=== PATIENT | male | born 1940 | race Caucasian/White ===

== ENCOUNTER 2021-11-11 19:32 | Emergency (ER) | payer MEDICARE, BC, SELFPAY ==
[2021-11-11 19:41] VITALS: BP 154/88; PULSE 63; RESP 18; TEMP 37.1; O2SAT 95; BMI 31.4
--- NOTE | 2021-11-11 19:53 | CRLHL7_ITS ---
For Patients: As a result of the Century Cures Act, medical imaging exams and procedure reports are released immediately into your electronic medical record. You may view this report before your referring provider. If you have questions, please contact your health care provider. INDICATION: Fall, hit back of head. COMPARISON: None. TECHNIQUE: CT of the head without IV contrast. Coronal and sagittal reconstructions. FINDINGS: No intracranial hemorrhage, mass effect, or evidence of acute infarct. No midline shift. No abnormal extra-axial fluid collections. Mild generalized cerebral and cerebellar volume loss with associated ex vacuo dilation of the lateral ventricles. Mild chronic small vessel ischemic disease. Orbits and extraocular muscles are symmetric. The paranasal sinuses and mastoid air cells are clear. No acute fracture identified. Soft tissues are unremarkable. IMPRESSION: : 1. No acute intracranial findings. 2. Mild generalized cerebral volume loss and mild chronic small vessel ischemic disease. Please note that all CT scans at this facility use dose modulation, iterative reconstruction, and/or weight-based dosing when appropriate to reduce radiation dose to as low as reasonably achievable. Dictated by Francesca Smith MD @ 11/11/2021 8:35:28 PM (Electronically Signed)
--- NOTE | 2021-11-11 19:53 | ED.NURSE ---
call to imaging for head ct
--- NOTE | 2021-11-11 19:57 | CRLHL7_ITS ---
For Patients: As a result of the Cures Act, medical imaging exams and procedure reports are released immediately into your electronic medical record. You may view this report before your referring provider. If you have questions, please contact your health care provider. Indication: Fall, hit back of head. Technique: CT of the cervical spine without IV contrast. Coronal and sagittal reconstructions. Comparison: None. Findings: No acute fracture or traumatic malalignment of the cervical spine. Vertebral body heights are well maintained. Minimal anterolisthesis of C2 on C3 and C7 on T1. Anterior instrumented fusion of C6-C7. Hardware appears intact. Spondylotic changes of the cervical spine including endplate spurring, facet arthropathy, and moderate disc space narrowing at C5-C6. Multilevel varying degrees of neural foraminal narrowing. Mild spinal canal stenosis at C5-C6. Visualized intracranial contents are unremarkable. No prevertebral soft tissue swelling. The mastoid air cells are clear. Impression: 1. No acute fracture or traumatic malalignment of the cervical spine. 2. Intact anterior instrumented fusion of C6-C7. 3. Spondylotic changes of the cervical spine as described above. Please note that all CT scans at this facility use dose modulation, iterative reconstruction, and/or weight-based dosing when appropriate to reduce radiation dose to as low as reasonably achievable. Dictated by Francesca Smith MD @ 11/11/2021 8:45:08 PM (Electronically Signed)
[2021-11-11] MEDS: ACETAMINOPHEN 500 MG TABLET 1000 MG PO (20:19)
--- NOTE | 2021-11-11 20:34 | ED_ITS ---
HPI - General Adult General Chief complaint: Head Injury/Pain Stated complaint: Fell backwards bleeding from scalp Time Seen by Provider: 11/11/21 19:53 History of Present Illness HPI narrative: 81-year-old male coming in today after head injury. He states that he was putting his dog in the car he was bending over when he lost his balance and fell backwards 1st on his buttocks and then slamming his head on the ground. He states that he has bit of a headache. He denies any confusion or blurry vision. He has not vomited. This occurred approximately 1 hour ago. He states that he has a chronic disease that causes muscle weakness-unclear of what this is. He states that losing his balance is not uncommon for him. States that he is getting some treatment for this. His past medical history is also significant for diabetes, hypertension, prostate cancer, hyperlipidemia, obstructive sleep apnea, obesity, mild cognitive impairment, GERD. Patient is not on any blood thinners. Related Data Home Medications Medication Instructions Recorded Confirmed alfuzosin 10 mg tablet,extended mg PO 11/11/21 release 24 hr atenolol 25 mg tablet mg 11/11/21 mirabegron 50 mg tablet,extended mg PO 11/11/21 release 24 hr (Myrbetriq) Allergies Allergy/AdvReac Type Severity Reaction Status Date / Time Sulfa (Sulfonamide Allergy Verified 11/11/21 19:46 Antibiotics) lisinopril AdvReac Verified 11/11/21 19:46 jenuvia AdvReac arms itch Uncoded 11/11/21 19:46 Review of Systems Status of ROS: Reports: 10 or more systems reviewed and unremarkable except as noted in History and below [facility] LICENSE OF [facility] Social History Smoking Status: Former smoker How often do you have a drink containing alcohol: never AUDIT-C Alcohol total score: 0 Non-prescribed substance use: denies use Exam Narrative: Exam Narrative: Well-nourished well-developed patient in no acute distress. Alert and oriented. Answers questions appropriately. Mood and affect are appropriate. Thoughts are goal oriented and rational. No tangential or magical thinking noted. Patient speaks in full sentences without needing to catch their breath. HEENT: Normocephalic. Pupils are equally round reactive to light. Extraocular muscles are intact. Conjunctivae are moist without any icterus noted. Moist mucous membranes. Posterior pharynx is normal. Neck is soft without any lymphadenopathy or thyromegaly. No masses are appreciated. No trauma to the inside of the mouth. He has full range of motion at the neck with flexion, exte nsion, side way bending and rotation although he states that it is somewhat uncomfortable on both sides of the neck with any movement. He does have a a lesion to the back of the scalp where the skin has been crushed between his scalp and the cement with multiple oozing areas of blood however no sharp laceration. Cardiovascular: Heart is regular rate and rhythm S1 and S2 are present. Skin: Well perfused without any obvious rashes. Strength is 5/5 of the upper and lower extremities. Reflexes are 2+ and symmetric at the knees. Cranial nerves 3-12 are normal. There is no nystagmus either horizontally or vertically. Const: Vital Signs, click to edit/add: Vital Signs - 24 hr 11/11/21 19:41 Temperature 98.7 F Pulse Rate [Left P ulse Oximeter] 63 Respiratory Rate 18 Blood Pressure [Ri ght Upper Arm] 154/88 H Pulse Oximetry 95 Course Course Hospital Course: Upon arrival patient had a evaluation and examination and proceeded straight to head and neck CT. These were unremarkable. Vital Signs Vital signs: Initial Vital Signs Temperature 98.7 F 11/11/21 19:41 Temperature Source Temporal Artery Scan 11/11/21 19:41 Pulse Rate 63 11/11/21 19:41 Respiratory Rate 18 11/11/21 19:41 Blood Pressure 154/88 H 11/11/21 19:41 Blood Pressure Mean 110 11/11/21 19:41 Pulse Oximetry 95 11/11/21 19:41 Oxygen Delivery Method 11/11/21 19:41 Vital Signs Temperature 98.7 F 11/11/21 19:41 Pulse Rate 63 11/11/21 19:41 Respiratory Rate 18 11/11/21 19:41 Blood Pressure 154/88 H 11/11/21 19:41 Pulse Oximetry 95 11/11/21 19:41 Temperature 98.7 F 11/11/21 19:41 Pulse Rate 63 11/11/21 19:41 Respiratory Rate 18 11/11/21 19:41 Blood Pressure 154/88 H 11/11/21 19:41 Pulse Oximetry 95 11/11/21 19:41 Medical Decision Making [facility] Narrative Medical decision making narrative: 81-year-old male status post fall and closed head injury and likely a mild concussion without cognitive deficits. We discussed brain rest and reasons to return to the ER. As far as the lesion on the back of the head we discussed wound hygiene, signs and symptoms of infection and reasons for follow-up. Patient and were agreeable to everything discussed had no other questions. Imaging Data Cervical spine CT: Attestation: I have reviewed the pertinent imaging results. Radiologist's impression: Findings: No acute fracture or traumatic malalignment of the cervical spine. Vertebral body heights are well maintained. Minimal anterolisthesis of C2 on C3 and C7 on T1. Anterior instrumented fusion of C6-C7. Hardware appears intact. Spondylotic changes of the cervical spine including endplate spurring, facet arthropathy, and moderate disc space narrowing at C5-C6. Multilevel varying degrees of neural foraminal narrowing. Mild spinal canal stenosis at C5-C6. Visualized intracranial contents are unremarkable. No prevertebral soft tissue swelling. The mastoid air cells are clear. Impression: 1. No acute fracture or traumatic malalignment of the cervical spine. 2. Intact anterior instrumented fusion of C6-C7. 3. Spondylotic changes of the cervical spine as described above. CT scan - head: Attestation: I have reviewed the pertinent imaging results. Radiologist's impression: FINDINGS: No intracranial hemorrhage, mass effect, or evidence of acute infarct. No midline shift. No abnormal extra-axial fluid collections. Mild generalized cerebral and cerebellar volume loss with associated ex vacuo dilation of the lateral ventricles. Mild chronic small vessel ischemic disease. Orbits and extraocular muscles are symmetric. The paranasal sinuses and mastoid air cells are clear. No acute fracture identified. Soft tissues are unremarkable. IMPRESSION: : 1. No acute intracranial findings. 2. Mild generalized cerebral volume loss and mild chronic small vessel ischemic disease. Discharge Plan Discharge Clinical Impression: Concussion without loss of consciousness, Closed head injury Patient Disposition: Home, Self-Care Condition: Stable Additional Instructions: Okay to take Tylenol as needed/as directed for discomfort. Recommend getting plenty of rest over the next few days to let your brain recover. If you feel like you are becoming more confused, start vomiting, or have worsening pain that is not well controlled recommend you return to the emergency room. Keep the back air head clean and dry. Okay to shower like he normally would. Recommend putting some antibiotic ointment on there once or twice per day for 2- 3 days, until it forms a nice scab. If the area becomes very red or hot to touch, follow-up with your doctor right away. Prescriptions: No Action atenolol 25 mg tablet 0RF alfuzosin 10 mg tablet extended release 24 hr PO 0RF Myrbetriq 50 mg tablet extended release 24 hr PO 0RF Stand Alone Forms: [employer] Info Instructions
[2021-11-11 20:59] VITALS: BP 136/70; PULSE 78; RESP 18; TEMP 37.1
== END 2021-11-11 20:59 | disposition home or self-care (01) ==
LOC: ED 20:47
PROVIDERS: Emergency Provider Family Medicine
DX: S06.0X0A Concussion without loss of consciousness, initial encounter (principal); W19.XXXA Unspecified fall, initial encounter
CPT/HCPCS: 70450; 72125; 99284; A9270

== ENCOUNTER 2023-02-10 18:15 | Outpatient (CLI) | payer MEDICARE, BC, SELFPAY ==
--- OUTSIDE RECORDS SUMMARY | 2023-02-14 15:34 | XMS_ITS | Clinical Summary ---
Author Name Unknown Address [address] [place] [address] Phone Organization [facility] Address [address] [place] [address] Phone Care Team Providers Care Echocardiograph Technician Name Role Phone Tom Brantley MD, Ismael Roche Unavailable [phone] Ricky SPENCER, Heron Epstein Unavailable [phone] Vita SPENCER, Gail Jimenez Unavailable [phone] Blas Walsh MD Unavailable [phone] Chris SPENCER, Misael Guillaume Unavailable [phone] Paul Sheikh DO Primary Care Provide r [phone] Reason for Visit and Chief Complaint The Chief Complaint is: follow up, multiple falls Problems Includes: Problems addressed during this encounter and other active Problems All Visits Onset Date Resolved Date Provider Condition S tatus Diabetes Mellitus Type 2 11/07/2017 Blas Persaud MD Active Last Documented On 8 12:03PM ; [facility] Esophageal Reflux 11/07/2017 Blas Walsh MD Active Last Documented On 8 12:01PM ; [facility] Essential Hypertriglyceridemia 11/07/2017 Huy Walsh MD Active Last Documented On 8 12:06PM ; [facility] Essential Hypertension 11/07/2017 Blas roche MD Active Last Documented On 8 12:05PM ; [facility] Hemorrhoids Internal 11/07/2017 Blas Walsh MD Active Last Documented On 8 12:04PM ; [facility] Intestinal Disorder Diverticular 11/07/2017 Darrell Walsh MD Active Last Documented On 8 12:06PM ; [facility] Obesity 11/07/2017 Blas Walsh MD Active Last Documented On 8 12:02PM ; [facility] Osteoarthritis 11/07/2017 Blas Walsh MD Act jigar Last Documented On 8 12:06PM ; [facility] 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 Spondylosis 11/07/2017 Blas Walsh MD Active Last Documented On 8 12:04PM ; [facility] Familial (Benign Essential) Tremor 11/07/2017 Tristan Walsh MD Active Last Documented On 8 12:05PM ; [facility] 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 Plan of Treatment 81-year-old [...] would benefit from a power chair. A [id number] has been provided below. However, he is [...] Electrodiagnostic Medicine ([facility]/EMG) [facility] [address] [place] [address] This note was created using voice recognition software and is subject to errors including those of syntax which may escape proofreading. - Last Documented On 06/18/2021 12:08PM ; [facility] Education and Decision Aids were provided during visit for: Patient education about diet ramandeep needs Last Documented On 2 11:23AM ; [facility] Assessments Includes: Assessments from this encounter No Assessments Recorded Instructions Includes: Instructions from this encounter Education and Decision Aids were provided during visit for: Patient education about diet ramandeep needs Last Documented On 2 11:23AM ; [facility] Medical Equipment - Implanted Devices Includes: Current Devices No Medical Equipment Recorded Medications Includes: Medications discussed during this encounter and other current Medications Discontinued / Stopped on this date on 08/07/2020 Rosuvastatin Calcium 5 MG Oral Tablet Pro vider: Diagnosis: Last Documented On 2 11:25AM By Trini Tran ; [facility] Vitamin D3 25 MCG (1000 UT) Oral Tablet Chewable Provider: Diagnosis: Last Documented On 2 11:24AM By Trini Tran ; [facility] Current Medications (continue as prescribed) Myrbetriq 25 MG Oral Tablet Extended Release 24 Hour 0 12/20/2020 Provider: Diagnosis: Last Documented On 1 10:33AM By Rayne MckeeTERMED* ; [facility] Lisinopril 20 MG Oral Tablet 08/07/2020 Provider: Diagnosis: Last Documented On 1 11:01AM By Rayne MckeeTERMED* ; [facility] Januvia 100 MG Oral Tablet 08/07/2020 Provider: Diagnosis: 1 QD Last Documented On 1 11:17AM By Rayne Olson *TERMED* ; [facility] Atenolol 25 MG Oral Tablet 08/07/2020 Provider: Diagnosis: Last Documented On 1 11:18AM By Rayne Olson *TERMED* ; [facility] Alfuzosin HCl ER 10 MG Oral Tablet Extended Rele ase 24 Hour 08/07/2020 Provider: Diagnosis: 1 HS Last Documented On 1 11:19AM By Rayne Olson *TERMED* ; [facility] Multivitamin Oral Tablet 08/07/2020 Provider: Diagnosis: Last Documented On 1 11:20AM By Rayne MckeeTERMED* ; [facility] CoQ10 100 MG Oral Capsule 08/07/2020 Provider: Diagnosis: Last Documented On 1 11:40AM By Trini Trna ; [facility] Medications Administered Includes: Administered [...] 2.3 Last Documented On: 06/18/2021 11:27AM ; [facility] Results Includes: Results discussed [...] 06/18/2021 Last Documented On 2 12:08PM ; [facility] Use of tobacco assessment performed 05/29 Last Documented On 2 12:08PM ; [facility] Smoking Status Unknown Procedures and Surgical History Includes: Procedures from this encounter Procedures Code Diagnosis Performing Provider Service L ocation Service Date history of influenza virus vaccine Last Documented On 2 11:23AM ; [facility] [employer] history of pneumococcal vaccine Last Documented On 2 11:23AM ; [facility] [employer] [facility] Medical History Includes: Medical History [...] ve Last Documented On 2 11:21AM ; [facility] Sulfa Antibiotics Allergy 11/07/2017 A ctive Last Documented On 2 11:21AM ; [facility] Simvastatin Allergy 11/07/2017 Active Last Documented On 2 11:21AM ; [facility] Lyrica Allergy 11/07/2017 Active Last Documented On 2 11:21AM ; [facility] Byetta 10 MCG Pen Allergy 11/07/2017 A ctive Last Documented On 2 11:21AM ; [facility] Encounters Encounter Provider Location Date Check-In Time Check-Out Time Diagnosis Follow up Gail Gorman MD [facility] 2 11:10AM 11:58AM Insurance Includes: Active Insurance Policies Plan Name Member ID Group # Subscriber Relationship Effect jigar Dates 1 - Medicare : [id number] Pritesh Funez Self 2 - Bc/bs Fl(federal) :[facility] [id number] Pritesh Mckeon 04/27/2019 - Unknown Clinical Notes Includes: Clinical Notes from this encounter No Clinical Notes Recorded
--- OUTSIDE RECORDS SUMMARY | 2023-02-14 15:34 | XMS_ITS ---
Author Name Unknown Address [address] [place] [address] Phone Organization [facility] Address [address] [place] [address] Phone Care Team Providers Care Microsoft Exchange Administrator Name Role Phone Tom Brantley MD, Ismael Roche Unavailable [phone] Ricky SPENCER, Heron Epstein Unavailable [phone] Vita SPENCER, Gail Jimenez Unavailable [phone] Blas Walsh MD Unavailable [phone] Chris SPENCER, Misael Guillaume Unavailable [phone] Paul Sheikh DO Primary Care Provide r [phone] Problems Includes: Active, inactive, and resolved Problems All Visits Onset Date Resolved Date Provider Condition S tatus Diabetes Mellitus Type 2 11/07/2017 Blas Persaud MD Active Last Documented On 8 12:03PM ; [facility] Esophageal Reflux 11/07/2017 Blas Walsh MD Active Last Documented On 8 12:01PM ; [facility] Essential Hypertriglyceridemia 11/07/2017 Huy Walsh MD Active Last Documented On 8 12:06PM ; [facility] Essential Hypertension 11/07/2017 Blas roche MD Active Last Documented On 8 12:05PM ; [facility] Hemorrhoids Internal 11/07/2017 Blas Walsh MD Active Last Documented On 8 12:04PM ; [facility] Intestinal Disorder Diverticular 11/07/2017 Darrell Walsh MD Active Last Documented On 8 12:06PM ; [facility] Obesity 11/07/2017 Blas Walsh MD Active Last Documented On 8 12:02PM ; [facility] Osteoarthritis 11/07/2017 Blas Walsh MD Act jigar Last Documented On 8 12:06PM ; [facility] 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 Spondylosis 11/07/2017 Blas Walsh MD Active Last Documented On 8 12:04PM ; [facility] Familial (Benign Essential) Tremor 11/07/2017 Tristan Walsh MD Active Last Documented On 8 12:05PM ; [facility] 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 Plan of Treatment Findings Encounter Date Clinical staff counseled pat joshua to adopt healthy behaviors as appropriate Follow up with Gail Gorman MD 12/20/2020 Last Documented On 1 1:09PM ; [facility] Clinical staff counseled markos cuevant to adopt healthy behaviors as appropriate Follow up with Gail Gorman MD 08/22/2020 Last Documented On 1 5:15PM ; [facility] Instructions to patient Lose weight Patient encourag e to limit portion sizes and to tract and restrict their total daily caloric intake Last Documented On 1 10:37AM ; [facility] Lose weight Patient encourag e to limit portion sizes and to tract and restrict their total daily caloric intake Last Documented On 1 8:41AM ; [facility] Lose weight Patient encourag e to limit portion sizes and to tract and restrict their total daily caloric intake Last Documented On 1 11:05AM ; [facility] Education and Decision Aids were provided during visit for: Patient education about diet ramandeep needs Last Documented On 2 11:23AM ; [facility] Clinical staff counseled pat ient to adopt healthy behaviors as appropriate Last Documented On 1 10:35AM ; [facility] Clinical staff counseled pat ient to adopt healthy behaviors as appropriate Last Documented On 1 8:46AM ; [facility] Assessments Includes: Assessments for all patient encounters No Assessments Recorded Instructions Includes: Instructions for all patient encounters Instructions to patient Lose weight Patient encourag e to limit portion sizes and to tract and restrict their total daily caloric intake Last Documented On 1 10:37AM ; [facility] Lose weight Patient encourag e to limit portion sizes and to tract and restrict their total daily caloric intake Last Documented On 1 8:41AM ; [facility] Lose weight Patient encourag e to limit portion sizes and to tract and restrict their total daily caloric intake Last Documented On 1 11:05AM ; [facility] Education and Decision Aids were provided during visit for: Patient education about diet ramandeep needs Last Documented On 2 11:23AM ; [facility] Clinical staff counseled pat ient to adopt healthy behaviors as appropriate Last Documented On 1 10:35AM ; [facility] Clinical staff counseled pat ient to adopt healthy behaviors as appropriate Last Documented On 1 8:46AM ; [facility] Medical Equipment - Implanted Devices Includes: Current and historical Devices No Medical Equipment Recorded Medications Includes: Current and historical Medications Current Medications (continue as prescribed) Myrbetriq 25 MG Oral Tablet Extended Release 24 Hour 0 12/20/2020 Provider: Diagnosis: Last Documented On 1 10:33AM By Rayne Olson *TERMED* ; [facility] Lisinopril 20 MG Oral Tablet 08/07/2020 Provider: Diagnosis: Last Documented On 1 11:01AM By Rayne Olson *TERMED* ; [facility] Januvia 100 MG Oral Tablet 08/07/2020 Provider: Diagnosis: 1 QD Last Documented On 1 11:17AM By Rayne Olson *TERMED* ; [facility] Atenolol 25 MG Oral Tablet 08/07/2020 Provider: Diagnosis: Last Documented On 1 11:18AM By Rayne MckeeTERMED* ; [facility] Alfuzosin HCl ER 10 MG Oral Tablet Extended Rele ase 24 Hour 08/07/2020 Provider: Diagnosis: 1 HS Last Documented On 1 11:19AM By Rayne RYAN* ; [facility] Multivitamin Oral Tablet 08/07/2020 Provider: Diagnosis: Last Documented On 1 11:20AM By Rayne RYAN* ; [facility] CoQ10 100 MG Oral Capsule 08/07/2020 Provider: Diagnosis: Last Documented On 1 11:40AM By Trini Tran ; [facility] Past Medications on file Rosuvastatin Calcium 5 MG Oral Tablet 08/07/2020 - Provider: Diagnosis: Last Documented On 2 11:25AM By Trini Tran ; [facility] CVS Vitamin D3 25 MCG (1000 UT) Oral Tablet Chewable 08/07/2020 - 06/18/2021 Provider: Diagnosis: Last Documented On 2 11:24AM By Trini Tran ; [facility] EQL Fish Oil 1000 MG Oral Capsule 08/07/2020 - 021 Provider: Diagnosis: Last Documented On 1 10:32AM By Rayne RYAN* ; [facility] Medications Administered Includes: Administered Medications in patient's chart No Administered Medications Recorded Vital Signs Includes: Vital Signs through 02/14/2023 Vital Name 06/18/2021 11:23A 12/20/2020 10:26A 08/22/2020 [...] 95.1 Last Documented On: 06/18/2021 11:27AM ; [facility] 12/20/2020 10:35AM ; [facility] 08/22/2020 8:48AM ; [facility] Results Includes: Results through 02/14/2023 CREATININE iSTAT [facility] Ordered by Gail Gorman MD on 09/14/19 Collected: 09/13/2020 Reported: 09/14/19 16:56 Last Documented On 8:26AM ; [facility] Reviewed by Gail Ospina on 09/14/2020; All test results are final unless otherwise noted. CREATININE iSTAT 0.7 mg/dL (0.6-1.3) N (Normal) Last Documented On 8:03PM ; [facility] Note: Specimen Number: [id number] Reported Physicians [facility] Ordered by Gail Gorman MD on 09/14/19 Collected: 09/13/2020 Reported: 09/14/19 16:56 Last Documented On 8:26AM ; [facility] Reviewed by Gail Ospina on 09/14/2020; All test results are final unless otherwise noted. Reported Physicians See Note None Last Documented On 09/13/2020 8:03PM ; [facility] Note: Reported Physicians:Ordering: Lauren Gormanending: Gail Gorman SJOGREN'S AB (SSA/SSB) [facility] Ordered by Gail Gorman MD on 08/10/19 Collected: 08/09/2020 Reported: 08/12/19 12:33 Last Documented On 11:01AM ; [facility] Reviewed by Gail Ospina on 08/14/2020; All test results are final unless otherwise noted. SS-A/Ro AB <0.2 N (Normal) Last Documented On 08/11/2020 4:00PM ; [facility] Note: Reference range: <1.0 (Negative)Unit: U SS-B/La AB <0.2 N (Normal) Last Documented On 08/11/2020 4:00PM ; [facility] Note: Reference range: <1.0 (Negative)Unit: U Test Performed by:[facility] [place] [id number] Director: Mat Pearl M.D. Ph.D.; IA# [id number] Number: [id number] Reported Physicians [facility] Ordered by Gail Gorman MD on 08/10/19 Collected: 08/09/2020 Reported: 08/12/19 12:33 Last Documented On 1 11:01AM ; [facility] Reviewed by Gail Ospina on 08/14/2020; All test results are final unless otherwise noted. Reported Physicians See Note None Last Documented On 08/11/2020 4:00PM ; [facility] Note: Reported Physicians:Ordering: Lauren Gormanending: Gail Gorman KAPPA/LAMBDA QNT FLC [facility] Ordered by Gail Gorman MD on 08/10/19 Collected: 08/09/2020 Reported: 08/14/19 07:27 Last Documented On 1 11:01AM ; [facility] Reviewed by Gail Ospina on 08/14/2020; All test results are final unless otherwise noted. KAPPA LIGHT CHN,FR,S 17.9 N (Normal) Last Documented On 1 10:31AM ; [facility] Note: Reference range: 3.3 to 19.4Unit: mg/L KAPPA/LAMBDA,FR RAT 1.21 N (Normal) Last Documented On 1 10:31AM ; [facility] Note: Reference range: 0.26 [...] response totherapy of these disorders.Test Performed by [facility],[address] [place] [id number] Kumar M.D., Ph.D., Director of [phone], [facility] [id number] Number: [id number] LAMBDA LIGHT CH,FR,S 14.8 N (Normal) Last Documented On 1 10:31AM ; [facility] Note: Reference range: 5.7 to 26.3Unit: mg/L Reported Physicians [facility] Ordered by Gail Gorman MD on 08/10/19 Collected: 08/09/2020 Reported: 08/14/19 07:27 Last Documented On 1 11:01AM ; [facility] Reviewed by Gail Ospina on 08/14/2020; All test results are final unless otherwise noted. Reported Physicians See Note None Last Documented On 08/13/2020 10:31AM ; [facility] Note: Reported Physicians:Ordering: Lauren Gormanending: Gail Gorman IMMUNOFIXATN PROF,SERUM [facility] Ordered by Gail Gorman MD on 08/10/19 Collected: 08/09/2020 Reported: 08/15/19 21 15:48 Last Documented On 1 9:55AM ; [facility] Reviewed by Gail Ospina on 08/17/2020; All test results are final unless otherwise noted. TP, SERUM 6.6 g/dL (6.4-8.3) N (Normal) Last Documented On 1 7:33PM ; [facility] ALBUMIN 4.0 g/dL (3.0-5.2) N (Normal) Last Documented On 1 7:33PM ; [facility] A1 GLOBULIN 0.2 g/dL (0.1-0.4) N (Normal) Last Documented On 7:33PM ; [facility] A2 GLOBULIN 0.8 g/dL (0.4-1.0) N (Normal) Last Documented On 1 7:33PM ; [facility] BETA GLOBULIN 0.7 g/dL (0.7-1.6) N (Normal) Last Documented On 7:33PM ; [facility] GAMMA GLOBULIN 0.9 g/dL (0.7-2.0) N (Normal) Last Documented On 7:33PM ; [facility] A/G RATIO 1.5 Units (1.2-2.2) N (Normal) Last Documented On 7:33PM ; [facility] IGA 64 mg/dL (70-400) L (Low) Last Documented On 7:33PM ; [facility] IGG 767 mg/dL (700-1600) N (Normal) Last Documented On 7:33PM ; [facility] IGM 47 mg/dL (40-230) N (Normal) Last Documented On 7:33PM ; [facility] PATH INTERP SPE Interpretation: No abnormal protein seen. N (Normal) Last Documented On 08/14/2020 7:33PM ; [facility] Note: SIFE Interpretation: No abnormal protein is seen. Specimen Number: [id number] Reported Physicians [facility] Ordered by Gail Gorman MD on 08/10/19 Collected: 08/09/2020 Reported: 08/15/19 15:48 Last Documented On 9:55AM ; [facility] Reviewed by Gail Ospina on 08/17/2020; All test results are final unless otherwise noted. Reported Physicians See Note None Last Documented On 08/14/2020 7:33PM ; [facility] Note: Reported Physicians:Ordering: Lauren Gormanending: Gail Gorman METHYLMALONIC ACID [facility] Ordered by Gail Gorman MD on 08/10/19 Collected: 08/09/2020 Reported: 08/20/19 05:23 Last Documented On 1 10:47AM ; [facility] Reviewed by Gail Ospina on 08/20/2020; All test results are final unless otherwise noted. METHYLMALONIC ACID 179 N (Normal) Last Documented On 08/19/2020 8:37AM ; [facility] Note: Reference range: 87 to 318Unit: nmol/L This test was developed and its analytical performancecharacteristics have been determined by [employer] [place], [place]. It hasnot been cleared or approved by the U.S. Food and DrugAdministration. This assay has been validated pursuantto the CLIA regulations and is used for clinicalpurposes.Test Performed by [facility],[employer] [facility],[address] [place] [id number] Kumar M.D., Ph.D., Director of [phone], CLIA [id number] Number: [id number] Reported Physicians [facility] Ordered by Gail Gorman MD on 08/10/19 Collected: 08/09/2020 Reported: 08/20/19 05:23 Last Documented On 1 10:47AM ; [facility] Reviewed by Gail Ospina on 08/20/2020; All test results are final unless otherwise noted. Reported Physicians See Note None Last Documented On 08/19/2020 8:37AM ; [facility] Note: Reported Physicians:Ordering: Lauren Gormanending: Gail Gorman HEMOGLOBIN A1C [facility] Ordered by Gail Gorman MD on 08/10/19 Collected: 08/09/2020 Reported: 08/10/19 17:29 Last Documented On 1 11:01AM ; [facility] Reviewed by Gail Ospina on 08/14/2020; All test results are final unless otherwise noted. HEMOGLOBIN A1C 7.1 % (4.0-6.0) H (High) Last Documented On 10:45PM ; [facility] Note: Specimen Number: [id number] VITAMIN B12 [facility] Ordered by Gail Gorman MD on 08/10/19 Collected: 08/09/2020 Reported: 08/10/19 17:54 Last Documented On 11:01AM ; [facility] Reviewed by Gail Ospina on 08/14/2020; All test results are final unless otherwise noted. VITAMIN B12 502 pg/mL (193-986) N (Normal) Last Documented On 10:45PM ; [facility] Note: Specimen Number: [id number] HEP C AB [facility] Ordered by Gail Gorman MD on 08/10/19 Collected: 08/09/2020 Reported: 08/10/19 18:18 Last Documented On 11:01AM ; [facility] Reviewed by Gail Ospina on 08/14/2020; All test results are final unless otherwise noted. HEP C AB NONREACTIVE (NONREACTIVE) N (Normal) Last Documented On 10:45PM ; [facility] Note: Specimen Number: [id number] Reported Physicians [facility] Ordered by Gail Gorman MD on 08/10/19 Collected: 08/09/2020 Reported: 08/10/19 18:18 Last Documented On 1 11:01AM ; [facility] Reviewed by Gail Ospina on 08/14/2020; All test results are final unless otherwise noted. Reported Physicians See Note None Last Documented On 08/09/2020 10:45PM ; [facility] Note: Reported Physicians:Ordering: Lauren Gormanending: Gail Gorman History of Present Illness History of Present Illness not supported for this document type No History of Present Illness Recorded Social History Description Last Updated Former smoker 06/18/2021 Last Documented On 2 12:08PM ; [facility] Use of tobacco assessment performed 05/29 Last Documented On 2 12:08PM ; [facility] Patient has living will 12/20/2020 Last Documented On 1 1:09PM ; [facility] Patient has not seen another provider si nce last visit 12/20/2020 Last Documented On 1 1:09PM ; [facility] States no significant change in lifestyl e since last visit 12/20/2020 Last Documented On 1 1:09PM ; [facility] A social drinker 08/22/2020 Last Documented On 1 5:15PM ; [facility] No tobacco use Former 08/22/2020 Last Documented On 1 5:15PM ; [facility] Not using drugs 08/22/2020 Last Documented On 1 5:15PM ; [facility] Smoking Status Unknown Procedures and Surgical History Includes: Procedures through 02/14/2023 Procedures Code Diagnosis Performing Provider Service Location Service Date Collection blood by venipuncture % 10645 Type 2 diabetes mellitus without complications [facility] at [facility] 06/02/2022 Last Documented On 3 11:52AM ; [facility] Collection blood by venipuncture % 16557 Type 2 diabetes mellitus without complications [facility] 02/20/2022 Last Documented On 2 3:04PM ; [facility] Electrocardiogram report (Repeat procedure by same physician) [id number] Abnormal electrocardiogram [ECG] [EKG] Jefe Ricketts MD [facility] 07/24/2021 Last Documented On 2 2:22PM ; [facility] Electrocardiogram report [id number] Abnormal electrocardiogram [ECG] [EKG] Jefe Ricketts MD [facility] 07/24/2021 Last Documented On 2 7:27AM ; [facility] Collection blood by venipuncture % 63496 Malignant neoplasm of prostate [facility] 07/11/2021 Last Documented On 2 10:35AM ; [facility] Collection blood by venipuncture % 76083 Other pruritus [facility] Primary Car e at [facility] 07/03/2021 Last Documented On 2 11:30AM ; [facility] Remove impacted cer[place] [address] Impacted cerumen, unspecified ear Taras Durand MD [facility] at [facility] 02/05/2021 Last Documented On 1 9:21AM ; [facility] Musc tst done w/n tst nonext (Distinct Proc Serv.) 99189 Paresthesia of skin Gail Gorman MD [facility] Neurology at [facility] 08/15/2020 Last Documented On 1 7:59AM ; [facility] Musc tst done w/n tst nonext 18229 Radiculopathy, cervicothoracic region Gail Gorman MD [facility]rology at [facility] 08/15/2020 Last Documented On 1 12:06PM ; [facility] Musc test done w/n test comp (Left Side) 80224 Type 2 diabetes mellitus with diabetic polyneuropathy, Radiculopathy, cervicothoracic region, Radiculopathy, lumbosacral region, Paresthesia of skin Rejo P Vita SPENCER [facility]rology at [facility] 08/15/2020 Last Documented On 1 12:06PM ; [facility] Musc test done w/n test comp (Right Side) 77728 Type 2 diabetes mellitus with diabetic polyneuropathy, Radiculopathy, cervicothoracic region, Radiculopathy, lumbosacral region, Paresthesia of skin Gissello P Vita SPENCER [facility]rology at [facility] 08/15/2020 Last Documented On 1 12:06PM ; [facility] Nrv cndj test 13/> studies 53579 Type 2 diabetes mellitus with diabetic polyneuropathy, Radiculopathy, cervicothoracic region, Radiculopathy, lumbosacral region, Paresthesia of skin Rejo P Vita SPENCER [facility] Neurology at [facility] 08/15/2020 Last Documented On 1 12:06PM ; [facility] Collection blood by venipuncture % 67940 Malignant neoplasm of prostate [facility] Care at [facility] 05/28/2020 Last Documented On 1 3:46PM ; [facility] Surgical History Last Updated History of back surgery Spine & Neck rayray wale 10 yrs ago 08/22/2020 Last Documented On 1 5:15PM ; [facility] Prior surgery Appendix removed young ad ult ~Hernia 5 yrs ago 08/22/2020 Last Documented On 1 5:15PM ; [facility] Medical History Includes: Medical History in patient's chart Description Last Updated Denies significant change in medical sta tus since last visit 12/20/2020 Last Documented On 1 1:09PM ; [facility] Yes patient feels confident managing chr onic conditions 12/20/2020 Last Documented On 1 1:09PM ; [facility] A history of cancer Prostate 08/22/2020 Last Documented On 1 5:15PM ; [facility] History of benign essential hypertension Hypertension 08/22/2020 Last Documented On 1 5:15PM ; [facility] History of diabetes mellitus 08/22/2020 Last Documented On 1 5:15PM ; [facility] History of hyperlipidemia 08/22/2020 Last Documented On 1 5:15PM ; [facility] Family History Includes: Family History in patient's chart Description Last Updated States no significant change in family m edical history since last visit 12/20/2020 Last Documented On 1 1:09PM ; [facility] Review of Systems Review [...] ve Last Documented On 2 11:21AM ; [facility] Sulfa Antibiotics Allergy 11/07/2017 A ctive Last Documented On 2 11:21AM ; [facility] Simvastatin Allergy 11/07/2017 Active Last Documented On 2 11:21AM ; [facility] Lyrica Allergy 11/07/2017 Active Last Documented On 2 11:21AM ; [facility] Byetta 10 MCG Pen Allergy 11/07/2017 A ctive Last Documented On 2 11:21AM ; [facility] Encounters Includes: Encounters through 02/14/2023 Encounter Provider Location Date Check-In Time Check-Out Time Diagnosis [Patient Encounter] Gail Gorman MD 2 06/18/2021 1:38PM 06/18/2021 11:59PM Follow up Gail Gorman MD [facility] Neurology at [facility] 2 11:10AM 11:58AM Follow up Gail Gorman MD [facility] Neurology at [facility] 1 10:19AM 11:23AM [Patient Encounter] Gail Gorman MD 1 08/22/2020 9:16AM 08/22/2020 11:59PM [Patient Encounter] Gail Gorman MD 1 08/22/2020 1:05PM 08/22/2020 11:59PM Follow up Gail Gorman MD [facility]rology at [facility] 1 8:41AM 9:31AM [Patient Encounter] Gail Gorman MD 1 3:17PM 11:59PM EMG Gail Gorman MD [facility] Neurology at [facility] 1 1:29PM 3:20PM New Patient Gail Gorman MD [facility] Neurology at [facility] 1 9:43AM 11:50AM Preload Process Blas Walsh MD 8 11:59AM 11:59PM Insurance Includes: Active Insurance Policies Plan Name Member ID Group # Subscriber Relationship Effect jigar Dates 1 - Medicare : [id number] Pritesh Funez Self 2 - Bc/bs Fl(federal) :[facility] [id number] Pritesh Mckeon 04/27/2019 - Unknown Clinical Notes Includes: Signed Clinical Notes starting from 05/16/2022 No Clinical Notes Recorded
--- OUTSIDE RECORDS SUMMARY | 2023-02-14 15:34 | XMS_ITS | Clinical Summary ---
Author Name Unknown Address [address] [place] [address] Phone Organization [facility] Address [address] [place] [address] Phone Care Team Providers Care Interlocking Tower Operator Name Role Phone Tom Brantley MD, Ismael Roche Unavailable [phone] Ricky SPENCER, Heron Epstein Unavailable [phone] Vita SPENCER, Gail Jimenez Unavailable [phone] Blas Walsh MD Unavailable [phone] Chris SPENCER, Misael Guillaume Unavailable [phone] Paul Sheikh DO Primary Care Provide r [phone] Reason for Visit and Chief Complaint The [...] Active Last Documented On 8 12:03PM ; [facility] Esophageal Reflux 11/07/2017 Blas Walsh MD Active Last Documented On 8 12:01PM ; [facility] Essential Hypertriglyceridemia 11/07/2017 Huy Walsh MD Active Last Documented On 8 12:06PM ; [facility] Essential Hypertension 11/07/2017 Blas roche MD Active Last Documented On 8 12:05PM ; [facility] Hemorrhoids Internal 11/07/2017 Blas Walsh MD Active Last Documented On 8 12:04PM ; [facility] Intestinal Disorder Diverticular 11/07/2017 Darrell Walsh MD Active Last Documented On 8 12:06PM ; [facility] Obesity 11/07/2017 Blas Walsh MD Active Last Documented On 8 12:02PM ; [facility] Osteoarthritis 11/07/2017 Blas Walsh MD Act jigar Last Documented On 8 12:06PM ; [facility] 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 Spondylosis 11/07/2017 Blas Walsh MD Active Last Documented On 8 12:04PM ; [facility] Familial (Benign Essential) Tremor 11/07/2017 Tristan Walsh MD Active Last Documented On 8 12:05PM ; [facility] 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 1. Pathology report from the [facility] reviewed. The fine-needle aspiration of a neck [...] Electrodiagnostic Medicine (NCS/EMG) [facility] [address] [facility], [address] [place] [address] This note was created using voice recognition software and is subject to errors including those of syntax which may escape proofreading. - Last Documented On 12/20/2020 1:09PM ; [facility] Clinical staff counseled patient to adopt healthy behaviors as appropriate. - Last Documented On 12/20/2020 1:09PM ; [facility] Pending Tests Order Diagnosis Results Due Ordering Provider Referrals - [facility] Radiculopathy, cervicothoracic region 02/18/21 Gail Gorman MD Last Documented On 1:09PM ; [facility] Instructions to patient Lose weight Patient encourag e to limit portion sizes and to tract and restrict their total daily caloric intake Last Documented On 10:37AM ; [facility] Education and Decision Aids were provided during visit for: Clinical staff counseled markos lewis to adopt healthy behaviors as appropriate Last Documented On 10:35AM ; [facility] Assessments Includes: Assessments from this encounter No Assessments Recorded Instructions Includes: Instructions from this encounter Instructions to patient Lose weight Patient encourag e to limit portion sizes and to tract and restrict their total daily caloric intake Last Documented On 10:37AM ; [facility] Education and Decision Aids were provided during visit for: Clinical staff counseled markos lewis to adopt healthy behaviors as appropriate Last Documented On 10:35AM ; [facility] Medical Equipment - Implanted Devices Includes: Current Devices No Medical Equipment Recorded Medications Includes: Medications discussed during this encounter and other current Medications Discontinued / Stopped on this date on 08/07/2020 EQL Fish Oil 1000 MG Oral Capsule Provide r: Diagnosis: Last Documented On 1 10:32AM By Rayne Olson *TERMED* ; [facility] Current Medications (continue as prescribed) Myrbetriq 25 MG Oral Tablet Extended Release 24 Hour 0 12/20/2020 Provider: Diagnosis: Last Documented On 1 10:33AM By Rayne Olson *TERMED* ; [facility] Lisinopril 20 MG Oral Tablet 08/07/2020 Provider: Diagnosis: Last Documented On 1 11:01AM By Rayne Olson *TERMED* ; [facility] Januvia 100 MG Oral Tablet 08/07/2020 Provider: Diagnosis: 1 QD Last Documented On 1 11:17AM By Rayne Olson *TERMED* ; [facility] Atenolol 25 MG Oral Tablet 08/07/2020 Provider: Diagnosis: Last Documented On 1 11:18AM By Rayne Olson *TERMED* ; [facility] Alfuzosin HCl ER 10 MG Oral Tablet Extended Rele ase 24 Hour 08/07/2020 Provider: Diagnosis: 1 HS Last Documented On 1 11:19AM By Rayne Olson *TERMED* ; [facility] Multivitamin Oral Tablet 08/07/2020 Provider: Diagnosis: Last Documented On 1 11:20AM By Rayne Olson *TERMED* ; [facility] CoQ10 100 MG Oral Capsule 08/07/2020 Provider: Diagnosis: Last Documented On 1 11:40AM By Trini Tran ; [facility] Medications Administered [...] 2.3 Last Documented On: 12/20/2020 10:35AM ; [facility] Results Includes: Results discussed during this encounter HEMOGLOBIN A1C [facility] Ordered by Gail Gorman MD on 08/10/19 21 Collected: 08/09/2020 Reported: 08/10/19 21 17:29 Last Documented On 1 11:01AM ; [facility] Reviewed by Gail Ospina on 08/14/2020; All test results are final unless otherwise noted. HEMOGLOBIN A1C 7.1 % (4.0-6.0) H (High) Last Documented On 1 10:45PM ; [facility] Note: Specimen Number: [id number] History of Present Illness Includes: History of Present Illness from this encounter ROGER Funez is a 80 year old male. - Allergy list reviewed - Medication reconciliation performed Follow up The patient presents for follow-up. Since last visit, he did go to the [facility]. He had a biopsy done which showed [...] 12/20/2020 Last Documented On 1 1:09PM ; [facility] Patient has living will 12/20/2020 Last Documented On 1 1:09PM ; [facility] Patient has not seen another provider si nce last visit 12/20/2020 Last Documented On 1 1:09PM ; [facility] States no significant change in lifestyl e since last visit 12/20/2020 Last Documented On 1 1:09PM ; [facility] Use of tobacco assessment performed 11/26 Last Documented On 1 1:09PM ; [facility] Smoking Status Unknown Procedures and Surgical History Includes: Procedures from this encounter Procedures Code Diagnosis Performing Provider Service L ocation Service Date history of Tdap vaccine 08406 Last Documented On 1 10:37AM ; [facility] history of pneumococcal vaccine Last Documented On 1 10:37AM ; [facility] Pt received screening for fall risk G8270 Last Documented On 1 10:35AM ; [facility] history of influenza virus vaccine Last Documented On 1 10:37AM ; [facility] Clinical summary provided to patient Last Documented On 1 10:35AM ; [facility] Medical History Includes: Medical History addressed during this encounter Description Last Updated Denies significant change in medical sta tus since last visit 12/20/2020 Last Documented On 1 1:09PM ; [facility] Yes patient feels confident managing chr onic conditions 12/20/2020 Last Documented On 1 1:09PM ; [facility] Family History Includes: Family History addressed during this encounter Description Last Updated States no significant change in family m edical history since last visit 12/20/2020 Last Documented On 1 1:09PM ; [facility] Review of [...] ve Last Documented On 2 11:21AM ; [facility] Sulfa Antibiotics Allergy 11/07/2017 A ctive Last Documented On 2 11:21AM ; [facility] Simvastatin Allergy 11/07/2017 Active Last Documented On 2 11:21AM ; [facility] Lyrica Allergy 11/07/2017 Active Last Documented On 2 11:21AM ; [facility] Byetta 10 MCG Pen Allergy 11/07/2017 A ctive Last Documented On 2 11:21AM ; [facility] Encounters Encounter Provider Location Date Check-In Time Check-Out Time Diagnosis Follow up Gail Gorman MD [facility] 1 10:19AM 11:23AM Insurance Includes: Active Insurance Policies Plan Name Member ID Group # Subscriber Relationship Effect jigar Dates 1 - Medicare : [id number] Pritesh Funez Self 2 - Bc/bs Fl(federal) :[facility] [id number] Pritesh Mckeon 04/27/2019 - Unknown Clinical Notes Includes: Clinical Notes from this encounter No Clinical Notes Recorded
--- OUTSIDE RECORDS SUMMARY | 2023-02-14 15:34 | XMS_ITS | Clinical Summary ---
Author Name Unknown Address [address] [place] [address] Phone Organization [facility] Address [address] [place] [address] Phone Care Team Providers Care Bit Sharpener Name Role Phone Tom Brantley MD, Ismael Roche Unavailable [phone] Ricky SPENCER, Heron Epstein Unavailable [phone] Vita SPENCER, Gail Jimenez Unavailable [phone] Blas Walsh MD Unavailable [phone] Chris SPENCER, Misael Guillaume Unavailable [phone] Paul Sheikh DO Primary Care Provide r [phone] Reason for Visit and Chief Complaint [Patient Encounter] Problems Includes: Problems addressed during this encounter and other active Problems All Visits Onset Date Resolved Date Provider Condition S tatus Diabetes Mellitus Type 2 11/07/2017 Blas Persaud MD Active Last Documented On 8 12:03PM ; [facility] Esophageal Reflux 11/07/2017 Blas Walsh MD Active Last Documented On 8 12:01PM ; [facility] Essential Hypertriglyceridemia 11/07/2017 Huy Walsh MD Active Last Documented On 8 12:06PM ; [facility] Essential Hypertension 11/07/2017 Blas roche MD Active Last Documented On 8 12:05PM ; [facility] Hemorrhoids Internal 11/07/2017 Blas Walsh MD Active Last Documented On 8 12:04PM ; [facility] Intestinal Disorder Diverticular 11/07/2017 Darrell Walsh MD Active Last Documented On 8 12:06PM ; [facility] Obesity 11/07/2017 Blas Walsh MD Active Last Documented On 8 12:02PM ; [facility] Osteoarthritis 11/07/2017 Blas Walsh MD Act jigar Last Documented On 8 12:06PM ; [facility] 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 Spondylosis 11/07/2017 Blas Walsh MD Active Last Documented On 8 12:04PM ; [facility] Familial (Benign Essential) Tremor 11/07/2017 Tristan Walsh MD Active Last Documented On 8 12:05PM ; [facility] 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 Plan of Treatment Pending Tests Order Diagnosis Results Due Ordering Tony MAX OTHER Type 2 diabetes mellitus with diabetic polyneuropathy 06/20/21 Gail Gorman MD Last Documented On 2 11:41AM ; [facility] Therapy - Occupational Therapy * Occupational Therapy Type 2 diabetes mellitus with diabetic polyneuropathy 06/20/21 Gail Gorman MD Last Documented On 2 11:41AM ; [facility] Assessments Includes: Assessments from this encounter No Assessments Recorded Medical Equipment - Implanted Devices Includes: Current Devices No Medical Equipment Recorded Medications Includes: Medications discussed during this encounter and other current Medications Current Medications (continue as prescribed) Myrbetriq 25 MG Oral Tablet Extended Release 24 Hour 0 12/20/2020 Provider: Diagnosis: Last Documented On 1 10:33AM By Rayne Olson *TERMED* ; [facility] Lisinopril 20 MG Oral Tablet 08/07/2020 Provider: Diagnosis: Last Documented On 1 11:01AM By Rayne Olson *TERMED* ; [facility] Januvia 100 MG Oral Tablet 08/07/2020 Provider: Diagnosis: 1 QD Last Documented On 1 11:17AM By Rayne Olson *TERMED* ; [facility] Atenolol 25 MG Oral Tablet 08/07/2020 Provider: Diagnosis: Last Documented On 1 11:18AM By Rayne Olson *TERMED* ; [facility] Alfuzosin HCl ER 10 MG Oral Tablet Extended Rele ase 24 Hour 08/07/2020 Provider: Diagnosis: 1 HS Last Documented On 1 11:19AM By Rayne Olson *TERMED* ; [facility] Multivitamin Oral Tablet 08/07/2020 Provider: Diagnosis: Last Documented On 1 11:20AM By Rayne Olson *TERMED* ; [facility] CoQ10 100 MG Oral Capsule 08/07/2020 Provider: Diagnosis: Last Documented On 1 11:40AM By Trini Tran ; [facility] Medications Administered Includes: Administered [...] ve Last Documented On 2 11:21AM ; [facility] Sulfa Antibiotics Allergy 11/07/2017 A ctive Last Documented On 2 11:21AM ; [facility] Simvastatin Allergy 11/07/2017 Active Last Documented On 2 11:21AM ; [facility] Lyrica Allergy 11/07/2017 Active Last Documented On 2 11:21AM ; [facility] Byetta 10 MCG Pen Allergy 11/07/2017 A ctive Last Documented On 2 11:21AM ; [facility] Encounters Encounter Provider Location Date Check-In Time Check-Out Time Diagnosis [Patient Encounter] Gail Gorman MD 06/20/2021 1:38PM 11:59PM Insurance Includes: Active Insurance Policies Plan Name Member ID Group # Subscriber Relationship Effect jigar Dates 1 - Medicare : [id number] Pritesh Funez Self 2 - Bc/bs Fl(federal) :mellisa [id number] Pritesh Mckeon 04/27/2019 - Unknown Clinical Notes Includes: Clinical Notes from this encounter No Clinical Notes Recorded
--- OUTSIDE RECORDS SUMMARY | 2023-02-14 15:35 | XMS_ITS | Clinical Summary ---
Author Name Unknown Address [address] [place] [address] Phone Organization [facility] Address [address] [place] [address] Phone Care Team Providers Care Rehabilitation Clerk Name Role Phone Tom Brantley MD, Ismael Gallegos Unavailable [phone] Ricky SPENCER, Heron Epstein Unavailable [phone] Vita SPENCER, Gail Jimenez Unavailable [phone] Blas Walsh MD Unavailable [phone] Chris SPENCER, Misael Guillaume Unavailable [phone] Paul Sheikh DO Primary Care Provide r [phone] Reason for Visit and Chief Complaint [Patient Encounter] Problems Includes: Problems addressed during this encounter and other active Problems All Visits Onset Date Resolved Date Provider Condition S tatus Diabetes Mellitus Type 2 11/07/2017 Blas Persaud MD Active Last Documented On 8 12:03PM ; [facility] Esophageal Reflux 11/07/2017 Blas Walsh MD Active Last Documented On 8 12:01PM ; [facility] Essential Hypertriglyceridemia 11/07/2017 Huy Walsh MD Active Last Documented On 8 12:06PM ; [facility] Essential Hypertension 11/07/2017 Blas gallegos MD Active Last Documented On 8 12:05PM ; [facility] Hemorrhoids Internal 11/07/2017 Blas Walsh MD Active Last Documented On 8 12:04PM ; [facility] Intestinal Disorder Diverticular 11/07/2017 Darrell Walsh MD Active Last Documented On 8 12:06PM ; [facility] Obesity 11/07/2017 Blas Walsh MD Active Last Documented On 8 12:02PM ; [facility] Osteoarthritis 11/07/2017 Blas Walsh MD Act jigar Last Documented On 8 12:06PM ; [facility] 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 Spondylosis 11/07/2017 Blas Walsh MD Active Last Documented On 8 12:04PM ; [facility] Familial (Benign Essential) Tremor 11/07/2017 Tristan Walsh MD Active Last Documented On 8 12:05PM ; [facility] 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 Plan of Treatment No [...] 10:33AM By Rayne Olson *TERMED* ; [facility] Lisinopril 20 MG Oral Tablet 08/07/2020 Provider: Diagnosis: Last Documented On 1 11:01AM By Rayne Olson *TERMED* ; [facility] Januvia 100 MG Oral Tablet 08/07/2020 Provider: Diagnosis: 1 QD Last Documented On 1 11:17AM By Rayne Olson *TERMED* ; [facility] Atenolol 25 MG Oral Tablet 08/07/2020 Provider: Diagnosis: Last Documented On 1 11:18AM By Rayne Olson *TERMED* ; [facility] Alfuzosin HCl ER 10 MG Oral Tablet Extended Rele ase 24 Hour 08/07/2020 Provider: Diagnosis: 1 HS Last Documented On 1 11:19AM By Rayne Olsno *TERMED* ; [facility] Multivitamin Oral Tablet 08/07/2020 Provider: Diagnosis: Last Documented On 1 11:20AM By Rayne Olson *TERMED* ; [facility] CoQ10 100 MG Oral Capsule 08/07/2020 Provider: Diagnosis: Last Documented On 1 11:40AM By Trini Tran ; [facility] Medications Administered Includes: Administered [...] Last Documented On 2 11:21AM ; [facility] Sulfa Antibiotics Allergy 11/07/2017 A ctive Last Documented On 2 11:21AM ; [facility] Simvastatin Allergy 11/07/2017 Active Last Documented On 2 11:21AM ; [facility] Lyrica Allergy 11/07/2017 Active Last Documented On 2 11:21AM ; [facility] Byetta 10 MCG Pen Allergy 11/07/2017 A ctive Last Documented On 2 11:21AM ; [facility] Encounters Encounter Provider Location Date Check-In Time Check-Out Time Diagnosis [Patient Encounter] Gail Gorman MD 09/28/2020 9:16AM 11:59PM Insurance Includes: Active Insurance Policies Plan Name Member ID Group # Subscriber Relationship Effect jigar Dates 1 - Medicare : [id number] Pritesh A Armin Self 2 - Bc/bs Fl(federal) :[facility] [id number] Pritesh Funez Self 04/27/2019 - Unknown Clinical Notes Includes: Clinical Notes from this encounter No Clinical Notes Recorded
--- OUTSIDE RECORDS SUMMARY | 2023-02-14 15:35 | XMS_ITS | Clinical Summary ---
Author Name Unknown Address [address] [place] [address] Phone Organization [facility] Address [address] [place] [address] Phone Care Team Providers Care News Reporter Name Role Phone Tom Brantley MD, Ismael Gallegos Unavailable [phone] Ricky SPENCER, Heron Epstein Unavailable [phone] Vita SPENCER, Gail Jimenez Unavailable [phone] Blas Walsh MD Unavailable [phone] Chris SPENCER, Misael Guillaume Unavailable [phone] Paul Sheikh DO Primary Care Provide r [phone] Reason for Visit and Chief Complaint [Patient Encounter] Problems Includes: Problems addressed during this encounter and other active Problems All Visits Onset Date Resolved Date Provider Condition S tatus Diabetes Mellitus Type 2 11/07/2017 Blas Persaud MD Active Last Documented On 8 12:03PM ; [facility] Esophageal Reflux 11/07/2017 Blas Walsh MD Active Last Documented On 8 12:01PM ; [facility] Essential Hypertriglyceridemia 11/07/2017 Huy Walsh MD Active Last Documented On 8 12:06PM ; [facility] Essential Hypertension 11/07/2017 Blas gallegos MD Active Last Documented On 8 12:05PM ; [facility] Hemorrhoids Internal 11/07/2017 Blas Walsh MD Active Last Documented On 8 12:04PM ; [facility] Intestinal Disorder Diverticular 11/07/2017 Darrell Walsh MD Active Last Documented On 8 12:06PM ; [facility] Obesity 11/07/2017 Blas Walsh MD Active Last Documented On 8 12:02PM ; [facility] Osteoarthritis 11/07/2017 Blas Walsh MD Act jigar Last Documented On 8 12:06PM ; [facility] 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 Spondylosis 11/07/2017 Blas Walsh MD Active Last Documented On 8 12:04PM ; [facility] Familial (Benign Essential) Tremor 11/07/2017 Tristan Walsh MD Active Last Documented On 8 12:05PM ; [facility] 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 Plan of Treatment [...] 1 10:33AM By Rayne Olson *TERMED* ; [facility] Lisinopril 20 MG Oral Tablet 08/07/2020 Provider: Diagnosis: Last Documented On 1 11:01AM By Rayne Olson *TERMED* ; [facility] Januvia 100 MG Oral Tablet 08/07/2020 Provider: Diagnosis: 1 QD Last Documented On 1 11:17AM By Rayne Olson *TERMED* ; [facility] Atenolol 25 MG Oral Tablet 08/07/2020 Provider: Diagnosis: Last Documented On 1 11:18AM By Rayne Olson *TERMED* ; [facility] Alfuzosin HCl ER 10 MG Oral Tablet Extended Rele ase 24 Hour 08/07/2020 Provider: Diagnosis: 1 HS Last Documented On 1 11:19AM By Rayne Olson *TERMED* ; [facility] Multivitamin Oral Tablet 08/07/2020 Provider: Diagnosis: Last Documented On 1 11:20AM By Rayne Olson *TERMED* ; [facility] CoQ10 100 MG Oral Capsule 08/07/2020 Provider: Diagnosis: Last Documented On 1 11:40AM By Trini Tran ; [facility] Medications Administered Includes: [...] Last Documented On 2 11:21AM ; [facility] Sulfa Antibiotics Allergy 11/07/2017 A ctive Last Documented On 2 11:21AM ; [facility] Simvastatin Allergy 11/07/2017 Active Last Documented On 2 11:21AM ; [facility] Lyrica Allergy 11/07/2017 Active Last Documented On 2 11:21AM ; [facility] Byetta 10 MCG Pen Allergy 11/07/2017 A ctive Last Documented On 2 11:21AM ; [facility] Encounters Encounter Provider Location Date Check-In Time Check-Out Time Diagnosis [Patient Encounter] Gail Gorman MD 09/04/2020 1:05PM 11:59PM Insurance Includes: Active Insurance Policies Plan Name Member ID Group # Subscriber Relationship Effect jigar Dates 1 - Medicare : [id number] Pritesh A Armin Self 2 - Bc/bs Fl(federal) :[facility] [id number] Pritesh Funez Self 04/27/2019 - Unknown Clinical Notes Includes: Clinical Notes from this encounter No Clinical Notes Recorded
--- OUTSIDE RECORDS SUMMARY | 2023-02-18 10:37 | XMS_ITS | Clinical Summary ---
Author Name Unknown Address [address] [place] [address] Phone Organization [facility] Address [address] [place] [address] Phone Care Team Providers Care Mechanical Tech Name Role Phone Tom Brantley MD, Ismael Roche Unavailable [phone] Ricky SPENCER, Heron Epstein Unavailable [phone] Vita SPENCER, Gail Jimenez Unavailable [phone] Blas Walsh MD Unavailable [phone] Chris SPENCER, Misael Guillaume Unavailable [phone] Paul Sheikh DO Primary Care Provide r [phone] Reason for Visit and Chief Complaint [Patient Encounter] Problems Includes: Problems addressed during this encounter and other active Problems All Visits Onset Date Resolved Date Provider Condition S tatus Diabetes Mellitus Type 2 11/07/2017 Blas Persaud MD Active Last Documented On 8 12:03PM ; [facility] Esophageal Reflux 11/07/2017 Blas Walsh MD Active Last Documented On 8 12:01PM ; [facility] Essential Hypertriglyceridemia 11/07/2017 Huy Walsh MD Active Last Documented On 8 12:06PM ; [facility] Essential Hypertension 11/07/2017 Blas roche MD Active Last Documented On 8 12:05PM ; [facility] Hemorrhoids Internal 11/07/2017 Blas Walsh MD Active Last Documented On 8 12:04PM ; [facility] Intestinal Disorder Diverticular 11/07/2017 Darrell Walsh MD Active Last Documented On 8 12:06PM ; [facility] Obesity 11/07/2017 Blas Walsh MD Active Last Documented On 8 12:02PM ; [facility] Osteoarthritis 11/07/2017 Blas Walsh MD Act jigar Last Documented On 8 12:06PM ; [facility] 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 Spondylosis 11/07/2017 Blas Walsh MD Active Last Documented On 8 12:04PM ; [facility] Familial (Benign Essential) Tremor 11/07/2017 Tristan Walsh MD Active Last Documented On 8 12:05PM ; [facility] 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 Plan of Treatment Pending Tests Order Diagnosis Results Due Ordering Tony MAX OTHER Type 2 diabetes mellitus with diabetic polyneuropathy 06/20/21 Gail Gorman MD Last Documented On 2 11:41AM ; [facility] Therapy - Occupational Therapy * Occupational Therapy Type 2 diabetes mellitus with diabetic polyneuropathy 06/20/21 Gail Gorman MD Last Documented On 2 11:41AM ; [facility] Assessments Includes: Assessments from [...] 10:33AM By Rayne Olson *TERMED* ; [facility] Lisinopril 20 MG Oral Tablet 08/07/2020 Provider: Diagnosis: Last Documented On 1 11:01AM By Rayne Olson *TERMED* ; [facility] Januvia 100 MG Oral Tablet 08/07/2020 Provider: Diagnosis: 1 QD Last Documented On 1 11:17AM By Rayne Olson *TERMED* ; [facility] Atenolol 25 MG Oral Tablet 08/07/2020 Provider: Diagnosis: Last Documented On 1 11:18AM By Rayne Olson *TERMED* ; [facility] Alfuzosin HCl ER 10 MG Oral Tablet Extended Rele ase 24 Hour 08/07/2020 Provider: Diagnosis: 1 HS Last Documented On 1 11:19AM By Rayne Olson *TERMED* ; [facility] Multivitamin Oral Tablet 08/07/2020 Provider: Diagnosis: Last Documented On 1 11:20AM By Rayne Olson *TERMED* ; [facility] CoQ10 100 MG Oral Capsule 08/07/2020 Provider: Diagnosis: Last Documented On 1 11:40AM By Trini Tran ; [facility] Medications Administered Includes: Administered [...] Last Documented On 2 11:21AM ; [facility] Sulfa Antibiotics Allergy 11/07/2017 A ctive Last Documented On 2 11:21AM ; [facility] Simvastatin Allergy 11/07/2017 Active Last Documented On 2 11:21AM ; [facility] Lyrica Allergy 11/07/2017 Active Last Documented On 2 11:21AM ; [facility] Byetta 10 MCG Pen Allergy 11/07/2017 A ctive Last Documented On 2 11:21AM ; [facility] Encounters Encounter Provider Location Date Check-In Time Check-Out Time Diagnosis [Patient Encounter] Gail Gorman MD 06/20/2021 1:38PM 11:59PM Insurance Includes: Active Insurance Policies Plan Name Member ID Group # Subscriber Relationship Effect jigar Dates 1 - Medicare : [id number] Pritesh Funez Self 2 - Bc/bs Fl(federal) :mellisa [id number] Pritesh Mckeon 04/27/2019 - Unknown Clinical Notes Includes: Clinical Notes from this encounter No Clinical Notes Recorded
--- OUTSIDE RECORDS SUMMARY | 2023-02-18 10:37 | XMS_ITS ---
Care Plan - [facility] Created on: February 18, 2023 Pritesh Funez : 1940 Sex: Male Author Name Unknown Address [address] [place] [address] Phone Organization [facility] Address [address] [place] [address] Phone Care Team Providers Care Duct Layer Supervisor Name Role Phone Tom Brantley MD, Ismael Gallegos Unavailable [phone] Ricky SPENCER, Heron Epstein Unavailable [phone] Vita SPENCER, Gail Jimenez Unavailable [phone] Jillian SPENCER, Blas Unavailable [phone] Chris SPENCER, Misael Guillaume Unavailable [phone] Paul Sheikh DO Primary Care Provide r [phone]
--- OUTSIDE RECORDS SUMMARY | 2023-02-18 10:37 | XMS_ITS ---
Author Name Unknown Address [address] [place] [address] Phone Organization [facility] Address [address] [place] [address] Phone Care Team Providers Care Children'S Tutor Name Role Phone Tom Brantley MD, Ismael Roche Unavailable [phone] Ricky SPENCER, Heron Epstein Unavailable [phone] Vita SPENCER, Gail Jimenez Unavailable [phone] Blas Walsh MD Unavailable [phone] Chris SPENCER, Misael Guillaume Unavailable [phone] Paul Sheikh DO Primary Care Provide r [phone] Problems Includes: Active, inactive, and resolved Problems All Visits Onset Date Resolved Date Provider Condition S tatus Diabetes Mellitus Type 2 11/07/2017 Blas Persaud MD Active Last Documented On 8 12:03PM ; [facility] Esophageal Reflux 11/07/2017 Blas Walsh MD Active Last Documented On 8 12:01PM ; [facility] Essential Hypertriglyceridemia 11/07/2017 Huy Walsh MD Active Last Documented On 8 12:06PM ; [facility] Essential Hypertension 11/07/2017 Blas roche MD Active Last Documented On 8 12:05PM ; [facility] Hemorrhoids Internal 11/07/2017 Blas Walsh MD Active Last Documented On 8 12:04PM ; [facility] Intestinal Disorder Diverticular 11/07/2017 Darrell Walsh MD Active Last Documented On 8 12:06PM ; [facility] Obesity 11/07/2017 Blas Walsh MD Active Last Documented On 8 12:02PM ; [facility] Osteoarthritis 11/07/2017 Blas Walsh MD Act jigar Last Documented On 8 12:06PM ; [facility] 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 Spondylosis 11/07/2017 Blas Walsh MD Active Last Documented On 8 12:04PM ; [facility] Familial (Benign Essential) Tremor 11/07/2017 Tristan Walsh MD Active Last Documented On 8 12:05PM ; [facility] 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 Plan of Treatment Findings Encounter Date Clinical staff counseled pat joshua to adopt healthy behaviors as appropriate Follow up with Gail Gorman MD 12/20/2020 Last Documented On 1 1:09PM ; [facility] Clinical staff counseled markos cuevant to adopt healthy behaviors as appropriate Follow up with Gail Gorman MD 08/22/2020 Last Documented On 1 5:15PM ; [facility] Instructions to patient Lose weight Patient encourag e to limit portion sizes and to tract and restrict their total daily caloric intake Last Documented On 1 10:37AM ; [facility] Lose weight Patient encourag e to limit portion sizes and to tract and restrict their total daily caloric intake Last Documented On 1 8:41AM ; [facility] Lose weight Patient encourag e to limit portion sizes and to tract and restrict their total daily caloric intake Last Documented On 1 11:05AM ; [facility] Education and Decision Aids were provided during visit for: Patient education about diet ramandeep needs Last Documented On 2 11:23AM ; [facility] Clinical staff counseled pat ient to adopt healthy behaviors as appropriate Last Documented On 1 10:35AM ; [facility] Clinical staff counseled pat ient to adopt healthy behaviors as appropriate Last Documented On 1 8:46AM ; [facility] Assessments Includes: Assessments for all patient encounters No Assessments Recorded Instructions Includes: Instructions for all patient encounters Instructions to patient Lose weight Patient encourag e to limit portion sizes and to tract and restrict their total daily caloric intake Last Documented On 1 10:37AM ; [facility] Lose weight Patient encourag e to limit portion sizes and to tract and restrict their total daily caloric intake Last Documented On 1 8:41AM ; [facility]. Lose weight Patient encourag e to limit portion sizes and to tract and restrict their total daily caloric intake Last Documented On 1 11:05AM ; [facility] Education and Decision Aids were provided during visit for: Patient education about diet ramandeep needs Last Documented On 2 11:23AM ; [facility] Clinical staff counseled pat ient to adopt healthy behaviors as appropriate Last Documented On 1 10:35AM ; [facility] Clinical staff counseled pat ient to adopt healthy behaviors as appropriate Last Documented On 1 8:46AM ; [facility] Medical Equipment - Implanted Devices Includes: Current and historical Devices No Medical Equipment Recorded Medications Includes: Current and historical Medications Current Medications (continue as prescribed) Myrbetriq 25 MG Oral Tablet Extended Release 24 Hour 0 12/20/2020 Provider: Diagnosis: Last Documented On 1 10:33AM By Rayne Olson *TERMED* ; [facility] Lisinopril 20 MG Oral Tablet 08/07/2020 Provider: Diagnosis: Last Documented On 1 11:01AM By Rayne Olson *TERMED* ; [facility] Januvia 100 MG Oral Tablet 08/07/2020 Provider: Diagnosis: 1 QD Last Documented On 1 11:17AM By Rayne Olson *TERMED* ; [facility] Atenolol 25 MG Oral Tablet 08/07/2020 Provider: Diagnosis: Last Documented On 1 11:18AM By Rayne MckeeTERMED* ; [facility] Alfuzosin HCl ER 10 MG Oral Tablet Extended Rele ase 24 Hour 08/07/2020 Provider: Diagnosis: 1 HS Last Documented On 1 11:19AM By Rayne RYAN* ; [facility] Multivitamin Oral Tablet 08/07/2020 Provider: Diagnosis: Last Documented On 1 11:20AM By Rayne RYAN* ; [facility] CoQ10 100 MG Oral Capsule 08/07/2020 Provider: Diagnosis: Last Documented On 1 11:40AM By Trini Tran ; [facility] Past Medications on file Rosuvastatin Calcium 5 MG Oral Tablet 08/07/2020 - Provider: Diagnosis: Last Documented On 2 11:25AM By Trini Tran ; [facility] Vitamin D3 25 MCG (1000 UT) Oral Tablet Chewable 08/07/2020 - 06/18/2021 Provider: Diagnosis: Last Documented On 2 11:24AM By Trini Tran ; [facility] EQL Fish Oil 1000 MG Oral Capsule 08/07/2020 - 021 Provider: Diagnosis: Last Documented On 1 10:32AM By Rayne RYAN* ; [facility] Medications Administered Includes: Administered Medications in patient's chart No Administered Medications Recorded Vital Signs Includes: Vital Signs through 02/18/2023 Vital Name 06/18/2021 11:23A 12/20/2020 10:26A 08/22/2020 [...] 95.1 Last Documented On: 06/18/2021 11:27AM ; [facility] 12/20/2020 10:35AM ; [facility] 08/22/2020 8:48AM ; [facility] Results Includes: Results through 02/18/2023 CREATININE iSTAT [facility] Ordered by Gail Gorman MD on 09/14/19 Collected: 09/13/2020 Reported: 09/14/19 16:56 Last Documented On 8:26AM ; [facility] Reviewed by Gail Ospina on 09/14/2020; All test results are final unless otherwise noted. CREATININE iSTAT 0.7 mg/dL (0.6-1.3) N (Normal) Last Documented On 8:03PM ; [facility] Note: Specimen Number: [id number] Reported Physicians [facility] Ordered by Gail Gorman MD on 09/14/19 Collected: 09/13/2020 Reported: 09/14/19 16:56 Last Documented On 8:26AM ; [facility] Reviewed by Gail Ospina on 09/14/2020; All test results are final unless otherwise noted. Reported Physicians See Note None Last Documented On 09/13/2020 8:03PM ; [facility] Note: Reported Physicians:Ordering: Lauren Gormanending: Gail Gorman SJOGREN'S AB (SSA/SSB) [facility] Ordered by Gail Gorman MD on 08/10/19 Collected: 08/09/2020 Reported: 08/12/19 12:33 Last Documented On 11:01AM ; [facility] Reviewed by Gail Ospina on 08/14/2020; All test results are final unless otherwise noted. SS-A/Ro AB <0.2 N (Normal) Last Documented On 08/11/2020 4:00PM ; [facility] Note: Reference range: <1.0 (Negative)Unit: U SS-B/La AB <0.2 N (Normal) Last Documented On 08/11/2020 4:00PM ; [facility] Note: Reference range: <1.0 (Negative)Unit: U Test Performed by:[facility] [place] [id number] Director: Mat Pearl M.D. Ph.D.; IA# [id number] Number: [id number] Reported Physicians [facility] Ordered by Gail Gorman MD on 08/10/19 Collected: 08/09/2020 Reported: 08/12/19 12:33 Last Documented On 1 11:01AM ; [facility] Reviewed by Gail Ospina on 08/14/2020; All test results are final unless otherwise noted. Reported Physicians See Note None Last Documented On 08/11/2020 4:00PM ; [facility] Note: Reported Physicians:Ordering: Lauren Gormanending: Gail Gorman KAPPA/LAMBDA QNT FLC [facility] Ordered by Gail Gorman MD on 08/10/19 Collected: 08/09/2020 Reported: 08/14/19 07:27 Last Documented On 1 11:01AM ; [facility] Reviewed by Gail Ospina on 08/14/2020; All test results are final unless otherwise noted. KAPPA LIGHT CHN,FR,S 17.9 N (Normal) Last Documented On 1 10:31AM ; [facility] Note: Reference range: 3.3 to 19.4Unit: mg/L KAPPA/LAMBDA,FR RAT 1.21 N (Normal) Last Documented On 1 10:31AM ; [facility] Note: Reference range: 0.26 [...] response totherapy of these disorders.Test Performed by [facility],[address] [place] [id number] Kumar M.D., Ph.D., Director of [phone], [facility] [id number] Number: [id number] LAMBDA LIGHT CH,FR,S 14.8 N (Normal) Last Documented On 1 10:31AM ; [facility] Note: Reference range: 5.7 to 26.3Unit: mg/L Reported Physicians [facility] Ordered by Gail Gorman MD on 08/10/19 Collected: 08/09/2020 Reported: 08/14/19 07:27 Last Documented On 1 11:01AM ; [facility] Reviewed by Gail Ospina on 08/14/2020; All test results are final unless otherwise noted. Reported Physicians See Note None Last Documented On 08/13/2020 10:31AM ; [facility] Note: Reported Physicians:Ordering: Lauren Gormanending: Gail Gorman IMMUNOFIXATN PROF,SERUM [facility] Ordered by Gail Gorman MD on 08/10/19 Collected: 08/09/2020 Reported: 08/15/19 21 15:48 Last Documented On 1 9:55AM ; [facility] Reviewed by aGil Ospina on 08/17/2020; All test results are final unless otherwise noted. TP, SERUM 6.6 g/dL (6.4-8.3) N (Normal) Last Documented On 1 7:33PM ; [facility] ALBUMIN 4.0 g/dL (3.0-5.2) N (Normal) Last Documented On 1 7:33PM ; [facility] A1 GLOBULIN 0.2 g/dL (0.1-0.4) N (Normal) Last Documented On 7:33PM ; [facility] A2 GLOBULIN 0.8 g/dL (0.4-1.0) N (Normal) Last Documented On 1 7:33PM ; [facility] BETA GLOBULIN 0.7 g/dL (0.7-1.6) N (Normal) Last Documented On 7:33PM ; [facility] GAMMA GLOBULIN 0.9 g/dL (0.7-2.0) N (Normal) Last Documented On 7:33PM ; [facility] A/G RATIO 1.5 Units (1.2-2.2) N (Normal) Last Documented On 7:33PM ; [facility] IGA 64 mg/dL (70-400) L (Low) Last Documented On 7:33PM ; [facility] IGG 767 mg/dL (700-1600) N (Normal) Last Documented On 7:33PM ; [facility] IGM 47 mg/dL (40-230) N (Normal) Last Documented On 7:33PM ; [facility] PATH INTERP SPE Interpretation: No abnormal protein seen. N (Normal) Last Documented On 08/14/2020 7:33PM ; [facility] Note: SIFE Interpretation: No abnormal protein is seen. Specimen Number: [id number] Reported Physicians [facility] Ordered by Gail Gorman MD on 08/10/19 Collected: 08/09/2020 Reported: 08/15/19 15:48 Last Documented On 9:55AM ; [facility] Reviewed by Gail Ospina on 08/17/2020; All test results are final unless otherwise noted. Reported Physicians See Note None Last Documented On 08/14/2020 7:33PM ; [facility] Note: Reported Physicians:Ordering: Lauren Gormanending: Gail Gorman METHYLMALONIC ACID [facility] Ordered by Gail Gorman MD on 08/10/19 Collected: 08/09/2020 Reported: 08/20/19 05:23 Last Documented On 1 10:47AM ; [facility] Reviewed by Gail Ospina on 08/20/2020; All test results are final unless otherwise noted. METHYLMALONIC ACID 179 N (Normal) Last Documented On 08/19/2020 8:37AM ; [facility] Note: Reference range: 87 to 318Unit: nmol/L This test was developed and its analytical performancecharacteristics have been determined by [employer] [place], [place]. It hasnot been cleared or approved by the U.S. Food and DrugAdministration. This assay has been validated pursuantto the CLIA regulations and is used for clinicalpurposes.Test Performed by [facility] [facility],[address] [place] [id number] Kumar M.D., Ph.D., Director of [phone], CLIA [id number] Number: [id number] Reported Physicians [facility] Ordered by Gail Gorman MD on 08/10/19 Collected: 08/09/2020 Reported: 08/20/19 05:23 Last Documented On 1 10:47AM ; [facility] Reviewed by Gail Ospina on 08/20/2020; All test results are final unless otherwise noted. Reported Physicians See Note None Last Documented On 08/19/2020 8:37AM ; [facility] Note: Reported Physicians:Ordering: Lauren Gormanending: Gail Gorman HEMOGLOBIN A1C [facility] Ordered by Gail Gorman MD on 08/10/19 Collected: 08/09/2020 Reported: 08/10/19 17:29 Last Documented On 1 11:01AM ; [facility] Reviewed by Gail Ospina on 08/14/2020; All test results are final unless otherwise noted. HEMOGLOBIN A1C 7.1 % (4.0-6.0) H (High) Last Documented On 10:45PM ; [facility] Note: Specimen Number: [id number] VITAMIN B12 [facility] Ordered by Gail Gorman MD on 08/10/19 Collected: 08/09/2020 Reported: 08/10/19 17:54 Last Documented On 11:01AM ; [facility] Reviewed by Gail Ospina on 08/14/2020; All test results are final unless otherwise noted. VITAMIN B12 502 pg/mL (193-986) N (Normal) Last Documented On 10:45PM ; [facility] Note: Specimen Number: [id number] HEP C AB [facility] Ordered by Gail Gorman MD on 08/10/19 Collected: 08/09/2020 Reported: 08/10/19 18:18 Last Documented On 11:01AM ; [facility] Reviewed by Gail Ospina on 08/14/2020; All test results are final unless otherwise noted. HEP C AB NONREACTIVE (NONREACTIVE) N (Normal) Last Documented On 10:45PM ; [facility] Note: Specimen Number: [id number] Reported Physicians [facility] Ordered by Gail Gorman MD on 08/10/19 Collected: 08/09/2020 Reported: 08/10/19 18:18 Last Documented On 1 11:01AM ; [facility] Reviewed by Gail Ospina on 08/14/2020; All test results are final unless otherwise noted. Reported Physicians See Note None Last Documented On 08/09/2020 10:45PM ; [facility] Note: Reported Physicians:Ordering: Lauren Gormanending: Gail Gorman History of Present Illness History of Present Illness not supported for this document type No History of Present Illness Recorded Social History Description Last Updated Former smoker 06/18/2021 Last Documented On 2 12:08PM ; [facility] Use of tobacco assessment performed 05/29 Last Documented On 2 12:08PM ; [facility] Patient has living will 12/20/2020 Last Documented On 1 1:09PM ; [facility] Patient has not seen another provider si nce last visit 12/20/2020 Last Documented On 1 1:09PM ; [facility] States no significant change in lifestyl e since last visit 12/20/2020 Last Documented On 1 1:09PM ; [facility] A social drinker 08/22/2020 Last Documented On 1 5:15PM ; [facility] No tobacco use Former 08/22/2020 Last Documented On 1 5:15PM ; [facility] Not using drugs 08/22/2020 Last Documented On 1 5:15PM ; [facility] Smoking Status Unknown Procedures and Surgical History Includes: Procedures through 02/18/2023 Procedures Code Diagnosis Performing Provider Service Location Service Date Collection blood by venipuncture % 24020 Type 2 diabetes mellitus without complications [facility] Ultrasound Technician [facility] Primary Care at [facility] 06/02/2022 Last Documented On 3 11:52AM ; [facility] Collection blood by venipuncture % 87843 Type 2 diabetes mellitus without complications [facility] Ultrasound Technician [facility] Primary Care [facility] 02/20/2022 Last Documented On 2 3:04PM ; [facility] Electrocardiogram report (Repeat procedure by same physician) [id number] Abnormal electrocardiogram [ECG] [EKG] Jefe Ricketts MD [facility] 07/24/2021 Last Documented On 2 2:22PM ; [facility] Electrocardiogram report [id number] Abnormal electrocardiogram [ECG] [EKG] Jefe Ricketts MD [facility] 07/24/2021 Last Documented On 2 7:27AM ; [facility] Collection blood by venipuncture % 30230 Malignant neoplasm of prostate [facility] Ultrasound Technician [facility] Primary Care [facility] 07/11/2021 Last Documented On 2 10:35AM ; [facility] Collection blood by venipuncture % 11958 Other pruritus [facility] Ultrasound Technician [facility] Primary Car e at [facility] 07/03/2021 Last Documented On 2 11:30AM ; [facility] Remove impacted cer[place] [id number] Impacted cerumen, unspecified ear Taras Durand MD [facility] at [facility] 02/05/2021 Last Documented On 1 9:21AM ; [facility] Musc tst done w/n tst nonext (Distinct Proc Serv.) [id number] Paresthesia of skin Gail Gorman MD [facility] Neurology at [facility] 08/15/2020 Last Documented On 1 7:59AM ; [facility] Musc tst done w/n tst nonext 75010 Radiculopathy, cervicothoracic region Gail Gorman MD [facility] Neurology at [facility] 08/15/2020 Last Documented On 1 12:06PM ; [facility] Musc test done w/n test comp (Left Side) 38813 Type 2 diabetes mellitus with diabetic polyneuropathy, Radiculopathy, cervicothoracic region, Radiculopathy, lumbosacral region, Paresthesia of skin Rejo P Vita SPENCER [facility] Neurology at [facility] 08/15/2020 Last Documented On 1 12:06PM ; [facility] Musc test done w/n test comp (Right Side) 60470 Type 2 diabetes mellitus with diabetic polyneuropathy, Radiculopathy, cervicothoracic region, Radiculopathy, lumbosacral region, Paresthesia of skin Gissello P Vita SPENCER [facility] Neurology at [facility] 08/15/2020 Last Documented On 1 12:06PM ; [facility] Nrv cndj test 13/> studies 52931 Type 2 diabetes mellitus with diabetic polyneuropathy, Radiculopathy, cervicothoracic region, Radiculopathy, lumbosacral region, Paresthesia of skin Rejo P Vita SPENCER [facility] Neurology at [facility] 08/15/2020 Last Documented On 1 12:06PM ; [facility] Collection blood by venipuncture % 87503 Malignant neoplasm of prostate [facility] Ultrasound Technician [facility] Primary Care at [facility] 05/28/2020 Last Documented On 1 3:46PM ; [facility] Surgical History Last Updated History of back surgery Spine & Neck rayray wale 10 yrs ago 08/22/2020 Last Documented On 1 5:15PM ; [facility] Prior surgery Appendix removed young ad ult ~Hernia 5 yrs ago 08/22/2020 Last Documented On 1 5:15PM ; [facility] Medical History Includes: Medical History in patient's chart Description Last Updated Denies significant change in medical sta tus since last visit 12/20/2020 Last Documented On 1 1:09PM ; [facility] Yes patient feels confident managing chr onic conditions 12/20/2020 Last Documented On 1 1:09PM ; [facility] A history of cancer Prostate 08/22/2020 Last Documented On 1 5:15PM ; [facility] History of benign essential hypertension Hypertension 08/22/2020 Last Documented On 1 5:15PM ; [facility] History of diabetes mellitus 08/22/2020 Last Documented On 1 5:15PM ; [facility] History of hyperlipidemia 08/22/2020 Last Documented On 1 5:15PM ; [facility] Family History Includes: Family History in patient's chart Description Last Updated States no significant change in family m edical history since last visit 12/20/2020 Last Documented On 1 1:09PM ; [facility] Review of Systems Review [...] ve Last Documented On 2 11:21AM ; [facility] Sulfa Antibiotics Allergy 11/07/2017 A ctive Last Documented On 2 11:21AM ; [facility] Simvastatin Allergy 11/07/2017 Active Last Documented On 2 11:21AM ; [facility] Lyrica Allergy 11/07/2017 Active Last Documented On 2 11:21AM ; [facility] Byetta 10 MCG Pen Allergy 11/07/2017 A ctive Last Documented On 2 11:21AM ; [facility] Encounters Includes: Encounters through 02/18/2023 Encounter Provider Location Date Check-In Time Check-Out Time Diagnosis [Patient Encounter] Gail Gorman MD 2 06/18/2021 1:38PM 06/18/2021 11:59PM Follow up Gail Gorman MD [facility] 2 11:10AM 11:58AM Follow up Gail Gorman MD [facility] 1 10:19AM 11:23AM [Patient Encounter] Gail Gorman MD 1 08/22/2020 9:16AM 08/22/2020 11:59PM [Patient Encounter] Gail Gorman MD 1 08/22/2020 1:05PM 08/22/2020 11:59PM Follow up Gail Gorman MD [facility] 1 8:41AM 9:31AM [Patient Encounter] Gail Gorman MD 1 3:17PM 11:59PM EMG Gail Gorman MD [facility] 1 1:29PM 3:20PM New Patient Gail Gorman MD [facility] 1 9:43AM 11:50AM Preload Process Blas Walsh MD 8 11:59AM 11:59PM Insurance Includes: Active Insurance Policies Plan Name Member ID Group # Subscriber Relationship Effect jigar Dates 1 - Medicare : [id number] Pritesh Funez Self 2 - Bc/bs Fl(federal) :[facility] [id number] Pritesh Mckeon 04/27/2019 - Unknown Clinical Notes Includes: Signed Clinical Notes starting from 05/16/2022 No Clinical Notes Recorded
--- OUTSIDE RECORDS SUMMARY | 2023-02-18 10:38 | XMS_ITS | Clinical Summary ---
Author Name Unknown Address [address] [place] [address] Phone Organization [facility] Address [address] [place] [address] Phone Care Team Providers Care Frit Mixer Name Role Phone Tom Brantley MD, Ismael Roche Unavailable [phone] Ricky SPENCER, Heron Epstein Unavailable [phone] Vita SPENCER, Gail Jimenez Unavailable [phone] Blas Walsh MD Unavailable [phone] Chris SPENCER, Misael Guillaume Unavailable [phone] Paul Sheikh DO Primary Care Provide r [phone] Reason for Visit and Chief Complaint The [...] Active Last Documented On 8 12:03PM ; [facility] Esophageal Reflux 11/07/2017 Blas Walsh MD Active Last Documented On 8 12:01PM ; [facility] Essential Hypertriglyceridemia 11/07/2017 Huy Walsh MD Active Last Documented On 8 12:06PM ; [facility] Essential Hypertension 11/07/2017 Blas roche MD Active Last Documented On 8 12:05PM ; [facility] Hemorrhoids Internal 11/07/2017 Blas Walsh MD Active Last Documented On 8 12:04PM ; [facility] Intestinal Disorder Diverticular 11/07/2017 Darrell Walsh MD Active Last Documented On 8 12:06PM ; [facility] Obesity 11/07/2017 Blas Walsh MD Active Last Documented On 8 12:02PM ; [facility] Osteoarthritis 11/07/2017 Blas Walsh MD Act jigar Last Documented On 8 12:06PM ; [facility] 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 Spondylosis 11/07/2017 Blas Walsh MD Active Last Documented On 8 12:04PM ; [facility] 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 1. Pathology report from the [facility] reviewed. The fine-needle aspiration of [...] Electrodiagnostic Medicine (NCS/EMG) [facility] [place] [id number] [facility], [address] [place] [address] This note was created using voice recognition software and is subject to errors including those of syntax which may escape proofreading. - Last Documented On 12/20/2020 1:09PM ; [facility] Clinical staff counseled patient to adopt healthy behaviors as appropriate. - Last Documented On 12/20/2020 1:09PM ; [facility] Pending Tests Order Diagnosis Results Due Ordering Provider Referrals - [facility] Radiculopathy, cervicothoracic region 02/18/21 Gail Gorman MD Last Documented On 1:09PM ; [facility] Instructions to patient Lose weight Patient encourag e to limit portion sizes and to tract and restrict their total daily caloric intake Last Documented On 10:37AM ; [facility] Education and Decision Aids were provided during visit for: Clinical staff counseled markos lewis to adopt healthy behaviors as appropriate Last Documented On 10:35AM ; [facility] Assessments Includes: Assessments from this encounter No Assessments Recorded Instructions Includes: Instructions from this encounter Instructions to patient Lose weight Patient encourag e to limit portion sizes and to tract and restrict their total daily caloric intake Last Documented On 10:37AM ; [facility] Education and Decision Aids were provided during visit for: Clinical staff counseled markos lewis to adopt healthy behaviors as appropriate Last Documented On 10:35AM ; [facility] Medical Equipment - Implanted Devices Includes: Current Devices No Medical Equipment Recorded Medications Includes: Medications discussed during this encounter and other current Medications Discontinued / Stopped on this date on 08/07/2020 EQL Fish Oil 1000 MG Oral Capsule Provide r: Diagnosis: Last Documented On 1 10:32AM By Rayne Olson *TERMED* ; [facility] Current Medications (continue as prescribed) Myrbetriq 25 MG Oral Tablet Extended Release 24 Hour 0 12/20/2020 Provider: Diagnosis: Last Documented On 1 10:33AM By Rayne Olson *TERMED* ; [facility] Lisinopril 20 MG Oral Tablet 08/07/2020 Provider: Diagnosis: Last Documented On 1 11:01AM By Rayne Olson *TERMED* ; [facility] Januvia 100 MG Oral Tablet 08/07/2020 Provider: Diagnosis: 1 QD Last Documented On 1 11:17AM By Rayne Olson *TERMED* ; [facility] Atenolol 25 MG Oral Tablet 08/07/2020 Provider: Diagnosis: Last Documented On 1 11:18AM By Rayne Olson *TERMED* ; [facility] Alfuzosin HCl ER 10 MG Oral Tablet Extended Rele ase 24 Hour 08/07/2020 Provider: Diagnosis: 1 HS Last Documented On 1 11:19AM By Rayne Olson *TERMED* ; [facility] Multivitamin Oral Tablet 08/07/2020 Provider: Diagnosis: Last Documented On 1 11:20AM By Rayne Olson *TERMED* ; [facility] CoQ10 100 MG Oral Capsule 08/07/2020 Provider: Diagnosis: Last Documented On 1 11:40AM By Trini Tran ; [facility] Medications Administered Includes: Administered Medications from this encounter No Administered Medications Recorded Vital Signs Includes: Vital Signs from this encounter Vital Name 12/20/2020 10:26A Blood Pressure Standing L 124/76 BP Cuff Size Regular Pulse Rate-Standing (bpm) 74 Height (in) 71 Weight (lb) 235 Body Mass Index (kg/m2) 32.8 Body Surface Area (m2) 2.3 Last Documented On: 12/20/2020 10:35AM ; [facility] Results Includes: Results discussed during this encounter HEMOGLOBIN A1C [facility] Ordered by Gail Gorman MD on 08/10/19 21 Collected: 08/09/2020 Reported: 08/10/19 21 17:29 Last Documented On 1 11:01AM ; [facility] Reviewed by Gail Ospina on 08/14/2020; All test results are final unless otherwise noted. HEMOGLOBIN A1C 7.1 % (4.0-6.0) H (High) Last Documented On 1 10:45PM ; [facility] Note: Specimen Number: [id number] History of Present Illness Includes: History of Present Illness from this encounter ROGER Funez is a 80 year old male. - Allergy list reviewed - Medication reconciliation performed Follow up The patient presents for follow-up. Since last visit, he did go to the [facility]. He had a biopsy done [...] 12/20/2020 Last Documented On 1 1:09PM ; [facility] Patient has living will 12/20/2020 Last Documented On 1 1:09PM ; [facility] Patient has not seen another provider si nce last visit 12/20/2020 Last Documented On 1 1:09PM ; [facility] States no significant change in lifestyl e since last visit 12/20/2020 Last Documented On 1 1:09PM ; [facility] Use of tobacco assessment performed 11/26 Last Documented On 1 1:09PM ; [facility] Smoking Status Unknown Procedures and Surgical History Includes: Procedures from this encounter Procedures Code Diagnosis Performing Provider Service L ocation Service Date history of Tdap vaccine 68126 Last Documented On 1 10:37AM ; [facility] history of pneumococcal vaccine Last Documented On 1 10:37AM ; [facility] Pt received screening for fall risk G8270 Last Documented On 1 10:35AM ; [facility] history of influenza virus vaccine Last Documented On 1 10:37AM ; [facility] Clinical summary provided to patient Last Documented On 1 10:35AM ; [facility] Medical History Includes: Medical History addressed during this encounter Description Last Updated Denies significant change in medical sta tus since last visit 12/20/2020 Last Documented On 1 1:09PM ; [facility] Yes patient feels confident managing chr onic conditions 12/20/2020 Last Documented On 1 1:09PM ; [facility] Family History Includes: Family History addressed during this encounter Description Last Updated States no significant change in family m edical history since last visit 12/20/2020 Last Documented On 1 1:09PM ; [facility] Review of Systems Includes: [...] ve Last Documented On 2 11:21AM ; [facility] Sulfa Antibiotics Allergy 11/07/2017 A ctive Last Documented On 2 11:21AM ; [facility] Simvastatin Allergy 11/07/2017 Active Last Documented On 2 11:21AM ; [facility] Lyrica Allergy 11/07/2017 Active Last Documented On 2 11:21AM ; [facility] Byetta 10 MCG Pen Allergy 11/07/2017 A ctive Last Documented On 2 11:21AM ; [facility] Encounters Encounter Provider Location Date Check-In Time Check-Out Time Diagnosis Follow up Gail Gorman MD [facility] 1 10:19AM 11:23AM Insurance Includes: Active Insurance Policies Plan Name Member ID Group # Subscriber Relationship Effect jigar Dates 1 - Medicare : [id number] Pritesh Funez Self 2 - Bc/bs Fl(federal) :[facility] [id number] Pritesh Mckeon 04/27/2019 - Unknown Clinical Notes Includes: Clinical Notes from this encounter No Clinical Notes Recorded
--- OUTSIDE RECORDS SUMMARY | 2023-02-18 10:38 | XMS_ITS | Clinical Summary ---
Author Name Unknown Address [address] [place] [address] Phone Organization [facility] Address [address] [place] [address] Phone Care Team Providers Care Billiard Player Name Role Phone Tom Brantley MD, Ismael Roche Unavailable [phone] Ricky SPENCER, Heron Epstein Unavailable [phone] Vita SPENCER, Gail Jimenez Unavailable [phone] Blas Walsh MD Unavailable [phone] Chris SPENCER, Misael Guillaume Unavailable [phone] Paul Sheikh DO Primary Care Provide r [phone] Reason for Visit and Chief Complaint The [...] [facility] Plan of Treatment 81-year-old [...] would benefit from a power chair. A ooef-ks-ador has been provided below. However, he is [...] Electrodiagnostic Medicine (NCS/EMG) [facility] [address] [place] [address] This note was created using voice recognition software and is subject to errors including those of syntax which may escape proofreading. - Last Documented On 06/18/2021 12:08PM ; [facility] Education and Decision Aids were provided during visit for: Patient education about diet ramandeep needs Last Documented On 2 11:23AM ; [facility] Assessments Includes: Assessments from this encounter No Assessments Recorded Instructions Includes: Instructions from this encounter Education and Decision Aids were provided during visit for: Patient education about diet ramandeep needs Last Documented On 2 11:23AM ; [facility] Medical Equipment - Implanted Devices Includes: Current Devices No Medical Equipment Recorded Medications Includes: Medications discussed during this encounter and other current Medications Discontinued / Stopped on this date on 08/07/2020 Rosuvastatin Calcium 5 MG Oral Tablet Pro vider: Diagnosis: Last Documented On 2 11:25AM By Trini Tran ; [facility] Vitamin D3 25 MCG (1000 UT) Oral Tablet Chewable Provider: Diagnosis: Last Documented On 2 11:24AM By Trini Tran ; [facility] Current Medications (continue as prescribed) Myrbetriq 25 MG Oral Tablet Extended Release 24 Hour 0 12/20/2020 Provider: Diagnosis: Last Documented On 1 10:33AM By Rayne MckeeTERMED* ; [facility] Lisinopril 20 MG Oral Tablet 08/07/2020 Provider: Diagnosis: Last Documented On 1 11:01AM By Rayne MckeeTERMED* ; [facility] Januvia [...] On 1 11:20AM By Rayne MckeeTERMED* ; [facility] CoQ10 [...] 2.3 Last Documented On: 06/18/2021 11:27AM ; [facility] Results [...] 06/18/2021 Last Documented On 2 12:08PM ; [facility] Use of tobacco assessment performed 05/29 Last Documented On 2 12:08PM ; [facility] Smoking Status Unknown Procedures and Surgical History Includes: Procedures from this encounter Procedures Code Diagnosis Performing Provider Service L ocation Service Date history of influenza virus vaccine Last Documented On 2 11:23AM ; [facility] [employer] history of pneumococcal vaccine Last Documented On 2 11:23AM ; [facility] [email or web address] [facility] Medical History Includes: Medical History [...] up Gail Gorman MD [facility] 2 11:10AM 11:58AM Insurance Includes: Active Insurance Policies Plan Name Member ID Group # Subscriber Relationship Effect jigar Dates 1 - Medicare : [id number] Pritesh Funez Self 2 - Bc/bs Fl(federal) :[facility] [id number] Pritesh Mckeon 04/27/2019 - Unknown Clinical Notes Includes: Clinical Notes from this encounter No Clinical Notes Recorded
--- OUTSIDE RECORDS SUMMARY | 2023-02-18 10:38 | XMS_ITS | Clinical Summary ---
Author Name Unknown Address [address] [place] [address] Phone Organization [facility] Address [address] [place] [address] Phone Care Team Providers Care Paste Worker Name Role Phone Tom Brantley MD, Ismael Gallegos Unavailable [phone] Ricky SPENCER, Heron Epstein Unavailable [phone] Vita SPENCER, Gail Jimenez Unavailable [phone] Blas Walsh MD Unavailable [phone] Chris SPENCER, Misael Guillaume Unavailable [phone] Paul Sheikh DO Primary Care Provide r [phone] Reason for Visit and Chief Complaint [Patient Encounter] Problems Includes: Problems addressed during this encounter and other active Problems All Visits Onset Date Resolved Date Provider Condition S tatus Diabetes Mellitus Type 2 11/07/2017 Blas Persaud MD Active Last Documented On 8 12:03PM ; [facility] Esophageal Reflux 11/07/2017 Blas Walsh MD Active Last Documented On 8 12:01PM ; [facility] Essential Hypertriglyceridemia 11/07/2017 Huy Walsh MD Active Last Documented On 8 12:06PM ; [facility] Essential Hypertension 11/07/2017 Blas gallegos MD Active Last Documented On 8 12:05PM ; [facility] Hemorrhoids Internal 11/07/2017 Blas Walsh MD Active Last Documented On 8 12:04PM ; [facility] Intestinal Disorder Diverticular 11/07/2017 Darrell Walsh MD Active Last Documented On 8 12:06PM ; [facility] Obesity 11/07/2017 Blas Walsh MD Active Last Documented On 8 12:02PM ; [facility] Osteoarthritis 11/07/2017 Blas Walsh MD Act jigar Last Documented On 8 12:06PM ; [facility] 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 Spondylosis 11/07/2017 Blas Walsh MD Active Last Documented On 8 12:04PM ; [facility] Familial (Benign Essential) Tremor 11/07/2017 Tristan Walsh MD Active Last Documented On 8 12:05PM ; [facility] 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 Plan of [...] 1 10:33AM By Rayne Olson *TERMED* ; [facility] Lisinopril 20 MG Oral Tablet 08/07/2020 Provider: Diagnosis: Last Documented On 1 11:01AM By Rayne Olson *TERMED* ; [facility] Januvia 100 MG Oral Tablet 08/07/2020 Provider: Diagnosis: 1 QD Last Documented On 1 11:17AM By Rayne Olson *TERMED* ; [facility] Atenolol 25 MG Oral Tablet 08/07/2020 Provider: Diagnosis: Last Documented On 1 11:18AM By Rayne Olson *TERMED* ; [facility] Alfuzosin HCl ER 10 MG Oral Tablet Extended Rele ase 24 Hour 08/07/2020 Provider: Diagnosis: 1 HS Last Documented On 1 11:19AM By Rayne Olson *TERMED* ; [facility] Multivitamin Oral Tablet 08/07/2020 Provider: Diagnosis: Last Documented On 1 11:20AM By Rayne Olson *TERMED* ; [facility] CoQ10 100 MG Oral Capsule 08/07/2020 Provider: Diagnosis: Last Documented On 1 11:40AM By Trini Tran ; [facility] Medications Administered [...] ve Last Documented On 2 11:21AM ; [facility] Sulfa Antibiotics Allergy 11/07/2017 A ctive Last Documented On 2 11:21AM ; [facility] Simvastatin Allergy 11/07/2017 Active Last Documented On 2 11:21AM ; [facility] Lyrica Allergy 11/07/2017 Active Last Documented On 2 11:21AM ; [facility] Byetta 10 MCG Pen Allergy 11/07/2017 A ctive Last Documented On 2 11:21AM ; [facility] Encounters Encounter Provider Location Date Check-In Time Check-Out Time Diagnosis [Patient Encounter] Gail Gorman MD 09/04/2020 1:05PM 11:59PM Insurance Includes: Active Insurance Policies Plan Name Member ID Group # Subscriber Relationship Effect jigar Dates 1 - Medicare : [id number] Pritesh A Armin Self 2 - Bc/bs Fl(federal) :[facility] [id number] Pritesh Funez Self 04/27/2019 - Unknown Clinical Notes Includes: Clinical Notes from this encounter No Clinical Notes Recorded
--- OUTSIDE RECORDS SUMMARY | 2023-02-18 10:38 | XMS_ITS | Clinical Summary ---
Author Name Unknown Address [address] [place] [address] Phone Organization [facility] Address [address] [place] [address] Phone Care Team Providers Care Doctor Podiatric Medicine Name Role Phone Tom Brantley MD, Ismael Gallegos Unavailable [phone] Ricky SPENCER, Heron Epstein Unavailable [phone] Vita SPENCER, Gail Jimenez Unavailable [phone] Blas Walsh MD Unavailable [phone] Chris SPENCER, Misael Guillaume Unavailable [phone] Paul Sheikh DO Primary Care Provide r [phone] Reason for Visit and Chief Complaint [Patient Encounter] Problems Includes: Problems addressed during this encounter and other active Problems All Visits Onset Date Resolved Date Provider Condition S tatus Diabetes Mellitus Type 2 11/07/2017 Blas Persaud MD Active Last Documented On 8 12:03PM ; [facility] Esophageal Reflux 11/07/2017 Blas Walsh MD Active Last Documented On 8 12:01PM ; [facility] Essential Hypertriglyceridemia 11/07/2017 Huy Walsh MD Active Last Documented On 8 12:06PM ; [facility] Essential Hypertension 11/07/2017 Blas gallegos MD Active Last Documented On 8 12:05PM ; [facility] Hemorrhoids Internal 11/07/2017 Blas Walsh MD Active Last Documented On 8 12:04PM ; [facility] Intestinal Disorder Diverticular 11/07/2017 Darrell Walsh MD Active Last Documented On 8 12:06PM ; [facility] Obesity 11/07/2017 Blas Walsh MD Active Last Documented On 8 12:02PM ; [facility] Osteoarthritis 11/07/2017 Blas Walsh MD Act jigar Last Documented On 8 12:06PM ; [facility] 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 Spondylosis 11/07/2017 Blas Walsh MD Active Last Documented On 8 12:04PM ; [facility] Familial (Benign Essential) Tremor 11/07/2017 Tristan Walsh MD Active Last Documented On 8 12:05PM ; [facility] 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 Plan of [...] Last Documented On 1 10:33AM By Rayne Olosn *TERMED* ; [facility] Lisinopril 20 MG Oral Tablet 08/07/2020 Provider: Diagnosis: Last Documented On 1 11:01AM By Rayne Olson *TERMED* ; [facility] Januvia 100 MG Oral Tablet 08/07/2020 Provider: Diagnosis: 1 QD Last Documented On 1 11:17AM By Rayne Olson *TERMED* ; [facility] Atenolol 25 MG Oral Tablet 08/07/2020 Provider: Diagnosis: Last Documented On 1 11:18AM By Rayne Olson *TERMED* ; [facility] Alfuzosin HCl ER 10 MG Oral Tablet Extended Rele ase 24 Hour 08/07/2020 Provider: Diagnosis: 1 HS Last Documented On 1 11:19AM By Rayne Olson *TERMED* ; [facility] Multivitamin Oral Tablet 08/07/2020 Provider: Diagnosis: Last Documented On 1 11:20AM By Rayne Olson *TERMED* ; [facility] CoQ10 100 MG Oral Capsule 08/07/2020 Provider: Diagnosis: Last Documented On 1 11:40AM By Trini Tran ; [facility] Medications Administered [...] ve Last Documented On 2 11:21AM ; [facility] Sulfa Antibiotics Allergy 11/07/2017 A ctive Last Documented On 2 11:21AM ; [facility] Simvastatin Allergy 11/07/2017 Active Last Documented On 2 11:21AM ; [facility] Lyrica Allergy 11/07/2017 Active Last Documented On 2 11:21AM ; [facility] Byetta 10 MCG Pen Allergy 11/07/2017 A ctive Last Documented On 2 11:21AM ; [facility] Encounters Encounter Provider Location Date Check-In Time Check-Out Time Diagnosis [Patient Encounter] Gail Gorman MD 09/28/2020 9:16AM 11:59PM Insurance Includes: Active Insurance Policies Plan Name Member ID Group # Subscriber Relationship Effect jigar Dates 1 - Medicare : [id number] Pritesh A Armin Self 2 - Bc/bs Fl(federal) :[facility] [id number] Pritesh Funez Self 04/27/2019 - Unknown Clinical Notes Includes: Clinical Notes from this encounter No Clinical Notes Recorded
== END 2023-02-10 18:16 | disposition home or self-care (01) ==
LOC: AMB 02-18 10:36
PROVIDERS: Visit Provider Emergency Medicine
DX: S79.911A Unspecified injury of right hip, initial encounter (principal); W01.0XXA Fall on same level from slipping, tripping and stumbling without subsequent striking against object, initial encounter; Y92.008 Other place in unspecified non-institutional (private) residence as the place of occurrence of the external cause
CPT/HCPCS: A0425; A0427

== ENCOUNTER 2023-02-10 18:54 | Inpatient (IN) | payer MEDICARE, BC, SELFPAY ==
--- NOTE | 2023-02-10 | CRLHL7_ITS ---
For Patients: As a result of the Cures Act, medical imaging exams and procedure reports are released immediately into your electronic medical record. You may view this report before your referring provider. If you have questions, please contact your health care provider. INDICATION: Chest injury from fall TECHNIQUE: Chest radiograph 1 view on 2 films COMPARISON: None FINDINGS: The sensitivity and specificity of the exam are moderately limited by the patient`s body habitus. Mediastinum: Mild mediastinal widening is present and may be due to mediastinal lipomatosis. The heart silhouette is normal in size and morphology. Lung: Both lungs are unremarkable in appearance. No sign of pleural effusion seen. No pneumothorax is identified. Bone and Soft tissue: ACDF of the cervical thoracic junction is noted. IMPRESSIONS: 1. No acute cardiopulmonary disease is seen. 2. If there is a high clinical index of suspicion for rib injury, dedicated rib series radiographs are recommended. Dictated by Theron Adan MD @ 02/10/2023 9:18:00 PM Dictated by: Theron Adan MD @ 02/10/2023 21:18:03 (Electronically Signed)
[2023-02-10 19:00] VITALS: BP 143/93; PULSE 56; RESP 18; TEMP 36.2; O2SAT 93; BMI 30.4
--- NOTE | 2023-02-10 19:10 | CRLHL7_ITS ---
For Patients: As a result of the Cures Act, medical imaging exams and procedure reports are released immediately into your electronic medical record. You may view this report before your referring provider. If you have questions, please contact your health care provider. INDICATION: Fall, hip injury TECHNIQUE: Pelvis radiograph, Hip radiograph 3 views right COMPARISON: None FINDINGS: Bone: There is an intertrochanteric fracture of the right proximal femur present with a displaced fragment of the lesser trochanter. Both iliac crests are partially excluded. Joint: The hip joints are unremarkable. The visualized sacroiliac joints are unremarkable in appearance. The pubic symphysis is normal in appearance. Soft tissue: Unremarkable. The visualized bowel gas pattern of the pelvis is unremarkable in appearance. No radiopaque foreign bodies are seen. IMPRESSION: 1. There is an intertrochanteric fracture of the right proximal femur present with a displaced fragment of the lesser trochanter. Dictated by Theron Adan MD @ 02/10/2023 9:17:11 PM Dictated by: Theron Adan MD @ 02/10/2023 21:17:16 (Electronically Signed)
--- NOTE | 2023-02-10 19:19 | ED.GENADULT ---
HPI - General Adult General Date Seen: 02/10/23 Chief complaint: Hip Injury/Pain Stated complaint: Fall Time Seen by Provider: 02/10/23 18:56 Source: patient and EMS Mode of arrival: EMS Limitations: no limitations History of Present Illness HPI narrative: Patient is an 82-year-old male brought in by EMS after a fall in his garage landing on his right hip. He complains of isolated pain in the right hip. He denies hitting his head, denies loss of consciousness, neck pain, back pain, chest pain or abdominal pain. Denies prior surgery on the right hip. He has chronic numbness on the bottom of his feet from neuropathy but has no new complaints of numbness or loss of function. He was given pain medication by EMS but notes that he could use more pain medication prior to x-ray. Denies allergies, does not take any blood thinners. Related Data Home Medications Medication Instructions Recorded Confirmed alfuzosin 10 mg tablet,extended 10 mg PO HS 11/11/21 02/10/23 release 24 hr atenolol 25 mg tablet 25 mg PO HS 11/11/21 02/10/23 mirabegron 50 mg tablet,extended 50 mg PO DAILY 11/11/21 02/10/23 release 24 hr (Myrbetriq) lisinopril 20 mg tablet 20 mg PO DAILY 02/10/23 02/10/23 pravastatin 10 mg tablet 10 mg PO HS 02/10/23 02/10/23 sitagliptin phosphate 100 mg 100 mg PO DAILY 02/10/23 02/10/23 tablet (Januvia) Previous Rx's Medication Instructions Recorded acetaminophen 500 mg tablet 1,000 mg (2 x 500 mg) PO QID PRN 02/13/23 #120 tabs oxycodone 5 mg tablet 5 mg PO Q4H PRN Pain #14 tabs 02/13/23 oxycodone 5 mg tablet 5 mg PO Q4H PRN pain #14 tabs 02/13/23 rivaroxaban 10 mg tablet (Xarelto) 10 mg PO DAILY #30 tabs 02/13/23 sennosides 8.6 mg tablet (Senna 8.6 mg PO BID #60 tabs 02/13/23 Lax) Allergies Allergy/AdvReac Type Severity Reaction Status Date / Time Sulfa (Sulfonamide Allergy Verified 11/11/21 19:46 Antibiotics) Review of Systems Status of ROS: Reports: 10 or more systems reviewed and unremarkable except as noted in History and below PFSH [facility] Medical History Non-insulin dependent diabetes mellitus ROXIE (obstructive sleep apnea) ?G47.33 - Obstructive sleep apnea (adult) (pediatric) (ICD-10) Hyperlipidemia ?E78.5 - Hyperlipidemia, unspecified (ICD-10) Essential hypertension ?I10 - Essential (primary) hypertension (ICD-10) Prostate cancer ?C61 - Malignant neoplasm of prostate (ICD-10) Surgical History History of tonsillectomy ?Z90.89 - Acquired absence of other organs (ICD-10) H/O cardiac catheterization ?Z98.890 - Other specified postprocedural states (ICD-10) Hx of appendectomy ?Z90.49 - Acquired absence of other specified parts of digestive tract (ICD-10) Social History Narrative: Lives with Shirlene (medical decision maker if needed) - they have a total of 6 adult children locally. They spend winter in [place] and summer in [place]. Nonsmoker, rare ETOH. Uses a walker for ambulation. What is your current living situation?: I presently have a place to live Problems where you live: no known problems Problems where you live details: none In the past 12 months, utilities in danger of being shut off: no In past 12 months, lack of transportation kept you from medical appts, meetings, work, or getting things needed for daily living: no In the past 12 mos, have been you worried that your food would run out before you had money to buy more?: never true In the past 12 mos, the food you bought just didn't last and you didn't have money to buy more?: never true Smoking Status: Former smoker Second hand tobacco smoke exposure: No How often do you have a drink containing alcohol: never How often do you have six or more drinks on one occasion: Never AUDIT-C Alcohol total score: 0 Non-prescribed substance use: denies use Caffeine: Yes (coffee, soda) How often does anyone, including family, friends and others, physically hurt you: never How often does anyone, including family, friends and others, insult or talk down to you: never How often does anyone, including family, friends and others, threaten you with harm: never How often does anyone, including family, friends and others, scream or curse at you: never service: Yes Exam Narrative: Exam Narrative: Vital signs as noted above. In general, an alert, elderly male lying on his left hip with the right hip propped up on pillows. Head: Normocephalic, atraumatic. Eyes: Pupils are equal reactive. Extraocular movements are full. Conjunctivae are normal. ENT: Mucous membranes are moist. Neck: Supple without lymphadenopathy. Nontender to palpation. Heart: Regular rate and rhythm. No murmur or rub. Lungs: Clear bilaterally. No increased work of breathing, crackles or wheezes. Abdomen: Soft and nontender. No organomegaly. Extremities: Tenderness over the right hip and proximal femur, no obvious deformity although he is lying in a little bit of a position. Distal CMS is baseline. Able to move both feet. Neurologic: Patient is alert and oriented to person and place. Speech is fluent. Face is symmetric. Moves all extremities equally. Affect: Normal. Skin: Warm and dry. Well perfused. Const: Vital Signs, click to edit/add: Vital Signs - 24 hr 02/10/23 19:00 Temperature 97.2 F L Pulse Rate [Right Pulse Oximeter] 56 L Respiratory Rate 18 Blood Pressure [Ri ght Upper Arm] 143/93 H Pulse Oximetry 93 Oxygen Delivery Me thod Room Air Documenting provider has reviewed patient's vital signs: yes Course Course ED Course: Suspect fracture given degree of pain and positioning. I ordered 4 mg of morphine, labs, EKG and x-rays of the right hip. Fracture noted right hip, labs unremarkable, EKG shows mild sinus bradycardia ventricular rate of 57 beats per minute without acute ST segment changes. He has not had a lot of pain relief from the morphine, will try 0.5 mg of Dilaudid. Case discussed with Dr. Antonio, hospitalist. Page out to Orthopedics as well. Chest x-ray was taken but I am not able to view the images. Radiology read for hip and chest x-ray is pending at this time. Case reviewed with Orthopedics, excepted for admission to the hospital with planned repair. Chest x-ray read by Radiology as no acute findings. Pain controlled better with Dilaudid. Vital Signs Vital signs: Initial Vital Signs Temperature 97.2 F L 02/10/23 19:00 Temperature Source Temporal Artery Scan 02/10/23 19:00 Pulse Rate 56 L 02/10/23 19:00 Respiratory Rate 18 02/10/23 19:00 Blood Pressure 143/93 H 02/10/23 19:00 Blood Pressure Mean 109 H 02/10/23 19:00 Blood Pressure Position Sitting 02/10/23 19:00 Pulse Oximetry 93 02/10/23 19:00 Oxygen Delivery Method Room Air 02/10/23 19:00 Vital Signs Temperature 97.2 F L 02/10/23 19:00 Pulse Rate 56 L 02/10/23 19:00 Respiratory Rate 18 02/10/23 19:00 Blood Pressure 143/93 H 02/10/23 19:00 Pulse Oximetry 93 02/10/23 19:00 Oxygen Delivery Method Room Air 02/10/23 19:00 Temperature 98.8 F 02/13/23 11:26 Pulse Rate 76 02/13/23 11:26 Respiratory Rate 18 02/13/23 11:26 Blood Pressure 137/72 02/13/23 11:26 Pulse Oximetry 93 02/13/23 11:26 Oxygen Delivery Method Room Air 02/13/23 11:26 Oxygen Flow Rate 2 02/11/23 19:19 Medical Decision Making Lab Data Labs: Lab Results 02/10/23 Range/Units 19:20 WBC 6.72 (4.50-11.00) K/uL RBC 5.49 (4.30-5.90) m/uL Hgb 15.3 (13.5-17.5) gm/dL Hct 48.4 (37.0-53.0) % MCV 88 (80-100) fL MCH 28 (26-34) pg MCHC 32 (32-36) gm/dL RDW Coeff of Saskia 14.3 (11.5-15.5) % Plt Count 163 (140-440) K/uL Neut % (Auto) 76.4 H (42.0-72.0) % Lymph % (Auto) 16.2 L (20-44) % Geary % (Auto) 5.1 (0.0-11.0) % Eos % (Auto) 1.5 (0.0-7.0) % Baso % (Auto) 0.1 (0.0-3.0) % Neut # (Auto) 5.10 (1.7-7.0) K/uL Lymph # (Auto) 1.10 (0.90-2.90) K/uL Geary # (Auto) 0.30 (0.00-0.90) K/UL Eos # (Auto) 0.10 (0.00-0.50) K/uL Baso # (Auto) 0.01 (0.00-0.30) K/uL Abs Immat Gran (auto) 0.05 (0.00-0.30) K/uL Imm/Tot Granulo (auto) 0.7 % INR 0.99 (0.91-1.10) APTT 32 (23-33) Seconds Sodium 139 (135-149) mmol/L Potassium 4.0 (3.6-5.1) mmol/L Chloride 105 (96-114) mmol/L Carbon Dioxide 25 (20-32) mmol/L Anion Gap 9 (7-15) mEq/L BUN 17 (7-30) mg/dL Creatinine 0.7 (0.5-1.5) mg/dL Estimated Creat Clear 62.75 Estimated GFR 93 ml/min Glucose 111 (60-115) mg/dL Calcium 8.8 (8.4-10.6) mg/dL Total Bilirubin 0.6 (0.1-1.5) mg/dL Direct Bilirubin 0.0 (0.0-0.5) mg/dL AST 36 H (12-35) U/L ALT 30 (4-50) U/L Alkaline Phosphatase 63 (40-150) U/L Total Protein 7.0 (6.0-8.3) g/dL Albumin 4.2 (3.3-5.0) g/dL Discharge Plan Discharge Patient Disposition: Admitted As Inpatient Activity Level: Weight Bearing as Tolerated, Use Cane, Use Walker and Other Activity Detail: Wound: ? Do not remove original dressings; we will remove this at first postop visit in 1 week. Only remove dressing if integrity is in question. ? No immersing wound in water; showering okay; light scrub with your hand and body soap, rinse, dab dry ? Sutures are under the skin, will dissolve; allow surgical glue to come off naturally; do not scrub the wound or apply ointments/lotions ? Call our office with any redness that streaks, excessive drainage from the wound, or wound gapping. Ice/Elevate: ? Ice as needed for swelling and discomfort (ice pack); elevate extremity frequently above the heart. Motion/Exercise: ? Weight bear as tolerated operative extremity (walker/cane for ambulation assistance as needed) ? Per PT/OT. ? Straight leg raises daily: 1-2 sets of 10 reps Pain Medications: ? Oral narcotic as prescribed. Wean as tolerated. Additional acetaminophen and ibuprofen as needed. CYNTHIA socks: ? Wear for 1 month, remove for 1 hour 3 times per day ? These are frustrating to take on/off, but are important for blood clot prevention for 1 month after surgery Blood Clot Prevention (DVT): ? Medication: 10mg Xarelto daily for 1 month. Driving: ? Do not drive while taking narcotic pain medication ? Anticipate 4-6 weeks no driving if operative leg is driving leg Dental: ? No elective dental work for 6 months post-op. If there is an urgent/emergent dental need, contact our office for an antibiotic prescription. Smoking/Alcohol: ? Do not smoke; do no drink alcohol especially when taking postoperative oral narcotic medication Seek Care from you Primary Care Provider if you experience the following issues in the postoperative phase and beyond: ? Bacterial infections such as: pneumonia, bacterial skin infection (cellulitis), UTI, high fever, chills unrelated to the operative body part - call your primary care physician urgently for treatment in hopes to protect your health and the metal implant. Referrals: ? PT, OT per patient preference - evaluate treat total hip arthroplasty protocol, anterior approach (gait training, ROM, ADLs) Vaccines: ? No vaccines until 4-6 weeks postop Follow up: ? PA-C visit in 1 week. ? Ortho surgeon follow-up in 6 weeks; repeat radiographs AP pelvis, cross table lateral operative hip If there are any acute concerns regarding your surgery, please call our orthopedic clinic ([phone]) Discharge Diet: Diabetic
[2023-02-10 19:29] LABS: Basophils Absolute Auto 0.01 K/uL (0.00-0.30); Basophils Percent Auto 0.1 % (0.0-3.0); Eosinophils Percent Auto 1.5 % (0.0-7.0); Hematocrit 48.4 % (37.0-53.0); Hemoglobin* 15.3 gm/dL (13.5-17.5); Immature Granulocytes Abs Auto 0.05 K/uL (0.00-0.30); Immature Granulocytes Pct Auto 0.7 %; Lymphocytes Percent Auto 16.2 % (20-44); Mean Corpuscular HGB Conc 32 gm/dL (32-36); Mean Corpuscular Hemoglobin 28 pg (26-34); Mean Corpuscular Volume 88 fL (80-100); Monocytes Percent Auto 5.1 % (0.0-11.0); Neutrophils Percent Auto 76.4 % (42.0-72.0); Platelet Count* 163 K/uL (140-440); RDW Coefficient of Variation % 14.3 % (11.5-15.5); Red Blood Count 5.49 m/uL (4.30-5.90); White Blood Count* 6.72 K/uL (4.50-11.00)
[2023-02-10] MEDS: MORPHINE 4 MG/ML INJ IVP (19:33)
--- OUTSIDE RECORDS SUMMARY | 2023-02-10 19:38 | XMS_ITS ---
Author Name Unknown Address [address] [place] [address] Phone Organization [facility] Address [address] [place] [address] Phone Care Team Providers Care Farmworkers Name Role Phone Tom Brantley MD, Ismael Roche Unavailable [phone] Ricky SPENCER, Heron Epstein Unavailable [phone] Vita SPENCER, Gail Jimenez Unavailable [phone] Blas Walsh MD Unavailable [phone] Chris SPENCER, Misael Guillaume Unavailable [phone] Paul Sheikh DO Primary Care Provide r [phone] Problems Includes: Active, inactive, and resolved Problems All Visits Onset Date Resolved Date Provider Condition S tatus Diabetes Mellitus Type 2 11/07/2017 Blas Persaud MD Active Last Documented On 8 12:03PM ; [facility] Esophageal Reflux 11/07/2017 Blas Walsh MD Active Last Documented On 8 12:01PM ; [facility] Essential Hypertriglyceridemia 11/07/2017 Huy Walsh MD Active Last Documented On 8 12:06PM ; [facility] Essential Hypertension 11/07/2017 Blas roche MD Active Last Documented On 8 12:05PM ; [facility] Hemorrhoids Internal 11/07/2017 Blas Walsh MD Active Last Documented On 8 12:04PM ; [facility] Intestinal Disorder Diverticular 11/07/2017 Darrell Walsh MD Active Last Documented On 8 12:06PM ; [facility] Obesity 11/07/2017 Blas Walsh MD Active Last Documented On 8 12:02PM ; [facility] Osteoarthritis 11/07/2017 Blas Walsh MD Act jigar Last Documented On 8 12:06PM ; [facility] 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 Spondylosis 11/07/2017 Blas Walsh MD Active Last Documented On 8 12:04PM ; [facility] Familial (Benign Essential) Tremor 11/07/2017 Tristan Walsh MD Active Last Documented On 8 12:05PM ; [facility] 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 Plan of Treatment Findings Encounter Date Clinical staff counseled pat joshua to adopt healthy behaviors as appropriate Follow up with Gail Gorman MD 12/20/2020 Last Documented On 1 1:09PM ; [facility] Clinical staff counseled markos cuevant to adopt healthy behaviors as appropriate Follow up with Gail Gorman MD 08/22/2020 Last Documented On 1 5:15PM ; [facility] Instructions to patient Lose weight Patient encourag e to limit portion sizes and to tract and restrict their total daily caloric intake Last Documented On 1 10:37AM ; [facility] Lose weight Patient encourag e to limit portion sizes and to tract and restrict their total daily caloric intake Last Documented On 1 8:41AM ; [facility] Lose weight Patient encourag e to limit portion sizes and to tract and restrict their total daily caloric intake Last Documented On 1 11:05AM ; [facility] Education and Decision Aids were provided during visit for: Patient education about diet ramandeep needs Last Documented On 2 11:23AM ; [facility] Clinical staff counseled pat ient to adopt healthy behaviors as appropriate Last Documented On 1 10:35AM ; [facility] Clinical staff counseled pat ient to adopt healthy behaviors as appropriate Last Documented On 1 8:46AM ; [facility] Assessments Includes: Assessments for all patient encounters No Assessments Recorded Instructions Includes: Instructions for all patient encounters Instructions to patient Lose weight Patient encourag e to limit portion sizes and to tract and restrict their total daily caloric intake Last Documented On 1 10:37AM ; [facility] Lose weight Patient encourag e to limit portion sizes and to tract and restrict their total daily caloric intake Last Documented On 1 8:41AM ; [facility] Lose weight Patient encourag e to limit portion sizes and to tract and restrict their total daily caloric intake Last Documented On 1 11:05AM ; [facility] Education and Decision Aids were provided during visit for: Patient education about diet ramandeep needs Last Documented On 2 11:23AM ; [facility] Clinical staff counseled pat ient to adopt healthy behaviors as appropriate Last Documented On 1 10:35AM ; [facility] Clinical staff counseled pat ient to adopt healthy behaviors as appropriate Last Documented On 1 8:46AM ; [facility] Medical Equipment - Implanted Devices Includes: Current and historical Devices No Medical Equipment Recorded Medications Includes: Current and historical Medications Current Medications (continue as prescribed) Myrbetriq 25 MG Oral Tablet Extended Release 24 Hour 0 12/20/2020 Provider: Diagnosis: Last Documented On 1 10:33AM By Rayne Olson *TERMED* ; [facility] Lisinopril 20 MG Oral Tablet 08/07/2020 Provider: Diagnosis: Last Documented On 1 11:01AM By Rayne Olson *TERMED* ; [facility] Januvia 100 MG Oral Tablet 08/07/2020 Provider: Diagnosis: 1 QD Last Documented On 1 11:17AM By Rayne Olson *TERMED* ; [facility] Atenolol 25 MG Oral Tablet 08/07/2020 Provider: Diagnosis: Last Documented On 1 11:18AM By Rayne MckeeTERMED* ; [facility] Alfuzosin HCl ER 10 MG Oral Tablet Extended Rele ase 24 Hour 08/07/2020 Provider: Diagnosis: 1 HS Last Documented On 1 11:19AM By Rayne RYAN* ; [facility] Multivitamin Oral Tablet 08/07/2020 Provider: Diagnosis: Last Documented On 1 11:20AM By Rayne RYAN* ; [facility] CoQ10 100 MG Oral Capsule 08/07/2020 Provider: Diagnosis: Last Documented On 1 11:40AM By Trini Tran ; [facility] Past Medications on file Rosuvastatin Calcium 5 MG Oral Tablet 08/07/2020 - Provider: Diagnosis: Last Documented On 2 11:25AM By Trini Tran ; [facility] CVS Vitamin D3 25 MCG (1000 UT) Oral Tablet Chewable 08/07/2020 - 06/18/2021 Provider: Diagnosis: Last Documented On 2 11:24AM By Trini Tran ; [facility] EQL Fish Oil 1000 MG Oral Capsule 08/07/2020 - 021 Provider: Diagnosis: Last Documented On 1 10:32AM By Rayne RYAN* ; [facility] Medications Administered Includes: Administered Medications in patient's chart No Administered Medications Recorded Vital Signs Includes: Vital Signs through 02/10/2023 Vital Name 06/18/2021 11:23A 12/20/2020 10:26A 08/22/2020 08:46A 08/07/2020 11:05A Blood Pressure Sitting L 130/85 128/78 136/82 BP Cuff Size Regular Regular Regular Large Pulse Rate-Sitting (bpm) 72 62 66 Pulse Rhythm Regular Regular Height (in) 71 71 71 71 Weight (lb) 239 235 234 238 Body Mass Index (kg/m2) 33.3 32.8 32.6 33.2 Body Surface Area (m2) 2.3 2.3 2.3 2.3 Blood Pressure Standing L 124/76 Pulse Rate-Standing (bpm) 74 Temp-Oral (F) 97.8 95.1 Last Documented On: 06/18/2021 11:27AM ; [facility] 12/20/2020 10:35AM ; [facility] 08/22/2020 8:48AM ; [facility] Results Includes: Results through 02/10/2023 CREATININE iSTAT [facility] Ordered by Gail Gorman MD on 09/14/19 Collected: 09/13/2020 Reported: 09/14/19 16:56 Last Documented On 8:26AM ; [facility] Reviewed by Gail Ospina on 09/14/2020; All test results are final unless otherwise noted. CREATININE iSTAT 0.7 mg/dL (0.6-1.3) N (Normal) Last Documented On 8:03PM ; [facility] Note: Specimen Number: [id number] Reported Physicians [facility] Ordered by Gail Gorman MD on 09/14/19 Collected: 09/13/2020 Reported: 09/14/19 16:56 Last Documented On 8:26AM ; [facility] Reviewed by Gail Ospina on 09/14/2020; All test results are final unless otherwise noted. Reported Physicians See Note None Last Documented On 09/13/2020 8:03PM ; [facility] Note: Reported Physicians:Ordering: Lauren Gormanending: Gail Gorman SJOGREN'S AB (SSA/SSB) [facility] Ordered by Gail Gorman MD on 08/10/19 Collected: 08/09/2020 Reported: 08/12/19 12:33 Last Documented On 11:01AM ; [facility] Reviewed by Gail Ospina on 08/14/2020; All test results are final unless otherwise noted. SS-A/Ro AB <0.2 N (Normal) Last Documented On 08/11/2020 4:00PM ; [facility] Note: Reference range: <1.0 (Negative)Unit: U SS-B/La AB <0.2 N (Normal) Last Documented On 08/11/2020 4:00PM ; [facility] Note: Reference range: <1.0 (Negative)Unit: U Test Performed by:[facility] [place] [id number] Director: Mat Pearl M.D. Ph.D.; IA# [id number] Number: [id number] Reported Physicians [facility] Ordered by Gail Gorman MD on 08/10/19 Collected: 08/09/2020 Reported: 08/12/19 12:33 Last Documented On 1 11:01AM ; [facility] Reviewed by Gail Ospina on 08/14/2020; All test results are final unless otherwise noted. Reported Physicians See Note None Last Documented On 08/11/2020 4:00PM ; [facility] Note: Reported Physicians:Ordering: Lauren Gormanending: Gail Gorman KAPPA/LAMBDA QNT FLC [facility] Ordered by Gail Gorman MD on 08/10/19 Collected: 08/09/2020 Reported: 08/14/19 07:27 Last Documented On 1 11:01AM ; [facility] Reviewed by Gail Ospina on 08/14/2020; All test results are final unless otherwise noted. KAPPA LIGHT CHN,FR,S 17.9 N (Normal) Last Documented On 1 10:31AM ; [facility] Note: Reference range: 3.3 to 19.4Unit: mg/L KAPPA/LAMBDA,FR RAT 1.21 N (Normal) Last Documented On 1 10:31AM ; [facility] Note: Reference range: 0.26 to 1.65 Free kappa/lambda ratio in serum of normal individualsis 0.26-1.65. Excess production of free kappa orlambda chains can alter the ratio. Monoclonal freelight chains are found in the serum of patients withmultiple myeloma, Waldenstrom's macroglobulinemia,mu-heavy chain disease, primary amyloidosis, lightchain deposition disease, monoclonal gammopathy ofundetermined significance, and lymphoproliferativedisorders. Measurement of free light chain concen-tration in serum is useful for diagnosis, prognosis,monitoring disease activity and following response totherapy of these disorders.Test Performed by [facility],[address] [place] [address] [id number] Kumar M.D., Ph.D., Director of [phone], [facility] [id number] Number: [id number] LAMBDA LIGHT CH,FR,S 14.8 N (Normal) Last Documented On 1 10:31AM ; [facility] Note: Reference range: 5.7 to 26.3Unit: mg/L Reported Physicians [facility] Ordered by Gail Gorman MD on 08/10/19 Collected: 08/09/2020 Reported: 08/14/19 07:27 Last Documented On 1 11:01AM ; [facility] Reviewed by Gail Ospina on 08/14/2020; All test results are final unless otherwise noted. Reported Physicians See Note None Last Documented On 08/13/2020 10:31AM ; [facility] Note: Reported Physicians:Ordering: Lauren Gormanending: Gail Gorman IMMUNOFIXATN PROF,SERUM [facility] Ordered by Gail Gorman MD on 08/10/19 Collected: 08/09/2020 Reported: 08/15/19 21 15:48 Last Documented On 1 9:55AM ; [facility] Reviewed by Gail Ospina on 08/17/2020; All test results are final unless otherwise noted. TP, SERUM 6.6 g/dL (6.4-8.3) N (Normal) Last Documented On 1 7:33PM ; [facility] ALBUMIN 4.0 g/dL (3.0-5.2) N (Normal) Last Documented On 1 7:33PM ; [facility] A1 GLOBULIN 0.2 g/dL (0.1-0.4) N (Normal) Last Documented On 7:33PM ; [facility] A2 GLOBULIN 0.8 g/dL (0.4-1.0) N (Normal) Last Documented On 1 7:33PM ; [facility] BETA GLOBULIN 0.7 g/dL (0.7-1.6) N (Normal) Last Documented On 7:33PM ; [facility] GAMMA GLOBULIN 0.9 g/dL (0.7-2.0) N (Normal) Last Documented On 7:33PM ; [facility] A/G RATIO 1.5 Units (1.2-2.2) N (Normal) Last Documented On 7:33PM ; [facility] IGA 64 mg/dL (70-400) L (Low) Last Documented On 7:33PM ; [facility] IGG 767 mg/dL (700-1600) N (Normal) Last Documented On 7:33PM ; [facility] IGM 47 mg/dL (40-230) N (Normal) Last Documented On 7:33PM ; [facility] PATH INTERP SPE Interpretation: No abnormal protein seen. N (Normal) Last Documented On 08/14/2020 7:33PM ; [facility] Note: SIFE Interpretation: No abnormal protein is seen. Specimen Number: [id number] Reported Physicians [facility] Ordered by Gail Gorman MD on 08/10/19 Collected: 08/09/2020 Reported: 08/15/19 15:48 Last Documented On 9:55AM ; [facility] Reviewed by Gail Ospina on 08/17/2020; All test results are final unless otherwise noted. Reported Physicians See Note None Last Documented On 08/14/2020 7:33PM ; [facility] Note: Reported Physicians:Ordering: Lauren Gormanending: Gail Gorman METHYLMALONIC ACID [facility] Ordered by Gail Gorman MD on 08/10/19 Collected: 08/09/2020 Reported: 08/20/19 05:23 Last Documented On 1 10:47AM ; [facility] Reviewed by Gail Ospina on 08/20/2020; All test results are final unless otherwise noted. METHYLMALONIC ACID 179 N (Normal) Last Documented On 08/19/2020 8:37AM ; [facility] Note: Reference range: 87 to 318Unit: nmol/L This test was developed and its analytical performancecharacteristics have been determined by [employer] [place], [place]. It hasnot been cleared or approved by the U.S. Food and DrugAdministration. This assay has been validated pursuantto the CLIA regulations and is used for clinicalpurposes.Test Performed by [email or web address],[address] [place] [id number] Kumar M.D., Ph.D., Director of [phone], CLIA [id number] Number: [id number] Reported Physicians [facility] Ordered by Gail Gorman MD on 08/10/19 Collected: 08/09/2020 Reported: 08/20/19 05:23 Last Documented On 1 10:47AM ; [facility] Reviewed by Gail Ospina on 08/20/2020; All test results are final unless otherwise noted. Reported Physicians See Note None Last Documented On 08/19/2020 8:37AM ; [facility] Note: Reported Physicians:Ordering: Laruen Gormanending: Gail Gorman HEMOGLOBIN A1C [facility] Ordered by Gail Gorman MD on 08/10/19 Collected: 08/09/2020 Reported: 08/10/19 17:29 Last Documented On 1 11:01AM ; [facility] Reviewed by Gail Ospina on 08/14/2020; All test results are final unless otherwise noted. HEMOGLOBIN A1C 7.1 % (4.0-6.0) H (High) Last Documented On 10:45PM ; [facility] Note: Specimen Number: [id number] VITAMIN B12 [facility] Ordered by Gail Gorman MD on 08/10/19 Collected: 08/09/2020 Reported: 08/10/19 17:54 Last Documented On 11:01AM ; [facility] Reviewed by Gail Ospina on 08/14/2020; All test results are final unless otherwise noted. VITAMIN B12 502 pg/mL (193-986) N (Normal) Last Documented On 10:45PM ; [facility] Note: Specimen Number: [id number] HEP C AB [facility] Ordered by Gail Gorman MD on 08/10/19 Collected: 08/09/2020 Reported: 08/10/19 18:18 Last Documented On 11:01AM ; [facility] Reviewed by Gail Ospina on 08/14/2020; All test results are final unless otherwise noted. HEP C AB NONREACTIVE (NONREACTIVE) N (Normal) Last Documented On 10:45PM ; [facility] Note: Specimen Number: [id number] Reported Physicians [facility] Ordered by Gail Gorman MD on 08/10/19 Collected: 08/09/2020 Reported: 08/10/19 18:18 Last Documented On 1 11:01AM ; [facility] Reviewed by Gail Ospina on 08/14/2020; All test results are final unless otherwise noted. Reported Physicians See Note None Last Documented On 08/09/2020 10:45PM ; [facility] Note: Reported Physicians:Ordering: Lauren Gormanending: Gail Gorman History of Present Illness History of Present Illness not supported for this document type No History of Present Illness Recorded Social History Description Last Updated Former smoker 06/18/2021 Last Documented On 2 12:08PM ; [facility] Use of tobacco assessment performed 05/29 Last Documented On 2 12:08PM ; [facility] Patient has living will 12/20/2020 Last Documented On 1 1:09PM ; [facility] Patient has not seen another provider si nce last visit 12/20/2020 Last Documented On 1 1:09PM ; [facility] States no significant change in lifestyl e since last visit 12/20/2020 Last Documented On 1 1:09PM ; [facility] A social drinker 08/22/2020 Last Documented On 1 5:15PM ; [facility] No tobacco use Former 08/22/2020 Last Documented On 1 5:15PM ; [facility] Not using drugs 08/22/2020 Last Documented On 1 5:15PM ; [facility] Smoking Status Unknown Procedures and Surgical History Includes: Procedures through 02/10/2023 Procedures Code Diagnosis Performing Provider Service Location Service Date Collection blood by venipuncture % 98160 Type 2 diabetes mellitus without complications [facility] [employer] [facility] Primary Care at [facility] 06/02/2022 Last Documented On 3 11:52AM ; [facility] Collection blood by venipuncture % 15068 Type 2 diabetes mellitus without complications [facility] [employer] [facility] Primary Care [facility] 02/20/2022 Last Documented On 2 3:04PM ; [facility] Electrocardiogram report (Repeat procedure by same physician) [id number] Abnormal electrocardiogram [ECG] [EKG] Jefe Ricketts MD [facility] 07/24/2021 Last Documented On 2 2:22PM ; [facility] Electrocardiogram report [id number] Abnormal electrocardiogram [ECG] [EKG] Jefe Ricketts MD [facility] 07/24/2021 Last Documented On 2 7:27AM ; [facility] Collection blood by venipuncture % 68573 Malignant neoplasm of prostate [facility] [employer] [facility] Primary Care [facility] 07/11/2021 Last Documented On 2 10:35AM ; [facility] Collection blood by venipuncture % 14825 Other pruritus [facility] [employer] [facility] Primary [facility] e at [facility] 07/03/2021 Last Documented On 2 11:30AM ; [facility] Remove impacted ear wax 07911 Impacted cerumen, unspecified ear Taras Durand MD [facility] at [facility] 02/05/2021 Last Documented On 1 9:21AM ; [facility] Musc tst done w/n tst nonext (Distinct Proc Serv.) 26793 Paresthesia of skin Gail Gorman MD [facility] at [facility] 08/15/2020 Last Documented On 1 7:59AM ; [facility] Musc tst done w/n tst nonext 98964 Radiculopathy, cervicothoracic region Gail Gorman MD [facility] at [facility] 08/15/2020 Last Documented On 1 12:06PM ; [facility] Musc test done w/n test comp (Left Side) 96609 Type 2 diabetes mellitus with diabetic polyneuropathy, Radiculopathy, cervicothoracic region, Radiculopathy, lumbosacral region, Paresthesia of skin Gail Gorman MD [facility] at [facility] 08/15/2020 Last Documented On 1 12:06PM ; [facility] Musc test done w/n test comp (Right Side) 49546 Type 2 diabetes mellitus with diabetic polyneuropathy, Radiculopathy, cervicothoracic region, Radiculopathy, lumbosacral region, Paresthesia of skin Gissello Tony Gorman MD [facility] at [facility] 08/15/2020 Last Documented On 1 12:06PM ; [facility] Nrv cndj test / studies 06736 Type 2 diabetes mellitus with diabetic polyneuropathy, Radiculopathy, cervicothoracic region, Radiculopathy, lumbosacral region, Paresthesia of skin Gissello Tony Gorman MD [facility] at [facility] 08/15/2020 Last Documented On 1 12:06PM ; [facility] Collection blood by venipuncture % 64393 Malignant neoplasm of prostate [facility] [employer] [facility] Primary Care at [facility] 05/28/2020 Last Documented On 1 3:46PM ; [facility] Surgical History Last Updated History of back surgery Spine & Neck rayray wale 10 yrs ago 08/22/2020 Last Documented On 1 5:15PM ; [facility] Prior surgery Appendix removed young ad ult ~Hernia 5 yrs ago 08/22/2020 Last Documented On 1 5:15PM ; [facility] Medical History Includes: Medical History in patient's chart Description Last Updated Denies significant change in medical sta tus since last visit 12/20/2020 Last Documented On 1 1:09PM ; [facility] Yes patient feels confident managing chr onic conditions 12/20/2020 Last Documented On 1 1:09PM ; [facility] A history of cancer Prostate 08/22/2020 Last Documented On 1 5:15PM ; [facility] History of benign essential hypertension Hypertension 08/22/2020 Last Documented On 1 5:15PM ; [facility] History of diabetes mellitus 08/22/2020 Last Documented On 1 5:15PM ; [facility] History of hyperlipidemia 08/22/2020 Last Documented On 1 5:15PM ; [facility] Family History Includes: Family History in patient's chart Description Last Updated States no significant change in family m edical history since last visit 12/20/2020 Last Documented On 1 1:09PM ; [facility] [facility] Review of Systems Review of Systems not supported for this document type No Review of Systems Recorded Mental Status No Mental Status Recorded Functional Status No Functional Status Recorded Physical Exam Physical Exam not supported for this document type No Physical Exam Recorded Allergies Includes: Active, inactive, and resolved Allergies Substance Type Reaction Onset Date Resolved Date Statu s Tamsulosin HCl Allergy 11/07/2017 Acti ve Last Documented On 2 11:21AM ; [facility] Sulfa Antibiotics Allergy 11/07/2017 A ctive Last Documented On 2 11:21AM ; [facility] Simvastatin Allergy 11/07/2017 Active Last Documented On 2 11:21AM ; [facility] Lyrica Allergy 11/07/2017 Active Last Documented On 2 11:21AM ; [facility] Byetta 10 MCG Pen Allergy 11/07/2017 A ctive Last Documented On 2 11:21AM ; [facility] Encounters Includes: Encounters through 02/10/2023 Encounter Provider Location Date Check-In Time Check-Out Time Diagnosis [Patient Encounter] Gali Gorman MD 2 06/18/2021 1:38PM 06/18/2021 11:59PM Follow up Gail Gorman MD [facility] at [facility] 2 11:10AM 11:58AM Follow up Gail Gorman MD [facility] 1 10:19AM 11:23AM [Patient Encounter] Gail Gorman MD 1 08/22/2020 9:16AM 08/22/2020 11:59PM [Patient Encounter] Gail Gorman MD 1 08/22/2020 1:05PM 08/22/2020 11:59PM Follow up Gail Gorman MD [facility] at [facility] 1 8:41AM 9:31AM [Patient Encounter] Gail Gorman MD 1 3:17PM 11:59PM EMG Gail Gorman MD [facility] 1 1:29PM 3:20PM New Patient Gail Gorman MD [facility] 1 9:43AM 11:50AM Preload Process Blas Walsh MD 8 11:59AM 11:59PM Insurance Includes: Active Insurance Policies Plan Name Member ID Group # Subscriber Relationship Effect jigar Dates 1 - Medicare : [id number] Pritesh Funez Self 2 - Bc/bs Fl(federal) :[facility] [id number] Pritesh Funez Self 04/27/2019 - Unknown Clinical Notes Includes: Signed Clinical Notes starting from 05/16/2022 No Clinical Notes Recorded
--- OUTSIDE RECORDS SUMMARY | 2023-02-10 19:38 | XMS_ITS | Clinical Summary ---
Author Name Unknown Address [address] [place] [address] Phone Organization [facility] Address [address] [place] [address] Phone Care Team Providers Care A/C Tech Name Role Phone Tom Brantley MD, Ismael Roche Unavailable [phone] Ricky SPENCER, Heron Epstein Unavailable [phone] Vita SPENCER, Gail Jimenez Unavailable [phone] Blas Walsh MD Unavailable [phone] Chris SPENCER, Misael Guillaume Unavailable [phone] Paul Sheikh DO Primary Care Provide r [phone] Reason for Visit and Chief Complaint [Patient Encounter] Problems Includes: Problems addressed during this encounter and other active Problems All Visits Onset Date Resolved Date [...] [facility] Plan of Treatment Pending Tests Order Diagnosis Results Due Ordering Tony MAX OTHER Type 2 diabetes mellitus with diabetic polyneuropathy 06/20/21 Gail Gorman MD Last Documented On 2 11:41AM ; [facility] Therapy - Occupational Therapy * Occupational Therapy Type 2 diabetes mellitus with diabetic polyneuropathy 06/20/21 Gail Gorman MD Last Documented On 2 11:41AM ; [facility] Assessments Includes: Assessments from this encounter No Assessments Recorded Medical Equipment - Implanted Devices Includes: Current Devices No Medical Equipment Recorded Medications Includes: Medications discussed during this encounter and other current Medications Current Medications (continue as prescribed) Myrbetriq [...] Last Documented On 1 11:18AM By Rayne Olson *TERMED* ; [facility] Alfuzosin HCl ER 10 MG Oral Tablet Extended Rele ase 24 Hour 08/07/2020 Provider: Diagnosis: 1 HS Last Documented On 1 11:19AM By Rayne Olson *TERMED* ; [facility] Multivitamin Oral Tablet 08/07/2020 Provider: Diagnosis: Last Documented On 1 11:20AM By Rayne Olson *TERMED* ; [facility] CoQ10 100 MG Oral Capsule 08/07/2020 Provider: Diagnosis: Last Documented On 1 11:40AM By Trini Tran ; [facility] Medications Administered Includes: Administered Medications from this encounter No Administered Medications Recorded Results Includes: Results discussed during this encounter No Results Recorded For Specified Dates History of Present Illness Includes: History of Present Illness from this encounter No History of Present Illness Recorded Social History No Social History Recorded - Smoking Status Unknown Medical History Includes: Medical History addressed during this encounter No Medical History Recorded Family History Includes: Family History addressed during this encounter No Family History Recorded Review of Systems Includes: Review of Systems from this encounter No Review of Systems Recorded Mental Status Includes: Mental Status from this encounter No Mental Status Recorded Functional Status Includes: Functional Status from this encounter No Functional Status Recorded Physical Exam Includes: Physical Exam from this encounter No Physical Exam Recorded Allergies Includes: Active Allergies Substance Type Reaction Onset Date Resolved [...] [facility] Encounters Encounter Provider Location Date Check-In Time Check-Out Time Diagnosis [Patient Encounter] Gail Gorman MD 06/20/2021 1:38PM 11:59PM Insurance Includes: Active Insurance Policies Plan Name Member ID Group # Subscriber Relationship Effect jigra Dates 1 - Medicare : [id number] Pritesh Funez Self 2 - Bc/bs Fl(federal) :[facility] [id number] Pritesh Mckeon 04/27/2019 - Unknown Clinical Notes Includes: Clinical Notes from this encounter No Clinical Notes Recorded
--- OUTSIDE RECORDS SUMMARY | 2023-02-10 19:38 | XMS_ITS | Clinical Summary ---
Author Name Unknown Address [address] [place] [address] Phone Organization [facility] Address [address] [place] [address] Phone Care Team Providers Care Bereavement Counselor Name Role Phone Tom Brantley MD, Ismael Roche Unavailable [phone] Ricky SPENCER, Heron Epstein Unavailable [phone] Vita SPENCER, Gail Jimenez Unavailable [phone] Blas Walsh MD Unavailable [phone] Chris SPENCER, Misael Guillaume Unavailable [phone] Paul Sheikh DO Primary Care Provide r [phone] Reason for Visit and Chief Complaint The Chief Complaint is: follow up, multiple falls Problems Includes: Problems addressed during this encounter and other active Problems All Visits Onset Date Resolved Date Provider Condition S tatus Diabetes Mellitus Type 2 11/07/2017 Blas Persaud MD Active Last Documented On 8 12:03PM ; [facility] Esophageal Reflux 11/07/2017 Blas Walsh MD Active Last Documented On 8 12:01PM ; [facility] Essential Hypertriglyceridemia 11/07/2017 Huy Walsh MD Active Last Documented On 8 12:06PM ; [facility] Essential Hypertension 11/07/2017 Blas roche MD Active Last Documented On 8 12:05PM ; [facility] Hemorrhoids Internal 11/07/2017 Blas Walsh MD Active Last Documented On 8 12:04PM ; [facility] Intestinal Disorder Diverticular 11/07/2017 Darrell Walsh MD Active Last Documented On 8 12:06PM ; [facility] Obesity 11/07/2017 Blas Walsh MD Active Last Documented On 8 12:02PM ; [facility] Osteoarthritis 11/07/2017 Blas Walsh MD Act jigar Last Documented On 8 12:06PM ; [facility] 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 Spondylosis 11/07/2017 Blas Walsh MD Active Last Documented On 8 12:04PM ; [facility] Familial (Benign Essential) Tremor 11/07/2017 Tristan Walsh MD Active Last Documented On 8 12:05PM ; [facility] 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 Etiology is likely secondary to diabetes mellitus type 2 and likely an idiopathic component. 1. As discussed, unfortunately the patient has not responded well to therapy. 2. Continue using rolling walker for fall prevention. 3. He would benefit from a power chair. A [id number] has been provided below. However, he is uncertain if he wants to pursue this. 4. His A1c is now 6.8. Continue strict glycemic control. 5. Recommend weight loss. 6. Follow-up as needed. Patient is here today for face to face visit to assess need for mobility device. The patient has cervical/lumbosacral polyradiculopathy syndrome and a generalized, sensorimotor polyneuropathy. The patient's limitations cannot be sufficiently and safely resolved with the use of an appropriated fitted cane, crutches or walker due to the reasons noted below. Patient cannot propel a standard or light weight wheelchair or utilize a scooter due to reasons noted below. [ ] Risk of Falling or History of Falls [ ] Fatigue [ ] Safety concerns with physical ability [ ] Decreased / limitations endurance & strength [ ] Decreased / limitations motor skills & coordination [ ] Unable to ambulate short distances [ ] Poor balance These conditions have entirely impaired the patient's ability to participate in one or more of the following MRADLs in a timely or safe manner, including the following: [ ] bathing [ ] dressing [ ] item retrieval for ADLs [ ] toileting [ ] grooming [ ] meal preparation [ ] housekeeping [ ] bowel/bladder management [ ] attending medical appointments A powerchair would make it so that the patient can independently perform BADLs and MRADLs in the home on a daily basis. Accordingly, the powerchair with the features described by occupational and/or physical therapy are medically necessary and not for patient??s convenience. Gail Gorman MD Board Certified ABPN Neuromuscular Medicine and General Neurology Board Certified ABEM Electrodiagnostic Medicine (NCS/EMG) [facility] [address] [place] [address] This note was created using voice recognition software and is subject to errors including those of syntax which may escape proofreading. - Last Documented On 06/18/2021 12:08PM ; [facility] Education and Decision Aids were provided during visit for: Patient education about diet ramandeep needs Last Documented On 2 11:23AM ; [facility] Assessments Includes: Assessments from this encounter No Assessments Recorded Instructions Includes: Instructions from this encounter Education and Decision Aids were provided during visit for: Patient education about diet ramandeep needs Last Documented On 2 11:23AM ; [facility] Medical Equipment - Implanted Devices Includes: Current Devices No Medical Equipment Recorded Medications Includes: Medications discussed during this encounter and other current Medications Discontinued / Stopped on this date on 08/07/2020 Rosuvastatin Calcium 5 MG Oral Tablet Pro vider: Diagnosis: Last Documented On 2 11:25AM By Trini Tran ; [facility] Vitamin D3 25 MCG (1000 UT) Oral Tablet Chewable Provider: Diagnosis: Last Documented On 2 11:24AM By Trini Tran ; [facility] Current Medications (continue as prescribed) Myrbetriq 25 MG Oral Tablet Extended Release 24 Hour 0 12/20/2020 Provider: Diagnosis: Last Documented On 1 10:33AM By Rayne MckeeTERMED* ; [facility] Lisinopril 20 MG Oral Tablet 08/07/2020 Provider: Diagnosis: Last Documented On 1 11:01AM By Rayne MckeeTERMED* ; [facility] Januvia 100 MG Oral Tablet 08/07/2020 Provider: Diagnosis: 1 QD Last Documented On 1 11:17AM By Rayne Olson *TERMED* ; [facility] Atenolol 25 MG Oral Tablet 08/07/2020 Provider: Diagnosis: Last Documented On 1 11:18AM By Rayne Olson *TERMED* ; [facility] Alfuzosin HCl ER 10 MG Oral Tablet Extended Rele ase 24 Hour 08/07/2020 Provider: Diagnosis: 1 HS Last Documented On 1 11:19AM By Rayne Olson *TERMED* ; [facility] Multivitamin Oral Tablet 08/07/2020 Provider: Diagnosis: Last Documented On 1 11:20AM By Rayne MckeeTERMED* ; [facility] CoQ10 100 MG Oral Capsule 08/07/2020 Provider: Diagnosis: Last Documented On 1 11:40AM By Trini Tran ; [facility] Medications Administered Includes: Administered Medications from this encounter No Administered Medications Recorded Vital Signs Includes: Vital Signs from this encounter Vital Name 06/18/2021 11:23A Blood Pressure Sitting L 130/85 BP Cuff Size Regular Pulse Rate-Sitting (bpm) 72 Pulse Rhythm Regular Height (in) 71 Weight (lb) 239 Body Mass Index (kg/m2) 33.3 Body Surface Area (m2) 2.3 Last Documented On: 06/18/2021 11:27AM ; [facility] Results Includes: Results discussed during this encounter No Results Recorded For Specified Dates History of Present Illness Includes: History of Present Illness from this encounter ROGER Funez is a 81 year old male. - Allergy list reviewed - Medication list reviewed The patient presents for follow-up. Since last visit, he has essentially been the same. He has done his exercises. He continues to follow. Mostly, he feels that his balance remains an issue. He uses a rolling walker regularly. Weight has not changed. His hemoglobin A1c has improved to 6.8. He has had multiple consultations with several physicians who have ultimately come to the same conclusion that he has significant neurological injury secondary to cervical and lumbosacral disease along with polyneuropathy. At this point, the patient will attempt to manage the best he can. Bothered by feelings of sadness, depression or helplessness in the past month was 0 and loss of pleasure from usual activities was 0. Patient screened for future fall risk documentation of two or more falls in past year; Standardized depression screening: negative for symptoms No significant symptoms, PHQ2 score 0-4. Social History Description Last Updated Former smoker 06/18/2021 Last Documented On 2 12:08PM ; [facility] Use of tobacco assessment performed 05/29 Last Documented On 2 12:08PM ; [facility] Smoking Status Unknown Procedures and Surgical History Includes: Procedures from this encounter Procedures Code Diagnosis Performing Provider Service L ocation Service Date history of influenza virus vaccine Last Documented On 2 11:23AM ; [facility] [employer] history of pneumococcal vaccine Last Documented On 2 11:23AM ; [facility] [employer] [facility] Medical History Includes: Medical History addressed during [...] Exam Includes: Physical Exam from this encounter Allergies Includes: Active Allergies Substance Type Reaction Onset Date Resolved Date Statu s Tamsulosin HCl Allergy 11/07/2017 Acti ve Last Documented On 2 11:21AM ; [facility] Sulfa Antibiotics Allergy 11/07/2017 A ctive Last Documented On 2 11:21AM ; [facility] Simvastatin Allergy 11/07/2017 Active Last Documented On 2 11:21AM ; [facility] Lyrica Allergy 11/07/2017 Active Last Documented On 2 11:21AM ; [facility] Byetta 10 MCG Pen Allergy 11/07/2017 A ctive Last Documented On 2 11:21AM ; [facility] Encounters Encounter Provider Location Date Check-In Time Check-Out Time Diagnosis Follow up Gail Gorman MD [facility] 2 11:10AM 11:58AM Insurance Includes: Active Insurance Policies Plan Name Member ID Group # Subscriber Relationship Effect jigar Dates 1 - Medicare : [id number] Pritesh Funez Self 2 - Bc/bs Fl(federal) :[facility] [id number] Pritesh Mckeon 04/27/2019 - Unknown Clinical Notes Includes: Clinical Notes from this encounter No Clinical Notes Recorded
--- OUTSIDE RECORDS SUMMARY | 2023-02-10 19:38 | XMS_ITS ---
Care Plan - [facility] Created on: February 10, 2023 Pritesh Funez : 1940 Sex: Male Author Name Unknown Address [address] [place] [address] Phone Organization [facility] Address [address] [place] [address] Phone Care Team Providers Care Chemical Preparer Name Role Phone Tom Brantley MD, Ismael Gallegos Unavailable [phone] Ricky SPENCER, Heron Epstein Unavailable [phone] Vita SPENCER, Gail Jimenez Unavailable [phone] Jillian SPENCER, Blas Unavailable [phone] Chris SPENCER, Misael Guillaume Unavailable [phone] Paul Sheikh DO Primary Care Provide r [phone]
--- OUTSIDE RECORDS SUMMARY | 2023-02-10 19:39 | XMS_ITS ---
Care Plan - [facility] Created on: February 10, 2023 Pritesh Funez : 1940 Sex: Male Author Name Unknown Address [address] [place] [address] Phone Organization [facility] Address [address] [place] [address] Phone Care Team Providers Care Aquaculture Farm Manager Name Role Phone Tom Brantley MD, Ismael Gallegos Unavailable [phone] Ricky SPENCER, Heron Epstein Unavailable [phone] Vita SPENCER, Gail Jimenez Unavailable [phone] Jillian SPENCER, Blas Unavailable [phone] Chris SPENCER, Misael Guillaume Unavailable [phone] Paul Sheikh DO Primary Care Provide r [phone]
--- OUTSIDE RECORDS SUMMARY | 2023-02-10 19:39 | XMS_ITS ---
Author Name Unknown Address [address] [place] [address] Phone Organization [facility] Address [address] [place] [address] Phone Care Team Providers Care Career Advisor Name Role Phone Tom Brantley MD, Ismael Roche Unavailable [phone] Ricky SPENCER, Heron Epstein Unavailable [phone] Vita SPENCER, Gail Jimenez Unavailable [phone] Blas Walsh MD Unavailable [phone] Chris SPENCER, Misael Guillaume Unavailable [phone] Paul Sheikh DO Primary Care Provide r [phone] Problems Includes: Active, inactive, and resolved Problems All Visits Onset Date Resolved Date Provider Condition S tatus Diabetes Mellitus Type 2 11/07/2017 Blas Persaud MD Active Last Documented On 8 12:03PM ; [facility] Esophageal Reflux 11/07/2017 Blas Walsh MD Active Last Documented On 8 12:01PM ; [facility] Essential Hypertriglyceridemia 11/07/2017 Huy Walsh MD Active Last Documented On 8 12:06PM ; [facility] Essential Hypertension 11/07/2017 Blas roche MD Active Last Documented On 8 12:05PM ; [facility] Hemorrhoids Internal 11/07/2017 Blas Walsh MD Active Last Documented On 8 12:04PM ; [facility] Intestinal Disorder Diverticular 11/07/2017 Darrell Walsh MD Active Last Documented On 8 12:06PM ; [facility] Obesity 11/07/2017 Blas Walsh MD Active Last Documented On 8 12:02PM ; [facility] Osteoarthritis 11/07/2017 Blas Walsh MD Act jigar Last Documented On 8 12:06PM ; [facility] 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 Spondylosis 11/07/2017 Blas Walsh MD Active Last Documented On 8 12:04PM ; [facility] Familial (Benign Essential) Tremor 11/07/2017 Tristan Walsh MD Active Last Documented On 8 12:05PM ; [facility] 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 Plan of Treatment Findings Encounter Date Clinical staff counseled pat joshua to adopt healthy behaviors as appropriate Follow up with Gail Gorman MD 12/20/2020 Last Documented On 1 1:09PM ; [facility] Clinical staff counseled markos cuevant to adopt healthy behaviors as appropriate Follow up with Gail Gorman MD 08/22/2020 Last Documented On 1 5:15PM ; [facility] Instructions to patient Lose weight Patient encourag e to limit portion sizes and to tract and restrict their total daily caloric intake Last Documented On 1 10:37AM ; [facility] Lose weight Patient encourag e to limit portion sizes and to tract and restrict their total daily caloric intake Last Documented On 1 8:41AM ; [facility] Lose weight Patient encourag e to limit portion sizes and to tract and restrict their total daily caloric intake Last Documented On 1 11:05AM ; [facility] Education and Decision Aids were provided during visit for: Patient education about diet ramandeep needs Last Documented On 2 11:23AM ; [facility] Clinical staff counseled pat ient to adopt healthy behaviors as appropriate Last Documented On 1 10:35AM ; [facility] Clinical staff counseled pat ient to adopt healthy behaviors as appropriate Last Documented On 1 8:46AM ; [facility] Assessments Includes: Assessments for all patient encounters No Assessments Recorded Instructions Includes: Instructions for all patient encounters Instructions to patient Lose weight Patient encourag e to limit portion sizes and to tract and restrict their total daily caloric intake Last Documented On 1 10:37AM ; [facility] Lose weight Patient encourag e to limit portion sizes and to tract and restrict their total daily caloric intake Last Documented On 1 8:41AM ; [facility] Lose weight Patient encourag e to limit portion sizes and to tract and restrict their total daily caloric intake Last Documented On 1 11:05AM ; [facility] Education and Decision Aids were provided during visit for: Patient education about diet ramandeep needs Last Documented On 2 11:23AM ; [facility] Clinical staff counseled pat ient to adopt healthy behaviors as appropriate Last Documented On 1 10:35AM ; [facility] Clinical staff counseled pat ient to adopt healthy behaviors as appropriate Last Documented On 1 8:46AM ; [facility] Medical Equipment - Implanted Devices Includes: Current and historical Devices No Medical Equipment Recorded Medications Includes: Current and historical Medications Current Medications (continue as prescribed) Myrbetriq 25 MG Oral Tablet Extended Release 24 Hour 0 12/20/2020 Provider: Diagnosis: Last Documented On 1 10:33AM By Rayne Olson *TERMED* ; [facility] Lisinopril 20 MG Oral Tablet 08/07/2020 Provider: Diagnosis: Last Documented On 1 11:01AM By Rayne Olson *TERMED* ; [facility] Januvia 100 MG Oral Tablet 08/07/2020 Provider: Diagnosis: 1 QD Last Documented On 1 11:17AM By Rayne Olson *TERMED* ; [facility] Atenolol 25 MG Oral Tablet 08/07/2020 Provider: Diagnosis: Last Documented On 1 11:18AM By Rayne MckeeTERMED* ; [facility] Alfuzosin HCl ER 10 MG Oral Tablet Extended Rele ase 24 Hour 08/07/2020 Provider: Diagnosis: 1 HS Last Documented On 1 11:19AM By Rayne RYAN* ; [facility] Multivitamin Oral Tablet 08/07/2020 Provider: Diagnosis: Last Documented On 1 11:20AM By Rayne RYAN* ; [facility] CoQ10 100 MG Oral Capsule 08/07/2020 Provider: Diagnosis: Last Documented On 1 11:40AM By Trini Tran ; [facility] Past Medications on file Rosuvastatin Calcium 5 MG Oral Tablet 08/07/2020 - Provider: Diagnosis: Last Documented On 2 11:25AM By Trini Tran ; [facility] Vitamin D3 25 MCG (1000 UT) Oral Tablet Chewable 08/07/2020 - 06/18/2021 Provider: Diagnosis: Last Documented On 2 11:24AM By Trini Tran ; [facility] EQL Fish Oil 1000 MG Oral Capsule 08/07/2020 - 021 Provider: Diagnosis: Last Documented On 1 10:32AM By Rayne RYAN* ; [facility] Medications Administered [...] 95.1 Last Documented On: 06/18/2021 11:27AM ; [facility] 12/20/2020 10:35AM ; [facility] 08/22/2020 8:48AM ; [facility] Results Includes: Results through 02/10/2023 CREATININE iSTAT [facility] Ordered by Gail Gorman MD on 09/14/19 Collected: 09/13/2020 Reported: 09/14/19 16:56 Last Documented On 8:26AM ; [facility] Reviewed by Gail Ospina on 09/14/2020; All test results are final unless otherwise noted. CREATININE iSTAT 0.7 mg/dL (0.6-1.3) N (Normal) Last Documented On 8:03PM ; [facility] Note: Specimen Number: [id number] Reported Physicians [facility] Ordered by Gail Gorman MD on 09/14/19 Collected: 09/13/2020 Reported: 09/14/19 16:56 Last Documented On 8:26AM ; [facility] Reviewed by Gail Ospina on 09/14/2020; All test results are final unless otherwise noted. Reported Physicians See Note None Last Documented On 09/13/2020 8:03PM ; [facility] Note: Reported Physicians:Ordering: Lauren Gormanending: Gail Gorman SJOGREN'S AB (SSA/SSB) [facility] Ordered by Gail Gorman MD on 08/10/19 Collected: 08/09/2020 Reported: 08/12/19 12:33 Last Documented On 11:01AM ; [facility] Reviewed by Gail Ospina on 08/14/2020; All test results are final unless otherwise noted. SS-A/Ro AB <0.2 N (Normal) Last Documented On 08/11/2020 4:00PM ; [facility] Note: Reference range: <1.0 (Negative)Unit: U SS-B/La AB <0.2 N (Normal) Last Documented On 08/11/2020 4:00PM ; [facility] Note: Reference range: <1.0 (Negative)Unit: U Test Performed by:[facility] [place] [id number] Director: Mat Pearl M.D. Ph.D.; IA# [id number] Number: [id number] Reported Physicians [facility] Ordered by Gail Gorman MD on 08/10/19 Collected: 08/09/2020 Reported: 08/12/19 12:33 Last Documented On 1 11:01AM ; [facility] Reviewed by Gail Ospina on 08/14/2020; All test results are final unless otherwise noted. Reported Physicians See Note None Last Documented On 08/11/2020 4:00PM ; [facility] Note: Reported Physicians:Ordering: Lauren Gormanending: Gail Gorman KAPPA/LAMBDA QNT FLC [facility] Ordered by Gail Gorman MD on 08/10/19 Collected: 08/09/2020 Reported: 08/14/19 07:27 Last Documented On 1 11:01AM ; [facility] Reviewed by Gail Ospina on 08/14/2020; All test results are final unless otherwise noted. KAPPA LIGHT CHN,FR,S 17.9 N (Normal) Last Documented On 1 10:31AM ; [facility] Note: Reference range: 3.3 to 19.4Unit: mg/L KAPPA/LAMBDA,FR RAT 1.21 N (Normal) Last Documented On 1 10:31AM ; [facility] Note: Reference [...] response totherapy of these disorders.Test Performed by [facility],[address] [place] [id number] Kumar M.D., Ph.D., Director of [phone], [facility] [id number] Number: [id number] LAMBDA LIGHT CH,FR,S 14.8 N (Normal) Last Documented On 1 10:31AM ; [facility] Note: Reference range: 5.7 to 26.3Unit: mg/L Reported Physicians [facility] Ordered by Gail Gorman MD on 08/10/19 Collected: 08/09/2020 Reported: 08/14/19 07:27 Last Documented On 1 11:01AM ; [facility] Reviewed by Gail Ospina on 08/14/2020; All test results are final unless otherwise noted. Reported Physicians See Note None Last Documented On 08/13/2020 10:31AM ; [facility] Note: Reported Physicians:Ordering: Lauren Gormanending: Gail Gorman IMMUNOFIXATN PROF,SERUM [facility] Ordered by Gail Gorman MD on 08/10/19 Collected: 08/09/2020 Reported: 08/15/19 21 15:48 Last Documented On 1 9:55AM ; [facility] Reviewed by Gail Ospina on 08/17/2020; All test results are final unless otherwise noted. TP, SERUM 6.6 g/dL (6.4-8.3) N (Normal) Last Documented On 1 7:33PM ; [facility] ALBUMIN 4.0 g/dL (3.0-5.2) N (Normal) Last Documented On 1 7:33PM ; [facility] A1 GLOBULIN 0.2 g/dL (0.1-0.4) N (Normal) Last Documented On 7:33PM ; [facility] A2 GLOBULIN 0.8 g/dL (0.4-1.0) N (Normal) Last Documented On 1 7:33PM ; [facility] BETA GLOBULIN 0.7 g/dL (0.7-1.6) N (Normal) Last Documented On 7:33PM ; [facility] GAMMA GLOBULIN 0.9 g/dL (0.7-2.0) N (Normal) Last Documented On 7:33PM ; [facility] A/G RATIO 1.5 Units (1.2-2.2) N (Normal) Last Documented On 7:33PM ; [facility] IGA 64 mg/dL (70-400) L (Low) Last Documented On 7:33PM ; [facility] IGG 767 mg/dL (700-1600) N (Normal) Last Documented On 7:33PM ; [facility] IGM 47 mg/dL (40-230) N (Normal) Last Documented On 7:33PM ; [facility] PATH INTERP SPE Interpretation: No abnormal protein seen. N (Normal) Last Documented On 08/14/2020 7:33PM ; [facility] Note: SIFE Interpretation: No abnormal protein is seen. Specimen Number: [id number] Reported Physicians [facility] Ordered by Gail Gorman MD on 08/10/19 Collected: 08/09/2020 Reported: 08/15/19 15:48 Last Documented On 9:55AM ; [facility] Reviewed by Gail Ospina on 08/17/2020; All test results are final unless otherwise noted. Reported Physicians See Note None Last Documented On 08/14/2020 7:33PM ; [facility] Note: Reported Physicians:Ordering: Lauren Gormanending: Gail Gorman METHYLMALONIC ACID [facility] Ordered by Gail Gorman MD on 08/10/19 Collected: 08/09/2020 Reported: 08/20/19 05:23 Last Documented On 1 10:47AM ; [facility] Reviewed by Gail Ospina on 08/20/2020; All test results are final unless otherwise noted. METHYLMALONIC ACID 179 N (Normal) Last Documented On 08/19/2020 8:37AM ; [facility] Note: Reference range: 87 to 318Unit: nmol/L This test was developed and its analytical performancecharacteristics have been determined by [facility] [place], [place]. It hasnot been cleared or approved by the U.S. Food and DrugAdministration. This assay has been validated pursuantto the CLIA regulations and is used for clinicalpurposes.Test Performed by [facility],[address] [place] [address]Yllaqjvninoska Kumar M.D., Ph.D., Director of [phone], CLIA [id number] Number: [id number] Reported Physicians [facility] Ordered by Gail Gorman MD on 08/10/19 Collected: 08/09/2020 Reported: 08/20/19 05:23 Last Documented On 1 10:47AM ; [facility] Reviewed by Gail Ospina on 08/20/2020; All test results are final unless otherwise noted. Reported Physicians See Note None Last Documented On 08/19/2020 8:37AM ; [facility] Note: Reported Physicians:Ordering: Lauren Gormanending: Gail Gorman HEMOGLOBIN A1C [facility] Ordered by Gail Gorman MD on 08/10/19 Collected: 08/09/2020 Reported: 08/10/19 17:29 Last Documented On 1 11:01AM ; [facility] Reviewed by Gail Ospina on 08/14/2020; All test results are final unless otherwise noted. HEMOGLOBIN A1C 7.1 % (4.0-6.0) H (High) Last Documented On 10:45PM ; [facility] Note: Specimen Number: [id number] VITAMIN B12 [facility] Ordered by Gail Gorman MD on 08/10/19 Collected: 08/09/2020 Reported: 08/10/19 17:54 Last Documented On 11:01AM ; [facility] Reviewed by Gail Ospina on 08/14/2020; All test results are final unless otherwise noted. VITAMIN B12 502 pg/mL (193-986) N (Normal) Last Documented On 10:45PM ; [facility] Note: Specimen Number: [id number] HEP C AB [facility] Ordered by Gail Gorman MD on 08/10/19 Collected: 08/09/2020 Reported: 08/10/19 18:18 Last Documented On 11:01AM ; [facility] Reviewed by Gail Ospina on 08/14/2020; All test results are final unless otherwise noted. HEP C AB NONREACTIVE (NONREACTIVE) N (Normal) Last Documented On 10:45PM ; [facility] Note: Specimen Number: [id number] Reported Physicians [facility] Ordered by Gail Gorman MD on 08/10/19 Collected: 08/09/2020 Reported: 08/10/19 18:18 Last Documented On 1 11:01AM ; [facility] Reviewed by Gail Ospina on 08/14/2020; All test results are final unless otherwise noted. Reported Physicians See Note None Last Documented On 08/09/2020 10:45PM ; [facility] Note: Reported Physicians:Ordering: Lauren Gormanending: Gail Gorman History of Present Illness History of Present Illness not supported for this document type No History of Present Illness Recorded Social History Description Last Updated Former smoker 06/18/2021 Last Documented On 2 12:08PM ; [facility] Use of tobacco assessment performed 05/29 Last Documented On 2 12:08PM ; [facility] Patient has living will 12/20/2020 Last Documented On 1 1:09PM ; [facility] Patient has not seen another provider si nce last visit 12/20/2020 Last Documented On 1 1:09PM ; [facility] States no significant change in lifestyl e since last visit 12/20/2020 Last Documented On 1 1:09PM ; [facility] A social drinker 08/22/2020 Last Documented On 1 5:15PM ; [facility] No tobacco use Former 08/22/2020 Last Documented On 1 5:15PM ; [facility] Not using drugs 08/22/2020 Last Documented On 1 5:15PM ; [facility] Smoking Status Unknown Procedures and Surgical History Includes: Procedures through 02/10/2023 Procedures Code Diagnosis Performing Provider Service Location Service Date Collection blood by venipuncture % 35471 Type 2 diabetes mellitus without complications [facility] Senior Controls [facility] Primary Care at [facility] 06/02/2022 Last Documented On 3 11:52AM ; [facility] Collection blood by venipuncture % 87792 Type 2 diabetes mellitus without complications [facility] Senior Controls Engineer [facility] Primary Care [facility] 02/20/2022 Last Documented On 2 3:04PM ; [facility] Electrocardiogram report (Repeat procedure by same physician) [id number] Abnormal electrocardiogram [ECG] [EKG] Jefe Ricketts MD [facility] 07/24/2021 Last Documented On 2 2:22PM ; [facility] Electrocardiogram report [id number] Abnormal electrocardiogram [ECG] [EKG] Jefe Ricketts MD [facility] 07/24/2021 Last Documented On 2 7:27AM ; [facility] Collection blood by venipuncture % 64674 Malignant neoplasm of prostate [facility] Senior Controls Engineer [facility] Primary Care [facility] 07/11/2021 Last Documented On 2 10:35AM ; [facility] Collection blood by venipuncture % 38275 Other pruritus [facility] Senior Controls Engineer [facility] Primary Car e at [facility] 07/03/2021 Last Documented On 2 11:30AM ; [facility] Remove impacted ear wax 83045 Impacted cerumen, unspecified ear Taras Durand MD [facility] at [facility] 02/05/2021 Last Documented On 1 9:21AM ; [facility] Musc tst done w/n tst nonext (Distinct Proc Serv.) 54377 Paresthesia of skin Gail Gorman MD [facility] at [facility] 08/15/2020 Last Documented On 1 7:59AM ; [facility] Musc tst done w/n tst nonext 91588 Radiculopathy, cervicothoracic region Gail Gorman MD [facility] at [facility] 08/15/2020 Last Documented On 1 12:06PM ; [facility] Musc test done w/n test comp (Left Side) 80546 Type 2 diabetes mellitus with diabetic polyneuropathy, Radiculopathy, cervicothoracic region, Radiculopathy, lumbosacral region, Paresthesia of skin Gail Gorman MD [facility] 08/15/2020 Last Documented On 1 12:06PM ; [facility] Musc test done w/n test comp (Right Side) 77262 Type 2 diabetes mellitus with diabetic polyneuropathy, Radiculopathy, cervicothoracic region, Radiculopathy, lumbosacral region, Paresthesia of skin Gissello Tony Gorman MD [facility] 08/15/2020 Last Documented On 1 12:06PM ; [facility] Nrv cndj test / studies 20996 Type 2 diabetes mellitus with diabetic polyneuropathy, Radiculopathy, cervicothoracic region, Radiculopathy, lumbosacral region, Paresthesia of skin Gissello Tony Gorman MD [facility] 08/15/2020 Last Documented On 1 12:06PM ; [facility] Collection blood by venipuncture % 21890 Malignant neoplasm of prostate [facility] Senior Controls Engineer [facility] Primary Care at [facility] 05/28/2020 Last Documented On 1 3:46PM ; [facility] Surgical History Last Updated History of back surgery Spine & Neck rayray wale 10 yrs ago 08/22/2020 Last Documented On 1 5:15PM ; [facility] Prior surgery Appendix removed young ad ult ~Hernia 5 yrs ago 08/22/2020 Last Documented On 1 5:15PM ; [facility] Medical History Includes: Medical History in patient's chart Description Last Updated Denies significant change in medical sta tus since last visit 12/20/2020 Last Documented On 1 1:09PM ; [facility] Yes patient feels confident managing chr onic conditions 12/20/2020 Last Documented On 1 1:09PM ; [facility] A history of cancer Prostate 08/22/2020 Last Documented On 1 5:15PM ; [facility] History of benign essential hypertension Hypertension 08/22/2020 Last Documented On 1 5:15PM ; [facility] History of diabetes mellitus 08/22/2020 Last Documented On 1 5:15PM ; [facility] History of hyperlipidemia 08/22/2020 Last Documented On 1 5:15PM ; [facility] Family History Includes: Family History in patient's chart Description Last Updated States no significant change in family m edical history since last visit 12/20/2020 Last Documented On 1 1:09PM ; [facility] Review of [...] ve Last Documented On 2 11:21AM ; [facility] Sulfa Antibiotics Allergy 11/07/2017 A ctive Last Documented On 2 11:21AM ; [facility] Simvastatin Allergy 11/07/2017 Active Last Documented On 2 11:21AM ; [facility] Lyrica Allergy 11/07/2017 Active Last Documented On 2 11:21AM ; [facility] [facility] [place] 10 MCG Pen Allergy 11/07/2017 A ctive Last Documented On 2 11:21AM ; [facility] Encounters Includes: Encounters through 02/10/2023 Encounter Provider Location Date Check-In Time Check-Out Time Diagnosis [Patient Encounter] Gail Gorman MD 2 06/18/2021 1:38PM 06/18/2021 11:59PM Follow up Gail Gorman MD [facility] Neurology at [facility] 2 11:10AM 11:58AM Follow up Gail Gorman MD [facility] Neurology at [facility] 1 10:19AM 11:23AM [Patient Encounter] Gail Gorman MD 1 08/22/2020 9:16AM 08/22/2020 11:59PM [Patient Encounter] Gail Gorman MD 1 08/22/2020 1:05PM 08/22/2020 11:59PM Follow up Gail Gorman MD [facility] Neurology at [facility] 1 8:41AM 9:31AM [Patient Encounter] Gail Gorman MD 1 3:17PM 11:59PM EMG Gail Gorman MD [facility] Neurology at [facility] 1 1:29PM 3:20PM New Patient Gail Gorman MD [facility] Neurology at [facility] 1 9:43AM 11:50AM Preload Process Blas Walsh MD 8 11:59AM 11:59PM Insurance Includes: Active Insurance Policies Plan Name Member ID Group # Subscriber Relationship Effect jigar Dates 1 - Medicare : [id number] Pritesh Funez Self 2 - Bc/bs Fl(federal) :[facility] [id number] Pritesh Funez Self 04/27/2019 - Unknown Clinical Notes Includes: Signed Clinical Notes starting from 05/16/2022 No Clinical Notes Recorded
--- OUTSIDE RECORDS SUMMARY | 2023-02-10 19:39 | XMS_ITS | Clinical Summary ---
Author Name Unknown Address [address] [place] [address] Phone Organization [facility] Address [address] [place] [address] Phone Care Team Providers Care Rubber Roller Grinder Operator Name Role Phone Tom Brantley MD, Ismael Gallegos Unavailable [phone] Ricky SPENCER, Heron Epstein Unavailable [phone] Vita SPENCER, Gail Jimenez Unavailable [phone] Blas Walsh MD Unavailable [phone] Chris SPENCER, Misael Guillaume Unavailable [phone] Paul Sheikh DO Primary Care Provide r [phone] Reason for Visit and Chief Complaint [Patient Encounter] Problems Includes: Problems addressed during this encounter and other active Problems All Visits Onset Date Resolved Date Provider Condition S tatus Diabetes Mellitus Type 2 11/07/2017 Blas Persaud MD Active Last Documented On 8 12:03PM ; [facility] Esophageal Reflux 11/07/2017 Blas Walsh MD Active Last Documented On 8 12:01PM ; [facility] Essential Hypertriglyceridemia 11/07/2017 Huy Walsh MD Active Last Documented On 8 12:06PM ; [facility] Essential Hypertension 11/07/2017 Blas gallegos MD Active Last Documented On 8 12:05PM ; [facility] Hemorrhoids Internal 11/07/2017 Blas Walsh MD Active Last Documented On 8 12:04PM ; [facility] Intestinal Disorder Diverticular 11/07/2017 Darrell Walsh MD Active Last Documented On 8 12:06PM ; [facility] Obesity 11/07/2017 Blas Walsh MD Active Last Documented On 8 12:02PM ; [facility] Osteoarthritis 11/07/2017 Blas Walsh MD Act jigar Last Documented On 8 12:06PM ; [facility] 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 Spondylosis 11/07/2017 Blas Walsh MD Active Last Documented On 8 12:04PM ; [facility] Familial (Benign Essential) Tremor 11/07/2017 Tristan Walsh MD Active Last Documented On 8 12:05PM ; [facility] 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 Plan of Treatment No Plan of Treatment Recorded Assessments Includes: Assessments from this encounter No Assessments Recorded Medical Equipment - Implanted Devices Includes: Current Devices No Medical Equipment Recorded Medications Includes: Medications discussed during this encounter and other current Medications Current Medications (continue as prescribed) Myrbetriq 25 MG Oral Tablet Extended Release 24 Hour 0 12/20/2020 Provider: Diagnosis: Last Documented On 1 10:33AM By Rayne Olson *TERMED* ; [facility] Lisinopril 20 MG Oral Tablet 08/07/2020 Provider: Diagnosis: Last Documented On 1 11:01AM By Rayne Olson *TERMED* ; [facility] Januvia 100 MG Oral Tablet 08/07/2020 Provider: Diagnosis: 1 QD Last Documented On 1 11:17AM By Rayne Olson *TERMED* ; [facility] Atenolol 25 MG Oral Tablet 08/07/2020 Provider: Diagnosis: Last Documented On 1 11:18AM By Rayne Olson *TERMED* ; [facility] Alfuzosin HCl ER 10 MG Oral Tablet Extended Rele ase 24 Hour 08/07/2020 Provider: Diagnosis: 1 HS Last Documented On 1 11:19AM By Rayne Olson *TERMED* ; [facility] Multivitamin Oral Tablet 08/07/2020 Provider: Diagnosis: Last Documented On 1 11:20AM By Rayne Olson *TERMED* ; [facility] CoQ10 100 MG Oral Capsule 08/07/2020 Provider: Diagnosis: Last Documented On 1 11:40AM By Trini Tran ; [facility] Medications Administered Includes: [...] ve Last Documented On 2 11:21AM ; [facility] Sulfa Antibiotics Allergy 11/07/2017 A ctive Last Documented On 2 11:21AM ; [facility] Simvastatin Allergy 11/07/2017 Active Last Documented On 2 11:21AM ; [facility] Lyrica Allergy 11/07/2017 Active Last Documented On 2 11:21AM ; [facility] [place] 10 MCG Pen Allergy 11/07/2017 A ctive Last Documented On 2 11:21AM ; [facility] Encounters Encounter Provider Location Date Check-In Time Check-Out Time Diagnosis [Patient Encounter] Gail Gorman MD 09/04/2020 1:05PM 11:59PM Insurance Includes: Active Insurance Policies Plan Name Member ID Group # Subscriber Relationship Effect jigar Dates 1 - Medicare : [id number] Pritesh A Armin Self 2 - Bc/bs Fl(federal) :[facility] [id number] Pritesh Funez Self 04/27/2019 - Unknown Clinical Notes Includes: Clinical Notes from this encounter No Clinical Notes Recorded
--- OUTSIDE RECORDS SUMMARY | 2023-02-10 19:39 | XMS_ITS | Clinical Summary ---
Author Name Unknown Address [address] [place] [address] [facility] Address [address] [place] [address] Phone Care Team Providers Care Calker Name Role Phone Tom Brantley MD, Ismael Roche Unavailable [phone] Ricky SPENCER, Heron Epstein Unavailable [phone] Vita SPENCER, Gail Jimenez Unavailable [phone] Blas Walsh MD Unavailable [phone] Chris SPENCER, Misael Guillaume Unavailable [phone] Paul Sheikh DO Primary Care Provide r [phone] Reason for Visit and Chief Complaint The Chief Complaint is: Pt presents for a follow up visit for radiculopathy. pt stated he has had 5-6 falls since the last visit on 08/22/20. None needed emergency assistance Problems Includes: Problems addressed during this encounter and other active Problems All Visits Onset Date Resolved Date Provider Condition S tatus Diabetes Mellitus Type 2 11/07/2017 Blas Persaud MD Active Last Documented On 8 12:03PM ; [facility] Esophageal Reflux 11/07/2017 Blas Walsh MD Active Last Documented On 8 12:01PM ; [facility] Essential Hypertriglyceridemia 11/07/2017 Huy Walsh MD Active Last Documented On 8 12:06PM ; [facility] Essential Hypertension 11/07/2017 Blas roche MD Active Last Documented On 8 12:05PM ; [facility] Hemorrhoids Internal 11/07/2017 Blas Walsh MD Active Last Documented On 8 12:04PM ; [facility] Intestinal Disorder Diverticular 11/07/2017 Darrell Walsh MD Active Last Documented On 8 12:06PM ; [facility] Obesity 11/07/2017 Blas Walsh MD Active Last Documented On 8 12:02PM ; [facility] Osteoarthritis 11/07/2017 Blas Walsh MD Act jigar Last Documented On 8 12:06PM ; [facility] 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 Spondylosis 11/07/2017 Blas Walsh MD Active Last Documented On 8 12:04PM ; [facility] Familial (Benign Essential) Tremor 11/07/2017 Tristan Walsh MD Active Last Documented On 8 12:05PM ; [facility] 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 1. Pathology report from the [facility] reviewed. The fine-needle aspiration of a neck mass turned out to be a schwannoma. 2. MRI of his lumbar spine showed mild to moderate spondylitic changes and degenerative disc disease. 3. MRI of his cervical spine shows that his prior fusion at C6/C7 is intact. There is mild to moderate spondylitic changes and degenerative disc disease. 4.. Unfortunately the work-up, there has not been an alternative etiology of symptoms found. There does not appear to be an inflammatory or infectious polyradiculopathy syndrome. He does not appear to have motor neuron disease. Most likely his deficits are due to his multiple core mobilities including his polyneuropathy and spine and disc disease. 5. It is unlikely that surgical intervention at this time would be beneficial. 6. My recommendation is that we focus on rehabilitation. He has done physical therapy in the past without significant benefit. However, he has still been able to ambulate. I recommend a physical medicine and rehabilitation evaluation to assist with this process. 7. Most recent A1c is 7.1%. Recommend strict glycemic control for management of diabetes. Goal A1c is less than 7. 8. Continue using rolling walker for fall prevention. 9. Follow-up in 6 months Gail Gorman MD Board Certified ABPN Neuromuscular Medicine and General Neurology Board Certified ABEM Electrodiagnostic Medicine (NCS/EMG) [facility] [place] [id number] [facility], [address] [place] [address] This note was created using voice recognition software and is subject to errors including those of syntax which may escape proofreading. - Last Documented On 12/20/2020 1:09PM ; [facility] Clinical staff counseled patient to adopt healthy behaviors as appropriate. - Last Documented On 12/20/2020 1:09PM ; [facility] Pending Tests Order Diagnosis Results Due Ordering Provider Referrals - [facility] [place] [facility] Radiculopathy, cervicothoracic region 02/18/21 Gail Gorman MD Last Documented On 1:09PM ; [facility] Instructions to patient Lose weight Patient encourag e to limit portion sizes and to tract and restrict their total daily caloric intake Last Documented On 10:37AM ; [facility] Education and Decision Aids were provided during visit for: Clinical staff counseled markos lewis to adopt healthy behaviors as appropriate Last Documented On 10:35AM ; [facility] Assessments Includes: Assessments from this encounter No Assessments Recorded Instructions Includes: Instructions from this encounter Instructions to patient Lose weight Patient encourag e to limit portion sizes and to tract and restrict their total daily caloric intake Last Documented On 10:37AM ; [facility] Education and Decision Aids were provided during visit for: Clinical staff counseled markos lewis to adopt healthy behaviors as appropriate Last Documented On 10:35AM ; [facility] Medical Equipment - Implanted Devices Includes: Current Devices No Medical Equipment Recorded Medications Includes: Medications discussed during this encounter and other current Medications Discontinued / Stopped on this date on 08/07/2020 EQL Fish Oil 1000 MG Oral Capsule Provide r: Diagnosis: Last Documented On 1 10:32AM By Rayne Olson *TERMED* ; [facility] Current Medications (continue as prescribed) Myrbetriq 25 MG Oral Tablet Extended Release 24 Hour 0 12/20/2020 Provider: Diagnosis: Last Documented On 1 10:33AM By Rayne Olsno *TERMED* ; [facility] Lisinopril 20 MG Oral Tablet 08/07/2020 Provider: Diagnosis: Last Documented On 1 11:01AM By Rayne Olson *TERMED* ; [facility] Januvia 100 MG Oral Tablet 08/07/2020 Provider: Diagnosis: 1 QD Last Documented On 1 11:17AM By Rayne Olson *TERMED* ; [facility] Atenolol 25 MG Oral Tablet 08/07/2020 Provider: Diagnosis: Last Documented On 1 11:18AM By Rayne Olson *TERMED* ; [facility] Alfuzosin HCl ER 10 MG Oral Tablet Extended Rele ase 24 Hour 08/07/2020 Provider: Diagnosis: 1 HS Last Documented On 1 11:19AM By Rayne Olson *TERMED* ; [facility] Multivitamin Oral Tablet 08/07/2020 Provider: Diagnosis: Last Documented On 1 11:20AM By Rayne Olson *TERMED* ; [facility] CoQ10 100 MG Oral Capsule 08/07/2020 Provider: Diagnosis: Last Documented On 1 11:40AM By Trini Tran ; [facility] Medications Administered Includes: Administered Medications from this encounter No Administered Medications Recorded Vital Signs Includes: Vital Signs from this encounter Vital Name 12/20/2020 10:26A Blood Pressure Standing L 124/76 BP Cuff Size Regular Pulse Rate-Standing (bpm) 74 Height (in) 71 Weight (lb) 235 Body Mass Index (kg/m2) 32.8 Body Surface Area (m2) 2.3 Last Documented On: 12/20/2020 10:35AM ; [facility] Results Includes: Results discussed during this encounter HEMOGLOBIN A1C [place] [facility] Ordered by Gail Gorman MD on 08/10/19 21 Collected: 08/09/2020 Reported: 08/10/19 21 17:29 Last Documented On 1 11:01AM ; [facility] Reviewed by Gail Ospina on 08/14/2020; All test results are final unless otherwise noted. HEMOGLOBIN A1C 7.1 % (4.0-6.0) H (High) Last Documented On 1 10:45PM ; [facility] Note: Specimen Number: [id number] History of Present Illness Includes: History of Present Illness from this encounter ROGER Funez is a 80 year old male. - Allergy list reviewed - Medication reconciliation performed Follow up The patient presents for follow-up. Since last visit, he did go to the [facility]. He had a biopsy done which showed evidence of a schwannoma. The biopsy was taken from the neck. He has not followed up with anyone for management. He does unfortunately continues to have falls. He does not have any significant amount of pain. His neuropathy symptoms are persistent. He has issues with fine motor function. He is dealing with multiple other comorbidities. Bothered by feelings of sadness, depression or helplessness in the past month was 0 and loss of pleasure from usual activities was 0. Standardized depression screening: negative for symptoms No significant symptoms, PHQ2 score 0-4. Social History Description Last Updated Former smoker 12/20/2020 Last Documented On 1 1:09PM ; [facility] Patient has living will 12/20/2020 Last Documented On 1 1:09PM ; [facility] Patient has not seen another provider si nce last visit 12/20/2020 Last Documented On 1 1:09PM ; [facility] States no significant change in lifestyl e since last visit 12/20/2020 Last Documented On 1 1:09PM ; [facility] Use of tobacco assessment performed 11/26 Last Documented On 1 1:09PM ; [facility] Smoking Status Unknown Procedures and Surgical History Includes: Procedures from this encounter Procedures Code Diagnosis Performing Provider Service L ocation Service Date history of Tdap vaccine 19876 Last Documented On 1 10:37AM ; [facility] history of pneumococcal vaccine Last Documented On 1 10:37AM ; [facility] Pt received screening for fall risk [id number] Last Documented On 1 10:35AM ; [facility] history of influenza virus vaccine Last Documented On 1 10:37AM ; [facility] Clinical summary provided to patient Last Documented On 1 10:35AM ; [facility] Medical History Includes: Medical History addressed during this encounter Description Last Updated Denies significant change in medical sta tus since last visit 12/20/2020 Last Documented On 1 1:09PM ; [facility] Yes patient feels confident managing chr onic conditions 12/20/2020 Last Documented On 1 1:09PM ; [facility] Family History Includes: Family History addressed during this encounter Description Last Updated States no significant change in family m edical history since last visit 12/20/2020 Last Documented On 1 1:09PM ; [facility] Review of Systems Includes: Review of Systems [...] ve Last Documented On 2 11:21AM ; [facility] Sulfa Antibiotics Allergy 11/07/2017 A ctive Last Documented On 2 11:21AM ; [facility] Simvastatin Allergy 11/07/2017 Active Last Documented On 2 11:21AM ; [facility] Lyrica Allergy 11/07/2017 Active Last Documented On 2 11:21AM ; [facility] [place] 10 MCG Pen Allergy 11/07/2017 A ctive Last Documented On 2 11:21AM ; [facility] Encounters Encounter Provider Location Date Check-In Time Check-Out Time Diagnosis Follow up Gail Gorman MD [facility] 1 10:19AM 11:23AM Insurance Includes: Active Insurance Policies Plan Name Member ID Group # Subscriber Relationship Effect jigar Dates 1 - Medicare : [id number] Pritesh Funez Self 2 - [id number] Pritesh Mckeon 04/27/2019 - Unknown Clinical Notes Includes: Clinical Notes from this encounter No Clinical Notes Recorded
--- OUTSIDE RECORDS SUMMARY | 2023-02-10 19:39 | XMS_ITS | Clinical Summary ---
Author Name Unknown Address [address] [place] [address] Phone Organization [facility] Address [address] [place] [address] Phone Care Team Providers Care Aircraft Pneudraulics Repairer Name Role Phone Tom Brantley MD, Ismael Roche Unavailable [phone] Ricky SPENCER, Heron Epstein Unavailable [phone] Vita SPENCER, Gail Jimenez Unavailable [phone] Blas Walsh MD Unavailable [phone] Chris SPENCER, Misael Guillaume Unavailable [phone] Paul Sheikh DO Primary Care Provide r [phone] Reason for Visit and Chief Complaint [Patient Encounter] Problems Includes: Problems addressed during this encounter and other active Problems All Visits Onset Date Resolved Date Provider Condition S tatus Diabetes Mellitus Type 2 11/07/2017 Blas Persaud MD Active Last Documented On 8 12:03PM ; [facility] Esophageal Reflux 11/07/2017 Blas Walsh MD Active Last Documented On 8 12:01PM ; [facility] Essential Hypertriglyceridemia 11/07/2017 Huy Walsh MD Active Last Documented On 8 12:06PM ; [facility] Essential Hypertension 11/07/2017 Blas roche MD Active Last Documented On 8 12:05PM ; [facility] Hemorrhoids Internal 11/07/2017 Blas Walsh MD Active Last Documented On 8 12:04PM ; [facility] Intestinal Disorder Diverticular 11/07/2017 Darrell Walsh MD Active Last Documented On 8 12:06PM ; [facility] Obesity 11/07/2017 Blas Walsh MD Active Last Documented On 8 12:02PM ; [facility] Osteoarthritis 11/07/2017 Blas Walsh MD Act jigar Last Documented On 8 12:06PM ; [facility] 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 Spondylosis 11/07/2017 Blas Walsh MD Active Last Documented On 8 12:04PM ; [facility] Familial (Benign Essential) Tremor 11/07/2017 Tristan Walsh MD Active Last Documented On 8 12:05PM ; [facility] 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 Plan of Treatment Pending Tests Order Diagnosis Results Due Ordering Tony MAX OTHER Type 2 diabetes mellitus with diabetic polyneuropathy 06/20/21 Gail Gorman MD Last Documented On 2 11:41AM ; [facility] Therapy - Occupational Therapy * Occupational Therapy Type 2 diabetes mellitus with diabetic polyneuropathy 06/20/21 Gail Gorman MD Last Documented On 2 11:41AM ; [facility] Assessments Includes: Assessments [...] 1 10:33AM By Rayne Olson *TERMED* ; [facility] Lisinopril 20 MG Oral Tablet 08/07/2020 Provider: Diagnosis: Last Documented On 1 11:01AM By Rayne Olson *TERMED* ; [facility] Januvia 100 MG Oral Tablet 08/07/2020 Provider: Diagnosis: 1 QD Last Documented On 1 11:17AM By Rayne Olson *TERMED* ; [facility] Atenolol 25 MG Oral Tablet 08/07/2020 Provider: Diagnosis: Last Documented On 1 11:18AM By Rayne Olson *TERMED* ; [facility] Alfuzosin HCl ER 10 MG Oral Tablet Extended Rele ase 24 Hour 08/07/2020 Provider: Diagnosis: 1 HS Last Documented On 1 11:19AM By Rayne Olson *TERMED* ; [facility] Multivitamin Oral Tablet 08/07/2020 Provider: Diagnosis: Last Documented On 1 11:20AM By Rayne Olson *TERMED* ; [facility] CoQ10 100 MG Oral Capsule 08/07/2020 Provider: Diagnosis: Last Documented On 1 11:40AM By Trini Tran ; [facility] Medications Administered [...] ve Last Documented On 2 11:21AM ; [facility] Sulfa Antibiotics Allergy 11/07/2017 A ctive Last Documented On 2 11:21AM ; [facility] Simvastatin Allergy 11/07/2017 Active Last Documented On 2 11:21AM ; [facility] Lyrica Allergy 11/07/2017 Active Last Documented On 2 11:21AM ; [facility] Byetta 10 MCG Pen Allergy 11/07/2017 A ctive Last Documented On 2 11:21AM ; [facility] Encounters Encounter Provider Location Date Check-In Time Check-Out Time Diagnosis [Patient Encounter] Gail Gorman MD 06/20/2021 1:38PM 11:59PM Insurance Includes: Active Insurance Policies Plan Name Member ID Group # Subscriber Relationship Effect jigar Dates 1 - Medicare : [id number] Pritesh Funez Self 2 - Bc/bs Fl(federal) :mellisa [id number] Pritesh Mckeon 04/27/2019 - Unknown Clinical Notes Includes: Clinical Notes from this encounter No Clinical Notes Recorded
--- OUTSIDE RECORDS SUMMARY | 2023-02-10 19:39 | XMS_ITS | Clinical Summary ---
Author Name Unknown Address [address] [place] [address] Phone Organization [facility] Address [address] [place] [address] Phone Care Team Providers Care Slab Miller Operator Name Role Phone Tom Brantley MD, Ismael Gallegos Unavailable [phone] Ricky SPENCER, Heron Epstein Unavailable [phone] Vita SPENCER, Gail Jimenez Unavailable [phone] Blas Walsh MD Unavailable [phone] Chris SPENCER, Misael Guillaume Unavailable [phone] Paul Sheikh DO Primary Care Provide r [phone] Reason for Visit and Chief Complaint [Patient Encounter] Problems Includes: Problems addressed during this encounter and other active Problems All Visits Onset Date Resolved Date Provider Condition S tatus Diabetes Mellitus Type 2 11/07/2017 Blas Persaud MD Active Last Documented On 8 12:03PM ; [facility] Esophageal Reflux 11/07/2017 Blas Walsh MD Active Last Documented On 8 12:01PM ; [facility] Essential Hypertriglyceridemia 11/07/2017 Huy Walsh MD Active Last Documented On 8 12:06PM ; [facility] Essential Hypertension 11/07/2017 Blas gallegos MD Active Last Documented On 8 12:05PM ; [facility] Hemorrhoids Internal 11/07/2017 Blas Walsh MD Active Last Documented On 8 12:04PM ; [facility] Intestinal Disorder Diverticular 11/07/2017 Darrell Walsh MD Active Last Documented On 8 12:06PM ; [facility] Obesity 11/07/2017 Blas Walsh MD Active Last Documented On 8 12:02PM ; [facility] Osteoarthritis 11/07/2017 Blas Walsh MD Act jigar Last Documented On 8 12:06PM ; [facility] 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 Spondylosis 11/07/2017 Blas Walsh MD Active Last Documented On 8 12:04PM ; [facility] Familial (Benign Essential) Tremor 11/07/2017 Tristan Walsh MD Active Last Documented On 8 12:05PM ; [facility] 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 Plan of Treatment No [...] 1 10:33AM By Rayne Olson *TERMED* ; [facility] Lisinopril 20 MG Oral Tablet 08/07/2020 Provider: Diagnosis: Last Documented On 1 11:01AM By Rayne Olson *TERMED* ; [facility] Januvia 100 MG Oral Tablet 08/07/2020 Provider: Diagnosis: 1 QD Last Documented On 1 11:17AM By Rayne Olson *TERMED* ; [facility] Atenolol 25 MG Oral Tablet 08/07/2020 Provider: Diagnosis: Last Documented On 1 11:18AM By Rayne Olson *TERMED* ; [facility] Alfuzosin HCl ER 10 MG Oral Tablet Extended Rele ase 24 Hour 08/07/2020 Provider: Diagnosis: 1 HS Last Documented On 1 11:19AM By Rayne Olson *TERMED* ; [facility] Multivitamin Oral Tablet 08/07/2020 Provider: Diagnosis: Last Documented On 1 11:20AM By Rayne Olson *TERMED* ; [facility] CoQ10 100 MG Oral Capsule 08/07/2020 Provider: Diagnosis: Last Documented On 1 11:40AM By Trini Tran ; [facility] Medications Administered Includes: Administered [...] ve Last Documented On 2 11:21AM ; [facility] Sulfa Antibiotics Allergy 11/07/2017 A ctive Last Documented On 2 11:21AM ; [facility] Simvastatin Allergy 11/07/2017 Active Last Documented On 2 11:21AM ; [facility] Lyrica Allergy 11/07/2017 Active Last Documented On 2 11:21AM ; [facility] Byetta 10 MCG Pen Allergy 11/07/2017 A ctive Last Documented On 2 11:21AM ; [facility] Encounters Encounter Provider Location Date Check-In Time Check-Out Time Diagnosis [Patient Encounter] Gail Gorman MD 09/28/2020 9:16AM 11:59PM Insurance Includes: Active Insurance Policies Plan Name Member ID Group # Subscriber Relationship Effect jigar Dates 1 - Medicare : [id number] Pritesh A Armin Self 2 - Bc/bs Fl(federal) :[facility] [id number] Pritesh Funez Self 04/27/2019 - Unknown Clinical Notes Includes: Clinical Notes from this encounter No Clinical Notes Recorded
--- OUTSIDE RECORDS SUMMARY | 2023-02-10 19:39 | XMS_ITS | Clinical Summary ---
Author Name Unknown Address [address] [place] [address] Phone Organization [facility] Address [address] [place] [address] Phone Care Team Providers Care Grain Elevator Worker Name Role Phone Tom Brantley MD, Ismael Roche Unavailable [phone] Ricky SPENCER, Heron Epstein Unavailable [phone] Vita SPENCER, Gail Jimenez Unavailable [phone] Blas Walsh MD Unavailable [phone] Chris SPENCER, Misael Guillaume Unavailable [phone] Paul Sheikh DO Primary Care Provide r [phone] Reason for Visit and Chief Complaint The Chief Complaint is: follow up, multiple falls Problems Includes: Problems addressed during this encounter and other active Problems All Visits Onset Date Resolved Date Provider Condition S tatus Diabetes Mellitus Type 2 11/07/2017 Blas Persaud MD Active Last Documented On 8 12:03PM ; [facility] Esophageal Reflux 11/07/2017 Blas Walsh MD Active Last Documented On 8 12:01PM ; [facility] Essential Hypertriglyceridemia 11/07/2017 Huy Walsh MD Active Last Documented On 8 12:06PM ; [facility] Essential Hypertension 11/07/2017 Blas roche MD Active Last Documented On 8 12:05PM ; [facility] Hemorrhoids Internal 11/07/2017 Blas Walsh MD Active Last Documented On 8 12:04PM ; [facility] Intestinal Disorder Diverticular 11/07/2017 Darrell Walsh MD Active Last Documented On 8 12:06PM ; [facility] Obesity 11/07/2017 Blas Walsh MD Active Last Documented On 8 12:02PM ; [facility] Osteoarthritis 11/07/2017 Blas Walsh MD Act jigar Last Documented On 8 12:06PM ; [facility] 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 Spondylosis 11/07/2017 Blas Walsh MD Active Last Documented On 8 12:04PM ; [facility] Familial (Benign Essential) Tremor 11/07/2017 Tristan Walsh MD Active Last Documented On 8 12:05PM ; [facility] 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 Plan of [...] would benefit from a power chair. A [id number] has been provided below. However, he is [...] Electrodiagnostic Medicine ([facility]/EMG) [facility] [address] [place] [address] This note was created using voice recognition software and is subject to errors including those of syntax which may escape proofreading. - Last Documented On 06/18/2021 12:08PM ; [facility] Education and Decision Aids were provided during visit for: Patient education about diet ramandeep needs Last Documented On 2 11:23AM ; [facility] Assessments Includes: Assessments from this encounter No Assessments Recorded Instructions Includes: Instructions from this encounter Education and Decision Aids were provided during visit for: Patient education about diet ramandeep needs Last Documented On 2 11:23AM ; [facility] Medical Equipment - Implanted Devices Includes: Current Devices No Medical Equipment Recorded Medications Includes: Medications discussed during this encounter and other current Medications Discontinued / Stopped on this date on 08/07/2020 Rosuvastatin Calcium 5 MG Oral Tablet Pro vider: Diagnosis: Last Documented On 2 11:25AM By Trini Tran ; [facility] Vitamin D3 25 MCG (1000 UT) Oral Tablet Chewable Provider: Diagnosis: Last Documented On 2 11:24AM By Trini Tran ; [facility] Current Medications (continue as prescribed) Myrbetriq 25 MG Oral Tablet Extended Release 24 Hour 0 12/20/2020 Provider: Diagnosis: Last Documented On 1 10:33AM By Rayne MckeeTERMED* ; [facility] Lisinopril 20 MG Oral Tablet 08/07/2020 Provider: Diagnosis: Last Documented On 1 11:01AM By Rayne MckeeTERMED* ; [facility] Januvia 100 MG Oral Tablet 08/07/2020 Provider: Diagnosis: 1 QD Last Documented On 1 11:17AM By Rayne Olson *TERMED* ; [facility] Atenolol 25 MG Oral Tablet 08/07/2020 Provider: Diagnosis: Last Documented On 1 11:18AM By Rayne Olson *TERMED* ; [facility] Alfuzosin HCl ER 10 MG Oral Tablet Extended Rele ase 24 Hour 08/07/2020 Provider: Diagnosis: 1 HS Last Documented On 1 11:19AM By Rayne Olson *TERMED* ; [facility] Multivitamin Oral Tablet 08/07/2020 Provider: Diagnosis: Last Documented On 1 11:20AM By Rayne MckeeTERMED* ; [facility] CoQ10 100 MG Oral Capsule 08/07/2020 Provider: Diagnosis: Last Documented On 1 11:40AM By Trini Tran ; [facility] Medications Administered [...] 2.3 Last Documented On: 06/18/2021 11:27AM ; [facility] Results Includes: Results [...] 06/18/2021 Last Documented On 2 12:08PM ; [facility] Use of tobacco assessment performed 05/29 Last Documented On 2 12:08PM ; [facility] Smoking Status Unknown Procedures and Surgical History Includes: Procedures from this encounter Procedures Code Diagnosis Performing Provider Service L ocation Service Date history of influenza virus vaccine Last Documented On 2 11:23AM ; [facility] [employer] history of pneumococcal vaccine Last Documented On 2 11:23AM ; [facility] [employer] Medical History Includes: Medical History [...] ve Last Documented On 2 11:21AM ; [facility] Sulfa Antibiotics Allergy 11/07/2017 A ctive Last Documented On 2 11:21AM ; [facility] Simvastatin Allergy 11/07/2017 Active Last Documented On 2 11:21AM ; [facility] Lyrica Allergy 11/07/2017 Active Last Documented On 2 11:21AM ; [facility] Byetta 10 MCG Pen Allergy 11/07/2017 A ctive Last Documented On 2 11:21AM ; [facility] Encounters Encounter Provider Location Date Check-In Time Check-Out Time Diagnosis Follow up Gail Gorman MD [facility] 2 11:10AM 11:58AM Insurance Includes: Active Insurance Policies Plan Name Member ID Group # Subscriber Relationship Effect jigar Dates 1 - Medicare : [id number] Pritesh Funez Self 2 - Bc/bs Fl(federal) :[facility] [id number] Pritesh Mckeon 04/27/2019 - Unknown Clinical Notes Includes: Clinical Notes from this encounter No Clinical Notes Recorded
--- OUTSIDE RECORDS SUMMARY | 2023-02-10 19:40 | XMS_ITS | Clinical Summary ---
Author Name Unknown Address [address] [place] [address] Phone Organization [facility] Address [address] [place] [address] Phone Care Team Providers Care Program Facilitator Name Role Phone Tom Brantley MD, Ismael Gallegos Unavailable [phone] Ricky SPENCER, Heron Epstein Unavailable [phone] Vita SPENCER, Gail Jimenez Unavailable [phone] Blas Walsh MD Unavailable [phone] Chris SPENCER, Misael Guillaume Unavailable [phone] Paul Sheikh DO Primary Care Provide r [phone] Reason for Visit and Chief Complaint [Patient Encounter] Problems Includes: Problems addressed during this encounter and other active Problems All Visits Onset Date Resolved Date Provider Condition S tatus Diabetes Mellitus Type 2 11/07/2017 Blas Persaud MD Active Last Documented On 8 12:03PM ; [facility] Esophageal Reflux 11/07/2017 Blas Walsh MD Active Last Documented On 8 12:01PM ; [facility] Essential Hypertriglyceridemia 11/07/2017 Huy Walsh MD Active Last Documented On 8 12:06PM ; [facility] Essential Hypertension 11/07/2017 Blas gallegos MD Active Last Documented On 8 12:05PM ; [facility] Hemorrhoids Internal 11/07/2017 Blas Walsh MD Active Last Documented On 8 12:04PM ; [facility] Intestinal Disorder Diverticular 11/07/2017 Darrell Walsh MD Active Last Documented On 8 12:06PM ; [facility] Obesity 11/07/2017 Blas Walsh MD Active Last Documented On 8 12:02PM ; [facility] Osteoarthritis 11/07/2017 Blas Walsh MD Act jigar Last Documented On 8 12:06PM ; [facility] 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 Spondylosis 11/07/2017 Blas Walsh MD Active Last Documented On 8 12:04PM ; [facility] Familial (Benign Essential) Tremor 11/07/2017 Tristan Walsh MD Active Last Documented On 8 12:05PM ; [facility] 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 Plan of Treatment No [...] 1 10:33AM By Rayne Olson *TERMED* ; [facility] Lisinopril 20 MG Oral Tablet 08/07/2020 Provider: Diagnosis: Last Documented On 1 11:01AM By Rayne Olson *TERMED* ; [facility] Januvia 100 MG Oral Tablet 08/07/2020 Provider: Diagnosis: 1 QD Last Documented On 1 11:17AM By Rayne Olson *TERMED* ; [facility] Atenolol 25 MG Oral Tablet 08/07/2020 Provider: Diagnosis: Last Documented On 1 11:18AM By Rayne Olson *TERMED* ; [facility] Alfuzosin HCl ER 10 MG Oral Tablet Extended Rele ase 24 Hour 08/07/2020 Provider: Diagnosis: 1 HS Last Documented On 1 11:19AM By Rayne Olson *TERMED* ; [facility] Multivitamin Oral Tablet 08/07/2020 Provider: Diagnosis: Last Documented On 1 11:20AM By Rayne Olson *TERMED* ; [facility] CoQ10 100 MG Oral Capsule 08/07/2020 Provider: Diagnosis: Last Documented On 1 11:40AM By Trini Tran ; [facility] Medications Administered [...] ve Last Documented On 2 11:21AM ; [facility] Sulfa Antibiotics Allergy 11/07/2017 A ctive Last Documented On 2 11:21AM ; [facility] Simvastatin Allergy 11/07/2017 Active Last Documented On 2 11:21AM ; [facility] Lyrica Allergy 11/07/2017 Active Last Documented On 2 11:21AM ; [facility] Byetta 10 MCG Pen Allergy 11/07/2017 A ctive Last Documented On 2 11:21AM ; [facility] Encounters Encounter Provider Location Date Check-In Time Check-Out Time Diagnosis [Patient Encounter] Gail Gorman MD 09/04/2020 1:05PM 11:59PM Insurance Includes: Active Insurance Policies Plan Name Member ID Group # Subscriber Relationship Effect jigar Dates 1 - Medicare : [id number] Pritesh A Armin Self 2 - Bc/bs Fl(federal) :[facility] [id number] Pritesh Funez Self 04/27/2019 - Unknown Clinical Notes Includes: Clinical Notes from this encounter No Clinical Notes Recorded
--- OUTSIDE RECORDS SUMMARY | 2023-02-10 19:40 | XMS_ITS | Clinical Summary ---
Author Name Unknown Address [address] [place] [address] Phone Organization [facility] Address [address] [place] [address] Phone Care Team Providers Care Color Corrector Name Role Phone Tom Brantley MD, Ismael Gallegos Unavailable [phone] Ricky SPENCER, Heron Epstein Unavailable [phone] Vita SPENCER, Gail Jimenez Unavailable [phone] Blas Walsh MD Unavailable [phone] Chris SPENCER, Misael Guillaume Unavailable [phone] Paul Sheikh DO Primary Care Provide r [phone] Reason for Visit and Chief Complaint [Patient [...] 1 10:33AM By Rayne Olson *TERMED* ; [facility] Lisinopril 20 MG Oral Tablet 08/07/2020 Provider: Diagnosis: Last Documented On 1 11:01AM By Rayne Olson *TERMED* ; [facility] 1 11:20AM By Rayne Olson *TERMED* ; [facility] Effect jigar Dates 1 - Medicare : [id number] Pritesh A Armin Self 2 - Bc/bs Fl(federal) :[facility] [id number] Pritesh Funez Self 04/27/2019 - Unknown Clinical Notes Includes: Clinical Notes from this encounter No Clinical Notes Recorded
--- OUTSIDE RECORDS SUMMARY | 2023-02-10 19:40 | XMS_ITS | Clinical Summary ---
Author Name Unknown Address [address] [place] [address] Phone Organization [facility] Address [address] [place] [address] Phone Care Team Providers Care Precision Lens Grinder Apprentice Name Role Phone Tom Brantley MD, Ismael Roche Unavailable [phone] Ricky SPENCER, Heron Epstein Unavailable [phone] Vita SPENCER, Gail Jimenez Unavailable [phone] Blas Walsh MD Unavailable [phone] Chris SPENCER, Misael Guillaume Unavailable [phone] Paul Sheikh DO Primary Care Provide r [phone] Reason for Visit and Chief Complaint The [...] Active Last Documented On 8 12:03PM ; [facility] Esophageal Reflux 11/07/2017 Blas Walsh MD Active Last Documented On 8 12:01PM ; [facility] Essential Hypertriglyceridemia 11/07/2017 Huy Walsh MD Active Last Documented On 8 12:06PM ; [facility] Essential Hypertension 11/07/2017 Blas roche MD Active Last Documented On 8 12:05PM ; [facility] Hemorrhoids Internal 11/07/2017 Blas Walsh MD Active Last Documented On 8 12:04PM ; [facility] Intestinal Disorder Diverticular 11/07/2017 Darrell Walsh MD Active Last Documented On 8 12:06PM ; [facility] Obesity 11/07/2017 Blas Walsh MD Active Last Documented On 8 12:02PM ; [facility] Osteoarthritis 11/07/2017 Blas Walsh MD Act jigar Last Documented On 8 12:06PM ; [facility] 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 Spondylosis 11/07/2017 Blas Walsh MD Active Last Documented On 8 12:04PM ; [facility] Familial (Benign Essential) Tremor 11/07/2017 Tristan Walsh MD Active Last Documented On 8 12:05PM ; [facility] 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 1. Pathology report from the [facility] reviewed. The fine-needle aspiration of a [...] Electrodiagnostic Medicine (NCS/EMG) [facility] [id number], [address] [place] [address] This note was created using voice recognition software and is subject to errors including those of syntax which may escape proofreading. - Last Documented On 12/20/2020 1:09PM ; [facility] Clinical staff counseled patient to adopt healthy behaviors as appropriate. - Last Documented On 12/20/2020 1:09PM ; [facility] Pending Tests Order Diagnosis Results Due Ordering Provider Referrals - [facility] Radiculopathy, cervicothoracic region 02/18/21 Gail Gorman MD Last Documented On 1:09PM ; [facility] Instructions to patient Lose weight Patient encourag e to limit portion sizes and to tract and restrict their total daily caloric intake Last Documented On 10:37AM ; [facility] Education and Decision Aids were provided during visit for: Clinical staff counseled markos lewis to adopt healthy behaviors as appropriate Last Documented On 10:35AM ; [facility] Assessments Includes: Assessments from this encounter No Assessments Recorded Instructions Includes: Instructions from this encounter Instructions to patient Lose weight Patient encourag e to limit portion sizes and to tract and restrict their total daily caloric intake Last Documented On 10:37AM ; [facility] Education and Decision Aids were provided during visit for: Clinical staff counseled markos lewis to adopt healthy behaviors as appropriate Last Documented On 10:35AM ; [facility] Medical Equipment - Implanted Devices Includes: Current Devices No Medical Equipment Recorded Medications Includes: Medications discussed during this encounter and other current Medications Discontinued / Stopped on this date on 08/07/2020 EQL Fish Oil 1000 MG Oral Capsule Provide r: Diagnosis: Last Documented On 1 10:32AM By Rayne Olson *TERMED* ; [facility] Current Medications (continue as prescribed) Myrbetriq 25 MG Oral Tablet Extended Release 24 Hour 0 12/20/2020 Provider: Diagnosis: Last Documented On 1 10:33AM By Rayne Olson *TERMED* ; [facility] Lisinopril 20 MG Oral Tablet 08/07/2020 Provider: Diagnosis: Last Documented On 1 11:01AM By Rayne Olson *TERMED* ; [facility] Januvia 100 MG Oral Tablet 08/07/2020 Provider: Diagnosis: 1 QD Last Documented On 1 11:17AM By Rayne Olson *TERMED* ; [facility] Atenolol 25 MG Oral Tablet 08/07/2020 Provider: Diagnosis: Last Documented On 1 11:18AM By Rayne Olson *TERMED* ; [facility] Alfuzosin HCl ER 10 MG Oral Tablet Extended Rele ase 24 Hour 08/07/2020 Provider: Diagnosis: 1 HS Last Documented On 1 11:19AM By Rayne Olson *TERMED* ; [facility] Multivitamin Oral Tablet 08/07/2020 Provider: Diagnosis: Last Documented On 1 11:20AM By Rayne Olson *TERMED* ; [facility] CoQ10 100 MG Oral Capsule 08/07/2020 Provider: Diagnosis: Last Documented On 1 11:40AM By Trini Tran ; [facility] Medications Administered Includes: Administered Medications from this encounter No Administered Medications Recorded Vital Signs Includes: Vital Signs from this encounter Vital Name 12/20/2020 10:26A Blood Pressure Standing L 124/76 BP Cuff Size Regular Pulse Rate-Standing (bpm) 74 Height (in) 71 Weight (lb) 235 Body Mass Index (kg/m2) 32.8 Body Surface Area (m2) 2.3 Last Documented On: 12/20/2020 10:35AM ; [facility] Results Includes: Results discussed during this encounter HEMOGLOBIN A1C [facility] Ordered by Gail Gorman MD on 08/10/19 21 Collected: 08/09/2020 Reported: 08/10/19 21 17:29 Last Documented On 1 11:01AM ; [facility] Reviewed by Gail Ospina on 08/14/2020; All test results are final unless otherwise noted. HEMOGLOBIN A1C 7.1 % (4.0-6.0) H (High) Last Documented On 1 10:45PM ; [facility] Note: Specimen Number: [id number] History of Present Illness Includes: History of Present Illness from this encounter ROGER Funez is a 80 year old male. - Allergy list reviewed - Medication reconciliation performed Follow up The patient presents for follow-up. Since last visit, he did go to the [facility]. He had a biopsy done which [...] 12/20/2020 Last Documented On 1 1:09PM ; [facility] Patient has living will 12/20/2020 Last Documented On 1 1:09PM ; [facility] Patient has not seen another provider si nce last visit 12/20/2020 Last Documented On 1 1:09PM ; [facility] States no significant change in lifestyl e since last visit 12/20/2020 Last Documented On 1 1:09PM ; [facility] Use of tobacco assessment performed 11/26 Last Documented On 1 1:09PM ; [facility] Smoking Status Unknown Procedures and Surgical History Includes: Procedures from this encounter Procedures Code Diagnosis Performing Provider Service L ocation Service Date history of Tdap vaccine 40799 Last Documented On 1 10:37AM ; [facility] history of pneumococcal vaccine Last Documented On 1 10:37AM ; [facility] Pt received screening for fall risk [id number] Last Documented On 1 10:35AM ; [facility] history of influenza virus vaccine Last Documented On 1 10:37AM ; [facility] Clinical summary provided to patient Last Documented On 1 10:35AM ; [facility] Medical History Includes: Medical History addressed during this encounter Description Last Updated Denies significant change in medical sta tus since last visit 12/20/2020 Last Documented On 1 1:09PM ; [facility] Yes patient feels confident managing chr onic conditions 12/20/2020 Last Documented On 1 1:09PM ; [facility] Family History Includes: Family History addressed during this encounter Description Last Updated States no significant change in family m edical history since last visit 12/20/2020 Last Documented On 1 1:09PM ; [facility] Review of Systems [...] ve Last Documented On 2 11:21AM ; [facility] Sulfa Antibiotics Allergy 11/07/2017 A ctive Last Documented On 2 11:21AM ; [facility] Simvastatin Allergy 11/07/2017 Active Last Documented On 2 11:21AM ; [facility] Lyrica Allergy 11/07/2017 Active Last Documented On 2 11:21AM ; [facility] Byetta 10 MCG Pen Allergy 11/07/2017 A ctive Last Documented On 2 11:21AM ; [facility] Encounters Encounter Provider Location Date Check-In Time Check-Out Time Diagnosis Follow up Gail Gorman MD [facility] 1 10:19AM 11:23AM Insurance Includes: Active Insurance Policies Plan Name Member ID Group # Subscriber Relationship Effect jigar Dates 1 - Medicare : [id number] Pritesh Funez Self 2 - Bc/bs Fl(federal) [facility] [id number] Pritesh Mckeon 04/27/2019 - Unknown Clinical Notes Includes: Clinical Notes from this encounter No Clinical Notes Recorded
[2023-02-10 19:41] LABS: Albumin* 4.2 g/dL (3.3-5.0)
[2023-02-10 19:42] LABS: Chloride* 105 mmol/L (96-114); Sodium* 139 mmol/L (135-149)
[2023-02-10 19:44] LABS: Anion Gap 9 mEq/L (7-15); Aspartate Amino Transferase* 36 U/L (12-35); Bilirubin Total* 0.6 mg/dL (0.1-1.5); Blood Urea Nitrogen* 17 mg/dL (7-30); Carbon Dioxide* 25 mmol/L (20-32); Creatinine* 0.7 mg/dL (0.5-1.5); Est. Creatinine Clearance* 62.75; Estimated Glomerular Filt Rate 93 ml/min
[2023-02-10 19:45] LABS: Alanine Aminotransferase* 30 U/L (4-50); Alkaline Phosphatase* 63 U/L (40-150); Calcium* 8.8 mg/dL (8.4-10.6); Slide Review Reflex No
[2023-02-10 19:46] LABS: INR 0.99 (0.91-1.10); Prothrombin Time 13.7 Seconds
[2023-02-10 19:47] LABS: Partial Thromboplastin Time* 32 Seconds (23-33)
[2023-02-10 20:00] LABS: Glucose* 111 mg/dL (60-115)
[2023-02-10] MEDS: HYDROmorphone 0.5 mg/0.5 ml inj IVP ×3 (20:20→23:18)
--- NOTE | 2023-02-10 21:27 | ED.NURSE ---
patient report given to manjeet patient going to room 277
[2023-02-10 21:40] VITALS: BP 150/80; PULSE 57; RESP 18; RESP 20; O2SAT 93; BMI 30.3
--- NOTE | 2023-02-10 21:51 | P.IMHP_ITS ---
Hospitalist- H&P: HPI History of Present Illness Date Seen: 02/10/23 Chief complaint: Fall Narrative: Pritesh Funez is a delightful 82 year old male who had a mechanical fall this evening, and presented to the emergency room with right hip pain. He was taking out the garbage and fell, specifically denies preceding dizziness or lightheadedness. He has had no chest pain or dyspnea. After the fall, right hip pain was severe and Wilver was unable to ambulate, required EMS transport. ER course and findings: - inter trochanteric fracture right proximal femur noted on x-ray - reassuring labs - no acute findings on EKG (sinus bradycardia) Ortho contacted and will see patient in the morning. Medical history updated below. Patient is typically active (ambulates with a walker) without chest pain or dyspnea. No history of anesthetic or surgical complications in the past. Patient's Shirlene would be medical decision maker if needed. They spend winter in [place], summer in [place]. Review of Systems Status of ROS: Reports: 10 or more systems reviewed and unremarkable except as noted in History and below Narrative: - specifically denies CP, dyspnea, dizziness PFSH PFSH Medical History (Updated 02/10/23 @ 23:05 by Amara Antonio MD) Non-insulin dependent diabetes mellitus ROXIE (obstructive sleep apnea) ?G47.33 - Obstructive sleep apnea (adult) (pediatric) (ICD-10) Hyperlipidemia ?E78.5 - Hyperlipidemia, unspecified (ICD-10) Essential hypertension ?I10 - Essential (primary) hypertension (ICD-10) Prostate cancer ?C61 - Malignant neoplasm of prostate (ICD-10) Surgical History (Updated 02/10/23 @ 20:12 by Amara Antonio MD) History of tonsillectomy ?Z90.89 - Acquired absence of other organs (ICD-10) H/O cardiac catheterization ?Z98.890 - Other specified postprocedural states (ICD-10) Hx of appendectomy ?Z90.49 - Acquired absence of other specified parts of digestive tract (ICD- 10) Social History (Updated 02/10/23 @ 23:04 by Amara Antonio MD) Narrative: Lives with Shirlene (medical decision maker if needed) - they have a total of 6 adult children locally. [place] spend [place]. Nonsmoker, rare ETOH. Uses a walker for ambulation. What is your current living situation?: I presently have a place to live Problems where you live: no known problems Problems where you live details: none In the past 12 months, utilities in danger of being shut off: no In past 12 months, lack of transportation kept you from medical appts, meetings, work, or getting things needed for daily living: no In the past 12 mos, have been you worried that your food would run out before you had money to buy more?: never true In the past 12 mos, the food you bought just didn't last and you didn't have money to buy more?: never true Smoking Status: Former smoker Second hand tobacco smoke exposure: No How often do you have a drink containing alcohol: never How often do you have six or more drinks on one occasion: Never AUDIT-C Alcohol total score: 0 Non-prescribed substance use: denies use Caffeine: Yes (coffee, soda) How often does anyone, including family, friends and others, physically hurt you : never How often does anyone, including family, friends and others, insult or talk down to you: never How often does anyone, including family, friends and others, threaten you with harm: never How often does anyone, including family, friends and others, scream or curse at you: never service: Yes Meds Home Medications and Allergies Home Medications Medication Instructions Recorded Confirmed Type alfuzosin 10 mg tablet,extended 10 mg PO HS 11/11/21 02/10/23 History release 24 hr atenolol 25 mg tablet 25 mg PO HS 11/11/21 02/10/23 History mirabegron 50 mg tablet,extended 50 mg PO DAILY 11/11/21 02/10/23 History release 24 hr (Myrbetriq) aspirin 81 mg chewable tablet 1 tab PO DAILY 02/10/23 02/10/23 History lisinopril 20 mg tablet 20 mg PO DAILY 02/10/23 02/10/23 History pravastatin 10 mg tablet 10 mg PO HS 02/10/23 02/10/23 History sitagliptin phosphate 100 mg 100 mg PO DAILY 02/10/23 02/10/23 History tablet (Januvia) Home Medication Comments: confirmed with patient - he takes 81mg of ASA daily Allergies Allergy/AdvReac Type Severity Reaction Status Date / Time Sulfa (Sulfonamide Allergy Verified 11/11/21 19:46 Antibiotics) lisinopril AdvReac Verified 11/11/21 19:46 jenuvia AdvReac arms itch Uncoded 11/11/21 19:46 Exam Narrative: Exam Narrative: GEN: Alert and oriented, answering questions appropriately HEENT: Pupils miotic, EOMIs bilaterally, no scleral icterus CV: RRR, No concerning murmurs R: LCTA bilaterally without concerning wheezing, air movement adequate Ext: Right lower extremity externally rotated Skin: No concerning skin lesions or rashes on exposed skin Neuro: No focal deficits, gait not observed, palpable pulses bilateral dorsalis pedis sites Psych: Appropriate Const: Vital Signs, click to edit/add: Vital Signs - 24 hr 02/10/23 19:00 Temperature 97.2 F L Pulse Rate [Right Pulse Oximeter] 56 L Respiratory Rate 18 Blood Pressure [Ri ght Upper Arm] 143/93 H Pulse Oximetry 93 Oxygen Delivery Me thod Room Air Hospitalist - H&P: Result Labs Labs: Short CBC 02/10/23 Range/Units 19:20 WBC 6.72 (4.50-11.00) K/uL Hgb 15.3 (13.5-17.5) gm/dL Hct 48.4 (37.0-53.0) % Plt Count 163 (140-440) K/uL BMP 02/10/23 19:20 Sodium 139 Potassium 4.0 Chloride 105 Carbon Dioxide 25 BUN 17 Creatinine 0.7 Glucose 111 Calcium 8.8 Liver Function 02/10/23 Range/Units 19:20 Total Bilirubin 0.6 (0.1-1.5) mg/dL Direct Bilirubin 0.0 (0.0-0.5) mg/dL AST 36 H (12-35) U/L ALT 30 (4-50) U/L Alkaline Phosphatase 63 (40-150) U/L Albumin 4.2 (3.3-5.0) g/dL Assessment and Plan Assessment and plan (1) Trochanteric fracture of right femur: Problem comment: - 02/10/23 Status: Acute (2) Non-insulin dependent diabetes mellitus: Problem comment: - last outpatient A1c <7 - on Status: Acute (3) Essential hypertension: Problem comment: - continue home medications Status: Acute (4) ROXIE (obstructive sleep apnea): Problem comment: - on CPAP nightly Status: Acute Plan - Orthopedic surgery to see patient tomorrow morning and discuss definitive plan - NPO after midnight, accuchecks - hold aspirin and Januvia, continue other home medications - Xavier hose for prophylaxis at this time - Full Code - Shirlene updated at bedside, questions answered
[2023-02-10] MEDS: atenoloL 25 MG TABLET PO (22:12)
[2023-02-10] MEDS: SODIUM CHLORIDE 0.9 % (FLUSH) 10 ML SYRINGE 5 ML IVF ×2 (22:14→23:18)
[2023-02-10 22:57] VITALS: RESP 18; O2SAT 93
[2023-02-10 23:00] VITALS: BP 149/74; PULSE 72; RESP 18; TEMP 36.8; O2SAT 93
[2023-02-11] VITALS (22 sets, daily range): BP systolic 103–161; BP diastolic 49–112; PULSE 53–103; RESP 12–20; TEMP 36.3–37.2; O2SAT 92–97
[2023-02-11] MEDS: HYDROmorphone 0.5 mg/0.5 ml inj IVP ×5 (01:15→16:17)
[2023-02-11] MEDS: SODIUM CHLORIDE 0.9 % (FLUSH) 10 ML SYRINGE 5 ML IVF ×2 (01:15→09:36)
[2023-02-11] MEDS: LORazepam 0.5 MG TABLET PO (03:07)
--- NOTE | 2023-02-11 05:37 | PC.NURSE ---
Pt slept ok during night, pain rated 3-8/10, increased with movement and frequent muscle spasms. prn pain medication administered throughout night with some relief, prn ativan administered x1 and pt able to sleep afterwards. using urinal at bedside, pt declined having a rosa placed at this time. Pt allowed nurse to help make slight repositions during night but pt has increased pain with even slight movements. Ice to R hip, pedal pulses present bilaterally. NPO since midnight.
--- NOTE | 2023-02-11 08:44 | PM.ORCN ---
History of Present Illness HPI Date Seen: 02/11/23 Chief complaint: Fall Narrative: Mr. Funez is a pleasant 82 year-old male who had a mechanical fall on 02/10/2023 evening. He was in his garage, in a tight space, unfortunately stumbled and fell onto his right hip. Severe pain. Difficulty bearing weight. Required EMS transport. He presented [facility]. X-rays were obtained revealed a right basicervical femoral neck fracture with intertrochanteric extension. Orthopedics was consulted. He continues to have pain. Worse with motion. Relieved with rest. No numbness or tingling reported. He denies fevers chills, nausea vomiting, or dizziness. Denies loss of consciousness. Patient is typically active (ambulates with a walker) without chest pain or dyspnea. No history of anesthetic or surgical complications in the past. Patient's Shirlene would be medical decision maker if needed. They spend winter in [place], summer in [place]. [facility] Medical History Non-insulin dependent diabetes mellitus ROXIE (obstructive sleep apnea) ?G47.33 - Obstructive sleep apnea (adult) (pediatric) (ICD-10) Hyperlipidemia ?E78.5 - Hyperlipidemia, unspecified (ICD-10) Essential hypertension ?I10 - Essential (primary) hypertension (ICD-10) Prostate cancer ?C61 - Malignant neoplasm of prostate (ICD-10) Surgical History History of tonsillectomy ?Z90.89 - Acquired absence of other organs (ICD-10) H/O cardiac catheterization ?Z98.890 - Other specified postprocedural states (ICD-10) Hx of appendectomy ?Z90.49 - Acquired absence of other specified parts of digestive tract (ICD-10) Social History Narrative: Lives with Shirlene (medical decision maker if needed) - they have a total of 6 adult children locally. They spend winter in [place] and summer in [place]. Nonsmoker, rare ETOH. Uses a walker for ambulation. What is your current living situation?: I presently have a place to live Problems where you live: no known problems Problems where you live details: none In the past 12 months, utilities in danger of being shut off: no In past 12 months, lack of transportation kept you from medical appts, meetings, work, or getting things needed for daily living: no In the past 12 mos, have been you worried that your food would run out before you had money to buy more?: never true In the past 12 mos, the food you bought just didn't last and you didn't have money to buy more?: never true Smoking Status: Former smoker Second hand tobacco smoke exposure: No How often do you have a drink containing alcohol: never How often do you have six or more drinks on one occasion: Never AUDIT-C Alcohol total score: 0 Non-prescribed substance use: denies use Caffeine: Yes (coffee, soda) How often does anyone, including family, friends and others, physically hurt you: never How often does anyone, including family, friends and others, insult or talk down to you: never How often does anyone, including family, friends and others, threaten you with harm: never How often does anyone, including family, friends and others, scream or curse at you: never service: Yes Meds Home Medications and Allergies Home Medications Medication Instructions Recorded Confirmed Type alfuzosin 10 mg tablet,extended 10 mg PO HS 11/11/21 02/10/23 History release 24 hr atenolol 25 mg tablet 25 mg PO HS 11/11/21 02/10/23 History mirabegron 50 mg tablet,extended 50 mg PO DAILY 11/11/21 02/10/23 History release 24 hr (Myrbetriq) aspirin 81 mg chewable tablet 1 tab PO DAILY 02/10/23 02/10/23 History lisinopril 20 mg tablet 20 mg PO DAILY 02/10/23 02/10/23 History pravastatin 10 mg tablet 10 mg PO HS 02/10/23 02/10/23 History sitagliptin phosphate 100 mg 100 mg PO DAILY 02/10/23 02/10/23 History tablet (Januvia) Allergies Allergy/AdvReac Type Severity Reaction Status Date / Time Sulfa (Sulfonamide Allergy Verified 11/11/21 19:46 Antibiotics) lisinopril AdvReac Verified 11/11/21 19:46 jenuvia AdvReac arms itch Uncoded 11/11/21 19:46 Ortho Exam Narrative Exam Narrative: Alert and orient x3. No acute distress. Nonlabored breathing. Resting in bed supine. Relatively comfortable until he tries to move his right lower extremity-than right hip pain. No abrasions or lacerations about the right lateral hip. No ecchymosis evident. Mild swelling noted. Neurologic intact in the superficial and deep peroneal as well as plantar distribution to sensory light touch and motor function. Palpable DP and PT pulse. Strength and stability testing deferred about the right hip and knee due to significant pain. Gait and station also deferred accordingly. Const Vital Signs, click to edit/add: Vital Signs - 24 hr 02/10/23 19:00 02/10/23 21:40 02/10/23 21:40 Temperature 97.2 F L Pulse Rate [Pulse Oximeter] 57 L Pulse Rate [Right Pulse Oximeter] 56 L Respiratory Rate 18 20 18 Blood Pressure [Left Arm] 150/80 H Blood Pressure [Right Upper Arm] 143/93 H Pulse Oximetry 93 93 93 Oxygen Delivery Method Room Air Room Air Room Air 02/10/23 22:57 02/10/23 23:00 02/11/23 03:00 Temperature 98.2 F 98.2 F Pulse Rate [Pulse Oximeter] 72 61 Pulse Rate [Right Pulse Oximeter] Respiratory Rate 18 18 18 Blood Pressure [Left Arm] 149/74 H 161/93 H Blood Pressure [Right Upper Arm] Pulse Oximetry 93 93 97 Oxygen Delivery Method Room Air Room Air Room Air CPAP 02/11/23 07:44 02/11/23 07:45 Temperature Pulse Rate [Pulse Oximeter] 80 Pulse Rate [Right Pulse Oximeter] Respiratory Rate 16 Blood Pressure [Left Arm] 132/112 H Blood Pressure [Right Upper Arm] Pulse Oximetry 96 96 Oxygen Delivery Method CPAP CPAP Results Labs Labs: Laboratory Results - last 48 hr 02/10/23 19:20 WBC 6.72 RBC 5.49 Hgb 15.3 Hct 48.4 MCV 88 MCH 28 MCHC 32 RDW Coeff of Saskia 14.3 Plt Count 163 Neut % (Auto) 76.4 H Lymph % (Auto) 16.2 L [place] % (Auto) 5.1 Eos % (Auto) 1.5 Baso % (Auto) 0.1 Neut # (Auto) 5.10 Lymph # (Auto) 1.10 [place] # (Auto) 0.30 Eos # (Auto) 0.10 Baso # (Auto) 0.01 Abs Immat Gran (auto) 0.05 Imm/Tot Granulo (auto) 0.7 INR 0.99 APTT 32 Sodium 139 Potassium 4.0 Chloride 105 Carbon Dioxide 25 Anion Gap 9 BUN 17 Creatinine 0.7 Estimated Creat Clear 62.75 Estimated GFR 93 Glucose 111 Calcium 8.8 Total Bilirubin 0.6 Direct Bilirubin 0.0 AST 36 H ALT 30 Alkaline Phosphatase 63 Total Protein 7.0 Albumin 4.2 Diagnostic results Additional Comments: AP pelvis, AP and cross-table lateral views of the right hip from [facility] dated 02/10/2023 were ordered by a different provider and reviewed by me. This demonstrates a right basicervical femoral neck fracture with intertrochanteric extension. The lesser trochanter is a separate comminuted fragment. There is shortening, varus angulation to the femoral neck, and external rotation posture to the right proximal femur. Extra-articular fracture. Comminution noted. Relatively well-preserved hip joint space overall. Assessment and Plan Assessment and plan (1) Trochanteric fracture of right femur: Problem comment: - 02/10/23 Status: Acute Total time spent: Total time spent is greater than 50% in coordination of care (as documented) at patient's floor/unit and/or counseling patient: (2) Non-insulin dependent diabetes mellitus: Problem comment: - last outpatient A1c <7 - on Januvia Status: Acute Total time spent: Total time spent is greater than 50% in coordination of care (as documented) at patient's floor/unit and/or counseling patient: (3) Essential hypertension: Problem comment: - continue home medications Status: Acute Total time spent: Total time spent is greater than 50% in coordination of care (as documented) at patient's floor/unit and/or counseling patient: (4) ROXIE (obstructive sleep apnea): Problem comment: - on CPAP nightly Status: Acute Total time spent: Total time spent is greater than 50% in coordination of care (as documented) at patient's floor/unit and/or counseling patient: Plan Had a good discussion today with the patient. I help him understand his pathology. I communicated the fracture and the change in position. Given this malalignment, and the fact that he previously ambulated (albeit with a walker commonly), I would recommend surgery to improve the alignment and stabilize the right femoral basicervical neck fracture/intertrochanteric fracture. We did discuss the risks, benefits, and alternatives. Help him understand the timing on postoperative prognosis and expectations. I believe all questions were answered. Indeed, he would like to proceed with surgery. I would anticipate that we would be able to do the surgery today. I will connect with this family members. I have communicated with the hospitalist team as well as our anesthesia team and coordinated care accordingly.
[2023-02-11] MEDS: CEFAZOLIN 2 GM in 0.9 % SODIUM CHLORIDE Mini-bag 100 ML IVPB (09:35)
[2023-02-11] MEDS: 0.9 % SODIUM CHLORIDE 1000 ml 1,000 ML 75 ML IV (11:24)
[2023-02-11] MEDS: fentaNYL 100 MCG/2 ML inj 25 MCG IVP (11:47)
--- NOTE | 2023-02-11 13:20 | PM.IMPN1 ---
Progress Note: A&P Assessment and plan (1) Trochanteric fracture of right femur: Problem details: - 02/10/23 s/p mechanical fall - orthopedic surgery consulted, to OR this afternoon with Dr. Hopson. Perioperative management per surgical team. Hold home aspirin. - hip fracture precautions - NPO, IVF, SCDs - pain management as needed. Continuous pulse oximetry. Monitor for sedation Status: Acute (2) Non-insulin dependent diabetes mellitus: Problem details: - last outpatient A1c <7 - hold home Januvia - diabetic diet, glucose checks ACHS, low insulin sliding scale while NPO Status: Chronic (3) Hyperlipidemia: Problem details: - continue statin Status: Chronic (4) Essential hypertension: Problem details: - continue home medications, holding lisinopril this morning preoperatively Status: Acute (5) ROXIE (obstructive sleep apnea): Problem details: - on CPAP nightly - encourage perioperative pulmonary hygiene, Aerobika, incentive spirometry Status: Acute (6) Cognitive impairment: Problem details: - mild, as reported by . Monitor for perioperative delirium, sedation with narcotics Status: Acute Plan CODE: Full VTE PPX: SCDs preoperatively Disposition: Inpatient. Orthopedic Surgery recommendations for discharge. PT/OT consults postoperatively Time Spent With Patient Total time spent: Total time spent caring for the patient today was 45 minutes. This includes time spent for the visit reviewing the chart, time spent during the visit, time spent after the visit and documentation and planning in coordination of care. Subjective Date Seen: 02/11/23 Exam Const: Vital Signs, click to edit/add: Vital Signs - 24 hr 02/10/23 19:00 02/10/23 21:40 02/10/23 21:40 Temperature 97.2 F L Pulse Rate [Pulse Oximeter] 57 L Pulse Rate [Right Pulse Oximeter] 56 L Respiratory Rate 18 20 18 Blood Pressure [Le ft Arm] 150/80 H Blood Pressure [Ri ght Upper Arm] 143/93 H Pulse Oximetry 93 93 93 Oxygen Delivery Me thod Room Air Room Air Room Air 02/10/23 22:57 02/10/23 23:00 02/11/23 03:00 Temperature 98.2 F 98.2 F Pulse Rate [Pulse Oximeter] 72 61 Pulse Rate [Right Pulse Oximeter] Respiratory Rate 18 18 18 Blood Pressure [Le ft Arm] 149/74 H 161/93 H Blood Pressure [Ri ght Upper Arm] Pulse Oximetry 93 93 97 Oxygen Delivery Me thod Room Air Room Air Room Air CPAP 02/11/23 07:44 02/11/23 07:45 02/11/23 11:27 Temperature 99.0 F Pulse Rate [Pulse Oximeter] 80 75 Pulse Rate [Right Pulse Oximeter] Respiratory Rate 16 18 Blood Pressure [Le ft Arm] 132/112 H 136/75 Blood Pressure [Ri ght Upper Arm] Pulse Oximetry 96 96 95 Oxygen Delivery Me thod CPAP CPAP Room Air Labs Labs: Laboratory Results - last 24 hr 02/10/23 19:20 WBC 6.72 RBC 5.49 Hgb 15.3 Hct 48.4 MCV 88 MCH 28 MCHC 32 RDW Coeff of Saskia 14.3 Plt Count 163 Neut % (Auto) 76.4 H Lymph % (Auto) 16.2 L [place] % (Auto) 5.1 Eos % (Auto) 1.5 Baso % (Auto) 0.1 Neut # (Auto) 5.10 Lymph # (Auto) 1.10 [place] # (Auto) 0.30 Eos # (Auto) 0.10 Baso # (Auto) 0.01 Abs Immat Gran (auto) 0.05 Imm/Tot Granulo (auto) 0.7 INR 0.99 APTT 32 Sodium 139 Potassium 4.0 Chloride 105 Carbon Dioxide 25 Anion Gap 9 BUN 17 Creatinine 0.7 Estimated Creat Clear 62.75 Estimated GFR 93 Glucose 111 Calcium 8.8 Total Bilirubin 0.6 Direct Bilirubin 0.0 AST 36 H ALT 30 Alkaline Phosphatase 63 Total Protein 7.0 Albumin 4.2
--- NOTE | 2023-02-11 14:45 | CRLHL7_ITS ---
For Patients: As a result of the Cures Act, medical imaging exams and procedure reports are released immediately into your electronic medical record. You may view this report before your referring provider. If you have questions, please contact your health care provider. INDICATION: Right femoral ORIF TECHNIQUE: 58 seconds of fluoroscopy was provided with no radiologist in attendance. 7 views right COMPARISON: 02/10/2023 FINDINGS: Bone: No side markers are present on submitted images. Intraoperative views demonstrate placement of a long intramedullary nail with dynamic compression screw and distal interlocking screw. Dictated by Theron Adan MD @ 02/13/2023 8:24:21 AM Dictated by: Theron Adan MD @ 02/13/2023 08:24:24 (Electronically Signed)
[2023-02-11] MEDS: CEFAZOLIN 2 GM INJ IVP (17:28)
--- NOTE | 2023-02-11 18:09 | W.PM.NB ---
Nerve Block Nerve Block Time Seen by Provider: 17:15 Date Seen: 02/11/23 Type of block requested by surgeon for post-operative analgesia: SELINA/LFCN Side: right Time out performed: Yes Verification of patient name: Yes Verification of date of : Yes Site marking: site marked Name of person performing procedure: Tye Westbrook Assistants, if any: Marybel Roque Continuous monitoring Was continuous monitoring of O2 sat, B/P, surveillance system monitor, recorded every 15 minutes?: Yes Procedure Checklist: sterile prep, needles and gloves Ultrasound guided. Images saved: Yes Medications given in 5ml increments after negative aspiration: Marcaine (20mL for SELINA, 5mL for LFC ) %: 0.5 mL: 25 Needle gauge: 20 Decadron (mg): 10 Precedex (mcg): 20 Patient tolerated procedure well: Yes Additional comments: Injected in 5mL increments after negative aspiration Block Charges Block Charge (with Pro Fee): Other Periph Nerve Block Use of Ultrasound Machine for Block: Yes- US Guidance/pain block
--- NOTE | 2023-02-11 18:54 | P.ORPRC_ITS ---
Procedure Note Date of procedure: 02/11/23 Procedure: PREOPERATIVE DIAGNOSES: 1. Right femur intertrochanteric fracture, closed, acute POSTOPERATIVE DIAGNOSES: 1. Right femur intertrochanteric fracture, closed, acute NAME OF OPERATION: 1. Right femur intertrochanteric fracture fixation with intramedullary nail 2. 07455 - intraoperative fluoroscopy up to 1 hour. SURGEON: Angel Hopson MD ADVERTISING ASSISTANT: Juan Steinberg. Of note, an bookkeeping assistant was critical for this case to aide in patient positioning, extremity positioning, tissue retraction, instrument manipulation, and closure. ANESTHESIA: Spinal + Robert block IMPLANTS: Synthes long TFN 12 mm x 380 mm with 100 mm lag screw and 1 distal 5.0 mm interlocking screws] EBL: 200 ml COMPLICATIONS: None evident INDICATIONS: The patient is a pleasant, 82-year-old male who unfortunately sustained a recent fall. They landed on their right hip and were unable to bear weight. They experienced significant pain which prompted a visit to [facility]. X-rays were obtained and revealed a proximal femur fracture consistent with a pertrochanteric (i.e. intertrochanteric / subtrochanteric) femur fracture. Given these findings, along with the desire to help with pain control and improved mobility / mobilization, surgery was recommended. FINDINGS: Basicervical with intertrochanteric extension right femur fracture with displacement, shortening, and varus angulation.] PROCEDURE: Following a thorough discussion of risks, benefits, and alternatives, consent was obtained and the right hip was marked. After obtaining proper medical evaluation determining the patient was optimized prior to surgery, they were brought to the operating room and placed supine on the operating table. Induction of anesthesia undertaken. 2 g IV Ancef was administered within 1 hr of incision preoperatively. Proper time-out was performed identifying proper patient, site, and procedure. The operative extremity was prepped & draped in the appropriate sterile fashion using ChloraPrep after the patient was positioned on the [place] table with the head in neutral alignment all bone prominences well padded. C-arm fluoroscopic imaging was utilized to obtain AP and lateral views of the operative hip. This indeed confirm proper reduction of the proximal femur fracture. 10 blade skin incision was made proximal to the greater trochanteric tip. Sharp incision through skin and gluteal fascia allowed palpation of the greater trochanteric tip. A sharp awl was utilized and placed against the greater trochanteric tip. This was confirmed on C-arm and both in AP and lateral planes to be in appropriate starting position. Aiming down the canal. Once breaching the cortex, the ball-tip guidewire was passed the length of the femur. Once confirming via palpable scrape and visual C-Arm imagining that the guide wire with intraosseous, the depth gauge was used. The proper nail length was selected. The opening / proximal reamer was used followed by diaphyseal reamers up to 13.5mm. The IMN was then opened and inserted and passed the length of the canal without difficulty. The triple trocar was then applied to the lateral femur, 10 blade incision through the skin and ITB band along the trocars allowed them to be advanced to the lateral cortex. This was confirmed fluoroscopically to be in appropriate position. The guide pin was then placed and confirmed on AP and lateral views with the goal of center center position. The length was measured as noted above and the reamer used followed by screw application. Reduction of the fracture was monitored during insertion. The proximal nail locking screw was tightened down, and left static as the fracture pattern was felt to be unstable given the posterior medial comminution. At this stage, C-arm confirmed proper screw/leg screw position. We then turned our attention to the distal interlocking screws. Perfect [place] technique was utilized, and the 10 blade skin incision allowed the drill bit to be placed, and confirmed on C-arm fluoroscopic imaging to be within the oblong hole. This was measured and the screw placed with good security of the screw. A 2nd screw was initially drilled, measured, and placed, but no purchase was acquired on the far cortex. C-arm confirmed the screw to be through the far cortex and should have had a bite, but no purchase was achieved. Therefore, the screw was removed. Only 1 distal interlocking screw was utilized accordingly. Again C-arm images were obtained to confirm position within the nail and the nail to be within the bone. At this stage, the wounds were thoroughly irrigated normal saline; closure was performed with #0 Vicryl for the deep gluteal fascia, and IT band. 2-0 Vicryl and 4-0 Monocryl was utilized for subcutaneous and subcuticular closure, respectively. The patient was awoken from anesthesia and transferred to the PACU in stable condition. PLAN: 1. Weight bear as tolerated left lower extremity. 2. Encouraged ice. 3. Oxycodone for pain as needed. 4. Anticipate the need for long term facility transfer once medically stabilized 5. 23 hr perioperative antibiotics. 6. Xarelto for DVT prophylaxis along with Xavier estrada and RIANNAs.
--- NOTE | 2023-02-11 19:01 | PC.NURSE ---
END OF SHIFT: Alert and orientated, although forgetful. Patient reported 6-8/10 pain throughout the day Iv Dilaudid and fentanyl was was given see SIMRAN with adequate relief. Was on bedrest lying supine throughout the day.. repositioned with pillows under him. Received 1 dose of IV ABX pre operatively. The patient was taken down for R hip surgery @ 1645 this evening.. has not returned report given to Karrie AMBROSIO. Voided via urinal throughout the day intermittently. IV fluids running @75ml hr normal saline. Will call appropriately. Continuos pulse oximetry in place. Family was in the room visiting throughout the day. Will return to the floor for MS recovery this evening.
--- NOTE | 2023-02-11 19:05 | P.ANES_ITS ---
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
--- NOTE | 2023-02-11 19:05 | W.ANESCHARGE ---
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
[2023-02-11] MEDS: LACTATED RINGERS 1000 ML 1,000 ML 75 ML IV (20:17)
[2023-02-11] MEDS: atenoloL 25 MG TABLET PO (20:42)
[2023-02-11] MEDS: PRAVASTATIN SODIUM 20 MG TABLET 10 MG PO (20:42)
[2023-02-12] VITALS (10 sets, daily range): BP systolic 128–162; BP diastolic 69–102; PULSE 60–92; RESP 14–18; TEMP 36.5–37.4; O2SAT 92–94
[2023-02-12] MEDS: CEFAZOLIN 2 GM in 0.9 % SODIUM CHLORIDE Mini-bag 100 ML IVPB ×3 (00:57→17:02)
--- NOTE | 2023-02-12 06:20 | PC.NURSE ---
End of shift report [id number]: Patient retuned to floor at 1930, denied any pain upon arrival back to unit. Right hip has 2 mepilex applied, no drainage noted on dressings. RLE continues to be numb from spinal, patient is able to weakly move his toes but unable to make any significant movement with lower extremity. CMS intact. Diet advanced to regular, denies any nausea or vomiting. Stress incontinence, does use a urinal as well as using a pad. BG at bedtime was 206, patient refused his insulin stating I'd rather just wait for morning before monkeying with that. Slept well, CPAP utilized at bedtime.
[2023-02-12 06:33] LABS: Hematocrit 40.3 % (37.0-53.0); Hemoglobin* 12.8 gm/dL (13.5-17.5); Mean Corpuscular HGB Conc 32 gm/dL (32-36); Mean Corpuscular Hemoglobin 28 pg (26-34); Mean Corpuscular Volume 89 fL (80-100); Platelet Count* 156 K/uL (140-440); Red Blood Count 4.51 m/uL (4.30-5.90); White Blood Count* 11.38 K/uL (4.50-11.00)
[2023-02-12 06:48] LABS: Chloride* 102 mmol/L (96-114); Potassium* 3.8 mmol/L (3.6-5.1); Sodium* 138 mmol/L (135-149)
[2023-02-12 06:50] LABS: Creatinine* 0.7 mg/dL (0.5-1.5); Est. Creatinine Clearance* 62.75; Estimated Glomerular Filt Rate 93 ml/min
[2023-02-12 06:51] LABS: Anion Gap 12 mEq/L (7-15); Blood Urea Nitrogen* 20 mg/dL (7-30); Calcium* 8.4 mg/dL (8.4-10.6); Carbon Dioxide* 24 mmol/L (20-32); Glucose* 165 mg/dL (60-115)
[2023-02-12 07:00] LABS: Slide Review Reflex No
[2023-02-12 07:03] LABS: INR 1.12 (0.91-1.10)
--- NOTE | 2023-02-12 08:54 | PM.ORPN ---
Subjective Subjective Date Seen: 02/12/23 Principal diagnosis: Status postop day 1, right femur IM nail Interval history: Patient reports doing well. No acute events over night. Pain is very minimal, managed with scheduled and PRN medications, ice. DVT prophylaxis: Rivaroxaban, bilateral knee high Xavier stockings, SCDs, walking. Denies fevers, chills, aches, N/V, CP, SOB/MATA, or lightheadedness. He is very eager to get moving. Has not been in the chair yet. Eating breakfast in bed. He is also very eager and plans to fly to [place] next week. Ortho Exam Narrative Exam Narrative: -Patient appears comfortable in bed; no apparent acute distress -Alert and oriented times 3 -Operative hip swollen; soft tissues supple; no obvious erythema. Ecchymosis minimal. Warmth appropriate -Surgical dressings clean, dry, intact; no obvious drainage, no erythematous streaking peripheral to the bandage -Bilateral calves soft and supple; no significant swelling, edema, tenderness, erythema, discoloration, warmth, or palpable cords -2+ DP/PT pulses, intact dermatomes and myotomes distally (5/5 strength). No numbness about the lateral femoral cutaneous nerve distribution. Noted good quad control on the right. Const Vital Signs, click to edit/add: Vital Signs - 24 hr 02/11/23 11:27 02/11/23 15:00 02/11/23 15:00 Temperature 99.0 F Pulse Rate Pulse Rate [Pulse Oximeter] 75 Respiratory Rate 18 20 Blood Pressure Blood Pressure [Left Arm] 136/75 Pulse Oximetry 95 92 92 Oxygen Delivery Method Room Air Room Air Oxygen Flow Rate 02/11/23 18:50 02/11/23 18:55 02/11/23 19:00 Temperature 97.4 F L Pulse Rate 56 L 57 L 56 L Pulse Rate [Pulse Oximeter] Respiratory Rate 14 14 12 Blood Pressure 113/74 110/61 103/49 L Blood Pressure [Left Arm] Pulse Oximetry 95 95 93 Oxygen Delivery Method Non Rebreather Mask Nasal Cannula Oxygen Flow Rate 10 3 02/11/23 19:05 02/11/23 19:10 02/11/23 19:15 Temperature Pulse Rate 53 L 57 L 55 L Pulse Rate [Pulse Oximeter] Respiratory Rate 12 14 14 Blood Pressure 123/74 126/76 120/97 H Blood Pressure [Left Arm] Pulse Oximetry 94 93 93 Oxygen Delivery Method Oxygen Flow Rate 2 02/11/23 19:19 02/11/23 19:23 02/11/23 19:25 Temperature 97.4 F L 97.6 F 97.6 F Pulse Rate 55 L 58 L Pulse Rate [Pulse Oximeter] 58 L Respiratory Rate 14 16 16 Blood Pressure 120/73 Blood Pressure [Left Arm] 126/76 126/76 Pulse Oximetry 93 93 Oxygen Delivery Method Nasal Cannula Room Air Room Air Oxygen Flow Rate 2 02/11/23 19:40 02/11/23 20:25 02/11/23 20:55 Temperature 97.7 F 97.5 F L Pulse Rate Pulse Rate [Pulse Oximeter] 89 102 H 90 Respiratory Rate 18 16 17 Blood Pressure Blood Pressure [Left Arm] 128/81 153/83 H 135/107 H Pulse Oximetry 97 95 93 Oxygen Delivery Method Room Air Room Air Room Air Oxygen Flow Rate 02/11/23 21:25 02/11/23 22:25 02/11/23 23:00 Temperature 97.7 F 97.7 F Pulse Rate Pulse Rate [Pulse Oximeter] 90 100 Respiratory Rate 18 16 Blood Pressure Blood Pressure [Left Arm] 130/74 126/81 Pulse Oximetry 96 96 96 Oxygen Delivery Method Room Air Room Air Oxygen Flow Rate 02/11/23 23:00 02/11/23 23:25 02/12/23 00:25 Temperature 97.5 F L 97.7 F Pulse Rate Pulse Rate [Pulse Oximeter] 92 90 Respiratory Rate 16 17 Blood Pressure Blood Pressure [Left Arm] 121/82 141/94 H Pulse Oximetry 96 93 92 Oxygen Delivery Method Room Air CPAP CPAP Oxygen Flow Rate 02/12/23 00:25 02/12/23 01:25 02/12/23 01:55 Temperature 97.7 F 97.7 F Pulse Rate Pulse Rate [Pulse Oximeter] 90 60 92 Respiratory Rate 17 14 16 Blood Pressure Blood Pressure [Left Arm] 141/94 H 139/76 128/81 Pulse Oximetry 92 93 94 Oxygen Delivery Method Room Air Room Air Room Air Oxygen Flow Rate 02/12/23 03:00 02/12/23 07:33 02/12/23 07:33 Temperature 99.3 F Pulse Rate Pulse Rate [Pulse Oximeter] 64 Respiratory Rate 15 Blood Pressure Blood Pressure [Left Arm] 131/102 H Pulse Oximetry 94 92 92 Oxygen Delivery Method Room Air Room Air Oxygen Flow Rate 02/12/23 07:33 Temperature 99.4 F Pulse Rate Pulse Rate [Pulse Oximeter] 61 Respiratory Rate 16 Blood Pressure Blood Pressure [Left Arm] 149/83 H Pulse Oximetry 92 Oxygen Delivery Method Room Air Oxygen Flow Rate Assessment and Plan Assessment and plan (1) Trochanteric fracture of right femur: Problem details: -POD#1 Status post right femur intramedullary nail -orthopedic surgery recommendations as follows: - Complete 23 hour perioperative antibiotics. - PT/OT consult for education and assistance. - Social work consult for discharge planning - Prescribed analgesics as needed - DVT prophylaxis: Rivaroxaban, bilateral knee high Xavier Hose stockings and SCDs - discussed with Orthopedic surgery, patient likely to need short-term rehab. Advised not to fly for 1 month postoperatively (this means patient will need to change his flight plans for next week.) director of environmental services to meet with patient and to review these recommendations Status: Acute (2) Non-insulin dependent diabetes mellitus: Problem details: - last outpatient A1c <7 - hold home Januvia - diabetic diet, glucose checks ACHS, insulin sliding scale Status: Chronic (3) Hyperlipidemia: Problem details: - continue statin Status: Chronic (4) Essential hypertension: Problem details: - continue home medications Status: Acute (5) ROXIE (obstructive sleep apnea): Problem details: - on CPAP nightly - encourage perioperative pulmonary hygiene, Aerobika, incentive spirometry Status: Acute (6) Cognitive impairment: Problem details: - mild, as reported by . Monitor for perioperative delirium, sedation with narcotics Status: Acute Plan - Complete 23 hour perioperative antibiotics. - PT/OT consult for education and assistance. - Social work consult for discharge planning - Prescribed analgesics as needed - DVT prophylaxis: Rivaroxaban, bilateral knee high Xavier Hose stockings and SCDs - originally, when seeing the patient in bed, I was anticipating discharge to home once he is safe to ambulate. However, observing him walk with PT and nurse to bathroom, I now anticipate SNF placement for rehab once a bed is available. -we discussed flying to [place]. The shear trauma, bleeding, and airplane cabin pressure places him at risk for blood clot. While he is on Xarelto for blood clot prevention, these risks are still elevated; thus, would encourage no flying for 1 month. Patient is obviously discouraged by this, but understands.
[2023-02-12] MEDS: SENNOSIDES 1 TAB TABLET 2 TAB PO ×2 (09:41→21:09)
[2023-02-12] MEDS: lisinopriL 20 MG TABLET PO (09:41)
--- NOTE | 2023-02-12 11:19 | PM.IMPN1 ---
Progress Note: A&P Assessment and plan (1) Trochanteric fracture of right femur: Problem details: -POD#1 Status post right femur intramedullary nail -orthopedic surgery recommendations as follows: - Complete 23 hour perioperative antibiotics. - PT/OT consult for education and assistance. - Social work consult for discharge planning - Prescribed analgesics as needed - DVT prophylaxis: Rivaroxaban, bilateral knee high Xavier Hose stockings and SCDs - discussed with Orthopedic surgery, patient likely to need short-term rehab. Advised not to fly for 1 month postoperatively (this means patient will need to change his flight plans for next week.) financial services representative to meet with patient and to review these recommendations Status: Acute (2) Non-insulin dependent diabetes mellitus: Problem details: - last outpatient A1c <7 - hold home Januvia - diabetic diet, glucose checks ACHS, insulin sliding scale Status: Chronic (3) Hyperlipidemia: Problem details: - continue statin Status: Chronic (4) Essential hypertension: Problem details: - continue home medications Status: Acute (5) ROXIE (obstructive sleep apnea): Problem details: - on CPAP nightly - encourage perioperative pulmonary hygiene, Aerobika, incentive spirometry Status: Acute (6) Cognitive impairment: Problem details: - mild, as reported by . Monitor for perioperative delirium, sedation with narcotics Status: Acute Plan CODE: Full VTE PPX: Rivaroxaban, bilateral knee high Xavier Hose stockings and SCDs Disposition: Inpatient. PT/OT, Real Time Operator for discharge recommendations, planning, placement needs Time Spent With Patient Total time spent: Total time spent caring for the patient today was 45 minutes. This includes time spent for the visit reviewing the chart, time spent during the visit, time spent after the visit and documentation and planning in coordination of care. Subjective Date Seen: 02/12/23 Interval history: Patient is POD#1. Reports feeling great this morning, anxious to leave the hospital. Reports sleeping well. Currently has 0 pain. Denies headache or dizziness. Denies chest pain or shortness of breath. Tolerating orals without nausea vomiting. Patient reminds me he has a flight scheduled for a week from today to return to [place], which is their primary residence. Exam Narrative: Exam Narrative: PHYSICAL EXAM General: Very pleasant, conversant, NAD HEENT: Normocephalic, atraumatic, sclera white, EOMI, oral mucosa moist Cardiovascular: RRR, S1S2. Pulmonary: CTA bilaterally without rhonchi, rales, expiratory wheezes. No dyspnea Abdominal: Soft, nondistended, NTTP Neurological: Alert, answering questions appropriately currently, cranial nerves intact, no focal findings Extremities: No gross joint deformity or swelling. Postoperative dressing in place, dry. Neurovascularly intact Skin: Warm, dry. Const: Vital Signs, click to edit/add: Vital Signs - 24 hr 02/11/23 11:27 02/11/23 15:00 02/11/23 15:00 Temperature 99.0 F Pulse Rate Pulse Rate [Pulse Oximeter] 75 Respiratory Rate 18 20 Blood Pressure Blood Pressure [Le ft Arm] 136/75 Pulse Oximetry 95 92 92 Oxygen Delivery Me thod Room Air Room Air Oxygen Flow Rate 02/11/23 18:50 02/11/23 18:55 02/11/23 19:00 Temperature 97.4 F L Pulse Rate 56 L 57 L 56 L Pulse Rate [Pulse Oximeter] Respiratory Rate 14 14 12 Blood Pressure 113/74 110/61 103/49 L Blood Pressure [Le ft Arm] Pulse Oximetry 95 95 93 Oxygen Delivery Me thod Non Rebreather Mas k Nasal Cannula Oxygen Flow Rate 10 3 02/11/23 19:05 02/11/23 19:10 02/11/23 19:15 Temperature Pulse Rate 53 L 57 L 55 L Pulse Rate [Pulse Oximeter] Respiratory Rate 12 14 14 Blood Pressure 123/74 126/76 120/97 H Blood Pressure [Le ft Arm] Pulse Oximetry 94 93 93 Oxygen Delivery Me thod Oxygen Flow Rate 2 02/11/23 19:19 02/11/23 19:23 02/11/23 19:25 Temperature 97.4 F L 97.6 F 97.6 F Pulse Rate 55 L 58 L Pulse Rate [Pulse Oximeter] 58 L Respiratory Rate 14 16 16 Blood Pressure 120/73 Blood Pressure [Le ft Arm] 126/76 126/76 Pulse Oximetry 93 93 Oxygen Delivery Me thod Nasal Cannula Room Air Room Air Oxygen Flow Rate 2 02/11/23 19:40 02/11/23 20:25 02/11/23 20:55 Temperature 97.7 F 97.5 F L Pulse Rate Pulse Rate [Pulse Oximeter] 89 102 H 90 Respiratory Rate 18 16 17 Blood Pressure Blood Pressure [Le ft Arm] 128/81 153/83 H 135/107 H Pulse Oximetry 97 95 93 Oxygen Delivery Me thod Room Air Room Air Room Air Oxygen Flow Rate 02/11/23 21:25 02/11/23 22:25 02/11/23 23:00 Temperature 97.7 F 97.7 F Pulse Rate Pulse Rate [Pulse Oximeter] 90 100 Respiratory Rate 18 16 Blood Pressure Blood Pressure [Le ft Arm] 130/74 126/81 Pulse Oximetry 96 96 96 Oxygen Delivery Me thod Room Air Room Air Oxygen Flow Rate 02/11/23 23:00 02/11/23 23:25 02/12/23 00:25 Temperature 97.5 F L 97.7 F Pulse Rate Pulse Rate [Pulse Oximeter] 92 90 Respiratory Rate 16 17 Blood Pressure Blood Pressure [Le ft Arm] 121/82 141/94 H Pulse Oximetry 96 93 92 Oxygen Delivery Me thod Room Air CPAP CPAP Oxygen Flow Rate 02/12/23 00:25 02/12/23 01:25 02/12/23 01:55 Temperature 97.7 F 97.7 F Pulse Rate Pulse Rate [Pulse Oximeter] 90 60 92 Respiratory Rate 17 14 16 Blood Pressure Blood Pressure [Le ft Arm] 141/94 H 139/76 128/81 Pulse Oximetry 92 93 94 Oxygen Delivery Me thod Room Air Room Air Room Air Oxygen Flow Rate 02/12/23 03:00 02/12/23 07:33 02/12/23 07:33 Temperature 99.3 F Pulse Rate Pulse Rate [Pulse Oximeter] 64 Respiratory Rate 15 Blood Pressure Blood Pressure [Le ft Arm] 131/102 H Pulse Oximetry 94 92 92 Oxygen Delivery Me thod Room Air Room Air Oxygen Flow Rate 02/12/23 07:33 Temperature 99.4 F Pulse Rate Pulse Rate [Pulse Oximeter] 61 Respiratory Rate 16 Blood Pressure Blood Pressure [Le ft Arm] 149/83 H Pulse Oximetry 92 Oxygen Delivery Me thod Room Air Oxygen Flow Rate Labs Labs: Laboratory Results - last 24 hr 02/12/23 05:53 WBC 11.38 H RBC 4.51 Hgb 12.8 L Hct 40.3 MCV 89 MCH 28 MCHC 32 Plt Count 156 INR 1.12 H Sodium 138 Potassium 3.8 Chloride 102 Carbon Dioxide 24 Anion Gap 12 BUN 20 Creatinine 0.7 Estimated Creat Clear 62.75 Estimated GFR 93 Glucose 165 H Calcium 8.4
[2023-02-12] MEDS: SODIUM CHLORIDE 0.9 % (FLUSH) 10 ML SYRINGE 5 ML IVF ×2 (14:38→21:09)
--- NOTE | 2023-02-12 14:53 | NUTR.NU ---
RDN attempted to visit with patient regarding diabetic diet, however patient was not available on multiple attempts. RDN will attempt to visit with patient at later date.
--- NOTE | 2023-02-12 14:58 | PC.SOCIAL ---
Addendum entered by NEAL Bermeo 02/12/23 16:35: Discharge plan: [facility] called back and does not have a bed for this week. [facility] is able to accept pt on Thursday to a shared room pending prior authorization from his insurance. Met with pt and in room regarding discharge plan. Pt agrees to plan for discharge to short term rehab at [place] tomorrow. drive worker to follow up as needed. Original Note: Discharge plan: Met with pt and in room regarding d/c plan. Pt and live in [place] in the winter and [place] in the summer. and patient agree he would benefit from a short term rehab stay and requested placement at [facility], [place] or [facility]. states she does not drive outside of town. Provided pt and with resource list of long term facilities with facility ratings. Contacted the following facilities for placement with the listed results: 1. [facility] - faxed information and awaiting call back with decision on admit. 2. [facility] in [place] - no beds available. 3. [facility] - faxed information and awaiting call back with decision on admit. drive worker to follow up as needed.
[2023-02-12] MEDS: RIVAROXABAN 10 MG TABLET PO (17:02)
[2023-02-12] MEDS: OXYCODONE 5 MG TABLET PO (18:27)
[2023-02-12] MEDS: atenoloL 25 MG TABLET PO (21:08)
[2023-02-12] MEDS: PRAVASTATIN SODIUM 20 MG TABLET 10 MG PO (21:09)
--- NOTE | 2023-02-12 22:31 | PC.NURSE ---
Nursing note, care [id number]: Pt alert and oriented, pleasant. Vitals-WDL, aside from HTN, but pt had just finished using urinal at side of bed. Pt denies pain, ice pack to R hip. Dressings x2, clean, dry and intact, sites free of warmth, redness and streaking. CMS intact. TEDs reapplied this evening, pt wants to take short break from SCDs before bed, will notify oncoming nurse to reapply. Pt states he usually goes to bed around [address] CPAP. Con't pulse ox in place per order, pt sating low to mid 90s% on RA currently. Pt denies pain and need for any PRN, states he will notify nursing of any pain. Blood glucose 214, pt refuses insulin. Pt aware of ordered insulin and indication, adamant about refusal, hospitalist updated and aware, no new orders. Pt pleasant, denies concerns. Bed alarm on and call light within pt reach.
[2023-02-13 03:48] VITALS: BP 125/55; PULSE 62; RESP 18; TEMP 37.2; O2SAT 94
[2023-02-13 06:33] LABS: Hematocrit 37.2 % (37.0-53.0); Hemoglobin* 11.6 gm/dL (13.5-17.5); Mean Corpuscular HGB Conc 31 gm/dL (32-36); Mean Corpuscular Hemoglobin 28 pg (26-34); Mean Corpuscular Volume 90 fL (80-100); Platelet Count* 148 K/uL (140-440); Red Blood Count 4.15 m/uL (4.30-5.90); White Blood Count* 13.14 K/uL (4.50-11.00)
[2023-02-13 06:34] LABS: Slide Review Reflex No
[2023-02-13 06:59] LABS: Chloride* 105 mmol/L (96-114)
[2023-02-13 07:00] LABS: Sodium* 140 mmol/L (135-149)
[2023-02-13 07:02] LABS: Creatinine* 0.7 mg/dL (0.5-1.5); Est. Creatinine Clearance* 62.75; Estimated Glomerular Filt Rate 93 ml/min
[2023-02-13 07:03] LABS: Anion Gap 6 mEq/L (7-15); Blood Urea Nitrogen* 20 mg/dL (7-30); Calcium* 8.6 mg/dL (8.4-10.6); Carbon Dioxide* 29 mmol/L (20-32); Glucose* 136 mg/dL (60-115)
--- NOTE | 2023-02-13 07:11 | PC.NURSE ---
End of shift: A&O pleasant and cooperative. VSS. Pt uses CPAP overnight and sats remained >90%. Pt denies pain while lying. Able to shift wt independently in bed. CMS intact w/ +PP. Dressings c/d/i. Ice to site. Occasionally has urge incontinence. Stood at bedside overnight to use urinal. Uses call light appropriately. ?
[2023-02-13 07:56] VITALS: O2SAT 93
[2023-02-13 07:57] VITALS: BP 136/76; PULSE 65; RESP 16; TEMP 36.8; O2SAT 93
[2023-02-13 08:05] VITALS: RESP 16; O2SAT 93
[2023-02-13] MEDS: lisinopriL 20 MG TABLET PO (08:47)
[2023-02-13] MEDS: RIVAROXABAN 10 MG TABLET PO (08:47)
[2023-02-13] MEDS: SENNOSIDES 1 TAB TABLET 2 TAB PO (08:48)
[2023-02-13] MEDS: SODIUM CHLORIDE 0.9 % (FLUSH) 10 ML SYRINGE 5 ML IVF (08:49)
--- NOTE | 2023-02-13 10:35 | P.DS_ITS ---
DS: Providers Provider Date Seen: 02/13/23 Date of admission: 02/10/23 22:18 Primary care physician: Primary in [place] Admitting Clinician: Amara Antonio MD Consults: 02/10/23 21:58 Consult to Physical Therapy [CONS] Routine Comment: Reason(s) for PT Consult:: Recent Falls Any Restrictions?:: See Comment Comment: Fall 02/10 R HIP FX 02/10/23 22:04 Consult to Physical Therapy [CONS] Routine Comment: Reason(s) for PT Consult:: Evaluate Ambulation Any Restrictions?:: See Comment Comment: likely surgery 02/1102/10/23 22:06 Consult to Occupational Therapy [CONS] Routine Comment: Reason(s) for OT Consult:: Evaluate and Treat Any Restrictions?:: See Comment Comment: likely surgery 02/1102/10/23 23:06 Consult to Last Inserter [CONS] Routine Comment: Reason for Consult:: Discharge Planning Needs 02/11/23 19:23 Consult to Occupational Therapy [CONS] Routine Comment: Reason(s) for OT Consult:: Evaluate and Treat Any Restrictions?:: See Comment Comment: evaluate and treat Consult to Physical Therapy [CONS] Routine Comment: Reason(s) for PT Consult:: Evaluate and Treat Any Restrictions?:: Wt Bearing as Tolerated Attending Physician on discharge: ANNETTE Zamarripa, PA-C [facility] Date of Discharge: 02/13/23 DS: Diagnosis Discharge Diagnosis (1) Trochanteric fracture of right femur: Status: Acute Problem details: - POD#2 Status post right femur intramedullary nail - orthopedic surgery recommendations as follows: - Prescribed analgesics as needed. Discharge with scheduled Tylenol and oxycodone as needed. - DVT prophylaxis: Rivaroxaban, bilateral knee high Xavier Hose stockings - discussed with Orthopedic surgery, patient likely to need short-term rehab. Advised not to fly for 1 month postoperatively (this means patient will need to change his flight plans for next week.) - patient is being discharged to short-term rehab. Continue PT/OT postoperatively. Reviewed travel restrictions. - outpatient follow-up with Orthopedic surgery in approximately 1 week (2) Non-insulin dependent diabetes mellitus: Status: Chronic Problem details: - last outpatient A1c <7 - hold home Januvia. Resume on discharge - diabetic diet, glucose checks ACHS, insulin sliding scale - outpatient follow-up with PCP for ongoing management (3) Hyperlipidemia: Status: Chronic Problem details: - continue statin (4) Essential hypertension: Status: Acute Problem details: - continue home medications (5) ROXIE (obstructive sleep apnea): Status: Acute Problem details: - on CPAP nightly - encourage perioperative pulmonary hygiene, Aerobika, incentive spirometry even on discharge (6) Cognitive impairment: Status: Acute Problem details: - mild, as reported by . Continue to monitor at discharge. DS: Summary Hospital Course Hospital Course: [age] year old male past medical history significant for diabetes mellitus, hypertension, hyperlipidemia was admitted to the medical floor for right femoral intratrochanteric fracture status post intramedullary nail repair with Dr. Hopson. Course of care and details as noted above. Remainder of chronic medical comorbidities were monitored and managed with home medications. Status at Discharge Functional status at discharge: uses cane/walker Overall status at discharge: patient is not back to baseline Time Spent with Patient Time attestation: Total time spent providing and/or coordinating discharge services: Time spent: Greater than 30 minutes Exam Narrative: Exam Narrative: PHYSICAL EXAM General: Pleasant, conversant, NAD HEENT: Normocephalic, atraumatic, sclera white, EOMI, oral mucosa moist Cardiovascular: RRR, S1S2. Pulmonary: CTA bilaterally without rhonchi, rales, expiratory wheezes. No dyspnea Neurological: Alert, cranial nerves intact, no focal findings Extremities: No gross joint deformity or swelling. Postoperative dressing in place, dry. Neurovascularly intact Skin: Warm, dry. Const: Vital Signs, click to edit/add: Vital Signs - 24 hr 02/12/23 12:22 02/12/23 15:50 02/12/23 15:50 Temperature 98.8 F 99.1 F Pulse Rate [Pulse Oximeter] 69 74 Respiratory Rate 18 18 Blood Pressure [Le ft Arm] 160/88 H 142/69 H Blood Pressure [Ri ght Arm] Pulse Oximetry 94 92 92 Oxygen Delivery Me thod Room Air Room Air Room Air 02/12/23 15:50 02/12/23 19:50 02/12/23 23:00 Temperature 98.2 F Pulse Rate [Pulse Oximeter] 67 Respiratory Rate 16 Blood Pressure [Le ft Arm] Blood Pressure [Ri ght Arm] 162/95 H Pulse Oximetry 92 93 92 Oxygen Delivery Me thod Room Air 02/12/23 23:00 02/12/23 23:16 02/13/23 03:48 Temperature 99.3 F 98.9 F Pulse Rate [Pulse Oximeter] 74 62 Respiratory Rate 16 18 Blood Pressure [Le ft Arm] 125/55 L Blood Pressure [Ri ght Arm] 142/79 H Pulse Oximetry 92 92 94 Oxygen Delivery Me thod Room Air Room Air CPAP 02/13/23 07:56 02/13/23 07:57 02/13/23 08:05 Temperature 98.2 F Pulse Rate [Pulse Oximeter] 65 Respiratory Rate 16 16 Blood Pressure [Le ft Arm] 136/76 Blood Pressure [Ri ght Arm] Pulse Oximetry 93 93 93 Oxygen Delivery Me thod Room Air Room Air DS: Data Data Completed and Pending Labs on day of discharge: Labs from last 24 hours 02/13/23 06:26 WBC 13.14 H RBC 4.15 L Hgb 11.6 L Hct 37.2 MCV 90 MCH 28 MCHC 31 L Plt Count 148 Sodium 140 Potassium 4.0 Chloride 105 Carbon Dioxide 29 Anion Gap 6 L BUN 20 Creatinine 0.7 Estimated Creat Clear 62.75 Estimated GFR 93 Glucose 136 H Calcium 8.6 Discharge Plan Discharge Disposition: [facility] Date of Admission: 02/10/23 22:18 Attending Provider on Discharge: Arlene Yeboah Primary Care Provider: Provider,Not a Local Discharge Medications: New Xarelto 10 mg Tablet 10 mg PO DAILY Qty: 30 1RF sennosides [Senna Lax] 8.6 mg Tablet 8.6 mg PO BID Qty: 60 0RF Rx Instructions: To be taken while using narcotics. Stop if loose stools or no longer taking narcotic oxycodone 5 mg Tablet 5 mg PO Q4H PRN (Reason: Pain) Qty: 14 0RF acetaminophen 500 mg tablet 1,000 mg PO QID PRNQty: 120 0RF Continued atenolol 25 mg tablet 25 mg PO HS alfuzosin 10 mg tablet extended release 24 hr 10 mg PO HS Myrbetriq 50 mg tablet extended release 24 hr 50 mg PO DAILY lisinopril 20 mg tablet 20 mg PO DAILY pravastatin 10 mg tablet 10 mg PO HS Januvia 100 mg tablet 100 mg PO DAILY Discontinued aspirin 81 mg tablet,chewable 1 tab PO DAILY Discharge Orders: Discharge Order (Routine); Ordered 02/13/23 Ordered By: Arlene Yeboah Additional Instructions: Orthopedic surgery recommendations as follows: - Prescribed analgesics as needed - DVT prophylaxis: Rivaroxaban, bilateral knee high Xavier Hose stockings and SCDs -we discussed flying to [place]. The shear trauma, bleeding, and airplane cabin pressure places him at risk for blood clot. While he is on Xarelto for blood clot prevention, these risks are still elevated; thus, would encourage no flying for 1 month. Activity Level: Other Activity Detail: Activity per PT/OT s/p Right femur intertrochanteric fracture fixation with intramedullary nail Discharge Diet: Diabetic Follow Up Appointments: Angel Hopson MD [Staff Physician] - 02/27/23 (Follow up Right femur intertrochanteric fracture fixation with intramedullary nail) Provider,Not a Local [Primary Care Provider] - Forms: [facility] Info Instructions Wound Care: Keep wound clean and dry. No soaking. Admit to: SNF Discharge Potential: Good Length of Stay: <30 days Can use facility standing orders?: Yes Code Status: Full Code TEDs: Bilateral Knee Rehab Potential: Good Therapy: Physical Therapy and Occupational Therapy Therapy Orders: Evaluate and Treat Therapy Orders Additional Information: Post op management Oxygen: No Urinary Catheter: No Orders are good >30 days: No Signature: ANNETTE Zamarripa, PA-C [facility]
--- NOTE | 2023-02-13 10:49 | PC.NURSE ---
CROSS [employer]IE [employer]ER CALLED NURSE TO NURSE REPORT TO NURSE RICARDO WITH [facility] AT THIS TIME PATIENT WILL BE DISCHARGING THIS AFTERNOON WITH NON-EMERGENT TRANSPORTATION SCHEDULED FOR 1300.
--- NOTE | 2023-02-13 10:53 | PC.NURSE ---
PATIENT HAS HAD NO PAIN WHEN AT REST TODAY. DISCOMFORT WITH MOVEMENT HAS BEEN ADEQUATELY MANAGED WITH REST, REPOSITIONING AND ICE SO FAR THIS SHIFT. DRESSINGS TO R LATERAL AND POSTERIOR RLE NOTED TO BE CLEAN, DRY AND INTACT UPON INSPECTION. PATIENT ABLE TO TRANSFER AND AMBULATE SHORT DISTANCE WITH ASSIST OF 2 WITH FWW AND GAIT BELT. HE DID AMBULATE FROM BED TO RECLINER. HOWEVER, PATIENT'S LEG DID BECOME STIFF AND THEREFORE RESULTED IN SLOWER AMBULATION/INABILITY TO MOVE. SCDS AND CYNTHIA STOCKINGS HAVE BEEN WORN WITH TEDS REMOVED FOR 1 HOUR THIS MORNING. IV SL AND PATENT WITH NO S/SX OF INFECTION NOTED AT INSERTION SITE. BLOOD GLUCOSE 142 THIS MORNING BEFORE BREAKFAST. LUNG SOUNDS NOTED TO BE CLEAR TO ALL LOBES BILATERALLY WITH NO COUGH NOTED OR REPORTED. NO C/O N/V. BOWEL SOUNDS ACTIVE IN ALL FOUR QUADRANTS WITH SCHEDULED SENNA GIVEN WITH AM MEDICATIONS. PATIENT NOTED TO HAVE URINARY URGE INCONTINENCE X1 THIS MORNING.
[2023-02-13 11:26] VITALS: BP 137/72; PULSE 76; RESP 18; TEMP 37.1; O2SAT 93
--- NOTE | 2023-02-13 12:33 | PC.NURSE ---
PATIENT'S BLOOD GLUCOSE NOTED TO BE 248 BEFORE LUNCH. HOWEVER, PATIENT REFUSED LUNCH AND ALSO REFUSED SLIDING SCALE INSULIN DESPITE STAFF EDUCATION ABOUT THE IMPORTANCE OF EATING AND GLUCOSE CONTROL.
--- NOTE | 2023-02-13 14:04 | PC.NURSE ---
PATIENT DISCHARGED AT 1300 TODAY VIA NON-EMERGENT EMS TRANSPORTATION. SL IV REMOVED PRIOR TO DISCHARGE. PATIENT DISCHARGED TO [facility]. ALL BELONGINGS REMOVED FROM ROOM.
== END 2023-02-13 13:00 | DRG 482 ==
LOC: ED 19:47 → MEDSURG 21:28
PROVIDERS: Orthopaedic Surgery Sports Medicine; Physician Assistant; Admitting Provider Family Medicine; Emergency Provider Emergency Medicine; Visit Provider Family Medicine
PROC: 0QS606Z Reposition Right Upper Femur with Intramedullary Internal Fixation Device, Open Approach (ICD-10-PCS; CPT 27245; principal; 2023-02-11 14:45)
DX: S72.141A Displaced intertrochanteric fracture of right femur, initial encounter for closed fracture (principal); G89.18 Other acute postprocedural pain; W18.39XA Other fall on same level, initial encounter; Y92.015 Private garage of single-family (private) house as the place of occurrence of the external cause; I10 Essential (primary) hypertension; G47.33 Obstructive sleep apnea (adult) (pediatric); R00.1 Bradycardia, unspecified; E11.9 Type 2 diabetes mellitus without complications; Z79.84 Long term (current) use of oral hypoglycemic drugs; G31.84 Mild cognitive impairment of uncertain or unknown etiology; Z85.46 Personal history of malignant neoplasm of prostate; E78.5 Hyperlipidemia, unspecified
CPT/HCPCS: 01210; 36415; 64450; 71045; 73502; 73552; 76942; 80048; 80076; 82962; 85025; 85027; 85610; 85730; 93005; 97110; 97116; 97162; 97165; 97530; 97535; 99100; 99140; 99284; A9270; C1713; C1776; J0665; J0690; J1100; J1170; J2250; J2270; J2405; J2704; J3010; J3490; J7030; J7120

== ENCOUNTER 2023-02-13 13:26 | Outpatient (CLI) | payer MEDICARE, BC, SELFPAY ==
--- OUTSIDE RECORDS SUMMARY | 2023-02-27 01:14 | XMS_ITS ---
Author Name Unknown Address [address] [place] [address] Phone Organization [facility] Address [address] [place] [address] Phone Care Team Providers Care Cook Cold Meat Name Role Phone Tom Brantley MD, Ismael Roche Unavailable [phone] Ricky SPENCER, Heron Epstein Unavailable [phone] Vita SPENCER, Gail Jimenez Unavailable [phone] Blas Walsh MD Unavailable [phone] Chris SPENCER, Misael Guillaume Unavailable [phone] Paul Sheikh DO Primary Care Provide r [phone] Problems Includes: Active, inactive, and resolved Problems All Visits Onset Date Resolved Date Provider Condition S tatus Diabetes Mellitus Type 2 11/07/2017 Blas Persaud MD Active Last Documented On 8 12:03PM ; [facility] Esophageal Reflux 11/07/2017 Blas Walsh MD Active Last Documented On 8 12:01PM ; [facility] Essential Hypertriglyceridemia 11/07/2017 Huy Walsh MD Active Last Documented On 8 12:06PM ; [facility] Essential Hypertension 11/07/2017 Blas roche MD Active Last Documented On 8 12:05PM ; [facility] Hemorrhoids Internal 11/07/2017 Blas Walsh MD Active Last Documented On 8 12:04PM ; [facility] Intestinal Disorder Diverticular 11/07/2017 Darrell Walsh MD Active Last Documented On 8 12:06PM ; [facility] Obesity 11/07/2017 Blas Walsh MD Active Last Documented On 8 12:02PM ; [facility] Osteoarthritis 11/07/2017 Blas Walsh MD Act jigar Last Documented On 8 12:06PM ; [facility] 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 Spondylosis 11/07/2017 Blas Walsh MD Active Last Documented On 8 12:04PM ; [facility] Familial (Benign Essential) Tremor 11/07/2017 Tristan Walsh MD Active Last Documented On 8 12:05PM ; [facility] 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 Plan of Treatment Findings Encounter Date Clinical staff counseled pat joshua to adopt healthy behaviors as appropriate Follow up with Gail Gorman MD 12/20/2020 Last Documented On 1 1:09PM ; [facility] Clinical staff counseled markos cuevant to adopt healthy behaviors as appropriate Follow up with Gail Gorman MD 08/22/2020 Last Documented On 1 5:15PM ; [facility] Instructions to patient Lose weight Patient encourag e to limit portion sizes and to tract and restrict their total daily caloric intake Last Documented On 1 10:37AM ; [facility] Lose weight Patient encourag e to limit portion sizes and to tract and restrict their total daily caloric intake Last Documented On 1 8:41AM ; [facility] Lose weight Patient encourag e to limit portion sizes and to tract and restrict their total daily caloric intake Last Documented On 1 11:05AM ; [facility] Education and Decision Aids were provided during visit for: Patient education about diet ramandeep needs Last Documented On 2 11:23AM ; [facility] Clinical staff counseled pat ient to adopt healthy behaviors as appropriate Last Documented On 1 10:35AM ; [facility] Clinical staff counseled pat ient to adopt healthy behaviors as appropriate Last Documented On 1 8:46AM ; [facility] Assessments Includes: Assessments for all patient encounters No Assessments Recorded Instructions Includes: Instructions for all patient encounters Instructions to patient Lose weight Patient encourag e to limit portion sizes and to tract and restrict their total daily caloric intake Last Documented On 1 10:37AM ; [facility] Lose weight Patient encourag e to limit portion sizes and to tract and restrict their total daily caloric intake Last Documented On 1 8:41AM ; [facility] Lose weight Patient encourag e to limit portion sizes and to tract and restrict their total daily caloric intake Last Documented On 1 11:05AM ; [facility] Education and Decision Aids were provided during visit for: Patient education about diet ramandeep needs Last Documented On 2 11:23AM ; [facility] Clinical staff counseled pat ient to adopt healthy behaviors as appropriate Last Documented On 1 10:35AM ; [facility] Clinical staff counseled pat ient to adopt healthy behaviors as appropriate Last Documented On 1 8:46AM ; [facility] Medical Equipment - Implanted Devices Includes: Current and historical Devices No Medical Equipment Recorded Medications Includes: Current and historical Medications Current Medications (continue as prescribed) Myrbetriq 25 MG Oral Tablet Extended Release 24 Hour 0 12/20/2020 Provider: Diagnosis: Last Documented On 1 10:33AM By Rayne Olson *TERMED* ; [facility] Lisinopril 20 MG Oral Tablet 08/07/2020 Provider: Diagnosis: Last Documented On 1 11:01AM By Rayne Olson *TERMED* ; [facility] Januvia 100 MG Oral Tablet 08/07/2020 Provider: Diagnosis: 1 QD Last Documented On 1 11:17AM By Rayne Olson *TERMED* ; [facility] Atenolol 25 MG Oral Tablet 08/07/2020 Provider: Diagnosis: Last Documented On 1 11:18AM By Rayne MckeeTERMED* ; [facility] Alfuzosin HCl ER 10 MG Oral Tablet Extended Rele ase 24 Hour 08/07/2020 Provider: Diagnosis: 1 HS Last Documented On 1 11:19AM By Rayne RYAN* ; [facility] Multivitamin Oral Tablet 08/07/2020 Provider: Diagnosis: Last Documented On 1 11:20AM By Rayne RYAN* ; [facility] CoQ10 100 MG Oral Capsule 08/07/2020 Provider: Diagnosis: Last Documented On 1 11:40AM By Trini Tran ; [facility] Past Medications on file Rosuvastatin Calcium 5 MG Oral Tablet 08/07/2020 - Provider: Diagnosis: Last Documented On 2 11:25AM By Trini Tran ; [facility] Vitamin D3 25 MCG (1000 UT) Oral Tablet Chewable 08/07/2020 - 06/18/2021 Provider: Diagnosis: Last Documented On 2 11:24AM By Trini Tran ; [facility] EQL Fish Oil 1000 MG Oral Capsule 08/07/2020 - 021 Provider: Diagnosis: Last Documented On 1 10:32AM By Rayne RYAN* ; [facility] Medications Administered Includes: Administered Medications in patient's chart No Administered Medications Recorded Vital Signs Includes: Vital Signs through 02/27/2023 Vital Name 06/18/2021 11:23A 12/20/2020 10:26A 08/22/2020 [...] 95.1 Last Documented On: 06/18/2021 11:27AM ; [facility] 12/20/2020 10:35AM ; [facility] 08/22/2020 8:48AM ; [facility] Results Includes: Results through 02/27/[address] [facility] Ordered by Gail Gorman MD on 09/14/19 Collected: 09/13/2020 Reported: 09/14/19 16:56 Last Documented On 8:26AM ; [facility] Reviewed by Gail Ospina on 09/14/2020; All test results are final unless otherwise noted. CREATININE iSTAT 0.7 mg/dL (0.6-1.3) N (Normal) Last Documented On 8:03PM ; [facility] Note: Specimen Number: [id number] Reported Physicians [facility] Ordered by Gail Gorman MD on 09/14/19 Collected: 09/13/2020 Reported: 09/14/19 16:56 Last Documented On 8:26AM ; [facility] Reviewed by Gail Ospina on 09/14/2020; All test results are final unless otherwise noted. Reported Physicians See Note None Last Documented On 09/13/2020 8:03PM ; [facility] Note: Reported Physicians:Ordering: Lauren Gormanending: Gail Gorman SJOGREN'S AB (SSA/SSB) [facility] Ordered by Gail Gorman MD on 08/10/19 Collected: 08/09/2020 Reported: 08/12/19 12:33 Last Documented On 11:01AM ; [facility] Reviewed by Gail Ospina on 08/14/2020; All test results are final unless otherwise noted. SS-A/Ro AB <0.2 N (Normal) Last Documented On 08/11/2020 4:00PM ; [facility] Note: Reference range: <1.0 (Negative)Unit: U SS-B/La AB <0.2 N (Normal) Last Documented On 08/11/2020 4:00PM ; [facility] Note: Reference range: <1.0 (Negative)Unit: U Test Performed by:[facility] [place] [id number] Director: Mat Pearl M.D. Ph.D.; IA# [id number] Number: [id number] Reported Physicians [facility] Ordered by Gail Gorman MD on 08/10/19 Collected: 08/09/2020 Reported: 08/12/19 12:33 Last Documented On 1 11:01AM ; [facility] Reviewed by Gail Ospina on 08/14/2020; All test results are final unless otherwise noted. Reported Physicians See Note None Last Documented On 08/11/2020 4:00PM ; [facility] Note: Reported Physicians:Ordering: Lauren Gormanending: Gail Gorman KAPPA/LAMBDA QNT FLC [facility] Ordered by Gail Gorman MD on 08/10/19 Collected: 08/09/2020 Reported: 08/14/19 07:27 Last Documented On 1 11:01AM ; [facility] Reviewed by Gail Ospina on 08/14/2020; All test results are final unless otherwise noted. KAPPA LIGHT CHN,FR,S 17.9 N (Normal) Last Documented On 1 10:31AM ; [facility] Note: Reference range: 3.3 to 19.4Unit: mg/L KAPPA/LAMBDA,FR RAT 1.21 N (Normal) Last Documented On 1 10:31AM ; [facility] Note: Reference range: [...] response totherapy of these disorders.Test Performed by [facility],[address] [place] [id number] Kumar M.D., Ph.D., Director of [phone], [facility] [id number] Number: [id number] LAMBDA LIGHT CH,FR,S 14.8 N (Normal) Last Documented On 1 10:31AM ; [facility] Note: Reference range: 5.7 to 26.3Unit: mg/L Reported Physicians [facility] Ordered by Gail Gorman MD on 08/10/19 Collected: 08/09/2020 Reported: 08/14/19 07:27 Last Documented On 1 11:01AM ; [facility] Reviewed by Gail Ospina on 08/14/2020; All test results are final unless otherwise noted. Reported Physicians See Note None Last Documented On 08/13/2020 10:31AM ; [facility] Note: Reported Physicians:Ordering: Lauren Gormanending: Gail Gorman IMMUNOFIXATN PROF,SERUM [facility] Ordered by Gail Gorman MD on 08/10/19 Collected: 08/09/2020 Reported: 08/15/19 21 15:48 Last Documented On 1 9:55AM ; [facility] Reviewed by Gail Ospina on 08/17/2020; All test results are final unless otherwise noted. TP, SERUM 6.6 g/dL (6.4-8.3) N (Normal) Last Documented On 1 7:33PM ; [facility] ALBUMIN 4.0 g/dL (3.0-5.2) N (Normal) Last Documented On 1 7:33PM ; [facility] A1 GLOBULIN 0.2 g/dL (0.1-0.4) N (Normal) Last Documented On 7:33PM ; [facility] A2 GLOBULIN 0.8 g/dL (0.4-1.0) N (Normal) Last Documented On 1 7:33PM ; [facility] BETA GLOBULIN 0.7 g/dL (0.7-1.6) N (Normal) Last Documented On 7:33PM ; [facility] GAMMA GLOBULIN 0.9 g/dL (0.7-2.0) N (Normal) Last Documented On 7:33PM ; [facility] A/G RATIO 1.5 Units (1.2-2.2) N (Normal) Last Documented On 7:33PM ; [facility] IGA 64 mg/dL (70-400) L (Low) Last Documented On 7:33PM ; [facility] IGG 767 mg/dL (700-1600) N (Normal) Last Documented On 7:33PM ; [facility] IGM 47 mg/dL (40-230) N (Normal) Last Documented On 7:33PM ; [facility] PATH INTERP SPE Interpretation: No abnormal protein seen. N (Normal) Last Documented On 08/14/2020 7:33PM ; [facility] Note: SIFE Interpretation: No abnormal protein is seen. Specimen Number: [id number] Reported Physicians [facility] Ordered by Gail Gorman MD on 08/10/19 Collected: 08/09/2020 Reported: 08/15/19 15:48 Last Documented On 9:55AM ; [facility] Reviewed by Gail Ospina on 08/17/2020; All test results are final unless otherwise noted. Reported Physicians See Note None Last Documented On 08/14/2020 7:33PM ; [facility] Note: Reported Physicians:Ordering: Lauren Gormanending: Gail Gorman METHYLMALONIC ACID [facility] Ordered by Gail Gorman MD on 08/10/19 Collected: 08/09/2020 Reported: 08/20/19 05:23 Last Documented On 1 10:47AM ; [facility] Reviewed by Gail Ospina on 08/20/2020; All test results are final unless otherwise noted. METHYLMALONIC ACID 179 N (Normal) Last Documented On 08/19/2020 8:37AM ; [facility] Note: Reference range: 87 to 318Unit: nmol/L This test was developed and its analytical performancecharacteristics have been determined by [employer] [place], [place]. It hasnot been cleared or approved by the U.S. Food and DrugAdministration. This assay has been validated pursuantto the CLIA regulations and is used for clinicalpurposes.Test Performed by [facility],[place],[address] [place] [id number] Kumar M.D., Ph.D., Director of [phone], CLIA [id number] Number: [id number] Reported Physicians [facility] Ordered by Gail Gorman MD on 08/10/19 Collected: 08/09/2020 Reported: 08/20/19 05:23 Last Documented On 1 10:47AM ; [facility] Reviewed by Gail Ospina on 08/20/2020; All test results are final unless otherwise noted. Reported Physicians See Note None Last Documented On 08/19/2020 8:37AM ; [facility] Note: Reported Physicians:Ordering: Lauren Gormanending: Gail Gorman HEMOGLOBIN A1C [facility] Ordered by Gail Gorman MD on 08/10/19 Collected: 08/09/2020 Reported: 08/10/19 17:29 Last Documented On 1 11:01AM ; [facility] Reviewed by Gail Ospina on 08/14/2020; All test results are final unless otherwise noted. HEMOGLOBIN A1C 7.1 % (4.0-6.0) H (High) Last Documented On 10:45PM ; [facility] Note: Specimen Number: [id number] VITAMIN B12 [facility] Ordered by Gali Gorman MD on 08/10/19 Collected: 08/09/2020 Reported: 08/10/19 17:54 Last Documented On 11:01AM ; [facility] Reviewed by Gail Ospina on 08/14/2020; All test results are final unless otherwise noted. VITAMIN B12 502 pg/mL (193-986) N (Normal) Last Documented On 10:45PM ; [facility] Note: Specimen Number: [id number] HEP C AB [facility] Ordered by Gail Gorman MD on 08/10/19 Collected: 08/09/2020 Reported: 08/10/19 18:18 Last Documented On 11:01AM ; [facility] Reviewed by Gail Ospina on 08/14/2020; All test results are final unless otherwise noted. HEP C AB NONREACTIVE (NONREACTIVE) N (Normal) Last Documented On 10:45PM ; [facility] Note: Specimen Number: [id number] Reported Physicians [facility] Ordered by Gail Gorman MD on 08/10/19 Collected: 08/09/2020 Reported: 08/10/19 18:18 Last Documented On 1 11:01AM ; [facility] Reviewed by Gail Ospina on 08/14/2020; All test results are final unless otherwise noted. Reported Physicians See Note None Last Documented On 08/09/2020 10:45PM ; [facility] Note: Reported Physicians:Ordering: Lauren Gormanending: Gail Gorman History of Present Illness History of Present Illness not supported for this document type No History of Present Illness Recorded Social History Description Last Updated Former smoker 06/18/2021 Last Documented On 2 12:08PM ; [facility] Use of tobacco assessment performed 05/29 Last Documented On 2 12:08PM ; [facility] Patient has living will 12/20/2020 Last Documented On 1 1:09PM ; [facility] Patient has not seen another provider si nce last visit 12/20/2020 Last Documented On 1 1:09PM ; [facility] States no significant change in lifestyl e since last visit 12/20/2020 Last Documented On 1 1:09PM ; [facility] A social drinker 08/22/2020 Last Documented On 1 5:15PM ; [facility] No tobacco use Former 08/22/2020 Last Documented On 1 5:15PM ; [facility] Not using drugs 08/22/2020 Last Documented On 1 5:15PM ; [facility] Smoking Status Unknown Procedures and Surgical History Includes: Procedures through 02/27/2023 Procedures Code Diagnosis Performing Provider Service Location Service Date Collection blood by venipuncture % 08823 Type 2 diabetes mellitus without complications [facility] Youth Director [facility] Primary Care at [facility] 06/02/2022 Last Documented On 3 11:52AM ; [facility] Collection blood by venipuncture % 53291 Type 2 diabetes mellitus without complications [facility] Youth Director [facility] Primary Care at [facility] 02/20/2022 Last Documented On 2 3:04PM ; [facility] Electrocardiogram report (Repeat procedure by same physician) [id number] Abnormal electrocardiogram [ECG] [EKG] Jefe Ricketts MD [facility] 07/24/2021 Last Documented On 2 2:22PM ; [facility] Electrocardiogram report [id number] Abnormal electrocardiogram [ECG] [EKG] Jefe Ricketts MD [facility] 07/24/2021 Last Documented On 2 7:27AM ; [facility] Collection blood by venipuncture % 17369 Malignant neoplasm of prostate [facility] Youth Director [facility] Primary Care [facility] 07/11/2021 Last Documented On 2 10:35AM ; [facility] Collection blood by venipuncture % 44076 Other pruritus [facility] Youth Director [facility] Primary Car e at [facility] 07/03/2021 Last Documented On 2 11:30AM ; [facility] Remove impacted cerumen, [place] [id number] Impacted cerumen, unspecified ear Taras Durand MD [facility] at [facility] 02/05/2021 Last Documented On 1 9:21AM ; [facility] Musc tst done w/n tst nonext (Distinct Proc Serv.) 25251 Paresthesia of skin Gail Gorman MD [facility] Neurology at [facility] 08/15/2020 Last Documented On 1 7:59AM ; [facility] Musc tst done w/n tst nonext 14767 Radiculopathy, cervicothoracic region Gail Gorman MD [facility] Neurology at [facility] 08/15/2020 Last Documented On 1 12:06PM ; [facility] Musc test done w/n test comp (Left Side) 59665 Type 2 diabetes mellitus with diabetic polyneuropathy, Radiculopathy, cervicothoracic region, Radiculopathy, lumbosacral region, Paresthesia of skin Rejo P Vita SPENCER [facility] Neurology at [facility] 08/15/2020 Last Documented On 1 12:06PM ; [facility] Musc test done w/n test comp (Right Side) 95860 Type 2 diabetes mellitus with diabetic polyneuropathy, Radiculopathy, cervicothoracic region, Radiculopathy, lumbosacral region, Paresthesia of skin Gissello P Vita SPENCER [facility] Neurology at [facility] 08/15/2020 Last Documented On 1 12:06PM ; [facility] Nrv cndj test 13/> studies 81752 Type 2 diabetes mellitus with diabetic polyneuropathy, Radiculopathy, cervicothoracic region, Radiculopathy, lumbosacral region, Paresthesia of skin Rejo P Vita SPENCER [facility] Neurology at [facility] 08/15/2020 Last Documented On 1 12:06PM ; [facility] Collection blood by venipuncture % 51685 Malignant neoplasm of prostate [facility] Youth Director [facility] Primary Care at [facility] 05/28/2020 Last Documented On 1 3:46PM ; [facility] Surgical History Last Updated History of back surgery Spine & Neck rayray wale 10 yrs ago 08/22/2020 Last Documented On 1 5:15PM ; [facility] Prior surgery Appendix removed young ad ult ~Hernia 5 yrs ago 08/22/2020 Last Documented On 1 5:15PM ; [facility] Medical History Includes: Medical History in patient's chart Description Last Updated Denies significant change in medical sta tus since last visit 12/20/2020 Last Documented On 1 1:09PM ; [facility] Yes patient feels confident managing chr onic conditions 12/20/2020 Last Documented On 1 1:09PM ; [facility] A history of cancer Prostate 08/22/2020 Last Documented On 1 5:15PM ; [facility] History of benign essential hypertension Hypertension 08/22/2020 Last Documented On 1 5:15PM ; [facility] History of diabetes mellitus 08/22/2020 Last Documented On 1 5:15PM ; [facility] History of hyperlipidemia 08/22/2020 Last Documented On 1 5:15PM ; [facility] Family History Includes: Family History in patient's chart Description Last Updated States no significant change in family m edical history since last visit 12/20/2020 Last Documented On 1 1:09PM ; [facility] Review of Systems [...] ve Last Documented On 2 11:21AM ; [facility] Sulfa Antibiotics Allergy 11/07/2017 A ctive Last Documented On 2 11:21AM ; [facility] Simvastatin Allergy 11/07/2017 Active Last Documented On 2 11:21AM ; [facility] Lyrica Allergy 11/07/2017 Active Last Documented On 2 11:21AM ; [facility] Byetta 10 MCG Pen Allergy 11/07/2017 A ctive Last Documented On 2 11:21AM ; [facility] Encounters Includes: Encounters through 02/27/2023 Encounter Provider Location Date Check-In Time Check-Out Time Diagnosis [Patient Encounter] Gail Gorman MD 2 06/18/2021 1:38PM 06/18/2021 11:59PM Follow up Gail Gorman MD [facility] Neurology at [facility] 2 11:10AM 11:58AM Follow up Gail Gorman MD [facility] Neurology at [facility] 1 10:19AM 11:23AM [Patient Encounter] Gail Gorman MD 1 08/22/2020 9:16AM 08/22/2020 11:59PM [Patient Encounter] Gail Gorman MD 1 08/22/2020 1:05PM 08/22/2020 11:59PM Follow up Gail Gorman MD [facility] Neurology at [facility] 1 8:41AM 9:31AM [Patient Encounter] Gail Gorman MD 1 3:17PM 11:59PM EMG Gail Gorman MD [facility] Neurology at [facility] 1 1:29PM 3:20PM New Patient Gail Gorman MD [facility] Neurology at [facility] 1 9:43AM 11:50AM Preload Process Blas Walsh MD 8 11:59AM 11:59PM Insurance Includes: Active Insurance Policies Plan Name Member ID Group # Subscriber Relationship Effect jigar Dates 1 - Medicare : [id number] Pritesh Funez Self 2 - Bc/bs Fl(federal) :[facility] [id number] Pritesh Mckeon 04/27/2019 - Unknown Clinical Notes Includes: Signed Clinical Notes starting from 05/16/2022 No Clinical Notes Recorded
--- OUTSIDE RECORDS SUMMARY | 2023-02-27 01:14 | XMS_ITS ---
Care Plan - [facility] Created on: February 27, 2023 Pritesh Funez : 1940 Sex: Male Author Name Unknown Address [address] [place] [address] Phone Organization [facility] Address [address] [place] [address] Phone Care Team Providers Care Attendant Lodging Facilities Name Role Phone Tom Brantley MD, Ismael Gallegos Unavailable [phone] Ricky SPENCER, Heron Epstein Unavailable [phone] Vita SPENCER, Gail Jimenez Unavailable [phone] Jillian SPENCER, Blas Unavailable [phone] Chris SPENCER, Misael Guillaume Unavailable [phone] Paul Sheikh DO Primary Care Provide r [phone]
--- OUTSIDE RECORDS SUMMARY | 2023-02-27 01:15 | XMS_ITS | Clinical Summary ---
Author Name Unknown Address [address] [place] [address] [facility] Address [address] [place] [address] Phone Care Team Providers Care Automatic Teller Machine Servicer Name Role Phone Tom Brantley MD, Ismael Roche Unavailable [phone] Ricky SPENCER, Heron Epstein Unavailable [phone] Vita SPENCER, Gail Jimenez Unavailable [phone] Blas Walsh MD Unavailable [phone] Chris SPENCER, Misael Guillaume Unavailable [phone] Paul Sheikh DO Primary Care Provide r [phone] Reason for Visit and Chief Complaint The Chief Complaint is: follow up, multiple falls Problems Includes: Problems addressed during this encounter and other active Problems All Visits Onset Date Resolved Date Provider Condition S tatus Diabetes Mellitus Type 2 11/07/2017 Blas Persaud MD Active Last Documented On 8 12:03PM ; [facility] Esophageal Reflux 11/07/2017 Blas Walsh MD Active Last Documented On 8 12:01PM ; [facility] Essential Hypertriglyceridemia 11/07/2017 Huy Walsh MD Active Last Documented On 8 12:06PM ; [facility] Essential Hypertension 11/07/2017 Blas roche MD Active Last Documented On 8 12:05PM ; [facility] Hemorrhoids Internal 11/07/2017 Blas Walsh MD Active Last Documented On 8 12:04PM ; [facility] Intestinal Disorder Diverticular 11/07/2017 Darrell Walsh MD Active Last Documented On 8 12:06PM ; [facility] Obesity 11/07/2017 Blas Walsh MD Active Last Documented On 8 12:02PM ; [facility] Osteoarthritis 11/07/2017 Blas Walsh MD Act jigar Last Documented On 8 12:06PM ; [facility] 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 Spondylosis 11/07/2017 Blas Walsh MD Active Last Documented On 8 12:04PM ; [facility] Familial (Benign Essential) Tremor 11/07/2017 Tristan Walsh MD Active Last Documented On 8 12:05PM ; [facility] 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 Plan of [...] would benefit from a power chair. A [id number] has been provided below. However, he is [...] Electrodiagnostic Medicine (NCS/EMG) [facility] [address] [place] [address] This note was created using voice recognition software and is subject to errors including those of syntax which may escape proofreading. - Last Documented On 06/18/2021 12:08PM ; [facility] Education and Decision Aids were provided during visit for: Patient education about diet ramandeep needs Last Documented On 2 11:23AM ; [facility] Assessments Includes: Assessments from this encounter No Assessments Recorded Instructions Includes: Instructions from this encounter Education and Decision Aids were provided during visit for: Patient education about diet ramandeep needs Last Documented On 2 11:23AM ; [facility] Medical Equipment - Implanted Devices Includes: Current Devices No Medical Equipment Recorded Medications Includes: Medications discussed during this encounter and other current Medications Discontinued / Stopped on this date on 08/07/2020 Rosuvastatin Calcium 5 MG Oral Tablet Pro vider: Diagnosis: Last Documented On 2 11:25AM By Trini Tran ; [facility] Vitamin D3 25 MCG (1000 UT) Oral Tablet Chewable Provider: Diagnosis: Last Documented On 2 11:24AM By Trini Tran ; [facility] Current Medications (continue as prescribed) Myrbetriq 25 MG Oral Tablet Extended Release 24 Hour 0 12/20/2020 Provider: Diagnosis: Last Documented On 1 10:33AM By Rayne MckeeTERMED* ; [facility] Lisinopril 20 MG Oral Tablet 08/07/2020 Provider: Diagnosis: Last Documented On 1 11:01AM By Rayne MckeeTERMED* ; [facility] Januvia 100 MG Oral Tablet 08/07/2020 Provider: Diagnosis: 1 QD Last Documented On 1 11:17AM By Rayne Olson *TERMED* ; [facility] Atenolol 25 MG Oral Tablet 08/07/2020 Provider: Diagnosis: Last Documented On 1 11:18AM By Rayne Olson *TERMED* ; [facility] Alfuzosin HCl ER 10 MG Oral Tablet Extended Rele ase 24 Hour 08/07/2020 Provider: Diagnosis: 1 HS Last Documented On 1 11:19AM By Rayne Olson *TERMED* ; [facility] Multivitamin Oral Tablet 08/07/2020 Provider: Diagnosis: Last Documented On 1 11:20AM By Rayne MckeeTERMED* ; [facility] CoQ10 100 MG Oral Capsule 08/07/2020 Provider: Diagnosis: Last Documented On 1 11:40AM By Trini Tran ; [facility] Medications Administered [...] 2.3 Last Documented On: 06/18/2021 11:27AM ; [facility] Results Includes: [...] 06/18/2021 Last Documented On 2 12:08PM ; [facility] Use of tobacco assessment performed 05/29 Last Documented On 2 12:08PM ; [facility] Smoking Status Unknown Procedures and Surgical History Includes: Procedures from this encounter Procedures Code Diagnosis Performing Provider Service L ocation Service Date history of influenza virus vaccine Last Documented On 2 11:23AM ; [facility] [employer] history of pneumococcal vaccine Last Documented On 2 11:23AM ; [facility] [employer] Medical History Includes: Medical History [...] Last Documented On 2 11:21AM ; [facility] Sulfa Antibiotics Allergy 11/07/2017 A ctive Last Documented On 2 11:21AM ; [facility] Simvastatin Allergy 11/07/2017 Active Last Documented On 2 11:21AM ; [facility] Lyrica Allergy 11/07/2017 Active Last Documented On 2 11:21AM ; [facility] Byetta 10 MCG Pen Allergy 11/07/2017 A ctive Last Documented On 2 11:21AM ; [facility] Encounters Encounter Provider Location Date Check-In Time Check-Out Time Diagnosis Follow up Gail Gorman MD [facility] 2 11:10AM 11:58AM Insurance Includes: Active Insurance Policies Plan Name Member ID Group # Subscriber Relationship Effect jigar Dates 1 - Medicare : [id number] Pritesh Funez Self 2 - Bc/bs Fl(federal) :[facility] [id number] Pritesh Mckeon 04/27/2019 - Unknown Clinical Notes Includes: Clinical Notes from this encounter No Clinical Notes Recorded
--- OUTSIDE RECORDS SUMMARY | 2023-02-27 01:15 | XMS_ITS | Clinical Summary ---
Author Name Unknown Address [address] [place] [address] Phone Organization [facility] Address [address] [place] [address] Phone Care Team Providers Care Counter Stitcher Name Role Phone Tom Brantley MD, Ismael Roche Unavailable [phone] Ricky SPENCER, Heron Epstein Unavailable [phone] Vita SPENCER, Gail Jimenez Unavailable [phone] Blas Walsh MD Unavailable [phone] Chris SPENCER, Misael Guillaume Unavailable [phone] Paul Sheikh DO Primary Care Provide r [phone] Reason for Visit and Chief Complaint The [...] Pathology report from the [facility] reviewed. The fine-needle aspiration of a neck [...] Electrodiagnostic Medicine (NCS/EMG) [facility] [place] [address] [facility], [address] [place] [address] This note was created using voice recognition [...] Results discussed during this encounter HEMOGLOBIN A1C [facility] Ordered by Gail Gorman MD on 08/10/19 21 Collected: 08/09/2020 Reported: 08/10/19 21 17:29 Last Documented On 1 11:01AM ; [facility] Reviewed by Gail Ospina on 08/14/2020; All test results are final unless otherwise noted. HEMOGLOBIN A1C 7.1 % (4.0-6.0) H (High) Last Documented On 1 10:45PM ; [facility] Note: Specimen Number: [id number] History of Present Illness Includes: History of Present Illness from this encounter ROGER Funez is a 80 year old male. - Allergy list reviewed - Medication reconciliation performed Follow up The patient presents for follow-up. Since last visit, he did go to the [facility]. He had a biopsy done which showed [...] ocation Service Date history of Tdap vaccine 71657 Last Documented On 1 10:37AM ; [facility] [...] up Gail Gorman MD [facility] 1 10:19AM 11:23AM Insurance Includes: Active Insurance Policies Plan Name Member ID Group # Subscriber Relationship Effect jigar Dates 1 - Medicare : [id number] Pritesh Funez Self 2 - [facility]bs [id number] Pritesh Mckeon 04/27/2019 - Unknown Clinical Notes Includes: Clinical Notes from this encounter No Clinical Notes Recorded
--- OUTSIDE RECORDS SUMMARY | 2023-02-27 01:15 | XMS_ITS | Clinical Summary ---
Author Name Unknown Address [address] [place] [address] Phone Organization [facility] Address [address] [place] [address] Phone Care Team Providers Care Residential Assistant Name Role Phone Tom Brantley MD, Ismael Roche Unavailable [phone] Ricky SPENCER, Heron Epstein Unavailable [phone] Vita SPENCER, Gail Jimenez Unavailable [phone] Blas Walsh MD Unavailable [phone] Chris SPENCER, Misael Guillaume Unavailable [phone] Paul Sheikh DO Primary Care Provide r [phone] Reason for Visit and Chief Complaint [Patient Encounter] Problems Includes: Problems addressed during this encounter and other active Problems All Visits Onset Date Resolved Date Provider Condition S tatus Diabetes Mellitus Type 2 11/07/2017 Blas Persaud MD Active Last Documented On 8 12:03PM ; [facility] Esophageal Reflux 11/07/2017 Blas Walsh MD Active Last Documented On 8 12:01PM ; [facility] Essential Hypertriglyceridemia 11/07/2017 Huy Walsh MD Active Last Documented On 8 12:06PM ; [facility] Essential Hypertension 11/07/2017 Blas roche MD Active Last Documented On 8 12:05PM ; [facility] Hemorrhoids Internal 11/07/2017 Blas Walsh MD Active Last Documented On 8 12:04PM ; [facility] Intestinal Disorder Diverticular 11/07/2017 Darrell Walsh MD Active Last Documented On 8 12:06PM ; [facility] Obesity 11/07/2017 Blas Walsh MD Active Last Documented On 8 12:02PM ; [facility] Osteoarthritis 11/07/2017 Blas Walsh MD Act jigar Last Documented On 8 12:06PM ; [facility] 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 Spondylosis 11/07/2017 Blas Walsh MD Active Last Documented On 8 12:04PM ; [facility] Familial (Benign Essential) Tremor 11/07/2017 Tristan Walsh MD Active Last Documented On 8 12:05PM ; [facility] 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 Plan of Treatment Pending Tests Order Diagnosis Results Due Ordering Tony MAX OTHER Type 2 diabetes mellitus with diabetic polyneuropathy 06/20/21 Gail Gorman MD Last Documented On 2 11:41AM ; [facility] Therapy - Occupational Therapy * Occupational Therapy Type 2 diabetes mellitus with diabetic polyneuropathy 06/20/21 Gail Gorman MD Last Documented On 2 11:41AM ; [facility] Assessments Includes: Assessments from [...] 10:33AM By Rayne Olson *TERMED* ; [facility] Lisinopril 20 MG Oral Tablet 08/07/2020 Provider: Diagnosis: Last Documented On 1 11:01AM By Rayne Olson *TERMED* ; [facility] Januvia 100 MG Oral Tablet 08/07/2020 Provider: Diagnosis: 1 QD Last Documented On 1 11:17AM By Rayne Olson *TERMED* ; [facility] Atenolol 25 MG Oral Tablet 08/07/2020 Provider: Diagnosis: Last Documented On 1 11:18AM By Rayne Olson *TERMED* ; [facility] Alfuzosin HCl ER 10 MG Oral Tablet Extended Rele ase 24 Hour 08/07/2020 Provider: Diagnosis: 1 HS Last Documented On 1 11:19AM By Rayne Olson *TERMED* ; [facility] Multivitamin Oral Tablet 08/07/2020 Provider: Diagnosis: Last Documented On 1 11:20AM By Rayne Olson *TERMED* ; [facility] CoQ10 100 MG Oral Capsule 08/07/2020 Provider: Diagnosis: Last Documented On 1 11:40AM By Trini Tran ; [facility] Medications Administered Includes: Administered [...] On 2 11:21AM ; [facility] Sulfa Antibiotics Allergy 11/07/2017 A ctive Last Documented On 2 11:21AM ; [facility] Simvastatin Allergy 11/07/2017 Active Last Documented On 2 11:21AM ; [facility] Lyrica Allergy 11/07/2017 Active Last Documented On 2 11:21AM ; [facility] Byetta 10 MCG Pen Allergy 11/07/2017 A ctive Last Documented On 2 11:21AM ; [facility] Encounters Encounter Provider Location Date Check-In Time Check-Out Time Diagnosis [Patient Encounter] Gail Gorman MD 06/20/2021 1:38PM 11:59PM Insurance Includes: Active Insurance Policies Plan Name Member ID Group # Subscriber Relationship Effect jigar Dates 1 - Medicare : [id number] Pritesh Funez Self 2 - Bc/bs Fl(federal) :[facility] [id number] Pritesh Mckeon 04/27/2019 - Unknown Clinical Notes Includes: Clinical Notes from this encounter No Clinical Notes Recorded
--- OUTSIDE RECORDS SUMMARY | 2023-02-27 01:15 | XMS_ITS | Clinical Summary ---
Author Name Unknown Address [address] [place] [address] Phone Organization [facility] Address [address] [place] [address] Phone Care Team Providers Care Field Representative/Health Education Name Role Phone Tom Brantley MD, Ismael Gallegos Unavailable [phone] Ricky SPENCER, Heron Epstein Unavailable [phone] Vita SPENCER, Gail Jimenez Unavailable [phone] Blas Wlash MD Unavailable [phone] Chris SPENCER, Misael Guillaume Unavailable [phone] Paul Sheikh DO Primary Care Provide r [phone] Reason for Visit and Chief Complaint [Patient Encounter] Problems Includes: Problems addressed during this encounter and other active Problems All Visits Onset Date Resolved Date Provider Condition S tatus Diabetes Mellitus Type 2 11/07/2017 Blas Persaud MD Active Last Documented On 8 12:03PM ; [facility] Esophageal Reflux 11/07/2017 Blas Walsh MD Active Last Documented On 8 12:01PM ; [facility] Essential Hypertriglyceridemia 11/07/2017 Huy Walsh MD Active Last Documented On 8 12:06PM ; [facility] Essential Hypertension 11/07/2017 Blas gallegos MD Active Last Documented On 8 12:05PM ; [facility] Hemorrhoids Internal 11/07/2017 Blas Walsh MD Active Last Documented On 8 12:04PM ; [facility] Intestinal Disorder Diverticular 11/07/2017 Darrell Walsh MD Active Last Documented On 8 12:06PM ; [facility] Obesity 11/07/2017 Blas Walsh MD Active Last Documented On 8 12:02PM ; [facility] Osteoarthritis 11/07/2017 Blas Walsh MD Act jigar Last Documented On 8 12:06PM ; [facility] 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 Spondylosis 11/07/2017 Blas Walsh MD Active Last Documented On 8 12:04PM ; [facility] Familial (Benign Essential) Tremor 11/07/2017 Tristan Walsh MD Active Last Documented On 8 12:05PM ; [facility] 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 Plan of Treatment No [...] 1 10:33AM By Rayne Olson *TERMED* ; [facility] Lisinopril 20 MG Oral Tablet 08/07/2020 Provider: Diagnosis: Last Documented On 1 11:01AM By Rayne Olson *TERMED* ; [facility] Januvia 100 MG Oral Tablet 08/07/2020 Provider: Diagnosis: 1 QD Last Documented On 1 11:17AM By Rayne Olson *TERMED* ; [facility] Atenolol 25 MG Oral Tablet 08/07/2020 Provider: Diagnosis: Last Documented On 1 11:18AM By Rayne Olson *TERMED* ; [facility] Alfuzosin HCl ER 10 MG Oral Tablet Extended Rele ase 24 Hour 08/07/2020 Provider: Diagnosis: 1 HS Last Documented On 1 11:19AM By Rayne Olson *TERMED* ; [facility] Multivitamin Oral Tablet 08/07/2020 Provider: Diagnosis: Last Documented On 1 11:20AM By Rayne Olson *TERMED* ; [facility] CoQ10 100 MG Oral Capsule 08/07/2020 Provider: Diagnosis: Last Documented On 1 11:40AM By Trini Tran ; [facility] Medications Administered Includes: [...] ve Last Documented On 2 11:21AM ; [facility] Sulfa Antibiotics Allergy 11/07/2017 A ctive Last Documented On 2 11:21AM ; [facility] Simvastatin Allergy 11/07/2017 Active Last Documented On 2 11:21AM ; [facility] Lyrica Allergy 11/07/2017 Active Last Documented On 2 11:21AM ; [facility] Byetta 10 MCG Pen Allergy 11/07/2017 A ctive Last Documented On 2 11:21AM ; [facility] Encounters Encounter Provider Location Date Check-In Time Check-Out Time Diagnosis [Patient Encounter] Gail Gorman MD 09/28/2020 9:16AM 11:59PM Insurance Includes: Active Insurance Policies Plan Name Member ID Group # Subscriber Relationship Effect jigar Dates 1 - Medicare : [id number] Pritesh A Armin Self 2 - Bc/bs Fl(federal) :[facility] [id number] Pritesh Funez Self 04/27/2019 - Unknown Clinical Notes Includes: Clinical Notes from this encounter No Clinical Notes Recorded
--- OUTSIDE RECORDS SUMMARY | 2023-02-27 01:15 | XMS_ITS | Clinical Summary ---
Author Name Unknown Address [address] [place] [address] Phone Organization [facility] Address [address] [place] [address] Phone Care Team Providers Care Loading Rack Supervisor Name Role Phone Tom Brantley MD, Ismael Gallegos Unavailable [phone] Ricky SPENCER, Heron Epstein Unavailable [phone] Vita SPENCER, Gail Jimenez Unavailable [phone] Blas Walsh MD Unavailable [phone] Chris SPENCER, Misael Guillaume Unavailable [phone] Paul Sheikh DO Primary Care Provide r [phone] Reason for Visit and Chief Complaint [Patient [...] Effect jigar Dates 1 - Medicare : [id number] Pritesh A Armin Self 2 - Bc/bs Fl(federal) :[facility] [id number] Pritesh Funez Self 04/27/2019 - Unknown Clinical Notes Includes: Clinical Notes from this encounter No Clinical Notes Recorded
== END 2023-02-13 13:27 | disposition home or self-care (01) ==
LOC: AMB 02-27 01:11
PROVIDERS: Visit Provider Emergency Medicine Emergency Medical Services
DX: S72.101S Unspecified trochanteric fracture of right femur, sequela (principal)
CPT/HCPCS: A0425; A0428

== ENCOUNTER 2023-03-28 15:27 | Emergency (ER) | payer MEDICARE, BC, SELFPAY ==
[2023-03-28 15:42] VITALS: BP 126/87; PULSE 75; RESP 18; TEMP 36.3; O2SAT 98; BMI 28.3
--- NOTE | 2023-03-28 15:54 | ED.GENADULT ---
HPI - General Adult General Chief complaint: Urogenital Problems, Male Stated complaint: UTI Time Seen by Provider: 03/28/23 15:45 History of Present Illness HPI narrative: Patient is a 83 year white male who has had a history of prostate radiation, also recently had a right intertroch fracture repaired recently and has had last night today urinary frequency little bit of dysuria and a little bit of darkish urine brownish in color. He has not had urinary tract infection the past he does not feel sick with rigors, chills, or fever. Patient has had no flank pain or suprapubic pain. He is having no trouble going to the bathroom but he does feel like ?something is wrong?. He is diabetic but his blood sugars have been excellent his A1cs have been excellent. No chest pain, no shortness of breath. Related Data Home Medications Medication Instructions Recorded Confirmed alfuzosin 10 mg tablet,extended 10 mg PO HS 11/11/21 03/28/23 release 24 hr atenolol 25 mg tablet 25 mg PO HS 11/11/21 03/28/23 lisinopril 20 mg tablet 20 mg PO DAILY 02/10/23 03/28/23 pravastatin 10 mg tablet 10 mg PO HS 02/10/23 03/28/23 sitagliptin phosphate 100 mg 100 mg PO DAILY 02/10/23 03/28/23 tablet (Januvia) coenzyme Q10 100 mg capsule (Co 100 mg PO QDAY 03/24/23 03/28/23 Q-10) mirabegron 25 mg tablet,extended 25 mg PO QDAY 03/24/23 03/28/23 release 24 hr (Myrbetriq) multivitamin (Multiple Vitamins 1 tab PO QDAY 03/24/23 03/28/23 tablet) Previous Rx's Medication Instructions Recorded ciprofloxacin HCl 250 mg tablet 250 mg PO BID #14 tabs 03/28/23 (Cipro) Allergies Allergy/AdvReac Type Severity Reaction Status Date / Time pregabalin [From Lyrica] Allergy Unknown Verified 03/28/23 15:42 simvastatin [From Zocor] Allergy Unknown Verified 03/28/23 15:42 Sulfa (Sulfonamide Allergy Verified 03/28/23 15:42 Antibiotics) tamsulosin [From Flomax] Allergy Verified 03/28/23 15:42 Review of Systems Status of ROS: Reports: 6 or more systems reviewed and unremarkable except as noted in History and below [facility] Medical History Fracture of right ankle, lateral malleolus ?S82.61XA - Displaced fracture of lateral malleolus of right fibula, initial encounter for closed fracture (ICD-10) Cognitive impairment ?R41.89 - Other symptoms and signs involving cognitive functions and awareness (ICD-10) Non-insulin dependent diabetes mellitus ROXIE (obstructive sleep apnea) ?G47.33 - Obstructive sleep apnea (adult) (pediatric) (ICD-10) Hyperlipidemia ?E78.5 - Hyperlipidemia, unspecified (ICD-10) Essential hypertension ?I10 - Essential (primary) hypertension (ICD-10) Prostate cancer ?C61 - Malignant neoplasm of prostate (ICD-10) Surgical History S/P ORIF (open reduction internal fixation) fracture (02/11/23) ?Z98.890 - Other specified postprocedural states (ICD-10) ?Z87.81 - Personal history of (healed) traumatic fracture (ICD-10) History of tonsillectomy ?Z90.89 - Acquired absence of other organs (ICD-10) H/O cardiac catheterization ?Z98.890 - Other specified postprocedural states (ICD-10) Hx of appendectomy ?Z90.49 - Acquired absence of other specified parts of digestive tract (ICD-10) Social History Narrative: Lives with Shirlene (medical decision maker if needed) - they have a total of 6 adult children locally. They spend winter in [place] and summer in [place]. Nonsmoker, rare ETOH. Uses a walker for ambulation. What is your current living situation?: I presently have a place to live Problems where you live: no known problems Problems where you live details: none In the past 12 months, utilities in danger of being shut off: no In past 12 months, lack of transportation kept you from medical appts, meetings, work, or getting things needed for daily living: no In the past 12 mos, have been you worried that your food would run out before you had money to buy more?: never true In the past 12 mos, the food you bought just didn't last and you didn't have money to buy more?: never true Smoking Status: Former smoker Second hand tobacco smoke exposure: No How often do you have a drink containing alcohol: never How often do you have six or more drinks on one occasion: Never AUDIT-C Alcohol total score: 0 Non-prescribed substance use: denies use Caffeine: Yes (coffee, soda) How often does anyone, including family, friends and others, physically hurt you: never How often does anyone, including family, friends and others, insult or talk down to you: never How often does anyone, including family, friends and others, threaten you with harm: never How often does anyone, including family, friends and others, scream or curse at you: never service: Yes Exam Narrative: Exam Narrative: Objective: Patient's vital signs are recorded he is afebrile He is alert or x3 noncyanotic Abdomen benign soft Pulses regular No CVA tenderness described Urinalysis pending Const: Vital Signs, click to edit/add: Vital Signs - 24 hr 03/28/23 15:42 Temperature 97.4 F L Pulse Rate [Pulse Oximeter] 75 Respiratory Rate 18 Blood Pressure [Ri ght Upper Arm] 126/87 Pulse Oximetry 98 Oxygen Delivery Me thod Room Air Course Vital Signs Vital signs: Initial Vital Signs Temperature 97.4 F L 03/28/23 15:42 Temperature Source Temporal Artery Scan 03/28/23 15:42 Pulse Rate 75 03/28/23 15:42 Respiratory Rate 18 03/28/23 15:42 Blood Pressure 126/87 03/28/23 15:42 Blood Pressure Mean 100 03/28/23 15:42 Blood Pressure Position Semi-Fowlers 03/28/23 15:42 Pulse Oximetry 98 03/28/23 15:42 Oxygen Delivery Method Room Air 03/28/23 15:42 Vital Signs Temperature 97.4 F L 03/28/23 15:42 Pulse Rate 75 03/28/23 15:42 Respiratory Rate 18 03/28/23 15:42 Blood Pressure 126/87 03/28/23 15:42 Pulse Oximetry 98 03/28/23 15:42 Oxygen Delivery Method Room Air 03/28/23 15:42 Temperature 97.4 F L 03/28/23 15:42 Pulse Rate 75 03/28/23 15:42 Respiratory Rate 18 03/28/23 15:42 Blood Pressure 126/87 03/28/23 15:42 Pulse Oximetry 98 03/28/23 15:42 Oxygen Delivery Method Room Air 03/28/23 15:42 Medications Administered Medications: Discontinued Medications Generic Name Dose Route Start Last Admin Trade Name Arpan PRN Reason Stop Dose Admin Ciprofloxacin 500 mg 03/28/23 16:40 03/28/23 16:46 Ciprofloxacin 500 Mg Tablet PO 03/28/23 16:41 500 mg ONCE ONE Administration Medical Decision Making MDM Narrative Medical decision making narrative: 83 year white male with history of urinary frequency, some change in urine color, rule out infection. Patient has had a history of prostate radiation. He had a recent intertroch fracture repaired last month. At this point I think simply ruling out infection be appropriate, his blood sugars have been well maintained and controlled. He has no rigors or chills. Do not think blood cultures necessary at this point. Will simply check his UA and disposition pending findings. Addendum 4:40 p.m.: Patient's urinalysis was pretty unremarkable however he does have urinary frequency and I would be concerned given his history of prostate radiation that he has urethra right is or perhaps a mild infection he has been hydrating herself well. Will cover him with Cipro 250 b.i.d. x7 days. Await for urine culture. Follow up with primary care if not improving or changes or problems. Lab Data Labs: Lab Results 03/28/23 Range/Units 16:11 Urine Color Yellow (Yellow) Urine Appearance Clear (Clear) Urine pH 6.5 (5.0-8.5) Ur Specific [place] 1.015 (1.000-1.030) Urine Protein Negative (Negative) Urine Glucose (UA) Negative (Negative) Urine Ketones Negative (Negative) Urine Blood Trace-intact A (Negative) Urine Nitrite Negative (Negative) Urine Bilirubin Negative (Negative) Urine Urobilinogen 0.2 (0.2-1.0) Ur Leukocyte Esterase Negative (Negative) Urine RBC 0-2 (0-2) Urine WBC 0-2 (0-5) Ur Squamous Epith Cells None (None-Few) Urine Bacteria None (None) Discharge Plan Discharge Clinical Impression: Urinary tract infection Patient Disposition: Home w/ Parent or Adult Condition: Stable Instructions: Urinary Tract Infection in Men (DC) Additional Instructions: Antibiotic, fluids, observation, recheck with primary care not improving in the next several days. Urine test was not significantly abnormal, but will need a urine culture to be done to see if there is no infection. Activity Level: No Restrictions and Light activity Discharge Diet: Regular Prescriptions: New ciprofloxacin HCl [Cipro] 250 mg tablet 250 mg PO BID Qty: 14 0RF No Action Myrbetriq 25 mg tablet extended release 24 hr 25 mg PO QDAY multivitamin [Multiple Vitamins] Tablet 1 tab PO QDAY coenzyme Q10 [Co Q-10] 100 mg capsule 100 mg PO QDAY atenolol 25 mg tablet 25 mg PO HS alfuzosin 10 mg tablet extended release 24 hr 10 mg PO HS lisinopril 20 mg tablet 20 mg PO DAILY pravastatin 10 mg tablet 10 mg PO HS Januvia 100 mg tablet 100 mg PO DAILY Follow Up/Referrals: Provider,Not a Local [Primary Care Provider] - Stand Alone Forms: [place] Info Instructions
--- OUTSIDE RECORDS SUMMARY | 2023-03-28 16:13 | XMS_ITS ---
Author Name Unknown Address [address] [place] [address] Phone Organization [facility] Address [address] [place] [address] Phone Care Team Providers Care Pricer Bagger Name Role Phone Tom Brantley MD, Ismael Roche Unavailable [phone] Ricky SPENCER, Heron Epstein Unavailable [phone] Vita SPENCER, Gail Jimenez Unavailable [phone] Blas Walsh MD Unavailable [phone] Chris SPENCER, Misael Guillaume Unavailable [phone] Paul Sheikh DO Primary Care Provide r [phone] Problems Includes: Active, inactive, and resolved Problems All Visits Onset Date Resolved Date Provider Condition S tatus Diabetes Mellitus Type 2 11/07/2017 Blas Persaud MD Active Last Documented On 8 12:03PM ; [facility] Esophageal Reflux 11/07/2017 Blas Walsh MD Active Last Documented On 8 12:01PM ; [facility] Essential Hypertriglyceridemia 11/07/2017 Huy Walsh MD Active Last Documented On 8 12:06PM ; [facility] Essential Hypertension 11/07/2017 Blas roche MD Active Last Documented On 8 12:05PM ; [facility] Hemorrhoids Internal 11/07/2017 Blas Walsh MD Active Last Documented On 8 12:04PM ; [facility] Intestinal Disorder Diverticular 11/07/2017 Darrell Walsh MD Active Last Documented On 8 12:06PM ; [facility] Obesity 11/07/2017 Blas Walsh MD Active Last Documented On 8 12:02PM ; [facility] Osteoarthritis 11/07/2017 Blas Walsh MD Act jigar Last Documented On 8 12:06PM ; [facility] 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 Spondylosis 11/07/2017 Blas Walsh MD Active Last Documented On 8 12:04PM ; [facility] Familial (Benign Essential) Tremor 11/07/2017 Tristan Walsh MD Active Last Documented On 8 12:05PM ; [facility] 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 Plan of Treatment Findings Encounter Date Clinical staff counseled pat joshua to adopt healthy behaviors as appropriate Follow up with Gail Gorman MD 12/20/2020 Last Documented On 1 1:09PM ; [facility] Clinical staff counseled markos cuevant to adopt healthy behaviors as appropriate Follow up with Gail Gorman MD 08/22/2020 Last Documented On 1 5:15PM ; [facility] Instructions to patient Lose weight Patient encourag e to limit portion sizes and to tract and restrict their total daily caloric intake Last Documented On 1 10:37AM ; [facility] Lose weight Patient encourag e to limit portion sizes and to tract and restrict their total daily caloric intake Last Documented On 1 8:41AM ; [facility] Lose weight Patient encourag e to limit portion sizes and to tract and restrict their total daily caloric intake Last Documented On 1 11:05AM ; [facility] Education and Decision Aids were provided during visit for: Patient education about diet ramandeep needs Last Documented On 2 11:23AM ; [facility] Clinical staff counseled pat ient to adopt healthy behaviors as appropriate Last Documented On 1 10:35AM ; [facility] Clinical staff counseled pat ient to adopt healthy behaviors as appropriate Last Documented On 1 8:46AM ; [facility] Assessments Includes: Assessments for all patient encounters No Assessments Recorded Instructions Includes: Instructions for all patient encounters Instructions to patient Lose weight Patient encourag e to limit portion sizes and to tract and restrict their total daily caloric intake Last Documented On 1 10:37AM ; [facility] Lose weight Patient encourag e to limit portion sizes and to tract and restrict their total daily caloric intake Last Documented On 1 8:41AM ; [facility]. Lose weight Patient encourag e to limit portion sizes and to tract and restrict their total daily caloric intake Last Documented On 1 11:05AM ; [facility] Education and Decision Aids were provided during visit for: Patient education about diet ramandeep needs Last Documented On 2 11:23AM ; [facility] Clinical staff counseled pat ient to adopt healthy behaviors as appropriate Last Documented On 1 10:35AM ; [facility] Clinical staff counseled pat ient to adopt healthy behaviors as appropriate Last Documented On 1 8:46AM ; [facility] Medical Equipment - Implanted Devices Includes: Current and historical Devices No Medical Equipment Recorded Medications Includes: Current and historical Medications Current Medications (continue as prescribed) Myrbetriq 25 MG Oral Tablet Extended Release 24 Hour 0 12/20/2020 Provider: Diagnosis: Last Documented On 1 10:33AM By Rayne Olson *TERMED* ; [facility] Lisinopril 20 MG Oral Tablet 08/07/2020 Provider: Diagnosis: Last Documented On 1 11:01AM By Rayne Olson *TERMED* ; [facility] Januvia 100 MG Oral Tablet 08/07/2020 Provider: Diagnosis: 1 QD Last Documented On 1 11:17AM By Rayne Olson *TERMED* ; [facility] Atenolol 25 MG Oral Tablet 08/07/2020 Provider: Diagnosis: Last Documented On 1 11:18AM By Rayne MckeeTERMED* ; [facility] Alfuzosin HCl ER 10 MG Oral Tablet Extended Rele ase 24 Hour 08/07/2020 Provider: Diagnosis: 1 HS Last Documented On 1 11:19AM By Rayne RYAN* ; [facility] Multivitamin Oral Tablet 08/07/2020 Provider: Diagnosis: Last Documented On 1 11:20AM By Rayne RYAN* ; [facility] CoQ10 100 MG Oral Capsule 08/07/2020 Provider: Diagnosis: Last Documented On 1 11:40AM By Trini Tran ; [facility] Past Medications on file Rosuvastatin Calcium 5 MG Oral Tablet 08/07/2020 - Provider: Diagnosis: Last Documented On 2 11:25AM By Trini Tran ; [facility] CVS Vitamin D3 25 MCG (1000 UT) Oral Tablet Chewable 08/07/2020 - 06/18/2021 Provider: Diagnosis: Last Documented On 2 11:24AM By Trini Tran ; [facility] EQL Fish Oil 1000 MG Oral Capsule 08/07/2020 - 021 Provider: Diagnosis: Last Documented On 1 10:32AM By Rayne RYAN* ; [facility] Medications Administered Includes: Administered Medications in patient's chart No Administered Medications Recorded Vital Signs Includes: Vital Signs through 03/28/2023 Vital Name 06/18/2021 11:23A 12/20/2020 10:26A 08/22/2020 [...] 95.1 Last Documented On: 06/18/2021 11:27AM ; [facility] 12/20/2020 10:35AM ; [facility] 08/22/2020 8:48AM ; [facility] Results Includes: Results through 03/28/2023 CREATININE iSTAT [facility] Ordered by Gail Gorman MD on 09/14/19 Collected: 09/13/2020 Reported: 09/14/19 16:56 Last Documented On 8:26AM ; [facility] Reviewed by Gail Ospina on 09/14/2020; All test results are final unless otherwise noted. CREATININE iSTAT 0.7 mg/dL (0.6-1.3) N (Normal) Last Documented On 8:03PM ; [facility] Note: Specimen Number: [id number] Reported Physicians [facility] Ordered by Gail Gorman MD on 09/14/19 Collected: 09/13/2020 Reported: 09/14/19 16:56 Last Documented On 8:26AM ; [facility] Reviewed by Gail Ospina on 09/14/2020; All test results are final unless otherwise noted. Reported Physicians See Note None Last Documented On 09/13/2020 8:03PM ; [facility] Note: Reported Physicians:Ordering: Lauren Gormanending: Gail Gorman SJOGREN'S AB (SSA/SSB) [facility] Ordered by Gail Gorman MD on 08/10/19 Collected: 08/09/2020 Reported: 08/12/19 12:33 Last Documented On 11:01AM ; [facility] Reviewed by Gail Ospina on 08/14/2020; All test results are final unless otherwise noted. SS-A/Ro AB <0.2 N (Normal) Last Documented On 08/11/2020 4:00PM ; [facility] Note: Reference range: <1.0 (Negative)Unit: U SS-B/La AB <0.2 N (Normal) Last Documented On 08/11/2020 4:00PM ; [facility] Note: Reference range: <1.0 (Negative)Unit: U Test Performed by:[facility] [place] [id number] Director: Mat Pearl M.D. Ph.D.; IA# [id number] Number: [id number] Reported Physicians [facility] Ordered by Gail Gorman MD on 08/10/19 Collected: 08/09/2020 Reported: 08/12/19 12:33 Last Documented On 1 11:01AM ; [facility] Reviewed by Gail Ospina on 08/14/2020; All test results are final unless otherwise noted. Reported Physicians See Note None Last Documented On 08/11/2020 4:00PM ; [facility] Note: Reported Physicians:Ordering: Lauren Gormanending: Gail Gorman KAPPA/LAMBDA QNT FLC [facility] Ordered by Gail Gorman MD on 08/10/19 Collected: 08/09/2020 Reported: 08/14/19 07:27 Last Documented On 1 11:01AM ; [facility] Reviewed by Gail Ospina on 08/14/2020; All test results are final unless otherwise noted. KAPPA LIGHT CHN,FR,S 17.9 N (Normal) Last Documented On 1 10:31AM ; [facility] Note: Reference range: 3.3 to 19.4Unit: mg/L KAPPA/LAMBDA,FR RAT 1.21 N (Normal) Last Documented On 1 10:31AM ; [facility] Note: Reference range: [...] response totherapy of these disorders.Test Performed by [facility],[address] [place] [id number] Kumar M.D., Ph.D., Director of [phone], [facility] [id number] Number: [id number] LAMBDA LIGHT CH,FR,S 14.8 N (Normal) Last Documented On 1 10:31AM ; [facility] Note: Reference range: 5.7 to 26.3Unit: mg/L Reported Physicians [facility] Ordered by Gail Gorman MD on 08/10/19 Collected: 08/09/2020 Reported: 08/14/19 07:27 Last Documented On 1 11:01AM ; [facility] Reviewed by Gail Ospina on 08/14/2020; All test results are final unless otherwise noted. Reported Physicians See Note None Last Documented On 08/13/2020 10:31AM ; [facility] Note: Reported Physicians:Ordering: Lauren Gormanending: Gail Gorman IMMUNOFIXATN PROF,SERUM [facility] Ordered by Gail Gorman MD on 08/10/19 Collected: 08/09/2020 Reported: 08/15/19 21 15:48 Last Documented On 1 9:55AM ; [facility] Reviewed by Gail Ospina on 08/17/2020; All test results are final unless otherwise noted. TP, SERUM 6.6 g/dL (6.4-8.3) N (Normal) Last Documented On 1 7:33PM ; [facility] ALBUMIN 4.0 g/dL (3.0-5.2) N (Normal) Last Documented On 1 7:33PM ; [facility] A1 GLOBULIN 0.2 g/dL (0.1-0.4) N (Normal) Last Documented On 7:33PM ; [facility] A2 GLOBULIN 0.8 g/dL (0.4-1.0) N (Normal) Last Documented On 1 7:33PM ; [facility] BETA GLOBULIN 0.7 g/dL (0.7-1.6) N (Normal) Last Documented On 7:33PM ; [facility] GAMMA GLOBULIN 0.9 g/dL (0.7-2.0) N (Normal) Last Documented On 7:33PM ; [facility] A/G RATIO 1.5 Units (1.2-2.2) N (Normal) Last Documented On 7:33PM ; [facility] IGA 64 mg/dL (70-400) L (Low) Last Documented On 7:33PM ; [facility] IGG 767 mg/dL (700-1600) N (Normal) Last Documented On 7:33PM ; [facility] IGM 47 mg/dL (40-230) N (Normal) Last Documented On 7:33PM ; [facility] PATH INTERP SPE Interpretation: No abnormal protein seen. N (Normal) Last Documented On 08/14/2020 7:33PM ; [facility] Note: SIFE Interpretation: No abnormal protein is seen. Specimen Number: [id number] Reported Physicians [facility] Ordered by Gail Gorman MD on 08/10/19 Collected: 08/09/2020 Reported: 08/15/19 15:48 Last Documented On 9:55AM ; [facility] Reviewed by Gail Ospina on 08/17/2020; All test results are final unless otherwise noted. Reported Physicians See Note None Last Documented On 08/14/2020 7:33PM ; [facility] Note: Reported Physicians:Ordering: Lauren Gormanending: Gail Gorman METHYLMALONIC ACID [facility] Ordered by Gail Gorman MD on 08/10/19 Collected: 08/09/2020 Reported: 08/20/19 05:23 Last Documented On 1 10:47AM ; [facility] Reviewed by Gail Ospina on 08/20/2020; All test results are final unless otherwise noted. METHYLMALONIC ACID 179 N (Normal) Last Documented On 08/19/2020 8:37AM ; [facility] Note: Reference range: 87 to 318Unit: nmol/L This test was developed and its analytical performancecharacteristics have been determined by [employer] [place], [place]. It hasnot been cleared or approved by the U.S. Food and DrugAdministration. This assay has been validated pursuantto the CLIA regulations and is used for clinicalpurposes.Test Performed by [facility],[address] [place] [id number] Kumar M.D., Ph.D., Director of [phone], CLIA [id number] Number: [id number] Reported Physicians [facility] Ordered by Gail Gorman MD on 08/10/19 Collected: 08/09/2020 Reported: 08/20/19 05:23 Last Documented On 1 10:47AM ; [facility] Reviewed by Gail Ospina on 08/20/2020; All test results are final unless otherwise noted. Reported Physicians See Note None Last Documented On 08/19/2020 8:37AM ; [facility] Note: Reported Physicians:Ordering: Lauren Gormanending: Gail Gorman HEMOGLOBIN A1C [facility] Ordered by Gail Gorman MD on 08/10/19 Collected: 08/09/2020 Reported: 08/10/19 17:29 Last Documented On 1 11:01AM ; [facility] Reviewed by Gail Ospina on 08/14/2020; All test results are final unless otherwise noted. HEMOGLOBIN A1C 7.1 % (4.0-6.0) H (High) Last Documented On 10:45PM ; [facility] Note: Specimen Number: [id number] VITAMIN B12 [facility] Ordered by Gail Gorman MD on 08/10/19 Collected: 08/09/2020 Reported: 08/10/19 17:54 Last Documented On 11:01AM ; [facility] Reviewed by Gail Ospina on 08/14/2020; All test results are final unless otherwise noted. VITAMIN B12 502 pg/mL (193-986) N (Normal) Last Documented On 10:45PM ; [facility] Note: Specimen Number: [id number] HEP C AB [facility] Ordered by Gail Gorman MD on 08/10/19 Collected: 08/09/2020 Reported: 08/10/19 18:18 Last Documented On 11:01AM ; [facility] Reviewed by Gail Ospina on 08/14/2020; All test results are final unless otherwise noted. HEP C AB NONREACTIVE (NONREACTIVE) N (Normal) Last Documented On 10:45PM ; [facility] Note: Specimen Number: [id number] Reported Physicians [facility] Ordered by Gail Gorman MD on 08/10/19 Collected: 08/09/2020 Reported: 08/10/19 18:18 Last Documented On 1 11:01AM ; [facility] Reviewed by Gail Ospina on 08/14/2020; All test results are final unless otherwise noted. Reported Physicians See Note None Last Documented On 08/09/2020 10:45PM ; [facility] Note: Reported Physicians:Ordering: Lauren Gormanending: Gail Gorman History of Present Illness History of Present Illness not supported for this document type No History of Present Illness Recorded Social History Description Last Updated Former smoker 06/18/2021 Last Documented On 2 12:08PM ; [facility] Use of tobacco assessment performed 05/29 Last Documented On 2 12:08PM ; [facility] Patient has living will 12/20/2020 Last Documented On 1 1:09PM ; [facility] Patient has not seen another provider si nce last visit 12/20/2020 Last Documented On 1 1:09PM ; [facility] States no significant change in lifestyl e since last visit 12/20/2020 Last Documented On 1 1:09PM ; [facility] A social drinker 08/22/2020 Last Documented On 1 5:15PM ; [facility] No tobacco use Former 08/22/2020 Last Documented On 1 5:15PM ; [facility] Not using drugs 08/22/2020 Last Documented On 1 5:15PM ; [facility] Smoking Status Unknown Procedures and Surgical History Includes: Procedures through 03/28/2023 Procedures Code Diagnosis Performing Provider Service Location Service Date Collection blood by venipuncture % 12142 Type 2 diabetes mellitus without complications [facility] [employer] [facility] Primary Care at [facility] 06/02/2022 Last Documented On 3 11:52AM ; [facility] Collection blood by venipuncture % 78948 Type 2 diabetes mellitus without complications [facility] [employer] [facility] Primary Care at [facility] 02/20/2022 Last Documented On 2 3:04PM ; [facility] Electrocardiogram report (Repeat procedure by same physician) [id number] Abnormal electrocardiogram [ECG] [EKG] Jefe Ricketts MD [facility] 07/24/2021 Last Documented On 2 2:22PM ; [facility] Electrocardiogram report [id number] Abnormal electrocardiogram [ECG] [EKG] Jefe Ricketts MD [facility] 07/24/2021 Last Documented On 2 7:27AM ; [facility] Collection blood by venipuncture % 50672 Malignant neoplasm of prostate [facility] [employer] Reporting [employer] [facility] Primary Care [facility] 07/11/2021 Last Documented On 2 10:35AM ; [facility] Collection blood by venipuncture % 15846 Other pruritus [facility] [employer] Reporting [employer] [facility] Primary Car e at [facility] 07/03/2021 Last Documented On 2 11:30AM ; [facility] Remove impacted cerumen, instrumnt, [place] 10648 Impacted cerumen, unspecified ear Taras Durand MD [facility]ol[facility]ology at [facility] 02/05/2021 Last Documented On 1 9:21AM ; [facility] Musc tst done w/n tst nonext (Distinct Proc Serv.) 66641 Paresthesia of skin Gail Gorman MD [facility] Neurology at [facility] 08/15/2020 Last Documented On 1 7:59AM ; [facility] Musc tst done w/n tst nonext 13400 Radiculopathy, cervicothoracic region Gail Gorman MD [facility] Neurology at [facility] 08/15/2020 Last Documented On 1 12:06PM ; [facility] Musc test done w/n test comp (Left Side) 17270 Type 2 diabetes mellitus with diabetic polyneuropathy, Radiculopathy, cervicothoracic region, Radiculopathy, lumbosacral region, Paresthesia of skin Rejo P Vita SPENCER [facility] Neurology at [facility] 08/15/2020 Last Documented On 1 12:06PM ; [facility] Musc test done w/n test comp (Right Side) 23098 Type 2 diabetes mellitus with diabetic polyneuropathy, Radiculopathy, cervicothoracic region, Radiculopathy, lumbosacral region, Paresthesia of skin Gissello P Vita SPENCER [facility] Neurology at [facility] 08/15/2020 Last Documented On 1 12:06PM ; [facility] Nrv cndj test 13/> studies 63780 Type 2 diabetes mellitus with diabetic polyneuropathy, Radiculopathy, cervicothoracic region, Radiculopathy, lumbosacral region, Paresthesia of skin Rejo P Vita SPENCER [facility] Neurology at [facility] 08/15/2020 Last Documented On 1 12:06PM ; [facility] Collection blood by venipuncture % 20079 Malignant neoplasm of prostate [facility] [employer] Reporting [employer] [facility] Primary Care at [facility] 05/28/2020 Last Documented On 1 3:46PM ; [facility] Surgical History Last Updated History of back surgery Spine & Neck rayray wale 10 yrs ago 08/22/2020 Last Documented On 1 5:15PM ; [facility] Prior surgery Appendix removed young ad ult ~Hernia 5 yrs ago 08/22/2020 Last Documented On 1 5:15PM ; [facility] Medical History Includes: Medical History in patient's chart Description Last Updated Denies significant change in medical sta tus since last visit 12/20/2020 Last Documented On 1 1:09PM ; [facility] Yes patient feels confident managing chr onic conditions 12/20/2020 Last Documented On 1 1:09PM ; [facility] A history of cancer Prostate 08/22/2020 Last Documented On 1 5:15PM ; [facility] History of benign essential hypertension Hypertension 08/22/2020 Last Documented On 1 5:15PM ; [facility] History of diabetes mellitus 08/22/2020 Last Documented On 1 5:15PM ; [facility] History of hyperlipidemia 08/22/2020 Last Documented On 1 5:15PM ; [facility] Family History Includes: Family History in patient's chart Description Last Updated States no significant change in family m edical history since last visit 12/20/2020 Last Documented On 1 1:09PM ; [facility] Review of Systems [...] ve Last Documented On 2 11:21AM ; [facility] Sulfa Antibiotics Allergy 11/07/2017 A ctive Last Documented On 2 11:21AM ; [facility] Simvastatin Allergy 11/07/2017 Active Last Documented On 2 11:21AM ; [facility] Lyrica Allergy 11/07/2017 Active Last Documented On 2 11:21AM ; [facility] Byetta 10 MCG Pen Allergy 11/07/2017 A ctive Last Documented On 2 11:21AM ; [facility] Encounters Includes: Encounters through 03/28/2023 Encounter Provider Location Date Check-In Time Check-Out Time Diagnosis [Patient Encounter] Gail Gorman MD 2 06/18/2021 1:38PM 06/18/2021 11:59PM Follow up Gail Gorman MD [facility] at [facility] 2 11:10AM 11:58AM Follow up Gail Gorman MD [facility] at [facility] 1 10:19AM 11:23AM [Patient Encounter] Gail Gorman MD 1 08/22/2020 9:16AM 08/22/2020 11:59PM [Patient Encounter] Gail Gorman MD 1 08/22/2020 1:05PM 08/22/2020 11:59PM Follow up Gail Gorman MD [facility] at [facility] 1 8:41AM 9:31AM [Patient Encounter] Gail Gorman MD 1 3:17PM 11:59PM EMG Gail Gorman MD [facility] at [facility] 1 1:29PM 3:20PM New Patient Gail Gorman MD [facility] at [facility] 1 9:43AM 11:50AM Preload Process Blas Walsh MD 8 11:59AM 11:59PM Insurance Includes: Active Insurance Policies Plan Name Member ID Group # Subscriber Relationship Effect jigar Dates 1 - Medicare : [id number] Pritesh Funez Self 2 - Bc/bs Fl(federal) :[facility] [id number] Pritesh Mckeon 04/27/2019 - Unknown Clinical Notes Includes: Signed Clinical Notes starting from 05/16/2022 No Clinical Notes Recorded
--- OUTSIDE RECORDS SUMMARY | 2023-03-28 16:14 | XMS_ITS | Clinical Summary ---
Author Name Unknown Address [address] [place] [address] Phone Organization [facility] Address [address] [place] [address] Phone Care Team Providers Care Practicing Dermatologist Name Role Phone Tom Brantley MD, Ismael Roche Unavailable [phone] Ricky SPENCER, Heron Epstein Unavailable [phone] Vita SPENCER, Gail Jimenez Unavailable [phone] Blas Walsh MD Unavailable [phone] Chris SPENCER, Misael Guillaume Unavailable [phone] Paul Sheikh DO Primary Care Provide r [phone] Reason for Visit and Chief Complaint The [...] idiopathic component. 1. Pathology report from the [facility] reviewed. The fine-needle aspiration of a [...] Electrodiagnostic Medicine (NCS/EMG) [facility] [place] [address] [facility], [address] [place] [address] This note was created using voice recognition software and is subject to errors including those of syntax which may escape proofreading. - Last Documented On 12/20/2020 1:09PM ; [facility] Clinical staff counseled patient to adopt healthy behaviors as appropriate. - Last Documented On 12/20/2020 1:09PM ; [facility] Pending Tests Order Diagnosis Results Due Ordering Provider Referrals - Physical Med and [facility] Radiculopathy, cervicothoracic region 02/18/21 Gail Gorman MD Last Documented On 1:09PM ; [facility] Instructions to patient Lose weight Patient encourag e to limit portion sizes and to tract and restrict their total daily caloric intake Last Documented On 10:37AM ; [facility] Education and Decision Aids were provided during visit for: Clinical staff counseled markos lewis to adopt healthy behaviors as appropriate Last Documented On 10:35AM ; [facility] Assessments Includes: Assessments from this encounter No Assessments Recorded Instructions Includes: Instructions from this encounter Instructions to patient Lose weight Patient encourag e to limit portion sizes and to tract and restrict their total daily caloric intake Last Documented On 10:37AM ; [facility] Education and Decision Aids were provided during visit for: Clinical staff counseled markos lewis to adopt healthy behaviors as appropriate Last Documented On 10:35AM ; [facility] Medical Equipment - Implanted Devices Includes: Current Devices No Medical Equipment Recorded Medications Includes: Medications discussed during this encounter and other current Medications Discontinued / Stopped on this date on 08/07/2020 EQL Fish Oil 1000 MG Oral Capsule Provide r: Diagnosis: Last Documented On 1 10:32AM By Rayne Olson *TERMED* ; [facility] Current Medications (continue [...] 1 11:18AM By Rayne Olson *TERMED* ; [facility] Alfuzosin HCl ER 10 MG Oral Tablet Extended Rele ase 24 Hour 08/07/2020 Provider: Diagnosis: 1 HS Last Documented On 1 11:19AM By Rayne Olson *TERMED* ; [facility] Multivitamin Oral Tablet 08/07/2020 Provider: Diagnosis: Last Documented On 1 11:20AM By Rayne Olson *TERMED* ; [facility] 2.3 Last Documented On: 12/20/2020 10:35AM ; [facility] Results Includes: Results discussed during this encounter HEMOGLOBIN A1C [facility] Ordered by Gail Gorman MD on 08/10/19 21 Collected: 08/09/2020 Reported: 08/10/19 21 17:29 Last Documented On 1 11:01AM ; [facility] Reviewed by Gail Ospina on 08/14/2020; All test results are final unless otherwise noted. HEMOGLOBIN A1C 7.1 % (4.0-6.0) H (High) Last Documented On 1 10:45PM ; [facility] Note: Specimen Number: [id number] History of Present Illness Includes: History of Present Illness from this encounter ROGER Funez is a 80 year old male. - Allergy list reviewed - Medication reconciliation performed Follow up The patient presents for follow-up. Since last visit, he did go to the [facility]. He had a biopsy done which [...] 11/26 Last Documented On 1 1:09PM ; [facility] Smoking Status Unknown Procedures and Surgical History Includes: Procedures from this encounter Procedures Code Diagnosis Performing Provider Service L ocation Service Date history of Tdap vaccine 60739 Last Documented On 1 10:37AM ; [facility] history of pneumococcal vaccine Last Documented On 1 10:37AM ; [facility] Pt received screening for fall risk [id number] Last Documented On 1 10:35AM ; [facility] history of influenza virus vaccine Last Documented On 1 10:37AM ; [facility] Clinical summary provided to patient Last Documented On 1 10:35AM ; [facility] [...] [facility] Encounters Encounter Provider Location Date Check-In Time Check-Out Time Diagnosis Follow up Gail Gorman MD [facility] 1 10:19AM 11:23AM Insurance Includes: Active Insurance Policies Plan Name Member ID Group # Subscriber Relationship Effect jigar Dates 1 - Medicare : [id number] Pritesh Funez Self 2 - [facility]bs [facility] [id number] Pritesh Mckeon 04/27/2019 - Unknown Clinical Notes Includes: Clinical Notes from this encounter No Clinical Notes Recorded
--- OUTSIDE RECORDS SUMMARY | 2023-03-28 16:14 | XMS_ITS | Clinical Summary ---
Author Name Unknown Address [address] [place] [address] Phone Organization [facility] Address [address] [place] [address] Phone Care Team Providers Care Target Trimmer Name Role Phone Tom Brantley MD, Ismael Gallegos Unavailable [phone] Ricky SPENCER, Heron Epstein Unavailable [phone] Vita SPENCER, Gail Jimenez Unavailable [phone] Blas Walsh MD Unavailable [phone] Chris SPENCER, Misael Guillaume Unavailable [phone] Paul Sheikh DO Primary Care Provide r [phone] Reason for Visit and Chief Complaint [Patient Encounter] Problems Includes: Problems addressed during this encounter and other active Problems All Visits Onset Date Resolved Date Provider Condition S tatus Diabetes Mellitus Type 2 11/07/2017 Blas Persaud MD Active Last Documented On 8 12:03PM ; [facility] Esophageal Reflux 11/07/2017 Blas Walsh MD Active Last Documented On 8 12:01PM ; [facility] Essential Hypertriglyceridemia 11/07/2017 Huy Walsh MD Active Last Documented On 8 12:06PM ; [facility] Essential Hypertension 11/07/2017 Blas gallegos MD Active Last Documented On 8 12:05PM ; [facility] Hemorrhoids Internal 11/07/2017 Blas Walsh MD Active Last Documented On 8 12:04PM ; [facility] Intestinal Disorder Diverticular 11/07/2017 Darrell Walsh MD Active Last Documented On 8 12:06PM ; [facility] Obesity 11/07/2017 Blas Walsh MD Active Last Documented On 8 12:02PM ; [facility] Osteoarthritis 11/07/2017 Blas Walsh MD Act jigar Last Documented On 8 12:06PM ; [facility] 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 Spondylosis 11/07/2017 Blas Waslh MD Active Last Documented On 8 12:04PM ; [facility] Familial (Benign Essential) Tremor 11/07/2017 Tristan Walsh MD Active Last Documented On 8 12:05PM ; [facility] 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 Plan of Treatment [...] 1 10:33AM By Rayne Olson *TERMED* ; [facility] Lisinopril 20 MG Oral Tablet 08/07/2020 Provider: Diagnosis: Last Documented On 1 11:01AM By Rayne Olson *TERMED* ; [facility] Januvia 100 MG Oral Tablet 08/07/2020 Provider: Diagnosis: 1 QD Last Documented On 1 11:17AM By Rayne Olson *TERMED* ; [facility] Atenolol 25 MG Oral Tablet 08/07/2020 Provider: Diagnosis: Last Documented On 1 11:18AM By Rayne Olson *TERMED* ; [facility] Alfuzosin HCl ER 10 MG Oral Tablet Extended Rele ase 24 Hour 08/07/2020 Provider: Diagnosis: 1 HS Last Documented On 1 11:19AM By Rayne Olson *TERMED* ; [facility] Multivitamin Oral Tablet 08/07/2020 Provider: Diagnosis: Last Documented On 1 11:20AM By Rayne Olson *TERMED* ; [facility] CoQ10 100 MG Oral Capsule 08/07/2020 Provider: Diagnosis: Last Documented On 1 11:40AM By Trini Tran ; [facility] Medications Administered Includes: [...] ve Last Documented On 2 11:21AM ; [facility] Sulfa Antibiotics Allergy 11/07/2017 A ctive Last Documented On 2 11:21AM ; [facility] Simvastatin Allergy 11/07/2017 Active Last Documented On 2 11:21AM ; [facility] Lyrica Allergy 11/07/2017 Active Last Documented On 2 11:21AM ; [facility] Byetta 10 MCG Pen Allergy 11/07/2017 A ctive Last Documented On 2 11:21AM ; [facility] Encounters Encounter Provider Location Date Check-In Time Check-Out Time Diagnosis [Patient Encounter] Gail Gorman MD 09/04/2020 1:05PM 11:59PM Insurance Includes: Active Insurance Policies Plan Name Member ID Group # Subscriber Relationship Effect jigar Dates 1 - Medicare : [id number] Pritesh A Armin Self 2 - Bc/bs Fl(federal) :[facility] [id number] Pritesh Funez Self 04/27/2019 - Unknown Clinical Notes Includes: Clinical Notes from this encounter No Clinical Notes Recorded
--- OUTSIDE RECORDS SUMMARY | 2023-03-28 16:14 | XMS_ITS ---
Care Plan - [facility] Created on: March 28, 2023 Pritesh Funze : 1940 Sex: Male Author Name Unknown Address [address] [place] [address] Phone Organization [facility] Address [address] [place] [address] Phone Care Team Providers Care Pharmacist In Charge Owner Name Role Phone Tom Brantley MD, Ismael Gallegos Unavailable [phone] Ricky SPENCER, Heron Epstein Unavailable [phone] Vita SPENCER, Gail Jimenez Unavailable [phone] Jillian SPENCER, Blas Unavailable [phone] Chris SPENCER, Misael Guillaume Unavailable [phone] Paul Sheikh DO Primary Care Provide r [phone]
--- OUTSIDE RECORDS SUMMARY | 2023-03-28 16:14 | XMS_ITS | Clinical Summary ---
Author Name Unknown Address [address] [place] [address] Phone Organization [facility] Address [address] [place] [address] Phone Care Team Providers Care Mechanical Equipment Sales Engineer Name Role Phone Tom Brantley MD, Ismael Gallegos Unavailable [phone] Ricky SPENCER, Heron Epstein Unavailable [phone] Vita SPENCER, Gail Jimenez Unavailable [phone] Blas Walsh MD Unavailable [phone] Chris SPENCER, Misael Guillaume Unavailable [phone] Paul Sheikh DO Primary Care Provide r [phone] Reason for Visit and Chief Complaint [Patient Encounter] Problems Includes: Problems addressed during this encounter and other active Problems All Visits Onset Date Resolved Date Provider Condition S tatus Diabetes Mellitus Type 2 11/07/2017 Blas Persaud MD Active Last Documented On 8 12:03PM ; [facility] Esophageal Reflux 11/07/2017 Blas Walsh MD Active Last Documented On 8 12:01PM ; [facility] Essential Hypertriglyceridemia 11/07/2017 Huy Walsh MD Active Last Documented On 8 12:06PM ; [facility] Essential Hypertension 11/07/2017 Blas gallegos MD Active Last Documented On 8 12:05PM ; [facility] Hemorrhoids Internal 11/07/2017 Blas Walsh MD Active Last Documented On 8 12:04PM ; [facility] Intestinal Disorder Diverticular 11/07/2017 Darrell Walsh MD Active Last Documented On 8 12:06PM ; [facility] Obesity 11/07/2017 Blas Walsh MD Active Last Documented On 8 12:02PM ; [facility] Osteoarthritis 11/07/2017 Blas Walsh MD Act jigar Last Documented On 8 12:06PM ; [facility] 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 Spondylosis 11/07/2017 Blas Walsh MD Active Last Documented On 8 12:04PM ; [facility] Familial (Benign Essential) Tremor 11/07/2017 Tristan Walsh MD Active Last Documented On 8 12:05PM ; [facility] 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 Plan of [...] 10:33AM By Rayne Olson *TERMED* ; [facility] Lisinopril 20 MG Oral Tablet 08/07/2020 Provider: Diagnosis: Last Documented On 1 11:01AM By Rayne Olson *TERMED* ; [facility] Januvia 100 MG Oral Tablet 08/07/2020 Provider: Diagnosis: 1 QD Last Documented On 1 11:17AM By Rayne Olson *TERMED* ; [facility] Atenolol 25 MG Oral Tablet 08/07/2020 Provider: Diagnosis: Last Documented On 1 11:18AM By Rayne Olson *TERMED* ; [facility] Alfuzosin HCl ER 10 MG Oral Tablet Extended Rele ase 24 Hour 08/07/2020 Provider: Diagnosis: 1 HS Last Documented On 1 11:19AM By Rayne Olson *TERMED* ; [facility] Multivitamin Oral Tablet 08/07/2020 Provider: Diagnosis: Last Documented On 1 11:20AM By Rayne Olson *TERMED* ; [facility] CoQ10 100 MG Oral Capsule 08/07/2020 Provider: Diagnosis: Last Documented On 1 11:40AM By Trini Tran ; [facility] Medications Administered [...] Last Documented On 2 11:21AM ; [facility] Sulfa Antibiotics Allergy 11/07/2017 A ctive Last Documented On 2 11:21AM ; [facility] Simvastatin Allergy 11/07/2017 Active Last Documented On 2 11:21AM ; [facility] Lyrica Allergy 11/07/2017 Active Last Documented On 2 11:21AM ; [facility] Byetta 10 MCG Pen Allergy 11/07/2017 A ctive Last Documented On 2 11:21AM ; [facility] Encounters Encounter Provider Location Date Check-In Time Check-Out Time Diagnosis [Patient Encounter] Gail Gorman MD 09/28/2020 9:16AM 11:59PM Insurance Includes: Active Insurance Policies Plan Name Member ID Group # Subscriber Relationship Effect jigar Dates 1 - Medicare : [id number] Pritesh A Armin Self 2 - Bc/bs Fl(federal) :[facility] [id number] Pritesh Funez Self 04/27/2019 - Unknown Clinical Notes Includes: Clinical Notes from this encounter No Clinical Notes Recorded
--- OUTSIDE RECORDS SUMMARY | 2023-03-28 16:14 | XMS_ITS | Clinical Summary ---
Author Name Unknown Address [address] [place] [address] Phone Organization [facility] Address [address] [place] [address] Phone Care Team Providers Care Rn Orthopaedics Name Role Phone Tom Brantley MD, Ismael Gallegos Unavailable [phone] Ricky SPENCER, Heron Epstein Unavailable [phone] Vita SPENCER, Gail Jimenez Unavailable [phone] Blas Walsh MD Unavailable [phone] Chris SPENCER, Misael Guillaume Unavailable [phone] Paul Sheikh DO Primary Care Provide r [phone] Reason for Visit and Chief Complaint [Patient Encounter] Problems Includes: Problems addressed during this encounter and other active Problems All Visits Onset Date Resolved Date Provider Condition S tatus Diabetes Mellitus Type 2 11/07/2017 Blas Persaud MD Active Last Documented On 8 12:03PM ; [facility] Esophageal Reflux 11/07/2017 Blas Walsh MD Active Last Documented On 8 12:01PM ; [facility] Essential Hypertriglyceridemia 11/07/2017 Huy Walsh MD Active Last Documented On 8 12:06PM ; [facility] Essential Hypertension 11/07/2017 Blas gallegos MD Active Last Documented On 8 12:05PM ; [facility] Hemorrhoids Internal 11/07/2017 Blas Walsh MD Active Last Documented On 8 12:04PM ; [facility] Intestinal Disorder Diverticular 11/07/2017 Darrell Walsh MD Active Last Documented On 8 12:06PM ; [facility] Obesity 11/07/2017 Blas Walsh MD Active Last Documented On 8 12:02PM ; [facility] Osteoarthritis 11/07/2017 Blas Walsh MD Act jigar Last Documented On 8 12:06PM ; [facility] 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 Spondylosis 11/07/2017 Blas Walsh MD Active Last Documented On 8 12:04PM ; [facility] Familial (Benign Essential) Tremor 11/07/2017 Tristan Walsh MD Active Last Documented On 8 12:05PM ; [facility] 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 Plan of Treatment Pending Tests Order Diagnosis Results Due Ordering Tony MAX OTHER Type 2 diabetes mellitus with diabetic polyneuropathy 06/20/21 Gail Gorman MD Last Documented On 2 11:41AM ; [facility] Therapy - Occupational Therapy * Occupational Therapy Type 2 diabetes mellitus with diabetic polyneuropathy 06/20/21 Gail Gorman MD Last Documented On 2 11:41AM ; [facility] Assessments Includes: [...] 1 10:33AM By Rayne Olson *TERMED* ; [facility] Lisinopril 20 MG Oral Tablet 08/07/2020 Provider: Diagnosis: Last Documented On 1 11:01AM By Rayne Olson *TERMED* ; [facility] Januvia 100 MG Oral Tablet 08/07/2020 Provider: Diagnosis: 1 QD Last Documented On 1 11:17AM By Rayne Olson *TERMED* ; [facility] Atenolol 25 MG Oral Tablet 08/07/2020 Provider: Diagnosis: Last Documented On 1 11:18AM By Rayne Olson *TERMED* ; [facility] Alfuzosin HCl ER 10 MG Oral Tablet Extended Rele ase 24 Hour 08/07/2020 Provider: Diagnosis: 1 HS Last Documented On 1 11:19AM By Rayne Olson *TERMED* ; [facility] Multivitamin Oral Tablet 08/07/2020 Provider: Diagnosis: Last Documented On 1 11:20AM By Rayne Olson *TERMED* ; [facility] CoQ10 100 MG Oral Capsule 08/07/2020 Provider: Diagnosis: Last Documented On 1 11:40AM By Trini Tran ; [facility] Medications Administered [...] ve Last Documented On 2 11:21AM ; [facility] Sulfa Antibiotics Allergy 11/07/2017 A ctive Last Documented On 2 11:21AM ; [facility] Simvastatin Allergy 11/07/2017 Active Last Documented On 2 11:21AM ; [facility] Lyrica Allergy 11/07/2017 Active Last Documented On 2 11:21AM ; [facility] Byetta 10 MCG Pen Allergy 11/07/2017 A ctive Last Documented On 2 11:21AM ; [facility] Encounters Encounter Provider Location Date Check-In Time Check-Out Time Diagnosis [Patient Encounter] Gail Gorman MD 06/20/2021 1:38PM 11:59PM Insurance Includes: Active Insurance Policies Plan Name Member ID Group # Subscriber Relationship Effect jigar Dates 1 - Medicare : [id number] Pritesh Funez Self 2 - Bc/bs Fl(federal) :mellisa [id number] Pritesh Mckeon 04/27/2019 - Unknown Clinical Notes Includes: Clinical Notes from this encounter No Clinical Notes Recorded
--- OUTSIDE RECORDS SUMMARY | 2023-03-28 16:14 | XMS_ITS | Clinical Summary ---
Author Name Unknown Address [address] [place] [address] Phone Organization [facility] Address [address] [place] [address] Phone Care Team Providers Care Cattle Manager Name Role Phone Tom Brantley MD, Ismael Gallegos Unavailable [phone] Ricky SPENCER, Heron Epstein Unavailable [phone] Vita SPENCER, Gail Jimenez Unavailable [phone] Blas Walsh MD Unavailable [phone] Chris SPENCER, Misael uGillaume Unavailable [phone] Paul Sheikh DO Primary Care Provide r [phone] Reason for Visit and Chief Complaint The Chief Complaint is: follow up, multiple falls Problems Includes: Problems addressed during this encounter and other active Problems All Visits Onset Date Resolved Date Provider Condition S tatus Diabetes Mellitus Type 2 11/07/2017 Blas Persaud MD Active Last Documented On 8 12:03PM ; [facility] Esophageal Reflux 11/07/2017 Blas Walsh MD Active Last Documented On 8 12:01PM ; [facility] Essential Hypertriglyceridemia 11/07/2017 Huy Walsh MD Active Last Documented On 8 12:06PM ; [facility] Essential Hypertension 11/07/2017 Blas gallegos MD Active Last Documented On 8 12:05PM ; [facility] Hemorrhoids Internal 11/07/2017 Blas Walsh MD Active Last Documented On 8 12:04PM ; [facility] Intestinal Disorder Diverticular 11/07/2017 Darrell Walsh MD Active Last Documented On 8 12:06PM ; [facility] Obesity 11/07/2017 Blas Walsh MD Active Last Documented On 8 12:02PM ; [facility] Osteoarthritis 11/07/2017 Blas Walsh MD Act jigar Last Documented On 8 12:06PM ; [facility] 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 Spondylosis 11/07/2017 Blas Walsh MD Active Last Documented On 8 12:04PM ; [facility] Familial (Benign Essential) Tremor 11/07/2017 Tristan Walsh MD Active Last Documented On 8 12:05PM ; [facility] 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 Plan of Treatment 81-year-old [...] would benefit from a power chair. A [id number] has been provided below. However, he is [...] [facility] ([facility]) [facility] [address] [place] [address] This note was created using voice recognition software and is subject to errors including those of syntax which may escape proofreading. - Last Documented On 06/18/2021 12:08PM ; [facility] Education and Decision Aids were provided during visit for: Patient education about diet ramandeep needs Last Documented On 2 11:23AM ; [facility] Assessments Includes: Assessments from this encounter No Assessments Recorded Instructions Includes: Instructions from this encounter Education and Decision Aids were provided during visit for: Patient education about diet ramandeep needs Last Documented On 2 11:23AM ; [facility] Medical Equipment - Implanted Devices Includes: Current Devices No Medical Equipment Recorded Medications Includes: Medications discussed during this encounter and other current Medications Discontinued / Stopped on this date on 08/07/2020 Rosuvastatin Calcium 5 MG Oral Tablet Pro vider: Diagnosis: Last Documented On 2 11:25AM By Trini Tran ; [facility] Vitamin D3 25 MCG (1000 UT) Oral Tablet Chewable Provider: Diagnosis: Last Documented On 2 11:24AM By Trini Tran ; [facility] Current Medications (continue as prescribed) Myrbetriq 25 MG Oral Tablet Extended Release 24 Hour 0 12/20/2020 Provider: Diagnosis: Last Documented On 1 10:33AM By Rayne MckeeTERMED* ; [facility] Lisinopril 20 MG Oral Tablet 08/07/2020 Provider: Diagnosis: Last Documented On 1 11:01AM By Rayne MckeeTERMED* ; [facility] Januvia 100 MG Oral Tablet 08/07/2020 Provider: Diagnosis: 1 QD Last Documented On 1 11:17AM By Rayne Olson *TERMED* ; [facility] Atenolol 25 MG Oral Tablet 08/07/2020 Provider: Diagnosis: Last Documented On 1 11:18AM By Rayne Olson *TERMED* ; [facility] Alfuzosin HCl ER 10 MG Oral Tablet Extended Rele ase 24 Hour 08/07/2020 Provider: Diagnosis: 1 HS Last Documented On 1 11:19AM By Rayne Olson *TERMED* ; [facility] Multivitamin Oral Tablet 08/07/2020 Provider: Diagnosis: Last Documented On 1 11:20AM By Rayne MckeeTERMED* ; [facility] CoQ10 100 MG Oral Capsule 08/07/2020 Provider: Diagnosis: Last Documented On 1 11:40AM By Trini Tran ; [facility] Medications Administered Includes: Administered [...] 2.3 Last Documented On: 06/18/2021 11:27AM ; [facility] Results Includes: Results discussed [...] 06/18/2021 Last Documented On 2 12:08PM ; [facility] Use of tobacco assessment performed 05/29 Last Documented On 2 12:08PM ; [facility] Smoking Status Unknown Procedures and Surgical History Includes: Procedures from this encounter Procedures Code Diagnosis Performing Provider Service L ocation Service Date history of influenza virus vaccine Last Documented On 2 11:23AM ; [facility] [facility] history of pneumococcal vaccine Last Documented On 2 11:23AM ; [email or web address] Medical History Includes: Medical History [...] ve Last Documented On 2 11:21AM ; [facility] Sulfa Antibiotics Allergy 11/07/2017 A ctive Last Documented On 2 11:21AM ; [facility] Simvastatin Allergy 11/07/2017 Active Last Documented On 2 11:21AM ; [facility] Lyrica Allergy 11/07/2017 Active Last Documented On 2 11:21AM ; [facility] Byetta 10 MCG Pen Allergy 11/07/2017 A ctive Last Documented On 2 11:21AM ; [facility] Encounters Encounter Provider Location Date Check-In Time Check-Out Time Diagnosis Follow up Gail Gorman MD [facility] 2 11:10AM 11:58AM Insurance Includes: Active Insurance Policies Plan Name Member ID Group # Subscriber Relationship Effect jigar Dates 1 - Medicare : [id number] Pritesh Funez Self 2 - Bc/bs Fl(federal) :[facility] [id number] Pritesh Mckeon 04/27/2019 - Unknown Clinical Notes Includes: Clinical Notes from this encounter No Clinical Notes Recorded
[2023-03-28 16:24] LABS: Appearance Urine Clear (Clear); Bilirubin Urine Negative (Negative); Blood Urine Trace-intact (Negative); Color Urine Yellow (Yellow); Glucose Urine Negative (Negative); Ketones Urine Negative (Negative); Leukocyte Esterase Urine Negative (Negative); Nitrite Urine Negative (Negative); Protein Urine Negative (Negative); Specific Gravity Urine 1.015 (1.000-1.030); Urobilinogen Urine 0.2 (0.2-1.0); pH Urine 6.5 (5.0-8.5)
[2023-03-28 16:36] LABS: RBC Urine 0-2 (0-2); WBC Urine 0-2 (0-5)
[2023-03-28] MEDS: CIPROFLOXACIN 500 MG TABLET PO (16:46)
--- NOTE | 2023-04-01 10:23 | ED.NURSE ---
patient called and wanted results of the urine culture but looks as if the urine did not trigger need for a culture. Talked to Dr. Avalos of concern of patient and agrees the patient continues to take the Cipro for 7 days as has radiation to the prostrate and concerned has prostatitis so hopefully will help with the sx.
== END 2023-03-28 16:51 | disposition home or self-care (01) ==
PROVIDERS: Emergency Provider Family Medicine
DX: N39.0 Urinary tract infection, site not specified (principal)
CPT/HCPCS: 81001; 87086; 99283; A9270

== ENCOUNTER 2023-11-10 10:54 | Outpatient (CLI) | payer MEDICARE, BC, SELFPAY ==
--- OUTSIDE RECORDS SUMMARY | 2023-11-10 11:00 | XMS_ITS ---
Author Organization [facility] Address [address] [place] [address] Phone Care Team Providers Care Director [employer] Name Role Phone Tom Brantley MD, Ismael Roche Unavailable [phone] Ricky SPENCER, Heron Epstein Unavailable [phone] Vita SPENCER, Gail Jimenez Unavailable [phone] Blas Walsh MD Unavailable [phone] Misael Perez MD Unavailable [phone] Paul Sheikh DO Primary Care Provide r [phone] Problems Includes: Active, inactive, and resolved Problems All Visits Onset Date Resolved Date Provider Condition S tatus Diabetes Mellitus Type 2 11/07/2017 Blas Persaud MD Active Last Documented On 8 12:03PM ; [facility] Esophageal Reflux 11/07/2017 Blas Walsh MD Active Last Documented On 8 12:01PM ; [facility] Essential Hypertriglyceridemia 11/07/2017 Huy Walsh MD Active Last Documented On 8 12:06PM ; [facility] Essential Hypertension 11/07/2017 Blas roche MD Active Last Documented On 8 12:05PM ; [facility] Hemorrhoids Internal 11/07/2017 Blas Walsh MD Active Last Documented On 8 12:04PM ; [facility] Intestinal Disorder Diverticular 11/07/2017 Darrell Walsh MD Active Last Documented On 8 12:06PM ; [facility] Obesity 11/07/2017 Blas Walsh MD Active Last Documented On 8 12:02PM ; [facility] Osteoarthritis 11/07/2017 Blas Walsh MD Act jigar Last Documented On 8 12:06PM ; [facility] 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 Spondylosis 11/07/2017 Blas Walsh MD Active Last Documented On 8 12:04PM ; [facility] Familial (Benign Essential) Tremor 11/07/2017 Tristan Walsh MD Active Last Documented On 8 12:05PM ; [facility] 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 Plan of Treatment Findings Encounter Date Clinical staff counseled pat ient to adopt healthy behaviors as appropriate Follow up with Gail Gorman MD 12/20/2020 Last Documented On 1 1:09PM ; [facility] Clinical staff counseled pat ient to adopt healthy behaviors as appropriate Follow up with Gail Gorman MD 08/22/2020 Last Documented On 1 5:15PM ; [facility] Instructions to patient Lose weight Patient encourag e to limit portion sizes and to tract and restrict their total daily caloric intake Last Documented On 1 10:37AM ; [facility] Lose weight Patient encourag e to limit portion sizes and to tract and restrict their total daily caloric intake Last Documented On 1 8:41AM ; [facility] Lose weight Patient encourag e to limit portion sizes and to tract and restrict their total daily caloric intake Last Documented On 1 11:05AM ; [facility] Education and Decision Aids were provided during visit for: Patient education about diet ramandeep needs Last Documented On 2 11:23AM ; [facility] Clinical staff counseled pat ient to adopt healthy behaviors as appropriate Last Documented On 1 10:35AM ; [facility] Clinical staff counseled pat ient to adopt healthy behaviors as appropriate Last Documented On 1 8:46AM ; [facility] Assessments Includes: Assessments for all patient encounters No Assessments Recorded Instructions Includes: Instructions for all patient encounters Instructions to patient Lose weight Patient encourag e to limit portion sizes and to tract and restrict their total daily caloric intake Last Documented On 1 10:37AM ; [facility] Lose weight Patient encourag e to limit portion sizes and to tract and restrict their total daily caloric intake Last Documented On 1 8:41AM ; [facility] Lose weight Patient encourag e to limit portion sizes and to tract and restrict their total daily caloric intake Last Documented On 1 11:05AM ; [facility] Education and Decision Aids were provided during visit for: Patient education about diet ramandeep needs Last Documented On 2 11:23AM ; [facility] Clinical staff counseled pat ient to adopt healthy behaviors as appropriate Last Documented On 1 10:35AM ; [facility] Clinical staff counseled pat ient to adopt healthy behaviors as appropriate Last Documented On 1 8:46AM ; [facility] Medical Equipment - Implanted Devices Includes: Current and historical Devices No Medical Equipment Recorded Medications Includes: Current and historical Medications Current Medications (continue as prescribed) Myrbetriq 25 MG Oral Tablet Extended Release 24 Hour 0 12/20/2020 Provider: Diagnosis: Last Documented On 1 10:33AM By Rayne Olson *TERMED* ; [facility] Lisinopril 20 MG Oral Tablet 08/07/2020 Provider: Diagnosis: Last Documented On 1 11:01AM By Rayne Olson *TERMED* ; [facility] Januvia 100 MG Oral Tablet 08/07/2020 Provider: Diagnosis: 1 QD Last Documented On 1 11:17AM By Rayne Olson *TERMED* ; [facility] Atenolol 25 MG Oral Tablet 08/07/2020 Provider: Diagnosis: Last Documented On 1 11:18AM By Rayne Olson *TERMED* ; [facility] Alfuzosin HCl ER 10 MG Oral Tablet Extended Rele ase 24 Hour 08/07/2020 Provider: Diagnosis: 1 HS Last Documented On 1 11:19AM By Rayne RYAN* ; [facility] Multivitamin Oral Tablet 08/07/2020 Provider: Diagnosis: Last Documented On 1 11:20AM By Rayne MckeeTERMED* ; [facility] CoQ10 100 MG Oral Capsule 08/07/2020 Provider: Diagnosis: Last Documented On 1 11:40AM By Trini Tran ; [facility] Past Medications on file Rosuvastatin Calcium 5 MG Oral Tablet 08/07/2020 - Provider: Diagnosis: Last Documented On 2 11:25AM By Trini Tran ; [facility] Vitamin D3 25 MCG (1000 UT) Oral Tablet Chewable 08/07/2020 - 06/18/2021 Provider: Diagnosis: Last Documented On 2 11:24AM By Trini Tran ; [facility] EQL Fish Oil 1000 MG Oral Capsule 08/07/2020 - 021 Provider: Diagnosis: Last Documented On 1 10:32AM By Rayne RYAN* ; [facility] Medications Administered Includes: Administered Medications in patient's chart No Administered Medications Recorded Vital Signs Includes: Vital Signs through 11/10/2023 Vital Name 06/18/2021 11:23A 12/20/2020 10:26A 08/22/2020 [...] (bpm) 74 Temp-Oral (F) 97.8 95.1 Last Documented: On 06/18/2021 11:27AM ; [facility] On 12/20/2020 10:35AM ; [facility] On 08/22/2020 8:48AM ; [facility] On 08/07/2020 11:09AM ; [facility] Results Includes: Results through 11/10/2023 CREATININE iSTAT [facility] Ordered by Gail Gorman MD on 09/14/19 Collected: 09/13/2020 Reported: 09/14/19 16:56 Last Documented On 8:26AM ; [facility] Reviewed by Gail Ospina on 09/14/2020; All test results are final unless otherwise noted. CREATININE iSTAT 0.7 mg/dL (0.6-1.3) N (Normal) Last Documented On 8:03PM ; [facility] Note: Specimen Number: [id number] Reported Physicians [facility] Ordered by Gail Gorman MD on 09/14/19 Collected: 09/13/2020 Reported: 09/14/19 16:56 Last Documented On 8:26AM ; [facility] Reviewed by Gail Ospina on 09/14/2020; All test results are final unless otherwise noted. Reported Physicians See Note None Last Documented On 09/13/2020 8:03PM ; [facility] Note: Reported Physicians:Ordering: Lauren Gormanending: Gail Gorman SJOGREN'S AB (SSA/SSB) [facility] Ordered by Gail Gorman MD on 08/10/19 Collected: 08/09/2020 Reported: 08/12/19 12:33 Last Documented On 11:01AM ; [facility] Reviewed by Gail Ospina on 08/14/2020; All test results are final unless otherwise noted. SS-A/Ro AB <0.2 N (Normal) Last Documented On 08/11/2020 4:00PM ; [facility] Note: Reference range: <1.0 (Negative)Unit: U SS-B/La AB <0.2 N (Normal) Last Documented On 08/11/2020 4:00PM ; [facility] Note: Reference range: <1.0 (Negative)Unit: U Test Performed by:[facility] [place] [id number] Director: Mat Pearl M.D. Ph.D.; [facility]# [id number] Number: [id number] Reported Physicians [facility] Ordered by Gail Gorman MD on 08/10/19 Collected: 08/09/2020 Reported: 08/12/19 12:33 Last Documented On 1 11:01AM ; [facility] Reviewed by Gail Ospina on 08/14/2020; All test results are final unless otherwise noted. Reported Physicians See Note None Last Documented On 08/11/2020 4:00PM ; [facility] Note: Reported Physicians:Ordering: Lauren Gormanending: Gail Gorman KAPPA/LAMBDA QNT FLC [facility] Ordered by Gail Gorman MD on 08/10/19 Collected: 08/09/2020 Reported: 08/14/19 07:27 Last Documented On 1 11:01AM ; [facility] Reviewed by Gail Ospina on 08/14/2020; All test results are final unless otherwise noted. KAPPA LIGHT CHN,FR,S 17.9 N (Normal) Last Documented On 1 10:31AM ; [facility] Note: Reference range: 3.3 to 19.4Unit: mg/L KAPPA/LAMBDA,FR RAT 1.21 N (Normal) Last Documented On 1 10:31AM ; [facility] Note: Reference range: 0.26 [...] response totherapy of these disorders.Test Performed by [facility],[address] [place] [id number] Kumar M.D., Ph.D., Director of [phone], [facility] [id number] Number: [id number] LAMBDA LIGHT CH,FR,S 14.8 N (Normal) Last Documented On 1 10:31AM ; [facility] Note: Reference range: 5.7 to 26.3Unit: mg/L Reported Physicians [facility] Ordered by Gail Gorman MD on 08/10/19 Collected: 08/09/2020 Reported: 08/14/19 21 07:27 Last Documented On 1 11:01AM ; [facility] Reviewed by Gail Ospina on 08/14/2020; All test results are final unless otherwise noted. Reported Physicians See Note None Last Documented On 08/13/2020 10:31AM ; [facility] Note: Reported Physicians:Ordering: Lauren Gormanending: Gail Gorman IMMUNOFIXATN PROF,SERUM [facility] Ordered by Gail Gorman MD on 08/10/19 Collected: 08/09/2020 Reported: 08/15/19 15:48 Last Documented On 1 9:55AM ; [facility] Reviewed by Gail Ospina on 08/17/2020; All test results are final unless otherwise noted. TP, SERUM 6.6 g/dL (6.4-8.3) N (Normal) Last Documented On 1 7:33PM ; [facility] ALBUMIN 4.0 g/dL (3.0-5.2) N (Normal) Last Documented On 1 7:33PM ; [facility] A1 GLOBULIN 0.2 g/dL (0.1-0.4) N (Normal) Last Documented On 7:33PM ; [facility] A2 GLOBULIN 0.8 g/dL (0.4-1.0) N (Normal) Last Documented On 1 7:33PM ; [facility] BETA GLOBULIN 0.7 g/dL (0.7-1.6) N (Normal) Last Documented On 1 7:33PM ; [facility] GAMMA GLOBULIN 0.9 g/dL (0.7-2.0) N (Normal) Last Documented On 1 7:33PM ; [facility] A/G RATIO 1.5 Units (1.2-2.2) N (Normal) Last Documented On 7:33PM ; [facility] IGA 64 mg/dL (70-400) L (Low) Last Documented On 7:33PM ; [facility] IGG 767 mg/dL (700-1600) N (Normal) Last Documented On 7:33PM ; [facility] IGM 47 mg/dL (40-230) N (Normal) Last Documented On 7:33PM ; [facility] PATH INTERP SPE Interpretation: No abnormal protein seen. N (Normal) Last Documented On 08/14/2020 7:33PM ; [facility] Note: SIFE Interpretation: No abnormal protein is seen. Specimen Number: [id number] Reported Physicians [facility] Ordered by Gail Gorman MD on 08/10/19 Collected: 08/09/2020 Reported: 08/15/19 15:48 Last Documented On 9:55AM ; [facility] Reviewed by Gail Ospina on 08/17/2020; All test results are final unless otherwise noted. Reported Physicians See Note None Last Documented On 08/14/2020 7:33PM ; [facility] Note: Reported Physicians:Ordering: Lauren Gormanending: Gail Gorman METHYLMALONIC ACID [facility] Ordered by Gail Gorman MD on 08/10/19 Collected: 08/09/2020 Reported: 08/20/19 05:23 Last Documented On 1 10:47AM ; [facility] Reviewed by Gail Ospina on 08/20/2020; All test results are final unless otherwise noted. METHYLMALONIC ACID 179 N (Normal) Last Documented On 08/19/2020 8:37AM ; [facility] Note: Reference range: 87 to 318Unit: nmol/L This test was developed and its analytical performancecharacteristics have been determined by [employer] [place], [place]. It hasnot been cleared or approved by the U.S. Food and DrugAdministration. This assay has been validated pursuantto the CLIA regulations and is used for clinicalpurposes.Test Performed by [facility],[employer] [facility],[address] [place] [id number] Kumar M.D., Ph.D., Director of [phone], CLIA [id number] Number: [id number] Reported Physicians [facility] Ordered by Gail Gorman MD on 08/10/19 Collected: 08/09/2020 Reported: 08/20/19 05:23 Last Documented On 1 10:47AM ; [facility] Reviewed by Gail Ospina on 08/20/2020; All test results are final unless otherwise noted. Reported Physicians See Note None Last Documented On 08/19/2020 8:37AM ; [facility] Note: Reported Physicians:Ordering: Lauren Gormanending: Gail Gorman HEMOGLOBIN A1C [facility] Ordered by Gail Gorman MD on 08/10/19 Collected: 08/09/2020 Reported: 08/10/19 17:29 Last Documented On 1 11:01AM ; [facility] Reviewed by Gail Ospina on 08/14/2020; All test results are final unless otherwise noted. HEMOGLOBIN A1C 7.1 % (4.0-6.0) H (High) Last Documented On 1 10:45PM ; [facility] Note: Specimen Number: [id number] VITAMIN B12 [facility] Ordered by Gail Gorman MD on 08/10/19 Collected: 08/09/2020 Reported: 08/10/19 17:54 Last Documented On 1 11:01AM ; [facility] Reviewed by Gail Ospina on 08/14/2020; All test results are final unless otherwise noted. VITAMIN B12 502 pg/mL (193-986) N (Normal) Last Documented On 10:45PM ; [facility] Note: Specimen Number: [id number] HEP C AB [facility] Ordered by Gail Gorman MD on 08/10/19 Collected: 08/09/2020 Reported: 08/10/19 18:18 Last Documented On 1 11:01AM ; [facility] Reviewed by Gail Ospina on 08/14/2020; All test results are final unless otherwise noted. HEP C AB NONREACTIVE (NONREACTIVE) N (Normal) Last Documented On 1 10:45PM ; [facility] Note: Specimen Number: [id number] Reported Physicians [facility] Ordered by Gail Gorman MD on 08/10/19 Collected: 08/09/2020 Reported: 08/10/19 18:18 Last Documented On 1 11:01AM ; [facility] Reviewed by Gail Ospina on 08/14/2020; All test results are final unless otherwise noted. Reported Physicians See Note None Last Documented On 08/09/2020 10:45PM ; [facility] Note: Reported Physicians:Ordering: Lauren Gormanending: Gail Gorman History of Present Illness History of Present Illness not supported for this document type No History of Present Illness Recorded Social History Description Last Updated Former smoker 06/18/2021 Last Documented On 2 12:08PM ; [facility] Use of tobacco assessment performed 05/29 Last Documented On 2 12:08PM ; [facility] Patient has living will 12/20/2020 Last Documented On 1 1:09PM ; [facility] Patient has not seen another provider si nce last visit 12/20/2020 Last Documented On 1 1:09PM ; [facility] States no significant change in lifestyl e since last visit 12/20/2020 Last Documented On 1 1:09PM ; [facility] A social drinker 08/22/2020 Last Documented On 1 5:15PM ; [facility] No tobacco use Former 08/22/2020 Last Documented On 1 5:15PM ; [facility] Not using drugs 08/22/2020 Last Documented On 1 5:15PM ; [facility] Smoking Status Unknown Procedures and Surgical History Includes: Procedures through 11/10/2023 Procedures Code Diagnosis Performing Provider Service Location Service Date Collection blood by venipuncture % 01489 Essential (primary) hypertension [facility] [employer] [facility] Primary Care at [facility] 05/07/2023 Last Documented On 4 3:01PM ; [facility] Collection blood by venipuncture % 59687 Type 2 diabetes mellitus without complications [facility] [employer] In[employer] [facility] Primary Care at [facility] 06/02/2022 Last Documented On 3 11:52AM ; [facility] 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 Electrocardiogram report (Repeat procedure by same physician) [id number] Abnormal electrocardiogram [ECG] [EKG] Jefe Ricketts MD [facility] 07/24/2021 Last Documented On 2 2:22PM ; [facility] Electrocardiogram report [id number] Abnormal electrocardiogram [ECG] [EKG] Jefe Ricketts MD [facility] 07/24/2021 Last Documented On 2 7:27AM ; [facility] Collection blood by venipuncture % 19562 Malignant neoplasm of prostate [facility] [employer] In[employer] Primary Care at [facility] 07/11/2021 Last Documented On 2 10:35AM ; [facility] Collection blood by venipuncture % 50454 Other pruritus [facility] [employer] In[employer] Primary Car e at [facility] 07/03/2021 Last Documented On 2 11:30AM ; [facility] Remove impacted cerumen, instrumnt, uni 04421 Impacted cerumen, unspecified ear Taras Durand MD [facility] Otolaryngology at [facility] 02/05/2021 Last Documented On 1 9:21AM ; [facility] Musc tst done w/n tst nonext (Distinct Proc Serv.) 74882 Paresthesia of skin Gail Gorman MD [facility] Neurology at [facility] 08/15/2020 Last Documented On 1 7:59AM ; [facility] Musc tst done w/n tst nonext 36042 Radiculopathy, cervicothoracic region Gail Gorman MD [facility] Neurology at [facility] 08/15/2020 Last Documented On 1 12:06PM ; [facility] Musc test done w/n test comp (Left Side) 49104 Type 2 diabetes mellitus with diabetic polyneuropathy, Radiculopathy, cervicothoracic region, Radiculopathy, lumbosacral region, Paresthesia of skin Gail Gorman MD [facility] Neurology at [facility] 08/15/2020 Last Documented On 1 12:06PM ; [facility] Musc test done w/n test comp (Right Side) 31043 Type 2 diabetes mellitus with diabetic polyneuropathy, Radiculopathy, cervicothoracic region, Radiculopathy, lumbosacral region, Paresthesia of skin Gail Gorman MD [facility] Neurology at [facility] 08/15/2020 Last Documented On 1 12:06PM ; [facility] Nrv cndj test 13/> studies 24567 Type 2 diabetes mellitus with diabetic polyneuropathy, Radiculopathy, cervicothoracic region, Radiculopathy, lumbosacral region, Paresthesia of skin Gail Gorman MD [facility] Neurology at [facility] 08/15/2020 Last Documented On 1 12:06PM ; [facility] 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 Surgical History Last Updated History of back surgery [facility] Ne[facility] rayray wale 10 yrs ago 08/22/2020 Last Documented On 1 5:15PM ; [facility] Prior surgery Appendix removed young ad ult ~Hernia 5 yrs ago 08/22/2020 Last Documented On 1 5:15PM ; [facility] Medical History Includes: Medical History in patient's chart Description Last Updated Denies significant change in medical sta tus since last visit 12/20/2020 Last Documented On 1 1:09PM ; [facility] Yes patient feels confident managing chr onic conditions 12/20/2020 Last Documented On 1 1:09PM ; [facility] [facility] A history of cancer Prostate 08/22/2020 Last Documented On 1 5:15PM ; [facility] History of benign essential hypertension Hypertension 08/22/2020 Last Documented On 1 5:15PM ; [facility] History of diabetes mellitus 08/22/2020 Last Documented On 1 5:15PM ; [facility] History of hyperlipidemia 08/22/2020 Last Documented On 1 5:15PM ; [facility] Family History Includes: Family History in patient's chart Description Last Updated States no significant change in family m edical history since last visit 12/20/2020 Last Documented On 1 1:09PM ; [facility] Review of Systems Review [...] Last Documented On 2 11:21AM ; [facility] Sulfa Antibiotics Allergy 11/07/2017 A ctive Last Documented On 2 11:21AM ; [facility] Simvastatin Allergy 11/07/2017 Active Last Documented On 2 11:21AM ; [facility] Lyrica Allergy 11/07/2017 Active Last Documented On 2 11:21AM ; [facility] Byetta 10 MCG Pen Allergy 11/07/2017 A ctive Last Documented On 2 11:21AM ; [facility] Encounters Includes: Encounters through 11/10/2023 Encounter Provider Location Date Check-In Time Check-Out Time Diagnosis [Patient Encounter] Gail Gorman MD 2 06/18/2021 1:38PM 06/18/2021 11:59PM Follow up Gail Gorman MD [facility] 2 11:10AM 11:58AM Follow up Gail Gorman MD [facility] 1 10:19AM 11:23AM [Patient Encounter] Gail Gorman MD 1 08/22/2020 9:16AM 08/22/2020 11:59PM [Patient Encounter] Gail Gorman MD 1 08/22/2020 1:05PM 08/22/2020 11:59PM Follow up Gail Gorman MD [facility] 1 8:41AM 9:31AM [Patient Encounter] Gail Gorman MD 1 3:17PM 11:59PM EMG Gail Gorman MD [facility] 1 1:29PM 3:20PM New Patient Gail Gorman MD [facility] 1 9:43AM 11:50AM Preload Process Blas Walsh MD 8 11:59AM 11:59PM Insurance Includes: Active Insurance Policies Plan Name Member ID Group # Subscriber Relationship Effect jigar Dates 1 - Medicare : [id number] Pritesh Funez Self 2 - Bc/ Fl(federal) :[facility] [id number] Pritesh Mckeon 04/27/2019 - Unknown Clinical Notes Includes: Signed Clinical Notes starting from 05/16/2022 No Clinical Notes Recorded
--- OUTSIDE RECORDS SUMMARY | 2023-11-10 11:01 | XMS_ITS | Clinical Summary ---
Author Organization [facility] Address [address] [place] [address] Phone Care Team Providers Care Time Clock Repairer Name Role Phone Tom Brantley MD, Ismael Gallegos Unavailable [phone] Ricky SPENCER, Heron Epstein Unavailable [phone] Vita SPENCER, Gail Jimenez Unavailable [phone] Blas Walsh MD Unavailable [phone] Misael Perez MD Unavailable [phone] Paul Sheikh DO Primary Care Provide r [phone] Reason for Visit and Chief Complaint The Chief Complaint is: follow up, multiple falls Problems Includes: Problems addressed during this encounter and other active Problems All Visits Onset Date Resolved Date Provider Condition S tatus Diabetes Mellitus Type 2 11/07/2017 Blas Persaud MD Active Last Documented On 8 12:03PM ; [facility] Esophageal Reflux 11/07/2017 Blas Walsh MD Active Last Documented On 8 12:01PM ; [facility] Essential Hypertriglyceridemia 11/07/2017 Huy Walsh MD Active Last Documented On 8 12:06PM ; [facility] Essential Hypertension 11/07/2017 Blas gallegos MD Active Last Documented On 8 12:05PM ; [facility] Hemorrhoids Internal 11/07/2017 Blas Walsh MD Active Last Documented On 8 12:04PM ; [facility] Intestinal Disorder Diverticular 11/07/2017 Darrell Walsh MD Active Last Documented On 8 12:06PM ; [facility] Obesity 11/07/2017 Blas Walsh MD Active Last Documented On 8 12:02PM ; [facility] Osteoarthritis 11/07/2017 Blas Walsh MD Act jigar Last Documented On 8 12:06PM ; [facility] 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 Spondylosis 11/07/2017 Blas Walsh MD Active Last Documented On 8 12:04PM ; [facility] Familial (Benign Essential) Tremor 11/07/2017 Tristan Walsh MD Active Last Documented On 8 12:05PM ; [facility] 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 Plan of Treatment 81-year-old [...] would benefit from a power chair. A kovy-[id number]-ivge has been provided below. However, he is [...] Electrodiagnostic Medicine (NCS/EMG) [facility] of [address] [place] [address] This note was created using voice recognition software and is subject to errors including those of syntax which may escape proofreading. - Last Documented On 06/18/2021 12:08PM ; [facility] Education and Decision Aids were provided during visit for: Patient education about diet ramandeep needs Last Documented On 2 11:23AM ; [facility] Assessments Includes: Assessments from this encounter No Assessments Recorded Instructions Includes: Instructions from this encounter Education and Decision Aids were provided during visit for: Patient education about diet ramandeep needs Last Documented On 2 11:23AM ; [facility] Medical Equipment - Implanted Devices Includes: Current Devices No Medical Equipment Recorded Medications Includes: Medications discussed during this encounter and other current Medications Discontinued / Stopped on this date on 08/07/2020 Rosuvastatin Calcium 5 MG Oral Tablet Pro vider: Diagnosis: Last Documented On 11:25AM By Trini Tran ; [facility] Vitamin D3 25 MCG (1000 UT) Oral Tablet Chewable Provider: Diagnosis: Last Documented On 2 11:24AM By Trini Tran ; [facility] Current Medications (continue as prescribed) Myrbetriq 25 MG Oral Tablet Extended Release 24 Hour 0 12/20/2020 Provider: Diagnosis: Last Documented On 1 10:33AM By Rayne Olson *TERMED* ; [facility] Lisinopril 20 MG Oral Tablet 08/07/2020 Provider: Diagnosis: Last Documented On 1 11:01AM By Rayne Olson *TERMED* ; [facility] Januvia 100 MG Oral Tablet 08/07/2020 Provider: Diagnosis: 1 QD Last Documented On 1 11:17AM By Rayne Olson *TERMED* ; [facility] Atenolol 25 MG Oral Tablet 08/07/2020 Provider: Diagnosis: Last Documented On 1 11:18AM By Rayne Olson *TERMED* ; [facility] Alfuzosin HCl ER 10 MG Oral Tablet Extended Rele ase 24 Hour 08/07/2020 Provider: Diagnosis: 1 HS Last Documented On 1 11:19AM By Rayne Olson *TERMED* ; [facility] Multivitamin Oral Tablet 08/07/2020 Provider: Diagnosis: Last Documented On 1 11:20AM By Rayne Olson *TERMED* ; [facility] CoQ10 100 MG Oral Capsule 08/07/2020 Provider: Diagnosis: Last Documented On 1 11:40AM By Trini Tran ; [facility] Medications Administered Includes: Administered Medications from this encounter No Administered Medications Recorded Vital Signs Includes: Vital Signs from this encounter Vital Name 06/18/2021 11:23A Blood Pressure Sitting L 130/85 BP Cuff Size Regular Pulse Rate-Sitting (bpm) 72 Pulse Rhythm Regular Height (in) 71 Weight (lb) 239 Body Mass Index (kg/m2) 33.3 Body Surface Area (m2) 2.3 Last Documented: On 06/18/2021 11:27A M ; [facility] Results Includes: [...] 06/18/2021 Last Documented On 2 12:08PM ; [facility] Use of tobacco assessment performed 05/29 Last Documented On 2 12:08PM ; [facility] Smoking Status Unknown Procedures and Surgical History Includes: Procedures from this encounter Procedures Code Diagnosis Performing Provider Service L ocation Service Date history of influenza virus vaccine Last Documented On 2 11:23AM ; [facility] history of pneumococcal vaccine Last Documented On 2 11:23AM ; [facility] Medical History [...] ve Last Documented On 2 11:21AM ; [facility] Sulfa Antibiotics Allergy 11/07/2017 A ctive Last Documented On 2 11:21AM ; [facility] Simvastatin Allergy 11/07/2017 Active Last Documented On 2 11:21AM ; [facility] Lyrica Allergy 11/07/2017 Active Last Documented On 2 11:21AM ; [facility] Byetta 10 MCG Pen Allergy 11/07/2017 A ctive Last Documented On 2 11:21AM ; [facility] Encounters Encounter Provider Location Date Check-In Time Check-Out Time Diagnosis Follow up Gail Gorman MD [facility] 2 11:10AM 11:58AM Insurance Includes: Active Insurance Policies Plan Name Member ID Group # Subscriber Relationship Effect jigar Dates 1 - Medicare : [id number] Pritesh Funez Self 2 - Bc/bs Fl(federal) :mellisa [id number] Pritesh Mckeon 04/27/2019 - Unknown Clinical Notes Includes: Clinical Notes from this encounter No Clinical Notes Recorded
--- OUTSIDE RECORDS SUMMARY | 2023-11-10 11:01 | XMS_ITS | Clinical Summary ---
Author Organization [facility] Address [address] [place] [address] Phone Care Team Providers Care Planning Analyst Name Role Phone Tom Brantley MD, Ismael Roche Unavailable [phone] Ricky SPENCER, Heron Epstein Unavailable [phone] Vita SPENCER, Gail Jimenez Unavailable [phone] Blas Walsh MD Unavailable [phone] Misael Perez MD Unavailable [phone] Paul Sheikh DO Primary Care Provide r [phone] Reason for Visit and Chief Complaint The [...] idiopathic component. 1. Pathology report from the [facility] reviewed. The fine-needle aspiration of a [...] Electrodiagnostic Medicine (NCS/EMG) [facility] of [address], [address] [place] [address] This note was created using voice recognition [...] On 1 10:33AM By Rayne MckeeTERMED* ; [facility] Lisinopril 20 MG Oral Tablet 08/07/2020 Provider: Diagnosis: Last Documented On 1 11:01AM By Rayne Olson *TERMED* ; [facility] Januvia 100 MG Oral Tablet 08/07/2020 Provider: Diagnosis: 1 QD Last Documented On 1 11:17AM By Rayne MckeeTERMED* ; [facility] [...] On 1 11:20AM By Rayne MckeeTERMED* ; [facility] [...] 32.8 Body Surface Area (m2) 2.3 Last Documented: On 12/20/2020 10:35A M ; [facility] Results Includes: Results discussed during this encounter HEMOGLOBIN A1C [place] Ordered by Gail Gorman MD on 08/10/19 21 Collected: 08/09/2020 Reported: 08/10/19 21 17:29 Last Documented On 1 11:01AM ; [facility] Reviewed by Gail Ospina on 08/14/2020; All test results are final unless otherwise noted. HEMOGLOBIN A1C 7.1 % (4.0-6.0) H (High) Last Documented On 1 10:45PM ; [facility] Note: Specimen Number: [id number] History of Present Illness Includes: History of Present Illness from this encounter ROGER Funez is a 80 year old male. - Allergy list reviewed - Medication reconciliation performed Follow up The patient presents for follow-up. Since last visit, he did go to the [facility]. He had a biopsy done which [...] ocation Service Date history of Tdap vaccine 01306 Last Documented On 1 10:37AM ; [facility] [...] up Gail Gorman MD [facility] 1 10:19AM 11:23AM Insurance Includes: Active Insurance Policies Plan Name Member ID Group # Subscriber Relationship Effect jigar Dates 1 - Medicare : [id number] Pritesh Funez Self 2 - Bc/bs Fl(federal) :[facility] [id number] Pritesh Mckeon 04/27/2019 - Unknown Clinical Notes Includes: Clinical Notes from this encounter No Clinical Notes Recorded
--- OUTSIDE RECORDS SUMMARY | 2023-11-10 11:01 | XMS_ITS | Clinical Summary ---
Author Organization [facility] Address [address] [place] [address] Phone Care Team Providers Care Contact Agent Name Role Phone Tom Brantley MD, Ismael Gallegos Unavailable [phone] Ricky SPENCER, Heron Epstein Unavailable [phone] Vita SPENCER, Gail Jimenez Unavailable [phone] Blas Walsh MD Unavailable [phone] Misael Perez MD Unavailable [phone] Paul Sheikh DO Primary Care Provide r [phone] Reason for Visit and Chief Complaint [Patient Encounter] Problems Includes: Problems addressed during this encounter and other active Problems All Visits Onset Date Resolved Date Provider Condition S tatus Diabetes Mellitus Type 2 11/07/2017 Blas Persaud MD Active Last Documented On 8 12:03PM ; [facility] Esophageal Reflux 11/07/2017 Blas Walsh MD Active Last Documented On 8 12:01PM ; [facility] Essential Hypertriglyceridemia 11/07/2017 Huy Walsh MD Active Last Documented On 8 12:06PM ; [facility] Essential Hypertension 11/07/2017 Blas gallegos MD Active Last Documented On 8 12:05PM ; [facility] Hemorrhoids Internal 11/07/2017 Blas Walsh MD Active Last Documented On 8 12:04PM ; [facility] Intestinal Disorder Diverticular 11/07/2017 Darrell Walsh MD Active Last Documented On 8 12:06PM ; [facility] Obesity 11/07/2017 Blas Walsh MD Active Last Documented On 8 12:02PM ; [facility] Osteoarthritis 11/07/2017 Blas Walsh MD Act jigar Last Documented On 8 12:06PM ; [facility] 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 Spondylosis 11/07/2017 Blas Walsh MD Active Last Documented On 8 12:04PM ; [facility] Familial (Benign Essential) Tremor 11/07/2017 Tristan Walsh MD Active Last Documented On 8 12:05PM ; [facility] 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 Plan of Treatment Pending Tests Order Diagnosis Results Due Ordering Tony MAX OTHER Type 2 diabetes mellitus with diabetic polyneuropathy 06/20/21 Gail Gorman MD Last Documented On 2 11:41AM ; [facility] Therapy - Occupational Therapy * Occupational Therapy Type 2 diabetes mellitus with diabetic polyneuropathy 06/20/21 Gail Gorman MD Last Documented On 2 11:41AM ; [facility] Assessments Includes: Assessments [...] 1 10:33AM By Rayne Olson *TERMED* ; [facility] Lisinopril 20 MG Oral Tablet 08/07/2020 Provider: Diagnosis: Last Documented On 1 11:01AM By Rayne Olson *TERMED* ; [facility] Januvia 100 MG Oral Tablet 08/07/2020 Provider: Diagnosis: 1 QD Last Documented On 1 11:17AM By Rayne Olson *TERMED* ; [facility] Atenolol 25 MG Oral Tablet 08/07/2020 Provider: Diagnosis: Last Documented On 1 11:18AM By Rayne Olson *TERMED* ; [facility] Alfuzosin HCl ER 10 MG Oral Tablet Extended Rele ase 24 Hour 08/07/2020 Provider: Diagnosis: 1 HS Last Documented On 1 11:19AM By Rayne Olson *TERMED* ; [facility] Multivitamin Oral Tablet 08/07/2020 Provider: Diagnosis: Last Documented On 1 11:20AM By Rayne Olson *TERMED* ; [facility] CoQ10 100 MG Oral Capsule 08/07/2020 Provider: Diagnosis: Last Documented On 1 11:40AM By Trini Tran ; [facility] Medications Administered Includes: [...] ve Last Documented On 2 11:21AM ; [facility] Sulfa Antibiotics Allergy 11/07/2017 A ctive Last Documented On 2 11:21AM ; [facility] Simvastatin Allergy 11/07/2017 Active Last Documented On 2 11:21AM ; [facility] Lyrica Allergy 11/07/2017 Active Last Documented On 2 11:21AM ; [facility] Byetta 10 MCG Pen Allergy 11/07/2017 A ctive Last Documented On 2 11:21AM ; [facility] Encounters Encounter Provider Location Date Check-In Time Check-Out Time Diagnosis [Patient Encounter] Gail Gorman MD 06/20/2021 1:38PM 11:59PM Insurance Includes: Active Insurance Policies Plan Name Member ID Group # Subscriber Relationship Effect jigar Dates 1 - Medicare : [id number] Pritesh Funez Self 2 - Bc/ Fl(federal) :[facility] [id number] Pritesh Mckeon 04/27/2019 - Unknown Clinical Notes Includes: Clinical Notes from this encounter No Clinical Notes Recorded
--- OUTSIDE RECORDS SUMMARY | 2023-11-10 11:02 | XMS_ITS | Data Portability ---
Author Organization MD - [email or web address], [facility] Address [address] [place] [address] Care Team Providers Care Web Press Roll Tender Name Role Phone GERARD CHAMORRO Primary Care Provider [phone] Assessment No assessment recorded. Plan of Treatment Reminders Order Date Submit Date Provider Last Modified By Organization Details Last Modified Time Details Appointments None record ed. Lab None record ed. Referral None record ed. Procedures None record ed. Surgeries None record ed. Imaging None record ed. Medication Orders None record ed. Patient TargetsNo targets recorded. Patient InstructionsNo instructions recorded. Reason for Referral None Reported. Results Created Date Observation Date Name Description Value Unit Range Abnormal Flag LastModifiedBy Organization Detail LastModifiedTime 07/12/19 22 07/11/2021 PSA AG, DIAG PSA Ag, diag 0.02 NG/mL 0.00-4 .00 normal Not Available [facility] (Main Lab) [address] [place], [address], 07/11/2021 21:38:49 07/12/19 22 07/11/2021 PSA AG, DIAG specimen number [id number] Not Available [facility] (Main Lab) [address] [place], [address], 07/11/2021 21:38:49 07/12/19 22 07/11/2021 PSA AG, DIAG performing lab: see note Not Available [facility] (Main Lab) [address] [place], [address], 07/11/2021 21:38:49 07/12/19 22 07/11/2021 HEMOG LOBIN A1C specimen number [id number] Not Available [facility] (Main Lab) [address], [place], [address], 07/12/2021 08:29:20 07/12/19 22 07/11/2021 HEMOG LOBIN A1C performing lab: see note Not Available [facility] (Main Lab) [address], [place], [address], 07/12/2021 08:29:20 07/12/19 22 07/12/2021 HEMOG LOBIN A1C hemoglobin A1C 7.6 % 4.0-6. 0 high Not Available [facility] (Main Lab) [address], [place], [address], 07/12/2021 08:29:20 Result Notes None recorded. Problems Name Status Onset Date Resolution Date Notes Provider Name and Address Organization Details Recorded Time Mild memory disturbance Active Not Available [facility] 2 00:52:31 Gastroesophage al reflux disease Active GERD Not Available [facility] 2 00:52:31 Multiple renal cysts Active Lt Not Available [facility] 2 00:52:31 Benign prostatic hyperplasia without outflow obstruction Active BPH Not Available [facility] 2 00:52:31 History of peptic ulcer Active PUD Not Available [facility] 2 00:52:31 Laceration of palm of hand Active Not Available [facility] 2 00:52:31 Peripheral nerve disease Active neuropathy Not Available [facility] 2 00:52:31 Hypertriglycer idemia Active Not Available [facility] 2 00:52:31 Type 2 diabetes mellitus without complication Active Not Available [facility] 2 00:52:31 Blood in urine Active Not Available [facility] 2 00:52:31 Dyslipidemia Active 11/12 total cholesterol 151, triglycerides 130, LDL 81, HDL 44 Not Available [facility] 2 00:52:31 Osteoarthritis Active OA Not Available [facility] 2 00:52:31 Diverticular disease Active Not Available [facility] 2 00:52:31 Obesity Active BMI 34 Not Available [facility] 2 00:52:31 Environmental allergy Active Not Available [facility] 2 00:52:32 Spondylolysis of cervical spine Active Not Available [facility] 2 00:52:32 Hernia of abdominal cavity Active Not Available [facility] 2 00:52:32 Coronary arterioscleros is Active False-positive stress test x2 with LHC revealing no fixed CAD PET 04/08 negative for ischemia Not Available [facility] 2 00:52:32 Essential hypertension Active 05/10 EF 60-65%, trivial VHD Not Available [facility] 2 00:52:32 Tinnitus Active Not Available [facility] 2 00:52:32 Obstructive sleep apnea syndrome Active ROXIE on CPAP. Polysomnography 01/11/2004 per [facility] note Not Available [facility] 2 00:52:32 Helicobacter-a ssociated gastritis Active H Pylori + Not Available [facility] 2 00:52:32 Internal hemorrhoids Active Not Available [facility] 2 00:52:32 Sensory neuropathy Active Not Available [facility] 2 00:52:32 Bilateral cataracts Active OU Not Available [facility] 2 00:52:32 Notes:Stress PET 03/2013: no rmal Echo 04/2013: EF 65%, no valve disease Elevated CK Atrophy, webbing Bilat thum/index area CMV & EBV IgG+ 04/02 Problem Notes None recorded. Medical Equipment None Reported. Allergies Allergen ID Allergen Name Allergen Category Reaction Reaction Severity Criticality Documentation Date Start Date Code Code System Note Provider Name and Address Organization Details Recorded Time [id number] Substance with sulfonami de structure and antibacte rial mechanism of action (substanc e) medicatio n Not available Not available Not available 04/28/2021 46959 8003 SNOMED Not Available [facility] 2 01:30:57 646245 simvastat in medicatio n Not available Not available Not available 04/28/2021 40818 RxNorm skin turne d red/ muscl e cramp ing pt. denie s sympt oms Not Available [facility] 2 01:30:57 453143 Lyrica medicatio n Not available Not available Not available 04/28/2021 41404 1 RxNorm Not Available [facility] 2 01:30:57 [id number] Byetta medicatio n Not available Not available Not available 04/28/2021 33951 1 RxNorm rash Not Available [facility] 2 01:30:57 252528 Toprol medicatio n Not available Not available Not available 04/28/2021 46199 5 RxNorm Not Available [facility] 2 01:30:57 [id number] tamsulosi n medicatio n Not available Not available Not available 04/28/2021 67470 RxNorm skin turne d red Not Available [facility] 2 01:30:57 Medications Name Sig Start Date Stop Date Status Note LastModified by Organization Details LastModified Time fluconazo le 100 mg tablet TK 2 TS PO ON DAY 1 THEN 1 T QD active Not Available Not Available No t Available metformin 500 mg tablet TK 2 T PO HS UTD 07/28 completed Not Available Not Available Not Available bicalutam alejandro 50 mg tablet 07/28 completed Not Available Not Available Not Available doxycycli ne hyclate 100 mg capsule Take 1 capsule twice a day by oral route for 7 days. active Not Available Not Available No t Available ketoconaz ole 2 % shampoo SHAMPOO TWICE A WEEK FOR 4 WEEKS THEN USE INTERMIT TENTLY active Not Available Not Available No t Available cetirizin e 10 mg tablet TK 1 T PO QD 04/02 completed Not Available Not Available Not Available lisinopri l 20 mg-hydroc hlorothia zide 12.5 mg tablet TK 1 T PO QD FOR 90 DAYS 06/07 completed Not Available Not Available Not Available tramadol 37.5 mg-acetam inophen 325 mg tablet 02/23 completed Not Available Not Available Not Available hydrocodo ne 5 mg-acetam inophen 325 mg tablet active Not Available Not Available Not Available Nystop 100,000 unit/gram topical powder active Not Available Not Available Not Available meloxicam 15 mg tablet TAKE 1 TABLET BY MOUTH EVERY DAY WITH MEALS 03/10 completed Not Available Not Available Not Available lisinopri l 20 mg tablet TAKE 1 TABLET TWICE A DAY active Not Available Not Available No t Available doxycycli ne hyclate 50 mg capsule TK ONE C PO Q 24 H 07/28 completed Not Available Not Available Not Available atenolol 25 mg tablet TAKE 1 TABLET DAILY active Not Available Not Available No t Available amlodipin e 5 mg tablet TAKE 1 TABLET DAILY 02/26 completed Not Available Not Available Not Available ciproflox acin 500 mg tablet TK 1 T PO Q 12 H 07/28 completed Not Available Not Available Not Available sulfameth oxazole 800 mg-trimet hoprim 160 mg tablet TAKE 1 TABLET BY MOUTH TWICE DAILY FOR 12 DAYS 02/26 completed Not Available Not Available Not Available triamtere ne 37.5 mg-hydroc hlorothia zide 25 mg capsule active Not Available Not Available Not Available triamcino lone acetonide 0.1 % topical cream APPLY TO ARM TWICE DAILY NEEDED active Not Available Not Available No t Available glimepiri de 1 mg tablet 02/23 completed Not Available Not Available Not Available oxycodone -acetamin ophen 5 mg-325 mg tablet active Not Available Not Available Not Available amoxicill in 875 mg tablet TK 1 T PO BID FOR 7 DAYS active Not Available Not Available No t Available doxazosin 8 mg tablet TK 1 T PO QD 04/12 completed Not Available Not Available Not Available tamsulosi n 0.4 mg capsule TK 1 C PO ONCE QHS 04/02 completed Not Available Not Available Not Available dexametha sone 1 mg tablet active Not Available Not Available Not Available econazole 1 % topical cream APPLY TOPICALL Y TO THE GROIN AREA AND FEET DAILY active Not Available Not Available No t Available erythromy piter 5 mg/gram (0.5 %) eye ointment MEHUL TO INCISION S TID FOR 10 DAYS active Not Available Not Available No t Available metformin 1,000 mg tablet TAKE 1 TABLET BY MOUTH TWICE DAILY 05/23 completed Not Available Not Available Not Available clotrimaz ole-betam ethasone 1 %-0.05 % topical cream active Not Available Not Available Not Available omeprazol e 20 mg capsule,d elayed release TK 1 C PO QD 04/12 completed Not Available Not Available Not Available diclofena c sodium 75 mg tablet,de layed release 04/02 completed Not Available Not Available Not Available mupirocin 2 % topical ointment APPLY TO RIGHT LEG TWICE DAILY 02/26 completed Not Available Not Available Not Available metoprolo l succinate ER 25 mg tablet,ex tended release 24 hr TK 1 T PO DAILY 03/10 completed Not Available Not Available Not Available oxybutyni n chloride 5 mg tablet 02/28 completed Not Available Not Available Not Available fluocinon alejandro 0.05 % topical cream 02/23 completed Not Available Not Available Not Available metformin ER 500 mg tablet,ex tended release 24 hr TK 2 TS PO QD 02/23 completed Not Available Not Available Not Available doxycycli ne hyclate 100 mg tablet TAKE 1 TABLET BY MOUTH TWICE DAILY FOR 10 DAYS 02/26 completed Not Available Not Available Not Available finasteri de 5 mg tablet TK 1 T PO QD 09/08 completed Not Available Not Available Not Available Microlet Lancet U BID UTD 02/23 completed Not Available Not Available Not Available tobramyci n 0.3 %-dexamet hasone 0.1 % eye drops,erika pension active Not Available Not Available Not Available metaxalon e 800 mg tablet active Not Available Not Available Not Available moxifloxa piter 0.5 % eye drops 03/10 completed Not Available Not Available Not Available rosuvasta tin 5 mg tablet TAKE 1 TABLET DAILY active Not Available Not Available No t Available alfuzosin ER 10 mg tablet,ex tended release 24 hr TAKE 1 TABLET BY MOUTH DAILY active Not Available Not Available No t Available Vitamin C 1 po qd 2012 active Not Available Not Available Not Avai lable Co Q-10 1 qd 2018 active Not Available Not Available Not Avai lable Lupron Depot 02/23 completed Not Available Not Available Not Available Fish Oil 1 PO QD 2012 active Not Available Not Available Not Avai lable folic acid 1 PO QD 2012 active Not Available Not Available Not Avai lable Proscar 05/26 completed Not Available Not Available Not Available Aspir-81 1 qd 04/02 completed Not Available Not Available Not Available Vitamin D3 1 qd 2018 active Not Available Not Available Not Avai lable multivita min 1 PO QD 2012 active Not Available Not Available Not Avai lable alpha lipoic acid 100mcg daily 03/04 completed Not Available Not Available Not Available OneTouch UltraMini kit FPD active Not Available Not Available Not Available fenofibra te nanocryst allized 48 mg tablet Take 1 tablet every day by oral route for 30 days. active Not Available Not Available No t Available Januvia 100 mg tablet TAKE 1 TABLET DAILY 06/23 completed Not Available Not Available Not Available Januvia dose unsure 2013 active Not Available Not Available Not Avai lable hydrochlo rothiazid e 12.5 mg tablet TAKE 1 TABLET BY MOUTH EVERY DAY NEEDED 02/23 completed Not Available Not Available Not Available trospium ER 60 mg capsule,e xtended release 24 hr 04/12 completed over active bladder Not Available Not Available Not Available Microlet 2 Lancing Device kit TEST 1 TIMES DAILY active Not Available Not Available No t Available Durezol 0.05 % eye drops 03/10 completed Not Available Not Available Not Available aspirin 81 mg effervesc ent tablet Take 1 tablet every day by oral route. 2012 active Not Available Not Available Not Avlogan liu blood pressure test kit-large cuff active Not Available Not Available Not Available Contour Next Test Strips TEST USING 1 STRIP TWICE DAILY DIRECTED 02/28 completed Not Available Not Available Not Available Myrbetriq 25 mg tablet,ex tended release Take 1 tablet every day by oral route. 02/26 completed Not Available Not Available Not Available Myrbetriq 50 mg tablet,ex tended release active Not Available Not Available Not Available Ilevro 0.3 % eye drops,erika pension 03/10 completed Not Available Not Available Not Available Fluzone High-Dose (PF) 180 mcg/0.5 mL intramusc ular syringe ADM 0.5ML UTD active Not Available Not Available No t Available Fluarix Quad (PF) 60 mcg (15 mcg x 4)/0.5 mL IM syringe INJECT 0.5 ML INTRAMUS CULARLY DIRECTED . active Not Available Not Available No t Available Fluzone High-Dose (PF) 180 mcg/0.5 mL intramusc ular syringe active Not Available Not Available Not Available Fluzone High-Dose 9957-4062 (PF) 180 mcg/0.5 mL intramusc ular syringe ADM 0.5ML IM UTD 03/10 completed Not Available Not Available Not Available Contour Next One Meter U TO TEST UTD 07/28 completed Not Available Not Available Not Available Fluzone High-Dose 9837-3359 (PF) 180 mcg/0.5 mL intramusc ular syringe ADM 0.5ML IM UTD 07/28 completed Not Available Not Available Not Available Fluzone High-Dose 1796-4527 (PF) 180 mcg/0.5 mL intramusc ular syringe ADM 0.5ML IM UTD 02/09 completed Not Available Not Available Not Available Fluzone High-Dose Quad (PF) 240 mcg/0.7 mL IM syringe ADM 0.7ML IM UTD 04/02 completed Not Available Not Available Not Available Vitals Date Recorded Body mass index (BMI) Body height Heart rate Body weight Systolic blood pressure Diastolic blood pressure Provider Name and Address Organization Details Last Updated DateTime 0 33 kg/m2 181.61 cm 68 /min 272288. 17 g 137 mm[Hg] 81 mm[Hg] Not Available [facility] 2 00:37:55 Date Recorded Body mass index (BMI) Body height Oxygen saturation Oxygen saturation in Arterial blood by Pulse oximetry Heart rate Body temperature Body weight Systolic blood pressure Diastolic blood pressure Provider Name and Address Organization Details Last Updated DateTime 1 33.3 kg/m2 181.61 cm 98 % 98 % 69 /min 97.9 [degF] 754865. 35 g 136 mm[Hg] 78 mm[Hg] Not Available [facility] 2 00:37:55 Date Recorded Body mass index (BMI) Body height Oxygen saturation Oxygen saturation in Arterial blood by Pulse oximetry Heart rate Body temperature Body weight Systolic blood pressure Diastolic blood pressure Provider Name and Address Organization Details Last Updated DateTime 1 33 kg/m2 181.61 cm 95 % 95 % 71 /min 97.4 [degF] 633975. 17 g 140 mm[Hg] 80 mm[Hg] Not Available [facility] 00:37:55 Date Recorded Body height Heart rate Systolic blood pressure Diastolic blood pressure Provider Name and Address Organization Details Last Updated DateTime 09/18/2020 181.61 cm 74 /min 132 mm[Hg] 80 mm[Hg] Not Available [facility] 04/28/2021 00:37:55 Social History Question Answer Notes LastModified by Organizat ion Details LastModified Time What Is Your Occupation? Retired From [email or web address] Information not available 04/27/2021 Sex: Unknown Functional Status None recorded. Mental Status None recorded. Family History Relationship Description Onset Age of this Age Resolved Age Notes Notes:one other alive and we ll Medical History No medical history recorded. Immunizations Vaccine Type Date Status Provider Name and Address Organization Details Recorded Time Influenza, split virus, quadrivalent, PF 02/01/2014 completed Not Available [facility] 04/28/2021 01:26:42 Influenza, high-dose, trivalent, PF 02/10/2013 completed Not Available [facility] 04/28/2021 01:26:42 Td (adult), 2 Lf tetanus toxoid, preservative free, adsorbed 12/06/2013 completed Not Available [facility] 04/28/2021 01:26:42 COVID-19, mRNA, LNP-S, PF, 30 mcg/0.3 mL dose 12/29/2020 completed Not Available [facility] 04/28/2021 01:26:43 COVID-19, mRNA, LNP-S, PF, 30 mcg/0.3 mL dose 07/13/2020 completed Not Available [facility] 04/28/2021 01:26:43 Influenza, high-dose, quadrivalent, PF 01/05/2020 completed Not Available [facility] 04/28/2021 01:26:43 Influenza, high-dose, trivalent, PF 01/04/2018 completed Not Available [facility] 04/28/2021 01:26:43 Influenza, high-dose, trivalent, PF 01/28/2017 completed Not Available [facility] 04/28/2021 01:26:43 Influenza, high-dose, trivalent, PF 02/05/2016 completed Not Available [facility] 04/28/2021 01:26:43 Influenza, high-dose, trivalent, PF 01/30/2015 completed Not Available [facility] 04/28/2021 01:26:43 COVID-19, mRNA, LNP-S, PF, 30 mcg/0.3 mL dose 06/21/2020 completed Not Available [facility] 04/28/2021 01:26:43 Influenza, high-dose, trivalent, PF 02/03/2012 completed Not Available [facility] 04/28/2021 01:26:43 pneumococcal, unspecified formulation 02/03/2012 completed Not Available [facility] 04/28/2021 01:26:43 Influenza, high-dose, trivalent, PF 01/16/2011 completed Not Available [facility] 04/28/2021 01:26:43 Influenza, high-dose, trivalent, PF 12/26/2010 completed Not Available [facility] 04/28/2021 01:26:44 Influenza, split virus, trivalent, preservative 01/31/2010 completed Not Available [facility] 04/28/2021 01:26:44 Influenza, high-dose, trivalent, PF 01/25/2010 completed Not Available [facility] 04/28/2021 01:26:44 Influenza, split virus, trivalent, preservative 01/24/2009 completed Not Available [facility] 04/28/2021 01:26:44 Influenza, high-dose, trivalent, PF 12/26/2008 completed Not Available [facility] 04/28/2021 01:26:44 zoster live 04/27/2006 completed Not Available [facility] 04/28/2021 01:26:44 Influenza, high-dose, trivalent, PF 04/27/2006 completed Not Available [facility] 04/28/2021 01:26:44 tetanus toxoid, unspecified formulation 04/27/2006 completed Not Available [facility] 04/28/2021 01:26:44 Influenza, high-dose, trivalent, PF 04/27/2005 completed Not Available [facility] 04/28/2021 01:26:44 Influenza, high-dose, trivalent, PF 02/01/2014 completed Not Available [facility] 04/28/2021 01:26:44 Td (adult), 5 Lf tetanus toxoid, preservative free, adsorbed 12/06/2013 completed Not Available [facility] 04/28/2021 01:26:44 pneumococcal polysaccharide PPV23 02/03/2012 completed Not Available [facility] 2021 01:26:45 Influenza, high-dose, quadrivalent, PF 01/28/2021 completed Not Available [facility] 04/28/2021 01:26:45 Influenza, high-dose, trivalent, PF 02/09/2019 completed Not Available [facility] 04/28/2021 01:26:45 Pneumococcal conjugate PCV 13 07/19/2015 completed Not Available [facility] 04/28/2021 01:26:45 Past Encounters Encounter ID Performer Location Encounter Start Date Encounter Closed Date Diagnosis/Indication Diagnosis SNOMED-CT Code [id number] [facility] [address] [place] [address] 02/15/2013 00:00:00 02/15/2013 00:00:00 [id number] [facility] [address] [place] [address] 06/01/2013 00:00:00 06/01/2013 00:00:00 [id number] [facility] [address] [place] [address] 07/13/2013 00:00:00 07/13/2013 00:00:00 [id number] [facility] [address] [place] [address] 07/19/2013 00:00:00 07/19/2013 00:00:00 [id number] [facility] [address] [place] [address] 09/29/2013 00:00:00 09/29/2013 00:00:00 [id number] [facility] [address] [place] [address] 10/12/2013 00:00:00 10/12/2013 00:00:00 [id number] [facility] [address] [place] [address] 11/22/2013 00:00:00 11/22/2013 00:00:00 [id number] [facility] [address] [place] [address] 12/06/2013 00:00:00 12/06/2013 00:00:00 [id number] [facility] [address] [place] [address] 12/06/2013 00:00:00 12/06/2013 00:00:00 [id number] [facility] [address] [place] [address] 03/14/2014 00:00:00 03/14/2014 00:00:00 [id number] _ATHENA_MI GRATION_DE FAULT_22_1 , 05/26/2014 00:00:00 05/26/2014 00:00:00 [id number] [facility] [address] [place] [address] 06/13/2014 00:00:00 06/13/2014 00:00:00 [id number] [facility] [address] [place] [address] 10/10/2014 00:00:00 10/10/2014 00:00:00 [id number] [facility] [address] [place] [address] 11/20/2014 00:00:00 11/20/2014 00:00:00 [id number] [facility] [address] [place] [address] 11/29/2014 00:00:00 12/08/2014 00:00:00 [id number] [facility] [address] [place] [address] 03/06/2015 00:00:00 03/07/2015 00:00:00 [id number] [facility] [address] [place] [address] 04/10/2015 00:00:00 04/10/2015 00:00:00 [id number] _ATHENA_MI GRATION_DE FAULT_22_1 , 05/23/2015 00:00:00 05/23/2015 00:00:00 [id number] [facility] [address] [place] [address] 07/19/2015 00:00:00 07/19/2015 00:00:00 [id number] [facility] [address] [place] [address] 03/04/2016 00:00:00 03/04/2016 00:00:00 [id number] [facility] [address] [place] [address] 05/08/2016 00:00:00 05/09/2016 00:00:00 [id number] [facility] [address] [place] [address] 08/29/2016 00:00:00 08/29/2016 00:00:00 [id number] [facility] [address] [place] [address] 09/02/2016 00:00:00 09/03/2016 00:00:00 [id number] [facility] [address] [place] [address] 12/24/2016 00:00:00 12/24/2016 00:00:00 [id number] [facility] [address] [place] [address] 03/10/2017 00:00:00 03/10/2017 00:00:00 [id number] [facility] [address] [place] [address] 06/24/2017 00:00:00 06/24/2017 00:00:00 [id number] [facility] [address] [place] [address] 09/08/2017 00:00:00 09/08/2017 00:00:00 [id number] [facility] [address] [place] [address] 07/28/2018 00:00:00 07/28/2018 00:00:00 [id number] [facility] [address] [place] [address] 10/11/2018 00:00:00 10/11/2018 00:00:00 [id number] [facility] [address] [place] [address] 02/09/2019 00:00:00 02/09/2019 00:00:00 [id number] _ATHENA_MI GRATION_DE FAULT_22_1 , 02/28/2019 00:00:00 02/28/2019 00:00:00 [id number] _ATHENA_MI GRATION_DE FAULT_22_1 , 04/12/2019 00:00:00 04/12/2019 00:00:00 [id number] [facility] [address] [place] [address] 05/12/2019 00:00:00 05/15/2019 00:00:00 [id number] [facility] [address] [address] 06/01/2019 00:00:00 06/05/2019 00:00:00 [id number] [facility] [address] [place] [address] 06/16/2019 00:00:00 06/16/2019 00:00:00 [id number] [facility] [address] [place] [address] 08/03/2019 00:00:00 08/03/2019 00:00:00 [id number] [facility] [address] [address] [place] [address] 09/08/2019 00:00:00 09/08/2019 00:00:00 [id number] [facility] [place] [address] [place] [address] [address] [place] [address] 11/01/2019 00:00:00 11/01/2019 00:00:00 [id number] _[id number] GRATION_DE [id number] , 04/02/2020 00:00:00 04/02/2020 00:00:00 [id number] [facility] [place] [address] [address] [address] [place] [address] 09/18/2020 00:00:00 09/18/2020 00:00:00 [id number] [facility] [place] [address] [address] [address] [place] [address] 09/19/2020 00:00:00 09/19/2020 00:00:00 [id number] [facility] [place] [address] [address] [place] [address] 01/28/2021 00:00:00 01/28/2021 00:00:00 [id number] [facility] [place] [address] [place] [address] [place] [address] 02/26/2021 00:00:00 02/26/2021 00:00:00 Health Concerns Section Related Observation LastModified by Organization Detai ls LastModified Time None Recorded Concern Status LastModified by Organization Details LastModified Time None Recorded Advance Directives Directive None Recorded Payers None recorded. Notes Date Note Type Note Provider Name and Address Organization Details Recorded Time 04/02/2020 text/html HPI Notes: This is a telehealth visit. Limitations of the visit are no physical examination or in office testing. Patient consented to this telehealth visit. Patient returns for follow-up of hypertension dyslipidemia and atypical chest pain. Patient has had chronic atypical chest pain with negative workups. Blood pressure appears to be controlled. His main problem has been weakness of his lower extremities and balance issues in the setting of neuropathy. Not Available [facility] 16:16:16 09/18/2020 text/html HPI Notes: Telemedicine visit. This is a 80-year-old gentleman who developed edema and erythema around the laceration on his posterior left wrist after gardening who presents to clinic to follow-up on this condition. He was seen in the emergency room last Thursday and diagnosed with cellulitis and given Bactrim b.i.d. times 10 days. He has been taking the medication since being discharged from the emergency room and he has developed hives around the head arms and chest. When I checked his allergy list shows that he is allergic to sulfa drugs. Currently he denies any fever, chills, nausea or vomiting and only has mild discomfort in the arm. He thinks that the infection has improved since Thursday but is still present. DO letha Amin [facility], [facility] 09/18/2020 17:06:40 09/19/2020 text/html HPI Notes: This is a 80 year-old gentleman who had recent MRI testing, ordered by his neurologist that has shown up some incidental finding. The MRI showed a small circular mass in the left side of the neck and also a nodule on the thyroid and the radiologist recommended follow-up with these 2 incidental findings. Patient has no history of thyroid disease. DO letha Amin [facility], [facility] 09/19/2020 20:10:58 01/28/2021 text/html HPI Notes: None recorded. DO letha Amin [facility], [facility] 01/28/2021 18:39:13 02/26/2021 text/html HPI Notes: This is a 80 year-old gentleman with hypertension, BPH, hyperlipidemia and type 2 diabetes who presents to clinic for his annual medicare wellness exam. He was diagnosed with prostate cancer last year and was treated up in [facility] 9 weeks of radiation therapy for a total of 45 sessions. He uses Januvia to treat his diabetes and recent A1c of 6.8 shows decent control without medication and diet low in simple carbohydrates. Uses amlodipine, atenolol, lisinopril and diet low in sodium to control his blood pressure and his LDL cholesterol is at goal for a diabetic with the use of rosuvastatin. DO letha Amin [place] - [facility], [facility] 02/26/2021 13:47:21
--- OUTSIDE RECORDS SUMMARY | 2023-11-10 11:02 | XMS_ITS | Data Portability ---
Author Organization Formerly [facility] Address [address], [address] [place] [address] Care Team Providers Care Web Art Director Name Role Phone MARENGERARD GARCIA Primary Care Provider [phone] Assessment Encounter Date Assessment Date Assessment LastModified by Organization Details LastModified Time 02/26/2022 02/26/2022 Patient presented to office today for their Medicare Annual Wellness Visit. Education was provided on healthy nutrition, including a diet rich in fruits and vegetables, minimizing simple carbohydrates, salt, and saturated fats. Encouraged regular cardiovascular exercise such as walking at least 30 minutes daily, 5 times per week. Emphasized preventive health measures and educated pt on fall prevention and community-based lifestyle interventions to help reduce health risks and promote healthy living. Not available 02/26/2022 13:14:19 04/24/2023 04/24/2023 Patient presente d to office today for their Medicare Annual Wellness Visit. Education was provided on healthy nutrition, including a diet rich in fruits and vegetables, minimizing simple carbohydrates, salt, and saturated fats. Encouraged regular cardiovascular exercise such as walking at least 30 minutes daily, 5 times per week. Emphasized preventive health measures and educated pt on fall prevention and community-based lifestyle interventions to help reduce health risks and promote healthy living. Not available 04/24/2023 13:58:32 Plan of Treatment Reminders Order Date Submit Date Provider Last Modified By Organization Details Last Modified Time Details Appointments None recorded. Lab HbA1c (hemoglobi n A1c), blood 2021 04 023 [facility] - Attention: [facility], [address], [place], [address], 3 03:20:30 lipid panel, serum 2021 023 [facility] - Attention: [facility], [address], [place], [address], 3 03:20:30 CBC w/ auto diff 2021 023 [facility] - Attention: [facility], [address], [place], [address], 3 03:20:30 CMP, serum or plasma 2021 023 [facility] - Attention: [facility], [address], [place], [address], 3 03:20:31 HbA1c (hemoglobi n A1c), blood 2022 023 [facility] - Attention: [facility], [address], [place], [address], 3 14:17:35 lipid panel, serum 2022 023 [facility] - Attention: [facility], [address], [place], [address], 4 09:43:39 CMP, serum or plasma [address] Lab / [facility] - Attention: [facility], [address], [place], [address], 4 08:57:29 CBC w/ auto diff [email or web address] [facility] - Attention: [facility], [address], [place], [address], 4 08:57:29 PSA, serum or plasma 2022 023 [email or web address] [facility] - Attention: [facility], [address], [place], [address], 4 08:57:29 Referral physical therapist referral - Poor balance, unsteady gait and frequent falls. 2022 023 [facility], [address], [place], [address], 4 09:24:50 Procedures None recorded. Surgeries None recorded. Imaging None recorded. Medication Orders econazole 1 % topical cream 2021 022 [id number], [address], [id number], 2 13:38:11 cetirizine 10 mg tablet [address] [id number], [address] [address] [place], [id number], 3 13:27:05 Patient TargetsNo targets recorded. Patient Instructions Encounter Date Encounter Id Patient Instructions Last Modified By Organization Details Last Modified Time 02/26/2022 [id number] advance care planning: care instructions Not available 02/26/2022 13:37:54 I encourage you to remain physically active, doing at least some type of physical activity for 30 minutes 5 days per week. The pool, biking and walking are all excellent examples. Safety measures for fall and accident prevention include removing all loose rugs, installing grab bars in the shower, replacing smoke detector batteries and always wearing a seatbelts. Please discuss your end of life wishes and living will with your family. It is important your family understand what your wishes are if you are unable to speak for yourself. Continue to limit your intake of simple carbohydrates like potatoes, pastas, and breads. Also continue to limit the simple sweets like cookies, cakes and ice cream. Please continue to watch cholesterol in your diet as this is important to help prevent heart attack and stroke. Please continue to watch salt in in your diet as this is important to maintain blood pressure control and reduce your risk of heart attack or stroke. Please see your eye doctor yearly basis for screening for glaucoma and cataracts. If you have diabetes you will need a dialated yearly exam. Please schedule flu vaccine every fall. Not available 02/26/2022 13:23:31 Discussed and explained advance directives such as standard forms to the {{patient* caregiv er patient and caregiver}}. Face to face discussion lasted for a duration of _30__ minutes. Not available 02/26/2022 13:23:22 04/24/2023 [id number] advance care planning: [email or web address] Not available 04/24/2023 14:15:11 I encourage you to remain physically active, doing at least some type of physical activity for 30 minutes 5 days per week. The pool, biking and walking are all excellent examples. Safety measures for fall and accident prevention include removing all loose rugs, installing grab bars in the shower, replacing smoke detector batteries and always wearing a seatbelts. Please discuss your end of life wishes and living will with your family. It is important your family understand what your wishes are if you are unable to speak for yourself. Continue to limit your intake of simple carbohydrates like potatoes, pastas, and breads. Also continue to limit the simple sweets like cookies, cakes and ice cream. Please continue to watch cholesterol in your diet as this is important to help prevent heart attack and stroke. Please continue to watch salt in in your diet as this is important to maintain blood pressure control and reduce your risk of heart attack or stroke. Please see your eye doctor yearly basis for screening for glaucoma and cataracts. If you have diabetes you will need a dialated yearly exam. Please schedule flu vaccine every fall. Not available 04/24/2023 14:06:21 Discussed and explained advance directives such as standard forms to the {{patient* caregiv er patient and caregiver}}. Face to face discussion lasted for a duration of _30__ minutes. Not available 04/24/2023 14:06:29 Reason for Referral Physical Therapist Referral for Diabetic peripheral neuropathy Poor balance, unsteady gait and frequent falls. Referring Physician: Gerard Sheikh [facility], Encounter Date: 04/24/2023 Patient identified as [place] very bad diabetic peripheral neuropathyIs he walking with his walkerHas he had any fallswould he benefit from PTHow's his diet (diabetic friendly)Hows his weightblood pressureHows his diabetesany refills Referring Physician: Gerard Sheikh [facility], Encounter Date: 08/13/2023 Results Created Date Observation Date Name Description Value Unit Range Abnormal Flag LastModifiedBy Organization Detail LastModifiedTime Result Notes None recorded. Procedures Surgical History Date Name Laterality Status Provider Name and Address Organization Details Recorded Time 02/11/20 23 [facility] 13:31:26 04/27/19 12 Colonoscopy completed [facility] 04/24/2023 13:31:36 Appendectomy completed [facility] 02/26/2022 13:06:05 Hernia Repair completed [facility] 02/26/2022 13:06:05 Vasectomy completed [facility] 02/26/2022 13:06:06 Imaging Results None recorded. Procedure Notes None recorded. Medical Equipment None Reported. Allergies Allergen ID Allergen Name Allergen Category Reaction Reaction Severity Criticality Documentation Date Start Date Code Code System Note Provider Name and Address Organization Details Recorded Time 2543 Substance with sulfonami de structure and antibacte rial mechanism of action (substanc e) medicatio n itching Not available Not available 02/26/2022 40822 8003 SNOMED [facility] 13:06:04 Medications Name Sig Start Date Stop Date Status Note LastModified by Organization Details LastModified Time cetirizine 10 mg tablet TAKE 1 TABLET BY MOUTH EVERY DAY 04/24 completed Not Available Not Available Not Available lisinopril 20 mg tablet TAKE 1 TABLET BY MOUTH EVERY DAY active Not Available Not Available No t Available atenolol 25 mg tablet one tablet daily active Not Available Not Available No t Available ciprofloxac in 250 mg tablet TAKE 1 TABLET BY MOUTH TWICE DAILY 04/24 completed Not Available Not Available Not Available acetaminoph en 500 mg tablet TAKE 1 TO 2 TABLETS BY MOUTH EVERY 6-8HR NEEDED. MAX DAILY DOSE 3000MG active Not Available Not Available No t Available pravastatin 10 mg tablet Take 1 tablet every day by oral route. active Not Available Not Available No t Available OneTouch Ultra Test strips Take 1 strip twice a day by miscell. route for 90 days. 2023 active Not Available Not Available Not Avai lable econazole 1 % topical cream APPLY TOPICALLY TO THE AFFECTED AND SURROUNDI NG AREAS TWICE DAILY active Not Available Not Available No t Available cephalexin 500 mg capsule TAKE 1 CAPSULE BY MOUTH THREE TIMES DAILY 04/24 completed Not Available Not Available Not Available aspirin 81 mg chewable tablet active Not Available Not Available Not Available hydrocortis one 2.5 % topical cream active Not Available Not Available Not Available rosuvastati n 5 mg tablet 02/23 completed Not Available Not Available Not Available alfuzosin ER 10 mg tablet,exte nded release 24 hr Take 1 tablet every day by oral route. active Not Available Not Available No t Available Januvia 100 mg tablet Take 1 tablet every day by oral route. active Not Available Not Available No t Available Xarelto 10 mg tablet TAKE 1 TABLET BY MOUTH DAILY 04/24 completed Not Available Not Available Not Available Myrbetriq 50 mg tablet,exte nded release Take 1 tablet every day by oral route. active Not Available Not Available No t Available Stimulant Laxative Plus 8.6 mg-50 mg tablet TAKE 1-4 TABLETS BY MOUTH TWICE DAILY NEEDED FOR CONSTIPAT ION. HOLD MEDICATIO N IF EXPERIENC ING LOOSE STOOLS active Not Available Not Available No t Available OneTouch Ultra2 Meter USE DIRECTED TO TEST BLOOD SUGAR active Not Available Not Available No t Available Gemtesa 75 mg tablet active Not Available Not Available No t Available Vitals Date Recorded Body height Body mass index (BMI) Body weight Body temperature Heart rate Oxygen saturation Oxygen saturation in Arterial blood by Pulse oximetry Systolic blood pressure Diastolic blood pressure Provider Name and Address Organization Details Last Updated DateTime 3 180.34 cm 28.8 kg/m2 86370.4 7 g 97.6 [degF] 65 /min 97 % 97 % 124 mm[Hg] 70 mm[Hg] Martine [facility] 3 13:26:00 Date Recorded Body weight Body mass index (BMI) Body height Body temperature Heart rate Oxygen saturation Oxygen saturation in Arterial blood by Pulse oximetry Systolic blood pressure Diastolic blood pressure Provider Name and Address Organization Details Last Updated DateTime 2 63837.2 1 g 30.4 kg/m2 180.34 cm 97.2 [degF] 64 /min 97 % 97 % 142 mm[Hg] 92 mm[Hg] [facility] 13:05:24 Social History Question Answer Notes LastModified by Organizat ion Details LastModified Time Tobacco Smoking Status Former Smoker [facility] 02/26/2022 13:09:40 Do You Have An Advance Directive? Yes [email or web address] Information n ot available 02/26/2022 Is Your Home Air Conditioned? Yes Information not available 02/26/2022 What Is Your Level Of Alcohol Consumption? None [email or web address] Information not available 02/26/2022 Are You Currently Sexually Active With Anyone Who Has Traveled (within The Last 12 Weeks) To A Zika-affected Area? No [email or web address] Information not available 02/26/2022 Do You Have A Basement? No [email or web address] Information not available 02/26/2022 Are You Blind Or Do You Have Difficulty Seeing? No [email or web address] Information n ot available 02/26/2022 Is Blood Transfusion Acceptable In An Emergency? Yes [email or web address] Information not available 02/26/2022 What Is Your Level Of Caffeine Consumption? Moderate [email or web address] Information not available 02/26/2022 Are You A Caregiver? No [email or web address] Information not available 02/26/2022 What Is Your Code Status? Full Code [email or web address] Information not available 02/26/2022 In The 14 Days Before Symptom Onset, Have You Had Close Contact With A Laboratory-confirm ed COVID-19 While That Case Was Ill? No Information n ot available 02/26/2022 In The 14 Days Before Symptom Onset, Have You Had Close Contact With A Person Who Is Under Investigation For COVID-19 While That Person Was Ill? No [email or web address] Information not available 02/26/2022 Have You Been To An Area Known To Be High Risk For COVID-19? No [email or web address] Information not available 02/26/2022 Are You Currently Employed? No [email or web address] Information not available 02/26/2022 Are You Deaf Or Do You Have Serious Difficulty Hearing? No [email or web address] Information not available 02/26/2022 What Type Of Diet Are You Following? REGULAR Information n ot available 04/24/2023 Have You Processed Blood Or Body Fluids From An Ebola Virus Disease Patient Without Appropriate PPE? No [email or web address] Information not available 02/26/2022 Do You Reside In Or Have You Traveled To An Area Where Ebola Virus Transmission Is Active? No [email or web address] Information not available 02/26/2022 What Is Your Occupation? Retired Information not available 02/26/2022 Have There Been Any Changes To Your Family Or Social Situation? No [email or web address] Information no t available 02/26/2022 When Did You Quit Smoking? 16+yearssince lastcigarette [email or web address] Information not available 02/26/2022 Are There Any Guns Present In Your Home? Yes [email or web address] Information not available 02/26/2022 Which Of Your Hands Is Dominant? Right [email or web address] Information n ot available 02/26/2022 Have You Recently Or Are You Planning To Travel To An Area With Zika Virus? No [email or web address] Information not available 02/26/2022 Live Alone Or With Others? With Others [email or web address] Information not available 02/26/2022 Have You Been Scratched Or Bitten By An Animal Or Have You Prepared Or Eaten Meat Or Used Products From An Animal Infected With Monkeypox? No [email or web address] Information not available 02/26/2022 Have You Had Direct Contact, Or Contact During Intimacy, With Monkeypox Rash, Scabs, Or Body Fluids From A Person With Monkeypox? No [email or web address] Information not available 02/26/2022 Have You Touched Any Objects (including Fetish Gear Or Sex Toys), Fabrics (clothing, Bedding, Or Towels), And Surfaces That Have Been Used By Someone With Monkeypox? No [email or web address] Information not available 02/26/2022 Have You Had Contact With Respiratory Secretions From A Person With Monkeypox? No [email or web address] Information not available 02/26/2022 What Was The Date Of Your Most Recent Tobacco Screening? 04/24/2023 [email or web address] Information not available 04/24/2023 How Many Children Do You Have? 4 Information not available 02/26/2022 Do You Have Any Pets? Yes Dog [email or web address] Information not available 02/26/2022 What Is Your Relationship Status? [email or web address] Information not available 02/26/2022 Do You Use Your Seat Belt Or Car Seat Routinely? Yes [email or web address] Information not available 02/26/2022 Do You Have Smoke And Carbon Monoxide Detectors In Your Home? Yes [email or web address] Information not available 02/26/2022 Are You Passively Exposed To Smoke? No Information no t available 02/26/2022 Are There Any Smokers In Your House? No Information not available 02/26/2022 Do You Use Any Illicit Or Recreational Drugs? No [email or web address] Information not available 02/26/2022 Do You Use Sunscreen Routinely? No [email or web address] Information not available 02/26/2022 Has Tobacco Cessation Counseling Been Provided? No [email or web address] Information not available 04/24/2023 Have You Recently Traveled Abroad? No Information not available 02/26/2022 Do You Have Any Dietary Restrictions? No Information not available 04/24/2023 Do You Or Have You Ever Used Any Other Forms Of Tobacco Or Nicotine? No Information not available 02/26/2022 Sex: Unknown Functional Status Question Answer Note LastModified by Organizat ion Details LastModified Time Do you have difficulty walking or climbing stairs? Yes Information not available 04/24/2023 Do you have transportation difficulties? No [email or web address] Information not available 02/26/2022 Are you able to walk? [email or web address] Information not available 02/26/2022 Do you have difficulty doing errands alone? No Information not available 02/26/2022 Are you able to care for yourself? Yes [email or web address] Information not available 02/26/2022 Do you have difficulty dressing or bathing? No [email or web address] Information not available 02/26/2022 What is your exercise level? None [email or web address] Information not available 04/24/2023 Mental Status Question Answer Note LastModified by Organization D etails LastModified Time Do you have difficulty concentrating, remembering or making decisions? Yes [email or web address] Information no t available 02/26/2022 Family History Relationship Description Onset Age of this Age Resolved Age Notes Father No current problems or disability Mother No current problems or disability Medical History Condition Response Diabetes Y Muscle, Joint, or Bone Problems Y Vision or Eye Problems Y Hypertension Y Immunizations Vaccine Type Date Status Provider Name and Address Organization Details Recorded Time Influenza, high-dose, quadrivalent, PF 02/26/2022 completed Martine Villanueva [facility] 02/26/2022 13:42:52 Influenza, high-dose, quadrivalent, PF 04/24/2023 completed Mratine Villanueva [facility] 04/24/2023 14:41:58 Past Encounters Encounter ID Performer Location Encounter Start Date Encounter Closed Date Diagnosis/Indication Diagnosis SNOMED[place]CT [place] [id number] [place] [address] [address] [facility] [place] [address] 02/26/2022 12:52:40 02/26/2022 14:11:45 Essential hypertension 72084160 Mild memor y disturbance 686189745 Type 2 andrea betes mellitus 07636933 Coronary atherosclerosis 065850512 Hyperlipidemia 41126146 Obstructiv e sleep apnea syndrome 19305888 Adult [facility] th examination 759679614 Active or passive immunization 162031130 Pruritic disorder 087005 002 Tinea corporis 44176511 [id number] [facility] [address] [facility] [place] [address] 04/24/2023 13:17:29 04/24/2023 14:24:55 Adult health examination 349712908 Essential hypertension 30232069 Active or passive immunization 013762670 Mild memor y disturbance 014640726 Type 2 andrea betes mellitus 97903351 Coronary atherosclerosis 815747622 Hyperlipidemia 03223758 Obstructiv e sleep apnea syndrome 90542976 Benign pro static hyperplasia 197754582 Diabetic p eripheral neuropathy 682808141 [id number] [facility] [address] [place] [address] 09/17/2023 14:45:16 09/30/2023 15:24:35 [id number] [facility] [address] [place] [address] 09/30/2023 15:20:43 10/27/2023 09:15:06 Health Concerns Section Related Observation LastModified by Organization Detai ls LastModified Time None Recorded Concern Status LastModified by Organization Details LastModified Time None Recorded Advance Directives Directive Y: Payers Encounter Date Sequence Insurance Name Policy Number Policy [place] Covered Member ID [place] Member ID Guarantor Name 02/26/2022 1 [place] Pritesh Funez [id number] Pritesh Funez 02/26/2022 2 [place] 106 Pritesh Funez [id number] Pritesh Funez 04/24/2023 1 [place] Pritesh Funez [id number] Pritesh Funez 04/24/2023 2 [place] 106 Pritesh Funez [id number] Pritesh Funez 09/03/2023 1 [place] Pritesh Funez [id number] Pritesh Funez 09/03/2023 2 [place] 106 Pritesh Funez [id number] Pritesh Funez 09/30/2023 1 [place] Pritesh Funez [id number] Pritesh Funez 09/30/2023 2 [place] 106 Pritesh Funez [id number] Pritesh Funez Notes Date Note Type Note Provider Name and Address Organization Details Recorded Time 02/26/2022 text/html HPI Notes: This is a 81 year-old gentleman with hypertension, BPH, hyperlipidemia and type 2 diabetes who presents to clinic for his annual medicare wellness exam. He stopped his diabetes medication due to the perception it was causing itching. His recent A1C was 6.5. He uses atenolol and diet low in sodium to control his blood pressure. He stopped his rosuvastatin due the perception that it was causing itching. FALL & FRACTURE RISK SCREENING Are you afraid of falling? Yes Have you fallen in the past year? Yes Has a fall ever resulted in a fracture? No Have you completed Physical Therapy to address dizziness or falls? Yes When was your last bone density or dexa scan completed? none Where was your last bone density or dexa scan completed? none Imported from [employer] on 02/26/2022 Gerard Sheikh, DO [address], [place], [address], [facility] 02/26/2022 13:38:51 04/24/2023 text/html HPI Notes: Medic are Annual Wellness Visit Reported by patient. Diet and Nutrition: discussed vitamin and supplement use; discussed portion control; discussed maintaining calcium balance; discussed diet improvement Fracture Risk: no history of fractures; no recent explained fracture; no sudden unexplained fractures; no previous musculoskeletal injuries Physical Activity: discussed weightbearing activities; discussed exercise habits Depression Risk: never feels sad, empty, or tearful; no loss of interest in activities; no significant changes in weight; no sleep disturbances or insomnia; no agitation; no loss of energy; no feelings of worthlessness or guilt; no thoughts of suicide; no history of depression; no history of mood disorders Orientation: no disorientation to time; no disorientation to date; no disorientation to place Concentration and Memory: no decreased concentrating ability; no memory lapses or loss; does not forget words Speech/Motor difficulties: no speech difficulties; no difficulty expressing formulated concepts; no difficulty with fine manipulative tasks; no difficulty writing/copying; no slowed reaction time; does not knock things over when trying to pick them up Hearing: no loss of hearing Vision: no vision problems Activities of Daily Living: able to bathe with limited or no assistance; able to contol urination and bowels; able to dress with limited or no assistance; able to feed self with limited or no assistance; able to get out of chair or bed with limited or no assistance; able to groom with limited or no assistance; able to toilet with limited or no assistance Instrumental Activities of Daily Living: able to do house work with limited or no assistance; able to grocery shop with limited or no assistance; able to manage medications with limited or no assistance; able to manage money with limited or no assistance; able to prepare meals with limited or no assistance; able to use the phone with limited or no assistance Falls Risk Assessment: no frequent falls while walking; no fall in the past year; no fall since last visit; no dizziness/vertigo Home Safety: no unsafe shahid hazzards; no unsafe stairs; no unsafe gas appliances; working smoke/CO detectors; wears protective head gear for biking/high velocity; use of seatbelts; practicing 'safer sex'; no vision or hearing loss while driving; no fire arms; has hand bars in the bathroom/shower; good lighting in the home This is a 83 year-old gentleman with hypertension, BPH, hyperlipidemia and type 2 diabetes who presents to clinic for his annual medicare wellness exam. His cholesterol levels are treated with daily pravastatin and he uses alfuzosin to control symptoms from his BPH. His blood pressure is effectively treated with lisinopril, atenolol and a diet low in sodium. He uses jardiance to control his diabetes. FALL & FRACTURE RISK SCREENING Are you afraid of falling? Yes Have you fallen in the past year? Yes Has a fall ever resulted in a fracture? No Have you completed Physical Therapy to address dizziness or falls? Yes When was your last bone density or dexa scan completed? none Where was your last bone density or dexa scan completed? none Imported from [employer] on 02/26/2022 Gerard Sheikh, [address], [address], [place], [address], [facility]23 14:18:59 09/03/2023 text/html HPI Notes: - Called and left a message - 1 Minute Call 09/24/23 - Called and left a message - 1 Minute Call RAMEZ [address], [address], [place], [address], [facility] 09/24/2023 14:05:50 09/30/2023 text/html HPI Notes: 4 - Called and left a message - 1 Minute Call 09/30/23 - Introduced patient to the chronic care management program and explained to him that this program is to keep a closer eye on his health and chronic conditions. Explained to patient that the goal of this program is to keep his health managed and ultimately keep him out of the hospital for issues that could have been prevented. Patient states that he has been staying physically active because they are cleaning out their house to sell and move. He denies any recent falls, but he did hit his toe and broke it but due to his diabetic neuropathy he did not know that it was broken. He states that his blood pressure has been stable with no abnormal readings. No medication refills needed at this time. - 8 Minute Call / 4 Minute Chart 10/08/23 - Patient is doing well with no major changes from last week. He denies any recent falls, injuries, or new complaints. He states that he has not been taking his blood sugar levels regularly because he does not know where his meter is or how many strips he has left. Submitted an order to his pharmacy for a new glucose meter with strips and lancets. He states that his toe's nail turned black ever since he broke it. Told patient that the nail may fall off and he will have to keep the area clean and wrapped with gauze so he does not get an infection. He denies any abnormal blood pressure readings. - 7 Minute Call / 3 Minute Chart 10/15/23 - Patient is doing well with no major changes from last week. He denies any recent falls, injuries, or new complaints. Patient requested that the glucose monitor orders get resent to his mail order pharmacy as [facility] has been out of stock all week. Resent to his [facility] mail order pharmacy. He denies any abnormal blood pressure readings this past week. He states that he has still been physically active due to cleaning out the house to sell it. His blood pressure today is 133/81 and his heart rate is 73. No medication refills needed at this time. - 6 Minute Call / 3 Minute Chart 10/22/23 - Patient is doing well with no major changes from last week. He denies any recent falls, injuries, or new complaints. He states that it has been a hectic week for him with the house inspection but now his house is being closed on and [place] He states that they will be moving October 30 and have an appointment with primary care in November. He denies any abnormal blood pressure readings this past week and denies any light headedness or dizziness. No medication refills needed at this time. - 6 Minute Call / 3 Minute Chart 40 Minutes Total MEÑO_JEREL [address], [address], [place], [address], [place] [facility] 10/28/2023 15:01:59
--- OUTSIDE RECORDS SUMMARY | 2023-11-10 11:02 | XMS_ITS | Clinical Summary ---
Author Organization [facility] Address [address] [place] [address] Phone Care Team Providers Care Ordnance Truck Installation Mechanic Name Role Phone Tom Brantley MD, Ismael Gallegos Unavailable [phone] Ricky SPENCER, Heron Epstein Unavailable [phone] Vita SPENCER, Gail Jimenez Unavailable [phone] Blas Walsh MD Unavailable [phone] Misael Perez MD Unavailable [phone] Paul Sheikh DO Primary Care Provide r [phone] Reason for Visit and Chief Complaint [Patient Encounter] Problems Includes: Problems addressed during this encounter and other active Problems All Visits Onset Date Resolved Date Provider Condition S tatus Diabetes Mellitus Type 2 11/07/2017 Blas Persaud MD Active Last Documented On 8 12:03PM ; [facility] Esophageal Reflux 11/07/2017 Blas Walsh MD Active Last Documented On 8 12:01PM ; [facility] Essential Hypertriglyceridemia 11/07/2017 Huy Walsh MD Active Last Documented On 8 12:06PM ; [facility] Essential Hypertension 11/07/2017 Blas gallegos MD Active Last Documented On 8 12:05PM ; [facility] Hemorrhoids Internal 11/07/2017 Blas Walsh MD Active Last Documented On 8 12:04PM ; [facility] Intestinal Disorder Diverticular 11/07/2017 Darrell Walsh MD Active Last Documented On 8 12:06PM ; [facility] Obesity 11/07/2017 Blas Walsh MD Active Last Documented On 8 12:02PM ; [facility] Osteoarthritis 11/07/2017 Blas Walsh MD Act jigar Last Documented On 8 12:06PM ; [facility] 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 Spondylosis 11/07/2017 Blas Walsh MD Active Last Documented On 8 12:04PM ; [facility] 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 Plan of [...] By Rayne Olson *TERMED* ; [facility] Lisinopril 20 MG Oral Tablet 08/07/2020 Provider: Diagnosis: Last Documented On 1 11:01AM By Rayne Olson *TERMED* ; [facility] Januvia 100 MG Oral Tablet 08/07/2020 Provider: Diagnosis: 1 QD Last Documented On 1 11:17AM By Rayne Olson *TERMED* ; [facility] Atenolol 25 MG Oral Tablet 08/07/2020 Provider: Diagnosis: Last Documented On 1 11:18AM By Rayne Olson *TERMED* ; [facility] Alfuzosin HCl ER 10 MG Oral Tablet Extended Rele ase 24 Hour 08/07/2020 Provider: Diagnosis: 1 HS Last Documented On 1 11:19AM By Rayne Olson *TERMED* ; [facility] Multivitamin Oral Tablet 08/07/2020 Provider: Diagnosis: Last Documented On 1 11:20AM By Rayne Olson *TERMED* ; [facility] CoQ10 100 MG Oral Capsule 08/07/2020 Provider: Diagnosis: Last Documented On 1 11:40AM By Trini Tran ; [facility] Medications Administered [...] Documented On 2 11:21AM ; [facility] Sulfa Antibiotics Allergy 11/07/2017 A ctive Last Documented On 2 11:21AM ; [facility] Simvastatin Allergy 11/07/2017 Active Last Documented On 2 11:21AM ; [facility] Lyrica Allergy 11/07/2017 Active Last Documented On 2 11:21AM ; [facility] Byetta 10 MCG Pen Allergy 11/07/2017 A ctive Last Documented On 2 11:21AM ; [facility] Encounters Encounter Provider Location Date Check-In Time Check-Out Time Diagnosis [Patient Encounter] Gail Gorman MD 09/28/2020 9:16AM 11:59PM Insurance Includes: Active Insurance Policies Plan Name Member ID Group # Subscriber Relationship Effect jigar Dates 1 - Medicare : [id number] Pritesh Funez Self 2 - Bc/bs Fl(federal) :[facility] [id number] Pritesh Mckeon 04/27/2019 - Unknown Clinical Notes Includes: Clinical Notes from this encounter No Clinical Notes Recorded
--- OUTSIDE RECORDS SUMMARY | 2023-11-10 11:02 | XMS_ITS | Continuity of Care Document ---
Author Organization [facility] , Patient Home Address [address] [place] [address] Care Team Providers Care Pot Fluxer Name Role Phone PAUL SHEIKH Primary Care Provider [phone] Assessment No assessment recorded. Plan of Treatment Reminders Order Date Submit Date Provider Last Modified By Organization Details Last Modified Time Details Appointments None record ed. Lab None record ed. Referral None record ed. Procedures None record ed. Surgeries None record ed. Imaging None record ed. Medication Orders None record ed. Patient TargetsNo targets recorded. Patient InstructionsNo instructions recorded. Reason for Referral Physical Therapist Referral for Diabetic peripheral neuropathy Poor balance, unsteady gait and frequent falls. Referring Physician: Paul Sheikh [facility], Encounter Date: 04/24/2023 Patient identified as [place] very bad diabetic peripheral neuropathyIs he walking with his walkerHas he had any fallswould he benefit from PTHow's his diet (diabetic friendly)Hows his weightblood pressureHows his diabetesany refills Referring Physician: Paul Sheikh [facility] Medicine, Encounter Date: 08/13/2023 Procedures Surgical History Date Name Laterality Status Provider Name and Address Organization Details Recorded Time 02/11/20 23 open reduction of fracture of femur completed [employer], [facility] 04/24/2023 13:31:26 04/27/19 12 [facility] 13:31:36 [facility] 02/26/2022 13:06:05 [facility]air [facility] 02/26/2022 13:06:05 Vasectomy completed [facility] 02/26/2022 13:06:06 Imaging Results None recorded. [...] n itching Not available Not available 02/26/2022 [id number] SNOMED [facility] 13:06:04 Medications Name Sig Start Date Stop [...] 2023 active Not Available Not Available Not Elpidio labwalter econazole 1 % topical cream APPLY TOPICALLY [...] Available Not Available No t Available Vitals None Recorded Social History Question Answer Notes LastModified by Organizat ion Details LastModified Time Tobacco Smoking Status Former Smoker Martine Villanueva [facility], [place] - [facility] 02/26/2022 13:09:40 Do You Have An Advance Directive? Yes [email or web address] Information n ot available 02/26/2022 Is Your Home Air Conditioned? Yes [email or web address] Information not available 02/26/2022 What Is Your Level Of Alcohol Consumption? None [email or web address] Information not available 02/26/2022 Are You Currently Sexually Active With Anyone Who Has Traveled (within The Last 12 Weeks) To A Zika-affected Area? No [email or web address] Information not available 02/26/2022 Do You Have A Basement? No Information not available 02/26/2022 Are You Blind Or Do You Have Difficulty Seeing? No [email or web address] Information n ot available 02/26/2022 Is Blood Transfusion Acceptable In An Emergency? Yes [email or web address] Information not available 02/26/2022 What Is Your Level Of Caffeine Consumption? Moderate Information not available 02/26/2022 Are You A Caregiver? No [email or web address] Information not available 02/26/2022 What Is Your Code Status? Full Code [email or web address] Information not available 02/26/2022 In The 14 Days Before Symptom Onset, Have You Had Close Contact With A Laboratory-confirm ed COVID-19 While That Case Was Ill? No [email or web address] Information n ot available 02/26/2022 In The 14 Days Before Symptom Onset, Have You Had Close Contact With A Person Who Is Under Investigation For COVID-19 While That Person Was Ill? No [email or web address] Information not available 02/26/2022 Have You Been To An Area Known To Be High Risk For COVID-19? No [email or web address] Information not available 02/26/2022 Are You Currently Employed? No [email or web address] Information not available 02/26/2022 Are You Deaf Or Do You Have Serious Difficulty Hearing? No [email or web address] Information not available 02/26/2022 What Type Of Diet Are You Following? REGULAR Information n ot available 04/24/2023 Have You Processed Blood Or Body Fluids From An Ebola Virus Disease Patient Without Appropriate PPE? No [email or web address] Information not available 02/26/2022 Do You Reside In Or Have You Traveled To An Area Where Ebola Virus Transmission Is Active? No [email or web address] Information not available 02/26/2022 What Is Your Occupation? Retired [email or web address] Information not available 02/26/2022 Have There Been Any Changes To Your Family Or Social Situation? No [email or web address] Information no t available 02/26/2022 When Did You Quit Smoking? 16+yearssince lastcigarette [email or web address] Information not available 02/26/2022 Are There Any Guns Present In Your Home? Yes [email or web address] Information not available 02/26/2022 Which Of Your Hands Is Dominant? Right [email or web address] Information n ot available 02/26/2022 Have You Recently Or Are You Planning To Travel To An Area With Zika Virus? No [email or web address] Information not available 02/26/2022 Live Alone Or With Others? With Others Information not available 02/26/2022 Have You Been Scratched Or Bitten By An Animal Or Have You Prepared Or Eaten Meat Or Used Products From An Animal Infected With Monkeypox? No [email or web address] Information not available 02/26/2022 Have You Had Direct Contact, Or Contact During Intimacy, With Monkeypox Rash, Scabs, Or Body Fluids From A Person With Monkeypox? No [email or web address] Information not available 02/26/2022 Have You Touched Any Objects (including Fetish Gear Or Sex Toys), Fabrics (clothing, Bedding, Or Towels), And Surfaces That Have Been Used By Someone With Monkeypox? No Information not available 02/26/2022 Have You Had Contact With Respiratory Secretions From A Person With Monkeypox? No [email or web address] Information not available 02/26/2022 What Was The Date Of Your Most Recent Tobacco Screening? 04/24/2023 [email or web address] Information not available 04/24/2023 How Many Children Do You Have? 4 Information not available 02/26/2022 Do You Have Any Pets? Yes Dog [email or web address] Information not available 02/26/2022 What Is Your Relationship Status? [email or web address] Information not available 02/26/2022 Do You Use Your Seat Belt Or Car Seat Routinely? Yes Information not available 02/26/2022 Do You Have Smoke And Carbon Monoxide Detectors In Your Home? Yes Information not available 02/26/2022 Are You Passively Exposed To Smoke? No [email or web address] Information no t available 02/26/2022 Are There Any Smokers In Your House? No [email or web address] Information not available 02/26/2022 Do You Use Any Illicit Or Recreational Drugs? No [email or web address] Information not available 02/26/2022 Do You Use Sunscreen Routinely? No [email or web address] Information not available 02/26/2022 Has Tobacco Cessation Counseling Been Provided? No Information not available 04/24/2023 Have You Recently Traveled Abroad? No [email or web address] Information not available 02/26/2022 Do You Have Any Dietary Restrictions? No [email or web address] Information not available 04/24/2023 Do You Or Have You Ever Used Any Other Forms Of Tobacco Or Nicotine? No [email or web address] Information not available 02/26/2022 Sex: Unknown Functional Status Question Answer Note LastModified by Organizat ion Details LastModified Time Do you have difficulty walking or climbing stairs? Yes Information not available 04/24/2023 Do you have transportation difficulties? No [email or web address] Information not available 02/26/2022 Are you able to walk? YESASSIST [email or web address] Information not available 02/26/2022 Do you have difficulty doing errands alone? No [email or web address] Information not available 02/26/2022 Are you able to care for yourself? Yes Information not available 02/26/2022 Do you have difficulty dressing or bathing? No [email or web address] Information not available 02/26/2022 What is your exercise level? None [email or web address] Information not available 04/24/2023 Mental Status Question Answer Note LastModified by Organization D etails LastModified Time Do you have difficulty concentrating, remembering or making decisions? Yes [email or web address] Information no t available 02/26/2022 Family History [...] high-dose, quadrivalent, PF 02/26/2022 completed Martine Villanueva [facility], [facility] 02/26/2022 13:42:52 Influenza, high-dose, quadrivalent, PF 04/24/2023 completed Martine Villanueva [facility] 04/24/2023 14:41:58 Past Encounters Encounter ID Performer Location Encounter Start Date Encounter Closed Date Diagnosis/Indication Diagnosis SNOMED-CT Code [id number] BABAK Jimenez Patient Home [address] [place] [address] 09/17/2023 14:45:16 09/30/2023 15:24:35 [id number] BABAK Jimenez Patient Home [address] [place] [address] 09/30/2023 15:20:43 10/27/2023 09:15:06 Health Concerns Section Related Observation LastModified by Organization Detai ls LastModified Time None Recorded Concern Status LastModified by Organization Details LastModified Time None Recorded Payers Encounter Date Sequence Insurance Name Policy Number Policy Londono Covered Member ID [place]o Member ID Guarantor Name 09/30/2023 1 [place] Pritesh Funez [id number] Pritesh Funez 09/30/2023 2 [place]) 106 Pritesh Funez [id number] Pritesh Funez Notes Date Note Type Note Provider Name and Address Organization Details Recorded Time 09/30/2023 text/html HPI Notes: 4 - Called [...] of stock all week. Resent to his [facility] mail order pharmacy. He denies any [...] / 3 Minute Chart 40 Minutes Total LEON_JEREL [address], [place], [address], [facility] - [facility] 10/28/2023 15:01:59
--- OUTSIDE RECORDS SUMMARY | 2023-11-10 11:02 | XMS_ITS | Clinical Summary ---
Author Organization [facility] Address [address] [place] [address] Phone Care Team Providers Care Client Development Manager Name Role Phone Tom Brantley MD, Ismael Gallegos Unavailable [phone] Ricky SPENCER, Hreon Epstein Unavailable [phone] Vita SPENCER, Gail Jimenez Unavailable [phone] Blas Walsh MD Unavailable [phone] Misael Perez MD Unavailable [phone] Paul Sheikh DO Primary Care Provide r [phone] Reason for Visit and Chief Complaint [Patient Encounter] Problems Includes: Problems addressed during this encounter and other active Problems All Visits Onset Date Resolved Date Provider Condition S tatus Diabetes Mellitus Type 2 11/07/2017 Blas Persaud MD Active Last Documented On 8 12:03PM ; [facility] Esophageal Reflux 11/07/2017 Blas Walsh MD Active Last Documented On 8 12:01PM ; [facility] Essential Hypertriglyceridemia 11/07/2017 Huy Walsh MD Active Last Documented On 8 12:06PM ; [facility] Essential Hypertension 11/07/2017 Blas gallegos MD Active Last Documented On 8 12:05PM ; [facility] Hemorrhoids Internal 11/07/2017 Blas Walsh MD Active Last Documented On 8 12:04PM ; [facility] Intestinal Disorder Diverticular 11/07/2017 Darrell Walsh MD Active Last Documented On 8 12:06PM ; [facility] Obesity 11/07/2017 Blas Walsh MD Active Last Documented On 8 12:02PM ; [facility] Osteoarthritis 11/07/2017 Blas Walsh MD Act jigar Last Documented On 8 12:06PM ; [facility] 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 Spondylosis 11/07/2017 Blas Walsh MD Active Last Documented On 8 12:04PM ; [facility] 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 Plan of [...] 10:33AM By Rayne Olson *TERMED* ; [facility] Lisinopril 20 MG Oral Tablet 08/07/2020 Provider: Diagnosis: Last Documented On 1 11:01AM By Rayne Olson *TERMED* ; [facility] Januvia 100 MG Oral Tablet 08/07/2020 Provider: Diagnosis: 1 QD Last Documented On 1 11:17AM By Rayne Olson *TERMED* ; [facility] Atenolol 25 MG Oral Tablet 08/07/2020 Provider: Diagnosis: Last Documented On 1 11:18AM By Rayne Olson *TERMED* ; [facility] Alfuzosin HCl ER 10 MG Oral Tablet Extended Rele ase 24 Hour 08/07/2020 Provider: Diagnosis: 1 HS Last Documented On 1 11:19AM By Rayne Olson *TERMED* ; [facility] Multivitamin Oral Tablet 08/07/2020 Provider: Diagnosis: Last Documented On 1 11:20AM By Rayne Olson *TERMED* ; [facility] CoQ10 100 MG Oral Capsule 08/07/2020 Provider: Diagnosis: Last Documented On 1 11:40AM By Trini Tran ; [facility] Medications Administered [...] Last Documented On 2 11:21AM ; [facility] Sulfa Antibiotics Allergy 11/07/2017 A ctive Last Documented On 2 11:21AM ; [facility] Simvastatin Allergy 11/07/2017 Active Last Documented On 2 11:21AM ; [facility] Lyrica Allergy 11/07/2017 Active Last Documented On 2 11:21AM ; [facility] Byetta 10 MCG Pen Allergy 11/07/2017 A ctive Last Documented On 2 11:21AM ; [facility] Encounters Encounter Provider Location Date Check-In Time Check-Out Time Diagnosis [Patient Encounter] Gail Gorman MD 09/04/2020 1:05PM 11:59PM Insurance Includes: Active Insurance Policies Plan Name Member ID Group # Subscriber Relationship Effect jigar Dates 1 - Medicare : [id number] Pritesh Funez Self 2 - Bc/bs Fl(federal) :[facility] [id number] Pritesh Mckeon 04/27/2019 - Unknown Clinical Notes Includes: Clinical Notes from this encounter No Clinical Notes Recorded
--- OUTSIDE RECORDS SUMMARY | 2023-11-10 11:02 | XMS_ITS | Continuity of Care Document ---
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 Plan of Treatment [...] and frequent falls. Referring Physician: Paul Sheikh [facility], Encounter Date: 04/24/2023 Patient identified as [place] very bad diabetic peripheral neuropathyIs he walking with his walkerHas he had any fallswould he benefit from PTHow's his diet (diabetic friendly)Hows his weightblood pressureHows his diabetesany refills Referring Physician: Paul Sheikh [facility], Encounter Date: 08/13/2023 Procedures Surgical History Date Name Laterality Status Provider Name and Address Organization Details Recorded Time 02/11/20 23 open reduction of fracture of femur completed [facility], [facility] 04/24/2023 13:31:26 04/27/19 12 [facility]31[facility]36 [facility] 13:06:05 [facility] 13:06:05 Vasectomy completed [facility] 02/26/2022 13:06:06 Imaging Results None recorded. [...] n itching Not available Not available 02/26/2022 [id number] SNOMED [facility] 13:06:04 Medications Name Sig Start Date [...] Tobacco Smoking Status Former Smoker Martine Villanueva [facility] [place], [place] - [facility] 02/26/2022 13:09:40 Do You Have An Advance Directive? Yes [email or web address] Information n ot available 02/26/2022 Is Your Home Air Conditioned? Yes [email or web address] Information not available 02/26/2022 What Is Your Level Of Alcohol Consumption? None [email or web address] Information not available 02/26/2022 Are You Currently Sexually Active With Anyone Who Has Traveled (within The Last 12 Weeks) To A Zika-affected Area? No Information not available 02/26/2022 Do You Have A Basement? No [email or web address] Information not available 02/26/2022 Are You Blind Or Do You Have Difficulty Seeing? No [email or web address] Information n ot available 02/26/2022 Is Blood Transfusion Acceptable In An Emergency? Yes [email or web address] Information not available 02/26/2022 What Is Your Level Of Caffeine Consumption? Moderate [email or web address] Information not available 02/26/2022 Are You A Caregiver? No [email or web address] Information not available 02/26/2022 What Is Your Code Status? Full Code [email or web address] Information not available 02/26/2022 In The 14 Days Before Symptom Onset, Have You Had Close Contact With A Laboratory-confirm ed COVID-19 While That Case Was Ill? No [email or web address] Information n ot available 02/26/2022 In The 14 Days Before Symptom Onset, Have You Had Close Contact With A Person Who Is Under Investigation For COVID-19 While That Person Was Ill? No [email or web address] Information not available 02/26/2022 Have You Been To An Area Known To Be High Risk For COVID-19? No Information not available 02/26/2022 Are You Currently Employed? No [email or web address] Information not available 02/26/2022 Are You Deaf Or Do You Have Serious Difficulty Hearing? No [email or web address] Information not available 02/26/2022 What Type Of Diet Are You Following? REGULAR [email or web address] Information n ot available 04/24/2023 Have You Processed Blood Or Body Fluids From An Ebola Virus Disease Patient Without Appropriate PPE? No [email or web address] Information not available 02/26/2022 Do You Reside In Or Have You Traveled To An Area Where Ebola Virus Transmission Is Active? No [email or web address] Information not available 02/26/2022 What Is Your Occupation? Retired [email or web address] Information not available 02/26/2022 Have There Been Any Changes To Your Family Or Social Situation? No [email or web address] Information no t available 02/26/2022 When Did You Quit Smoking? 16+yearssince lastcigarette [email or web address] Information not available 02/26/2022 Are There Any Guns Present In Your Home? Yes [email or web address] Information not available 02/26/2022 Which Of Your Hands Is Dominant? Right [email or web address] Information n ot available 02/26/2022 Have You Recently Or Are You Planning To Travel To An Area With Zika Virus? No [email or web address] Information not available 02/26/2022 Live Alone Or With Others? With Others Information not available 02/26/2022 Have You Been Scratched Or Bitten By An Animal Or Have You Prepared Or Eaten Meat Or Used Products From An Animal Infected With Monkeypox? No Information not available 02/26/2022 Have You Had Direct Contact, Or Contact During Intimacy, With Monkeypox Rash, Scabs, Or Body Fluids From A Person With Monkeypox? No [email or web address] Information not available 02/26/2022 Have You Touched Any Objects (including Fetish Gear Or Sex Toys), Fabrics (clothing, Bedding, Or Towels), And Surfaces That Have Been Used By Someone With Monkeypox? No Information not available 02/26/2022 Have You Had Contact With Respiratory Secretions From A Person With Monkeypox? No Information not available 02/26/2022 What Was The Date Of Your Most Recent Tobacco Screening? 04/24/2023 Information not available 04/24/2023 How Many Children Do You Have? 4 Information not available 02/26/2022 Do You Have Any Pets? Yes Dog [email or web address] Information not available 02/26/2022 What Is Your Relationship Status? [email or web address] Information not available 02/26/2022 Do You Use Your Seat Belt Or Car Seat Routinely? Yes Information not available 02/26/2022 Do You Have Smoke And Carbon Monoxide Detectors In Your Home? Yes [email or web address] Information not available 02/26/2022 Are You Passively Exposed To Smoke? No [email or web address] Information no t available 02/26/2022 Are There Any Smokers In Your House? No Information not available 02/26/2022 Do You Use Any Illicit Or Recreational Drugs? No Information not available 02/26/2022 Do You Use Sunscreen Routinely? No [email or web address] Information not available 02/26/2022 Has Tobacco Cessation Counseling Been Provided? No [email or web address] Information not available 04/24/2023 Have You Recently Traveled Abroad? No Information not available 02/26/2022 Do You Have Any Dietary Restrictions? No [email or web address] Information not available 04/24/2023 Do You Or Have You Ever Used Any Other Forms Of Tobacco Or Nicotine? No Information not available 02/26/2022 Sex: Unknown Functional Status Question Answer Note LastModified by Organizat ion Details LastModified Time Do you have difficulty walking or climbing stairs? Yes [email or web address] Information not available 04/24/2023 Do you have transportation difficulties? No [email or web address] Information not available 02/26/2022 Are you able to walk? YESASSIST [email or web address] Information not available 02/26/2022 Do you have difficulty doing errands alone? No [email or web address] Information not available 02/26/2022 Are you able to care for yourself? Yes [email or web address] Information not available 02/26/2022 Do you have difficulty dressing or bathing? No [email or web address] Information not available 02/26/2022 What is your exercise level? None [email or web address] Information not available 04/24/2023 Mental Status Question Answer Note LastModified by Organization D etails LastModified Time Do you have difficulty concentrating, remembering or making decisions? Yes [email or web address] Information no t available 02/26/2022 Family History [...] high-dose, quadrivalent, PF 02/26/2022 completed Martine Villanueva null, [facility] 02/26/2022 13:42:52 Influenza, high-dose, quadrivalent, PF 04/24/2023 completed Martine Villanueva null, [facility] 04/24/2023 14:41:58 Past Encounters None Reported. Health Concerns Section Related Observation LastModified by Organization Detai ls LastModified Time None Recorded Concern Status LastModified by Organization Details LastModified Time None Recorded Payers Encounter Date Sequence Insurance Name Policy Number Policy [place] Covered Member ID [place] Member ID Guarantor Name 09/03/2023 1 [place] Pritesh Funez [id number] Pritesh Funez 09/03/2023 2 [place]GRAM (PPO) [id number] Pritesh Funez [id number] Pritesh Funez Notes Date Note Type Note Provider Name and Address Organization Details Recorded Time 09/03/2023 text/html HPI Notes: 09/17/23 - Called and left a message - [facility] [employer] 09/24/23 - Called and left a message - [employer] ME[facility]JEREL [address], [place], [address], [facility] 09/24/2023 14:05:50
--- OUTSIDE RECORDS SUMMARY | 2023-11-10 11:03 | XMS_ITS | Data Portability ---
Author Organization [place] - [facility] Address [address] [place] [address] Care Team Providers Care Rn Charge Name Role Phone MT GIANG OTHER Assessment Encounter Date Assessment Date Assessment LastModified by Organization Details LastModified Time 09/18/2020 09/18/2020 Telehealth communication performed with patient. Service was provided using telemedicine. Patient verbally consents to this services (virtual check-in). Names and roles of all persons participating in telemedicine services include: Patient is located at home and is an established patient. A total of _15__ minutes were spent in consultation via [facility] video and audio to assess and treat the following: [email or web address] Not available 09/18/2020 17:04:54 02/26/2021 02/26/2021 Time Spent: Alcohol screening and counselin minutes Depression Screening and counselin minutes [email or web address] Not available 02/26/2021 13:01:36 Plan of Treatment Reminders Order Date Submit Date Provider Last Modified By Organization Details Last Modified Time Details Appointments None recorded. Lab unlisted lab - [id number] [email or web address] [place] [address] Lab (Main Lab), [address] [place], [address], 09:43:37 CBC [address] [facility] Lab (Main Lab), [address] [place], [address], 14:00:15 lipid panel, serum 2020 [facility] Lab (Main Lab), [address], [place], [address], 13:23:18 lipid panel, serum 2020 [facility] Lab (Main Lab), [address], [place], [address], 07:12:24 CMP, serum or [facility] [address], [place], [address], 07:12:38 CBC 2020 [facility] Lab (Main Lab), [address], [place], [address], 07:09:59 Referral None recorded. Procedures None recorded. Surgeries None recorded. Imaging US, thyroid - Recent MRI of the neck showed what appears to be thyroid nodule with recommenda tions of a thyroid ultrasound for follow-up. 2020 [facility] - Radiology, [address] [place], [address], 21:41:18 CT, neck, soft tissue, w/ contrast - MRI showed left sided neck mass. Recommende d CT w/ contrast. 2020 [facility], [address] [place], [address], 23:36:32 Medication Orders doxycyclin e hyclate 100 mg tablet [email or web address] [place] [address] [id number], [address] [place], [place], [id number], 13:06:19 Patient TargetsNo targets recorded. Patient Instructions Encounter Date Encounter Id Patient Instructions Last Modified By Organization Details Last Modified Time 09/19/2020 [id number] thyroid nodules: care instructions [email or web address] Not available 09/19/2020 14:00:09 01/28/2021 [id number] influenza (flu) vaccine: care instructions [email or web address] Not available 01/29/2021 12:36:10 02/26/2021 [id number] sleep apnea: car e instructions [email or web address] Not available 02/26/2021 13:38:22 learning about t ype 2 diabetes [email or web address] Not available 02/26/2021 13:38:21 type 2 diabetes: care instructions [email or web address] Not available 02/26/2021 13:38:22 high blood press ure: care instructions [email or web address] Not available 02/26/2021 13:38:22 learning about h igh blood pressure [email or web address] Not available 02/26/2021 13:38:22 multi-dimensiona l health assessment questionnaire* [email or web address] Not available 02/26/2021 13:38:22 Advance Care Directives Patient WebLink Handout [email or web address] Not available 02/26/2021 13:38:22 advance directiv es: care instructions [email or web address] Not available 02/26/2021 13:38:21 Personalized a lt Plan and Screening Recommendations Advance Directives - Do you have one? {{Yes* No}} {{You have indicated that you are capable of preparing your advance care directive I recommend consulting with an Harvest Crew Supervisor, family member, or friend to assist you.}} Advance Directives - Do we have your advance directive on file in your health record? {{Yes No, please bring in a copy at your earliest convenience}} Primary Prevention/Intervent ion (prevents or decreases the chance of common diseases from occurring) Tobacco/Nicotine Risk: {{Non-Smoker Former Smoker* Smoker}} {{Refer to cessation handouts Refer to handouts and prescription will be sent to pharmacy Continue to consider stopping smoking and call if we can assist you Recommend screening for possible Emphysema with pulmonary function testing Recommend lung cancer screening with low dose CT scan of the chest}} Alcohol Misuse Screening: {{Low risk* Moderate to High risk Current diagnosis}} {{Refer to alcohol cessation handout Refer to handout and prescription will be sent to pharmacy Decrease alcohol intake to 1 or less servings per day Continue to consider stopping alcohol and call if we can assist you Recommend referral for alcohol counseling/rehabilit ation}} Weight: {{Appropriate Overwe ight* Underweight}} {{refer to handout continue your current weight loss efforts try to lose 5% of your body weight try to lose 10% of your body weight try to lose 15% of your body weight consultation with a dietitian monitor weight weekly and call if you continue to lose weight}} Physical activity: {{Appropriate physical activity Need more exercise/physical activity*}} {{minimum of 10-20 minutes of activity that causes mild breathlessness/day* minimum of 20-30 minutes activity that causes mild breathlessness/day m inimum of 30-40 minutes of activity that causes mild breathlessness/day d ecrease sitting time to no more than 5hr/day}} Nutrition: {{Good Average* Poor }} {{Refer to handout Heart-Healthy Diet: After Your Visit* Refer to handout DASH Diet: After Your Visit Recommend consultation with a automobile insurance claim examiner}} Fall Risk (screened today): {{Low risk* Intermediate risk High risk}} {{Refer to handout Preventing Falls: After your Visit Recommend regular use of cane or walker Referral for physical therapy Referral to physical therapy, but you have declined Referral for home health nurse evaluation Referral for home health nurse evaluation with physical therapy}} Vaccines Influenza: {{Recommended Recomm ended today, but you have declined Your next one in the fall of this year Your next one in the fall of next year* Not indicated}} Pneumococcal: {{Recommended Recomm ended today, but you have declined Series completed* Your next one due: Not indicated}} Shingles: {{Recommend first dose. Second dose due 2-6 months after first dose. There may be an out of pocket cost for preventative services. Recommend second dose. There may be an out of pocket cost for preventative services. Recommende d today, but you have declined Series completed* Not indicated}} COVID-19: {{Recommended Recomm ended today, but you have declined Series completed* Your next one due: Not indicated}} Tetanus: {{Due: 12-07-2023# Due: Rec ommended. There may be an out of pocket cost for preventive services Recommended today, but you have declined Not indicated}} Hepatitis B: {{Recommended, next dose due: Recommended today, but you have declined Series completed Not indicated}} Secondary Prevention/Intervent ion (detects treatable diseases before they may cause symptoms, disability, or ) Prostate Cancer Screening: {{Your next PSA in: 11-22-2020# Your next PSA in: Recommended Jason mmended today, but you have declined No PSA screening necessary}} {{your next digital rectal exam in: No digital rectal exam screening necessary}} Osteoporosis Screening: {{Your next DEXA due: Recommended Rec ommended today, but you have declined No screening necessary not indicated*}} Colon Cancer Screening: {{Colonoscopy Fecal Occult Blood Test (FOBT)/Fecal Immunoassay Test (FIT) Cologuard (DNA stool test) No screening necessary*}} {{Due: Recommended R ecommended today, but you have declined Referred to General Surgeon/ Route Salesman N o screening necessary}} Eye Disease Screening: {{Your next exam due:04-12-2020# Your next exam due: Recommended Rec ommended today, but you have declined Per your eye care provider No Eye exam necessary}} Depression Screening: {{Low risk* Moderate to High risk Current Diagnosis}} {{Recommend additional evaluation and/or treatment as noted above Recommend follow-up appointment to further evaluate Recommend Behavioral Health referral Continue your current depression treatment}} Cognitive Screening: {{Normal Abnormal Ab normal, but stable* Current Diagnosis Refused}} {{Stay mentally and physically active Recommend follow-up appointment to further evaluate cognitive function Recommend referral for further evaluation Continue current treatment}} Diabetes Screening: {{Due: Performed/Ord ered today Recommended today, but you have declined Not indicated Current Diagnosis*}} Cardiovascular Disease (CVD) Screening: labs - {{Due: Performed/Ord ered today Recommended today, but you have declined Not indicated* Current Diagnosis}} Aspirin Recommendations: you are {{not at increased risk* at increased risk}} {{Daily aspirin recommended Recommen ded today, but you have declined Contraindic ated On alternative therapy Daily aspirin not indicated at this time}} Abdominal Aortic Aneurysm (AAA) Screening: {{US last 10-21-2018# Recommen d Ultrasound Ultrasoun d completed Declined N ot indicated}} Lung Cancer Screening: {{CT last 03-16-2019# Recommen ded Low dose CT scan Low dose CT scan due: Recommended today, but you have declined Not indicated}} Hepatitis B Screening: {{You are not at increased risk, testing is not indicated today* You are at increased risk, testing was performed/ordered today You are at increased risk, testing was recommended today but you have declined You are at increased risk, testing was performed and normal, continue to manage risk with your provider You have a current diagnosis, continue to manage your condition with your provider I would like to see you back at a future visit to assess your risk}} Hepatitis C Screening: {{You are not at increased risk, testing is not indicated today* You are at increased risk, testing was performed/ordered today You are at increased risk, testing was recommended today but you have declined You are at increased risk, testing was performed and normal, continue to manage risk with your provider You have a current diagnosis, continue to manage your condition with your provider I would like to see you back at a future visit to assess your risk}} Sexually Transmitted Infections Screening: {{You are not at increased risk, testing is not indicated today* You are at increased risk, testing was performed/ordered today You are at increased risk, testing was recommended today but you have declined You are at increased risk, testing was performed and normal, continue to manage risk with your provider You have a current diagnosis, continue to manage your condition with your provider I would like to see you back at a future visit to assess your risk}} Human Immunodeficiency Virus (HIV) Screening: {{You are not at increased risk, testing is not indicated today* You are at increased risk, testing was performed/ordered today You are at increased risk, testing was recommended today but you have declined You are at increased risk, testing was performed and normal, continue to manage risk with your provider You have a current diagnosis, continue to manage your condition with your provider I would like to see you back at a future visit to assess your risk}} Tertiary Prevention/Intervent ion (identifies your current known diseases and attempts to prevent complications of those diseases) Complications of many of these diseases can be minimized through the primary prevention/intervent ions listed above but some may require medication addition/change or referrals and will be addressed today or at a follow-up appointment Pain Control Status: {{no pain or pain under adequate control* inadequate pain control}} Pain Medication Use and Risk for Opioid Misuse: {{You do not use addictive opioid medications, and therefore are not at risk* You do use addictive opioid medications, but are not at risk for misuse today; continue to monitor for risk with your provider You do use addictive opioid medications, and I would like to see you back at a future visit for further evaluation You do use addictive opioid medications, you are at risk for misuse, and I recommend reviewing risk with a specialist You have a current diagnosis of opioid use disorder, and should continue managing it with your current provider}} Pain Management Plan: {{No interventions or changes required, alternative therapies have been assessed and documented in your chart* Additional evaluation or treatment as noted above I would like to see you back at a future visit to reassess your pain management plan and discuss alternative therapies Continue care per your specialist, to include alternative therapies for pain relief I am referring you to a specialist for care}} I encourage you to remain physically active, [...] you have diabetes you will need a dilated yearly exam. Please schedule flu vaccine every fall. [email or web address] Not available 02/26/2021 13:37:38 Reason for Referral Referring Physician: Sarah you, Family Medicine, Encounter Date: 06/01/2013 Persistent elevated creatini ne kinase, rule inflammatory myopathy Referring Physician: Sarah Jung [facility] Medicine, Encounter Date: 11/22/2013 Guest Experience Specialist Referral for Type 2 diabetes mellitus without complication DM: needs foot care Referring Physician: Blas Walsh, Endocrinology, Encounter Date: 06/13/2014 General Surgeon Referral for Hernia of abdominal cavity Referring Physician: Blas Walsh, Endocrinology, Encounter Date: 10/10/2014 Neurologist Referral for Ess ential tremor Referring Physician: Sarah Jung [facility] Medicine, Encounter Date: 11/29/2014 Urologist Referral for Benig n prostatic hyperplasia without outflow obstruction Referring Physician: Joon Ricks, Cardiology, Encounter Date: 05/23/2015 This is a patient with a kelley g history of obstructive sleep apnea would like to establish with Sleep Medicine in the area Referring Physician: Gerard Chamorro [facility] Medicine, Encounter Date: 10/22/2016 Please assess balance and tr eat as needed. Referring Physician: Gerard Chamorro [facility] Medicine, Encounter Date: 09/08/2017 Dulite Machine Bluer Referral for At ypical chest pain this is a gentleman with cardiac history who was seen fairly recently at the emergency room in [place] with atypical chest pain. He was given nitroglycerin which did not improve the discomfort and a serial round of troponins which were negative. He is still having intermittent chest pain which feels like pressure which tends to come and go. No other symptoms are present. Referring Physician: Gerard Chamorro [facility] Medicine, Encounter Date: 02/09/2019 Barrel Scraper Referral for C oronary arteriosclerosis Referring Physician: Joon Ricks Cardiology, Encounter Date: 02/28/2019 Neurologist Referral for Sherrell ropathy this patient with a history of worsening lower extremity neuropathy and what he is a diabetic it is not thought that this is causing the neuropathy. He has atrophy of the thenar eminences is on both hands and decreased heeler strength. He was seen by Rheumatology and has elevated inflammatory markers. He was recommended that he come see you several years ago and we would like to follow up with this condition. Referring Physician: Gerard Chamorro [facility] Medicine, Encounter Date: 06/01/2019 Neurologist Referral for Idi opathic peripheral neuropathy Referring Physician: Gerard Chamorro [facility], Encounter Date: 06/06/2019 ENT Referral for Nodule of s ubcutaneous tissue of neck Nodule in the anterior aspect of the neck just above the left thyroid lobe. I have included imaging and radiologist recommends ENT follow up. Referring Physician: Gerard Chamorro [facility], Encounter Date: 10/02/2020 Results Created Date Observation Date Name Description Value Unit Range Abnormal Flag LastModifiedBy Organization Detail LastModifiedTime 09/22/19 21 09/21/2020 CMP, serum or plasm a glucose 150 mg/dL 65-100 high Not Available [facility] (Main Lab) [address] [place], [address], 09/21/2020 13:23:14 09/22/19 21 09/21/2020 CMP, serum or plasm a BUN 12 mg/dL 7-24 normal Not Available [facility] (Main Lab) [address], [place], [address], 09/21/2020 13:23:14 09/22/19 21 09/21/2020 CMP, serum or plasm a creatinine 0.7 mg/dL 0.4-1. [address] [facility] (Main Lab) [address], [place], [address], 09/21/2020 13:23:14 09/22/19 21 09/21/2020 CMP, serum or plasm a eGFR >60 mL/mi n/1.7 3m2 >=[address] [facility] (Main Lab) [address], [place], [address], 09/21/2020 13:23:14 09/22/19 21 09/21/2020 CMP, serum or plasm a eGFR non- 108 mL/mi n/1.7 3m2 >=[address] [facility] (Main Lab) [address] [place], [address], 09/21/2020 13:23:14 09/22/19 21 09/21/2020 CMP, serum or plasm a BUN/creat ratio 17 ratio Not Available [facility] Lab (Main Lab) [address] [place], [address], 09/21/2020 13:23:14 09/22/19 21 09/21/2020 CMP, serum or plasm a bilirubin, total 0.4 mg/dL 0.2-1. [address] [facility] (Main Lab) [address] [place], [address], 09/21/2020 13:23:14 09/22/19 21 09/21/2020 CMP, serum or plasm a AST (SGOT) 19 U/L 9-[address] [facility] (Main Lab) [address] [place], [address], 09/21/2020 13:23:14 09/22/19 21 09/21/2020 CMP, serum or plasm a ALT (SGPT) 20 U/L 5-[address] [facility] (Main Lab) [address] [place], [address], 09/21/2020 13:23:14 09/22/19 21 09/21/2020 CMP, serum or plasm a alkaline phosphatase 77 U/L 40-[address] [facility] (Main Lab) [address] [place], [address], 09/21/2020 13:23:14 09/22/19 21 09/21/2020 CMP, serum or plasm a calcium 9.9 mg/dL 8.4-10 [address] [facility] (Main Lab) [address] [place], [address], 09/21/2020 13:23:14 09/22/19 21 09/21/2020 CMP, serum or plasm a sodium 141 mEq/L 135-[address] [facility] (Main Lab) [address] [place], [address], 09/21/2020 13:23:14 09/22/19 21 09/21/2020 CMP, serum or plasm a potassium 4.1 mEq/L 3.6-5. [address] [facility] (Main Lab) [address] [place], [address], 09/21/2020 13:23:14 09/22/19 21 09/21/2020 CMP, serum or plasm a chloride 108 mEq/L 98-108 normal Not Available [facility] (Main Lab) [address] [place], [address], 09/21/2020 13:23:14 09/22/19 21 09/21/2020 CMP, serum or plasm a CO2 24 mEq/L 25-32 low Not Available [facility] (Main Lab) [address] [place], [address], 09/21/2020 13:23:14 09/22/19 21 09/21/2020 CMP, serum or plasm a total protein 6.2 g/dL 6.0-8. [address] [facility] (Main Lab) [address] [place], [address], 09/21/2020 13:23:14 09/22/19 21 09/21/2020 CMP, serum or plasm a albumin 4.5 g/dL 3.5-5. 3 normal Not Available [facility] Lab (Main Lab) [address] [place], [address], 09/21/2020 13:23:14 09/22/19 21 09/21/2020 CMP, serum or plasm a albumin/glob ulin 2.6 ratio 1.1-2. 1 high Not Available [facility] (Main Lab) [address] [place], [address], 09/21/2020 13:23:14 09/22/19 21 09/21/2020 hemog lobin A1C/h emogl obin total , QN, blood hemoglobin A1C 6.7 % 4.5-6. 0 high Not Available [facility] (Main Lab) [address] [place], [address], 09/21/2020 13:23:15 09/22/19 21 09/21/2020 CBC w/ auto diff WBC 4.4 K/uL 4.0-10 .2 normal Not Available [facility] (Main Lab) [address] [place], [address], 09/21/2020 13:23:17 09/22/19 21 09/21/2020 CBC w/ auto diff RBC 4.66 M/uL 4.69-6 .13 low Not Available [facility] (Main Lab) [address] [place], [address], 09/21/2020 13:23:17 09/22/19 21 09/21/2020 CBC w/ auto diff HGB 12.8 g/dL 13.5-1 8.1 low Not Available [facility] (Main Lab) [address] [place], [address], 09/21/2020 13:23:17 09/22/19 21 09/21/2020 CBC w/ auto diff HCT 39.4 % 42.5-5 [address] [facility] (Main Lab) [address] [place], [address], 09/21/2020 13:23:17 09/22/19 21 09/21/2020 CBC w/ auto diff MCV 85 fL 80-97 normal Not Available [facility] (Main Lab) [address], [place], [address], 09/21/2020 13:23:17 09/22/19 21 09/21/2020 CBC w/ auto diff MCH 27.6 pg 27.0-[address] [facility] (Main Lab) [address], [place], [address], 09/21/2020 13:23:17 09/22/19 21 09/21/2020 CBC w/ auto diff MCHC 32.5 g/dL 31.8-[address] [facility] (Main Lab) [address], [place], [address], 09/21/2020 13:23:17 09/22/19 21 09/21/2020 CBC w/ auto diff RDW 13.6 % 11.0-2 [address] [facility] (Main Lab) [address], [place], [address], 09/21/2020 13:23:17 09/22/19 21 09/21/2020 CBC w/ auto diff plt 240 K/uL 150-[address] [facility] (Main Lab) [address], [place], [address], 09/21/2020 13:23:17 09/22/19 21 09/21/2020 CBC w/ auto diff MPV 7.4 fL 6.0-12 [address] [facility] (Main Lab) [address] [place], [address], 09/21/2020 13:23:17 09/22/19 21 09/21/2020 CBC w/ auto diff neut% 68.2 % 37.0-[address] [facility] (Main Lab) [address] [place], [address], 09/21/2020 13:23:17 09/22/19 21 09/21/2020 CBC w/ auto diff lymph% 21.2 % 20.0-[address] [facility] (Main Lab) [address] [place], [address], 09/21/2020 13:23:17 09/22/19 21 09/21/2020 CBC w/ auto diff mono% 6.5 % 3.0-15 [address] [facility] (Main Lab) [address] [place], [address], 09/21/2020 13:23:17 09/22/19 21 09/21/2020 CBC w/ auto diff eos% 3.4 % 0.0-6. [address] [facility] (Main Lab) [address] [place], [address], 09/21/2020 13:23:17 09/22/19 21 09/21/2020 CBC w/ auto diff baso% 0.7 % 0.1-3. [address] [facility] (Main Lab) [address], [place], [address], 09/21/2020 13:23:17 09/22/19 21 09/21/2020 CBC w/ auto diff neut# 3.0 K/uL 1.5-10 [address] [facility] (Main Lab) [address], [place], [address], 09/21/2020 13:23:17 09/22/19 21 09/21/2020 CBC w/ auto diff lymph# 0.9 K/uL 1.0-6. [address] [facility] (Main Lab) [address], [place], [address], 09/21/2020 13:23:17 09/22/19 21 09/21/2020 CBC w/ auto diff mono# 0.3 K/uL 0.2-1. [address] [facility] (Main Lab) [address], [place], [address], 09/21/2020 13:23:17 09/22/19 21 09/21/2020 CBC w/ auto diff eos# 0.2 K/uL 0.0-0. [address] [facility] (Main Lab) [address], [place], [address], 09/21/2020 13:23:17 09/22/19 21 09/21/2020 CBC w/ auto diff baso# 0.0 K/uL 0.0-0. [address] [facility] (Main Lab) [address], [place], [address], 09/21/2020 13:23:17 09/22/19 21 09/21/2020 lipid panel , serum triglyceride s 140 mg/dL 35-[address] [facility] (Main Lab) [address], [place], [address], 09/21/2020 13:23:18 09/22/19 21 09/21/2020 lipid panel , serum cholesterol 135 mg/dL 0-[address] [facility] (Main Lab) [address], [place], [address], 09/21/2020 13:23:18 09/22/19 21 09/21/2020 lipid panel , serum HDL 46 mg/dL 40-50 normal Not Available [facility] (Main Lab) [address] [place], [address], 09/21/2020 13:23:18 09/22/19 21 09/21/2020 lipid panel , serum LDL-calculat ed 61 mg/dL Not Available [facility] (Main Lab) [address] [place], [address], 09/21/2020 13:23:18 09/22/19 21 09/21/2020 lipid panel , serum chol/HDL risk ratio [address] [facility] (Main Lab) [address] [place], [address], 09/21/2020 13:23:18 09/22/19 21 09/21/2020 lipid panel , serum VLDL 28 mg/dL Not Available [facility] (Main Lab) [address] [place], [address], 09/21/2020 13:23:18 02/05/20 21 02/04/2021 LIPID PANEL triglyceride s 146 mg/dL 35-[address] [facility] (Main Lab) [address] [place], [address], 02/04/2021 14:37:06 02/05/20 21 02/04/2021 LIPID PANEL cholesterol 142 mg/dL 0-[address] [facility] (Main Lab) [address] [place], [address], 02/04/2021 14:37:06 02/05/20 21 02/04/2021 LIPID PANEL HDL 47 mg/dL 40-50 normal Not Available [facility] (Main Lab) [address], [place], [address], 02/04/2021 14:37:06 02/05/20 21 02/04/2021 LIPID PANEL LDL-calculat ed 65 mg/dL Not Available [facility] (Main Lab) [address], [place], [address], 02/04/2021 14:37:06 02/05/20 21 02/04/2021 LIPID PANEL chol/HDL risk ratio [address] [facility] (Main Lab) [address], [place], [address], 02/04/2021 14:37:06 02/05/20 21 02/04/2021 LIPID PANEL VLDL 29 mg/dL Not Available [facility] (Main Lab) [address], [place], [address], 02/04/2021 14:37:06 02/05/20 21 02/04/2021 COMPL ETE BLOOD COUNT WITH AUTO DIFF WBC 5.3 K/uL 4.0-10 .[address] [facility] (Main Lab) [address], [place], [address], 02/04/2021 14:37:08 02/05/20 21 02/04/2021 COMPL ETE BLOOD COUNT WITH AUTO DIFF RBC 4.82 M/uL 4.69-6 .[address] [facility] (Main Lab) [address], [place], [address], 02/04/2021 14:37:08 02/05/20 21 02/04/2021 COMPL ETE BLOOD COUNT WITH AUTO DIFF HGB 13.7 g/dL 13.5-1 8.[address] [facility] (Main Lab) [address] [address], [place], [address], 02/04/2021 14:37:08 02/05/20 21 02/04/2021 COMPL ETE BLOOD COUNT WITH AUTO DIFF HCT 41.2 % 42.5-5 3.[address] [facility] (Main Lab) [address], [place], [address], 02/04/2021 14:37:08 02/05/20 21 02/04/2021 COMPL ETE BLOOD COUNT WITH AUTO DIFF MCV 86 fL 80-97 normal Not Available [facility] (Main Lab) [address], [place], [address], 02/04/2021 14:37:08 02/05/20 21 02/04/2021 COMPL ETE BLOOD COUNT WITH AUTO DIFF MCH 28.3 pg 27.0-3 1.[address] [facility] (Main Lab) [address] [place] [address], [place], [address], 02/04/2021 14:37:08 02/05/20 21 02/04/2021 COMPL ETE BLOOD COUNT WITH AUTO DIFF MCHC 33.1 g/dL 31.8-3 5.[address] [facility] (Main Lab) [address] [place] [address], [place], [address], 02/04/2021 14:37:08 02/05/20 21 02/04/2021 COMPL ETE BLOOD COUNT WITH AUTO DIFF RDW 13.5 % 11.0-2 0.[address] [facility] (Main Lab) [address] [place] [address], [place], [address], 02/04/2021 14:37:08 02/05/20 21 02/04/2021 COMPL ETE BLOOD COUNT WITH AUTO DIFF plt 186 K/uL 150-45 [address] [facility] (Main Lab) [address] [place] [address], [place], [address], 02/04/2021 14:37:08 02/05/20 21 02/04/2021 COMPL ETE BLOOD COUNT WITH AUTO DIFF MPV 7.8 fL 6.0-12 .[address] [facility] (Main Lab) [address], [place], [address], 02/04/2021 14:37:08 02/05/20 21 02/04/2021 COMPL ETE BLOOD COUNT WITH AUTO DIFF neut% 68.2 % 37.0-8 0.0 normal Not Available [facility] (Main Lab) [address] [place] [address], [place], [address], 02/04/2021 14:37:08 02/05/20 21 02/04/2021 COMPL ETE BLOOD COUNT WITH AUTO DIFF lymph% 21.3 % 20.0-5 1.[address] [facility] (Main Lab) [address], [place], [address], 02/04/2021 14:37:08 02/05/20 21 02/04/2021 COMPL ETE BLOOD COUNT WITH AUTO DIFF mono% 7.5 % 3.0-15 .[address] [facility] (Main Lab) [address], [place], [address], 02/04/2021 14:37:08 02/05/20 21 02/04/2021 COMPL ETE BLOOD COUNT WITH AUTO DIFF eos% 2.4 % 0.0-6. 0 normal Not Available [facility] (Main Lab) [address] [place] [address], [place], [address], 02/04/2021 14:37:08 02/05/20 21 02/04/2021 COMPL ETE BLOOD COUNT WITH AUTO DIFF baso% 0.6 % 0.1-3. 5 normal Not Available [facility] (Main Lab) [address] [place] [address], [place], [address], 02/04/2021 14:37:08 02/05/20 21 02/04/2021 COMPL ETE BLOOD COUNT WITH AUTO DIFF neut# 3.6 K/uL 1.5-10 .[address] [facility] (Main Lab) [address], [place], [address], 02/04/2021 14:37:08 02/05/20 21 02/04/2021 COMPL ETE BLOOD COUNT WITH AUTO DIFF lymph# 1.1 K/uL 1.0-6. [address] [facility] (Main Lab) [address], [place], [address], 02/04/2021 14:37:08 02/05/20 21 02/04/2021 COMPL ETE BLOOD COUNT WITH AUTO DIFF mono# 0.4 K/uL 0.2-1. [address] [facility] (Main Lab) [address] [place] [address], [place], [address], 02/04/2021 14:37:08 02/05/20 21 02/04/2021 COMPL ETE BLOOD COUNT WITH AUTO DIFF eos# 0.1 K/uL 0.0-0. [address] [facility] ([facility] Lab) [address] [place] [address], [place], [address], 02/04/2021 14:37:08 02/05/20 21 02/04/2021 COMPL ETE BLOOD COUNT WITH AUTO DIFF baso# 0.0 K/uL 0.0-0. [address] [facility] ([facility] Lab) [address], [place], [address], 02/04/2021 14:37:08 02/05/20 21 02/04/2021 COMPR EHENS AURELIO METAB OLIC PANEL glucose 142 mg/dL 65-100 high Not Available [facility] (Main Lab) [address] [place], [address], 02/04/2021 14:37:10 02/05/20 21 02/04/2021 COMPR EHENS AURELIO METAB OLIC PANEL BUN 20 mg/dL 7-24 normal Not Available [facility] (Main Lab) [address] [place], [address], 02/04/2021 14:37:10 02/05/20 21 02/04/2021 COMPR EHENS AURELIO METAB OLIC PANEL creatinine 0.7 mg/dL 0.4-1. [address] [facility] (Main Lab) [address] [place], [address], 02/04/2021 14:37:10 02/05/20 21 02/04/2021 COMPR EHENS AURELIO METAB OLIC PANEL eGFR >60 mL/mi n/1.7 3m2 >=[address] [facility] (Main Lab) [address] [place], [address], 02/04/2021 14:37:10 02/05/20 21 02/04/2021 COMPR EHENS AURELIO METAB OLIC PANEL eGFR non- 117 mL/mi n/1.7 3m2 >=[address] [facility] ([facility] Lab) [address] [place], [address], 02/04/2021 14:37:10 02/05/20 21 02/04/2021 COMPR EHENS AURELIO METAB OLIC PANEL BUN/creat ratio [address] [facility] ([facility] Lab) [address] [place], [address], 02/04/2021 14:37:10 02/05/20 21 02/04/2021 COMPR EHENS AURELIO METAB OLIC PANEL bilirubin, total 0.4 mg/dL 0.2-1. [address] [facility] ([facility] Lab) [address] [place], [address], 02/04/2021 14:37:10 02/05/20 21 02/04/2021 COMPR EHENS AURELIO METAB OLIC PANEL AST (SGOT) 21 U/L 9-[address] [facility] ([facility] Lab) [address] [place], [address], 02/04/2021 14:37:10 02/05/20 21 02/04/2021 COMPR EHENS AURELIO METAB OLIC PANEL ALT (SGPT) 20 U/L 5-[address] [facility] ([facility] Lab) [address] [place], [address], 02/04/2021 14:37:10 02/05/20 21 02/04/2021 COMPR EHENS AURELIO METAB OLIC PANEL alkaline phosphatase 78 U/L 40-[address] [facility] ([facility] Lab) [address] [place], [address], 02/04/2021 14:37:10 02/05/20 21 02/04/2021 COMPR EHENS AURELIO METAB OLIC PANEL calcium 9.3 mg/dL 8.4-10 .[address] [facility] ([facility] Lab) [address] [place], [address], 02/04/2021 14:37:10 02/05/20 21 02/04/2021 COMPR EHENS AURELIO METAB OLIC PANEL sodium 142 mEq/L 135-[address] [facility] ([facility] Lab) [address] [place], [address], 02/04/2021 14:37:10 02/05/20 21 02/04/2021 COMPR EHENS AURELIO METAB OLIC PANEL potassium 4.2 mEq/L 3.6-5. [address] [facility] ([facility]) [address] [place], [address], 02/04/2021 14:37:10 02/05/20 21 02/04/2021 COMPR EHENS AURELIO METAB OLIC PANEL chloride 107 mEq/L 98-108 normal Not Available [facility] (Main Lab) [address] [place], [address], 02/04/2021 14:37:10 02/05/20 21 02/04/2021 COMPR EHENS AURELIO METAB OLIC PANEL CO2 25 mEq/L 25-32 normal Not Available [facility] (Main Lab) [address] [place], [address], 02/04/2021 14:37:10 02/05/20 21 02/04/2021 COMPR EHENS AURELIO METAB OLIC PANEL total protein 5.9 g/dL 6.0-8. [address] [facility] ([facility] Lab) [address] [place], [address], 02/04/2021 14:37:10 02/05/20 21 02/04/2021 COMPR EHENS AURELIO METAB OLIC PANEL albumin 4.3 g/dL 3.5-5. [address] [facility] ([facility] Lab) [address] [place], [address], 02/04/2021 14:37:10 02/05/20 21 02/04/2021 COMPR EHENS AURELIO METAB OLIC PANEL albumin/glob ulin 2.7 ratio 1.1-2. [address] [facility] ([facility] Lab) [address] [place], [address], 02/04/2021 14:37:10 02/05/20 21 02/04/2021 HEMOG LOBIN A1C hemoglobin A1C 6.8 % 4.5-6. 0 high Not Available [facility] (Main Lab) [address], [place], [address], 02/04/2021 14:37:11 09/14/19 21 09/13/2020 MRI, cervi wes spine , w/o contr ast No observ ation record ed. [id number] [place], [address], 09/19/2020 13:25:01 09/14/19 21 09/13/2020 MRI, lumba r spine , w/ contr ast No observ ation record ed. [address], [address], 09/19/2020 13:24:29 09/27/19 21 09/25/2020 US, thyro id No observ ation record ed. [address], [address], 10/02/2020 21:05:23 09/27/19 21 09/25/2020 CT, neck, soft tissu e, w/ contr ast No observ ation record ed. [address], [address], 10/21/2020 11:34:10 09/28/19 21 09/25/2020 CT, neck, soft tissu e, w/ contr ast No observ ation record ed. [address], [address], 10/02/2020 21:05:23 01/09/20 21 01/07/2021 MRI, thora cic spine , w/o contr ast No observ ation record ed. [facility] . [address] [place], [address], 03/09/2021 20:43:09 Result Notes None recorded. Problems Name Status Onset Date Resolution Date Notes Provider Name and Address Organization Details Recorded Time Mild memory disturbance Active GERARD CHAMORRO DO [address], [place], [address], [address] 6 13:31:50 Blood in urine Active GERARD CHAMORRO DO [address], [place], [address], [address] 6 13:31:50 Type 2 diabetes mellitus without complication Active GERARD CHAMORRO DO [address], [place], [address], [address] 6 13:31:50 Laceration of palm of hand Active GERARD CHAMORRO DO [address], [place], [address], [address] 6 13:31:50 Hypertriglyceri demia Active GERARD CHAMORRO , DO [address], [place], [address], [address] 6 13:31:50 Hernia of abdominal cavity Active GERARD CHAMORRO DO [address], [place], [address], [address] 6 13:31:50 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 Polysomnography 01/11/2004 per [facility] note Breann Villanueva LPN null, [address] 9 09:19:50 Dyslipidemia Active 11/12 total cholesterol 151, triglycerides 130, LDL 81, HDL 44 MARTIN MCGOVERN PA-C null, [address] 9 16:11:03 Internal hemorrhoids Active GERARD WHAPSHARE , DO [address], [place], [address], [facility] [place] 6 13:31:50 Gastroesophagea l reflux disease Active GERD GERARD WHAPSHARE , DO [address], [place], [address], [facility] - [address] 6 13:31:50 Spondylolysis of cervical spine Active GERARD WHAPSHARE , DO [address], [place], [address], [facility] - [address] 6 13:31:50 Osteoarthritis Active OA GERARD WHAPSHARE , DO [address], [place], [address], [facility] - [address] 6 13:31:50 History of peptic ulcer Active PUD GERARD WHAPSHARE , DO [address], [place], [address], [facility] - [address] 6 13:31:50 Multiple renal cysts Active Lt EGRARD WHAPSHARE , DO [address], [place], [address], [facility] [place] 6 13:31:50 Environmental allergy Active GERARD WHAPSHARE , DO [address], [place], [address], [facility] - [address] 6 13:31:50 Essential tremor Active GERARD WHAPSHARE , DO [address], [place], [address], [facility] - [address] 6 14:07:53 Coronary arteriosclerosi s Active False-positive stress test x2 with LHC revealing no fixed CAD PET 04/08 negative for ischemia MARTIN MCGOVERN PA-C null, [address] 9 16:07:28 Sensory neuropathy Active GERARD WHAPSHARE , DO [address], [place], [address], [address] 6 13:31:50 Tinnitus Active GERARD CHAMORRO , DO [address], [place], [address], [address] 6 13:31:50 Diverticular disease Active GERARD EVERETTHARE , DO [address], [place], [address], [address] 6 13:31:50 Benign prostatic hyperplasia without outflow obstruction Active BPH GERARD EVERETTHARE , DO [address], [place], [address], [address] 6 14:07:53 Helicobacter-as sociated gastritis Active H Pylori + GERARD CHAMORRO , DO [address], [place], [address], [address] 6 13:31:50 Obesity Active BMI 34 MARTIN MCGOVERN PA-C null, [address] 9 16:09:22 Bilateral cataracts Active OU GERARD CHAMORRO , DO [address] [facility], [place], [address], [address] 6 13:31:50 Peripheral nerve disease Active neuropathy GERARD CHAMORRO , DO [address], [place], [address], [address] 6 13:31:50 Notes:Stress PET 03/2013: no rmal Echo 04/2013: EF 65%, no valve disease Elevated CK Atrophy, webbing Bilat thum/index area CMV & EBV IgG+ 04/02 Problem Notes None recorded. Procedures Surgical History Date Name Laterality Status Provider Name and Address Organization Details Recorded Time 02/27/20 Medicare Wellness CPT Code, Subsequent completed Jhoan Pruitt LPN null, [address] 02/26/2021 10:21:38 09/19/19 Telehealth Communication completed ROBYN Palacios, [address] 09/18/2020 15:48:35 11/01/19 20 Medicare Wellness CPT Code, Subsequent completed Faustina Watt, TOOL REPAIRER null, [place] [facility] [place] 11/01/2019 10:07:10 11/01/19 20 Telehealth Communication completed Faustina Watt, TOOL REPAIRER null, [place] [facility] [place] 11/01/2019 10:07:02 09/08/19 20 Telehealth Communication completed Faustina Watt, TOOL REPAIRER null, [place] [facility] [place] 09/08/2019 11:34:44 08/03/19 20 Telehealth Communication completed Faustina Watt, TOOL REPAIRER null, [place] [facility] [place] 08/03/2019 12:46:07 07/29/19 19 Medicare Wellness CPT Code, Subsequent completed Faustina Watt, TOOL REPAIRER null, [place] [facility] [place] 07/28/2018 15:01:25 03/10/20 17 Medicare Wellness CPT Code, Subsequent completed Faustina Watt, TOOL REPAIRER null, [place] [facility] [place] 03/10/2017 13:06:20 09/03/19 17 Greater Trochanteric Bursa Steroid Injection completed DO [address], [place], [address], [facility] [place] 09/03/2016 08:08:29 03/04/20 16 Medicare Wellness CPT Code, Subsequent completed Faustina Watt, TOOL REPAIRER null, [place] [facility] [place] 03/04/2016 13:15:50 01/26/20 15 Hernia Repair completed Jenise [place] null, [place] - [address] 04/10/2015 14:45:06 11/30/19 15 Suture/Staple removal completed Madeline Rosas LPN null, [facility] [place] 11/29/2014 14:02:58 02/16/20 13 SLUMS EXAM completed Chandler Segura MD null, [address] 02/15/2013 14:26:35 09/06/19 08 Colonoscopy completed Chandler Segura MD null, [address] 02/23/2013 22:40:22 04/27/19 03 EGD completed Chandler Segura MD null, [address] 02/23/2013 22:40:22 Vasectomy completed Chandler Segura MD null, [address] 02/23/2013 22:40:22 Back Surgery completed Chandler Segura MD null, [place] [facility] [place] 02/23/2013 22:40:22 Orthopaedic Surgery completed Madeline cruz null, [facility] [place] 06/01/2013 14:09:55 Tonsillectomy and/or Adenoidectomy completed Chandler Segura MD null, [facility] [place] 02/23/2013 22:40:22 Appendectomy completed Chandler Segura MD null, [facility] [place] 02/23/2013 22:40:22 Imaging Results Imaging Date Name Status LastModified by Organiz ation Details LastModified Time 09/13/2020 MRI, cervical spine, w/o contrast [email or web address] [place], [address], 09/19/2020 13:25:01 09/13/2020 MRI, lumbar spine, w/ contrast completed [address], [address], 09/19/2020 13:24:29 09/25/2020 US, thyroid completed [address] [place], [address], 10/02/2020 21:05:23 09/25/2020 CT, neck, soft tissue, w/ contrast completed [address], [address], 10/21/2020 11:34:10 09/25/2020 CT, neck, soft tissue, w/ contrast completed [address], [address], 10/02/2020 21:05:23 01/07/2021 MRI, thoracic spine, w/o contrast completed [facility]-AttShelly Terry [address] [place], [address], 03/09/2021 20:43:09 Procedure Notes None recorded. Medical Equipment None Reported. Allergies Allergen ID Allergen Name Allergen Category Reaction Reaction Severity Criticality Documentation Date Start Date Code Code System Note Provider Name and Address Organization Details Recorded Time 911175 Toprol medicatio n Not available Not available Not available 02/23/2013 78919 5 RxNorm Madeline Rafa reggie null, [facility] [place] 4 14:09:55 390697 Lyrica medicatio n Not available Not available Not available 02/23/2013 45862 1 RxNorm Chandler Segura MD null, [place] [facility] [place] 3 22:43:01 [id number] Byetta medicatio n Not available Not available Not available 02/23/2013 45308 1 RxNorm rash Wanda Mgogo, INTERNAL [employer]VENUE SERVICE AGENT null, [place] [facility] [place] 9 15:51:16 [id number] simvastat in medicatio n Not available Not available Not available 02/23/2013 92566 RxNorm skin turne d red/ muscl e cramp ing pt. denhammad s sympt oms Wanda Mgogo, INTERNAL REVENUE SERVICE AGENT null, [place] [facility] [place] 9 10:55:13 [id number] Substance with sulfonami de structure and antibacte rial mechanism of action (substanc e) medicatio n Not available Not available Not available 10/12/2013 66212 8003 SNOMED Jenise Fairbanks null, [place] [facility] [place] 4 11:48:16 484392 tamsulosi n medicatio n Not available Not available Not available 05/26/2014 07503 RxNorm skin turne d red Wanda Mgogo, INTERNAL REVENUE SERVICE AGENT null, [place] [facility] [place] 9 15:50:45 Medications Name Sig Start Date Stop Date Status Note LastModified by Organization Details LastModified Time mpb - one touch ultra test strips TEST 1 TIMES DAILY active Not Available Not Available No t Available fluconazo le 100 mg tablet TK 2 [...] tablet TAKE 1 TABLET TWICE A DAY 2020 active Not Available Not Available Not Avai lable doxycycli ne hyclate 50 mg capsule TK ONE C PO Q 24 H 07/28 completed Not Available Not Available Not Available atenolol 25 mg tablet TAKE 1 TABLET DAILY 2020 active Not Available Not Available Not Avai lable amlodipin e 5 mg tablet TAKE 1 [...] 5 mg tablet TAKE 1 TABLET DAILY 2020 active Not Available Not Available Not Avai lable alfuzosin ER 10 mg tablet,ex tended release 24 hr TAKE 1 TABLET BY MOUTH DAILY active Not Available Not Available No t Available Vitamin C 1 po qd active Not Available Not Av ailable Not Available Co Q-10 1 qd active Not Available Not Avail able Not Available Lupron Depot 02/23 completed Not Available Not Available Not Available Fish Oil 1 PO QD active Not Available Not Selina ilable Not Available folic acid 1 PO QD active Not Available Not Available Not Available Proscar 05/26 completed Not Available Not Available Not Available Aspir-81 1 qd 04/02 completed Not Available Not Available Not Available Vitamin D3 1 qd active Not Available Not Available Not Available multivita min 1 PO QD active Not Available Not Available Not Available alpha lipoic acid 100mcg daily 03/04 completed Not Available Not Available Not Available OneTouch UltraMini kit FPD active Not Available Not Available Not Available fenofibra te nanocryst allized 48 mg tablet Take 1 tablet every day by oral route for 30 days. active Not Available Not Available No t Available Januvia 100 mg tablet TAKE 1 TABLET DAILY 2020 active Not Available Not Available Not Avai lable Januvia dose unsure active Not Available Not Available No t Available hydrochlo rothiazid e 12.5 mg tablet TAKE [...] Not Available Not Available No t Available blood pressure test kit-large cuff active Not [...] Available Not Available Not Available Fluzone High-Dose 2345-1615 (PF) 180 mcg/0.5 mL intramusc ular syringe ADM 0.5ML UTD active Not Available Not Available No t Available Fluarix Quad 5230-7488 (PF) 60 mcg (15 mcg x 4)/0.5 mL IM syringe INJECT 0.5 ML INTRAMUS CULARLY DIRECTED . active Not Available Not Available No t Available Fluzone High-Dose (PF) 180 mcg/0.5 mL intramusc ular syringe active Not Available Not Available Not Available Fluzone High-Dose 9625-0213 (PF) 180 mcg/0.5 mL intramusc ular syringe ADM 0.5ML IM UTD 03/10 completed Not Available Not Available Not Available Contour Next One Meter U TO TEST UTD 07/28 completed Not Available Not Available Not Available Fluzone High-Dose 4664-4599 (PF) 180 mcg/0.5 mL intramusc ular syringe [...] Available Not Available Vitals Date Recorded Body height Provider Name an d Address Organization Details Last Updated DateTime 09/18/2020 181.61 cm Faustina Keenan LPN [place] [facility] [place] 0 09/18/2020 15:50:22 Date Recorded Heart rate Systolic blood pressure Diastolic blood pressure Provider Name and Address Organization Details Last Updated DateTime 09/18/2020 74 /min 132 mm[Hg] 80 mm[Hg] GERARD CHAMORRO, [address], [place], [address], [address] 09/18/2020 17:06:23 Date Recorded Body height Body height Body mass index (BMI) Body weight Body temperature Heart rate Oxygen saturation Oxygen saturation in Arterial blood by Pulse oximetry Systolic blood pressure Diastolic blood pressure Provider Name and Address Organization Details Last Updated DateTime 1 181.61 cm 181.61 cm 33.3 kg/m2 107579. 35 g 97.9 [degF] 69 /min 98 % 98 % 136 mm[Hg] 78 mm[Hg] Fautsina Headleymaico [address] 13:31:42 Date Recorded Body height Body mass index (BMI) Body weight Body temperature Oxygen saturation Oxygen saturation in Arterial blood by Pulse oximetry Heart rate Systolic blood pressure Diastolic blood pressure Provider Name and Address Organization Details Last Updated DateTime 181.61 cm 33 kg/m2 492058. 17 g 97.4 [degF] 95 % 95 % 71 /min 140 mm[Hg] 80 mm[Hg] Jhoan Pruitt [address] 13:05:07 Social History Question Answer Notes LastModified by Organizat ion Details LastModified Time Tobacco Smoking Status Former Smoker Quit age 42 after up to 1 ppd since age 17 Chandler Segura MD [address] 02/15/2013 13:57:53 Do You Have An Advance Directive? No Information not available 02/26/2021 What Is Your Level Of Alcohol Consumption? None [email or web address] Information not available 02/28/2019 Are You Blind Or Do You Have Difficulty Seeing? No Uses Corrective Lenses Information not available 02/26/2021 What Is Your Level Of Caffeine Consumption? Moderate 1-2 Cups Coffee Daily W/ Cream Information not available 02/15/2013 How Much Tobacco Do You Chew? None [email or web address] Information not available 06/01/2013 Are You Currently Employed? No Information not available 02/26/2021 Are You Deaf Or Do You Have Serious Difficulty Hearing? No Information not available 02/26/2021 What Type Of Diet Are You Following? REGULAR [email or web address] Information not available 06/01/2013 Education 12 Some College Information not available 02/15/2013 What Is Your Occupation? Retired From [employer] [email or web address] Information not available 06/01/2013 How Many Times Per Week Do You Exercise? 5-7 Times Per Week Information not available 02/26/2021 When Did You Quit Smoking? 16+yearssincel [email or web address] Information not available 02/26/2021 How Many Days In The Past Year Have You Had A Heavy Drinking Consumption (4+ Female, 5+ Male)? 0 Information not available 02/15/2013 Are There Any Guns Present In Your Home? No Information not available 06/01/2013 Live Alone Or With Others? With Others Information not available 06/01/2013 Marital Status Informatio n not available 02/15/2013 What Was The Date Of Your Most Recent Tobacco Screening? 02/26/2021 Information not available 02/26/2021 How Many Children Do You Have? 6 4 Biological And 2 Stepkids Information not available 02/15/2013 Performs Monthly Self-breast Exam? No [email or web address] Information not available 06/01/2013 Do You Have Any Pets? Yes Information not available 02/26/2021 What Is Your Relationship Status? Information not available 02/26/2021 Do You Use Your Seat Belt Or Car Seat Routinely? Yes Information not available 02/26/2021 Seat Belts Used Routinely Yes Information not available 06/01/2013 Smoke Alarm In Home Yes [email or web address] Information not available 06/01/2013 Do You Have Smoke And Carbon Monoxide Detectors In Your Home? Yes Information not available 02/26/2021 Are You Passively Exposed To Smoke? No Information not available 02/26/2021 How Much Tobacco Do You Smoke? No Information not available 02/28/2019 Do You Use Sunscreen Routinely? Yes [email or web address] Information not available 06/01/2013 Have You Recently Traveled Abroad? No Information not available 02/26/2021 Sex: Unknown Functional Status Question Answer Note LastModified by Organizat ion Details LastModified Time Do you have difficulty walking or climbing stairs? No Information not available 02/26/2021 Do you have difficulty doing errands alone? No Information not available 02/26/2021 Are you able to care for yourself? Yes Information not available 02/26/2021 Do you have difficulty dressing or bathing? No Information not available 02/26/2021 What is your exercise level? Moderate Walks the dog 3x/day Information not available 02/15/2013 Mental Status Question Answer Note LastModified by Organization D etails LastModified Time Do you have difficulty concentrating, remembering or making decisions? No Information no t available 02/26/2021 Family History Relationship Description Onset Age of this Age Resolved Age Notes Father Chronic obstructive pulmonary disease 79 Father Alcoholism Father Cerebrovascular accident Mother Osteoarthritis 94 Mother Hypertensive disorder Sister Obesity living Notes:one other alive and we ll Medical History Condition Response Coronary Artery Disease N Gout N Thyroid Disease N Kidney Stones N Blood clot/deep vein thrombosis N Ear or Hearing Problems Y Depression N COPD N GI Problems N No past medical history reported N Has Pacemaker N Genitourinary Disease Y Anxiety Disorder N Diabetes Y Vision or Eye Problems Seizures/Epilepsy N Hiatal hernia N Arthritis Y Immunizations N Cancer Y Back Problems Y Allergies N Asthma N Sleep apnea Y High Cholesterol Y GERD/Reflux N Liver Disease N Heart Disease N Dialysis N Hypertension Y Osteoporosis N Kidney Disease N Immunizations Vaccine Type Date Status Provider Name and Address Organization Details Recorded Time Influenza, high-dose, trivalent, PF 02/10/2013 completed Not Available [facility] 05/28/2019 02:10:14 pneumococcal, unspecified formulation 02/03/2012 completed Faustina Keenan LPN null, [place] [facility] [place] 09/02/2016 13:17:14 Influenza, high-dose, trivalent, PF 12/26/2008 completed [facility] [place] 02/26/2021 10:03:19 tetanus toxoid, unspecified formulation 04/27/2006 completed ROBYN Griffin, [facility] [place] 02/26/2021 10:03:19 Influenza, high-dose, trivalent, PF 01/25/2010 completed Jhoankamran Pruitt, TOOL REPAIRER null, [address] 02/26/2021 10:03:19 zoster live 04/27/2006 completed Jhoan Edmond TOOL REPAIRER null, [address] 02/26/2021 10:03:18 Influenza, high-dose, trivalent, PF 12/26/2010 completed Jhoan Pruitt, TOOL REPAIRER null, [address] 02/26/2021 10:03:19 Influenza, high-dose, trivalent, PF 04/27/2006 completed Jhoan Pruitt, TOOL REPAIRER null, [address] 02/26/2021 10:03:19 Influenza, high-dose, trivalent, PF 02/03/2012 completed Faustina Keenan LPN null, [address] 09/02/2016 13:17:14 Influenza, high-dose, trivalent, PF 04/27/2005 completed Jhoan Pruitt TOOL REPAIRER null, [address] 02/26/2021 10:03:19 pneumococcal polysaccharide PPV23 02/03/2012 completed Jhoan Edmond, TOOL REPAIRER null, [address] 02/26/2021 10:03:19 COVID-19, mRNA, LNP-S, PF, 30 mcg/0.3 mL dose 06/21/2020 completed Faustina Keenan LPN null, [address] 08/14/2020 11:23:38 COVID-19, mRNA, LNP-S, PF, 30 mcg/0.3 mL dose 07/13/2020 completed Jhoan Pruitt TOOL REPAIRER null, [address] 02/26/2021 10:03:18 pneumococcal, unspecified formulation 02/03/2012 completed Jhoan Pruitt, TOOL REPAIRER null, [address] 02/26/2021 10:03:18 tetanus toxoid, unspecified formulation 04/27/2006 completed Jhoan Pruitt, TOOL REPAIRER null, [address] 02/26/2021 10:03:19 Influenza, high-dose, quadrivalent, PF 01/05/2020 completed Jhoan Pruitt, TOOL REPAIRER null, [address] 02/26/2021 10:03:19 COVID-19, mRNA, LNP-S, PF, 30 mcg/0.3 mL dose 12/29/2020 completed Jhoan Pruitt TOOL REPAIRER null, [address] 02/26/2021 10:03:19 Influenza, high-dose, trivalent, PF 01/28/2017 completed Jhoan Pruitt TOOL REPAIRER null, [address] 02/26/2021 10:03:19 Influenza, high-dose, trivalent, PF 01/04/2018 completed Jhoan Pruitt TOOL REPAIRER null, [address] 02/26/2021 10:03:19 Pneumococcal conjugate PCV 13 07/19/2015 completed Not Available [facility] 05/14/2019 02:10:27 Td (adult), 5 Lf tetanus toxoid, preservative free, adsorbed 12/06/2013 completed Jhoan Pruitt LPN null, [address] 02/26/2021 10:03:19 Influenza, high-dose, trivalent, PF 02/01/2014 completed Jhoan Pruitt LPN null, [address] 02/26/2021 10:03:19 Influenza, high-dose, trivalent, PF 02/09/2019 completed Not Available [facility] 05/14/2019 02:13:46 Influenza, high-dose, trivalent, PF 01/30/2015 completed Jhoan Pruitt LPN null, [address] 02/26/2021 10:03:18 Influenza, high-dose, quadrivalent, PF 01/28/2021 completed Not Available [facility] 01/28/2021 15:01:33 Influenza, high-dose, trivalent, PF 02/05/2016 completed Jhoan Pruitt TOOL REPAIRER null, [address] 02/26/2021 10:03:19 Influenza, split virus, quadrivalent, PF 02/01/2014 completed Not Available [facility] 05/28/2019 02:11:16 Influenza, split virus, trivalent, preservative 01/31/2010 completed Faustina Keenan LPN null, [address] 09/02/2016 13:17:14 tetanus toxoid, unspecified formulation 04/27/2006 completed Faustina Keenan LPN null, [address] 09/02/2016 13:17:14 Influenza, high-dose, trivalent, PF 01/16/2011 completed Faustina Watt, TOOL REPAIRER null, [address] 09/02/2016 13:17:14 Influenza, high-dose, trivalent, PF 04/27/2006 completed Faustina Watt, TOOL REPAIRER null, [address] 09/02/2016 13:17:14 Influenza, split virus, trivalent, preservative 01/24/2009 completed Faustina Watt, TOOL REPAIRER null, [address] 09/02/2016 13:17:14 Influenza, high-dose, trivalent, PF 01/25/2010 completed Faustina Watt, TOOL REPAIRER null, [address] 09/02/2016 13:17:14 zoster live 04/27/2006 completed Faustina Watt, TOOL REPAIRER null, [address] 09/02/2016 13:17:14 Influenza, high-dose, trivalent, PF 12/26/2008 completed Faustina Watt TOOL REPAIRER null, [address] 09/02/2016 13:17:14 Influenza, high-dose, trivalent, PF 04/27/2005 completed Faustina Watt, TOOL REPAIRER null, [address] 09/02/2016 13:17:14 Influenza, high-dose, trivalent, PF 12/26/2010 completed Faustina Watt, TOOL REPAIRER null, [address] 09/02/2016 13:17:15 Td (adult), 2 Lf tetanus toxoid, preservative free, adsorbed 12/06/2013 completed Not Available [facility] 05/28/2019 02:11:18 Past Encounters Encounter ID Performer Location Encounter Start Date Encounter Closed Date Diagnosis/Indication Diagnosis SNOMED-CT Code [id number] Chandler Segura MD [facility] [address] [place] [address] 02/15/2013 13:24:16 02/15/2013 14:35:44 Adult health examination 396060402 Essential hypertension 11462185 Dyslipidemia 083408933 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 490972102 Obstructiv e sleep apnea syndrome 70949627 [id number] Madeline holmann [facility] [address] [place] [address] 06/01/2013 13:20:03 06/01/2013 15:06:35 Essential hypertension 18585780 Gastroesop hageal reflux disease 147623531 Obesity 809037161 Obstructiv e sleep apnea syndrome 72445967 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 [address] [place] [address] 12/06/2013 14:04:19 12/06/2013 14:56:14 Dyslipidemia 274460245 Type 2 andrea betes mellitus without complication 817959457 [id number] Ale Paul [facility] [address] [place] [address] 12/06/2013 15:20:57 12/06/2013 16:57:42 Laceration of palm of hand [id number] Radha Johnson [facility] [address] [place] [address] 03/14/2014 14:34:25 03/14/2014 15:32:10 Type 2 diabetes mellitus without complication 042972994 [id number] Jenise Fairbanks [facility] [address] [place] [address] 05/26/2014 14:28:58 05/26/2014 15:35:33 Essential hypertension 61660649 Dyslipidemia 630026961 Type 2 andrea betes mellitus without complication 917442718 Obesity 518973538 [id number] Radha Johnson [facility] [address] [place] [address] 06/13/2014 15:19:34 06/13/2014 16:26:02 Type 2 diabetes mellitus without complication 059097013 Dyslipidemia 919359136 Obesity 372856026 [id number] Radha Johnson 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 710975058 Wound cellulitis 5023013 03 [id number] [facility] [address] [place] [address] 11/29/2014 13:53:51 11/29/2014 14:54:57 Falls 658689818 Posttrauma tic headache 27928997 Essential tremor 3068280 01 Essential hypertension 43436507 Mild memor y disturbance 929978597 Simple lac eration of scalp 373666602 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 135409356 Headache 65854761 Amnesia 25814118 [id number] Sarah Jung MD [facility] [address] [place] [address] 03/06/2015 13:36:27 03/06/2015 14:34:30 Adult health examination 425425817 Benign pro static hyperplasia without outflow obstruction 645662232 Coronary arteriosclerosis 66092759 Essential tremor 7505550 01 Essential hypertension 05466805 Mixed hyperlipidemia 267 842378 Mild memor y disturbance 661803766 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 766707656 Postconcus stefania syndrome 91658324 Falls 250952037 [id number] Blas [facility] [address] [place] [address] 04/10/2015 14:11:32 04/10/2015 15:07:56 Type 2 diabetes mellitus without complication 058504691 Hypertriglyceridemia 302 315258 [id number] Gege [facility] [address] [place] [address] 05/23/2015 14:14:35 05/23/2015 15:20:43 Dyslipidemia 393598230 Essential hypertension 59217789 Type 2 andrea betes mellitus without complication 356331430 Obesity 636582635 Obstructiv e sleep apnea syndrome 17613277 Benign pro static hyperplasia without outflow obstruction 479938825 [id number] GERARD CHAMORRO DO [facility] [address] [place] [address] 07/19/2015 14:34:04 07/19/2015 15:23:10 Adult health examination 271680248 Benign pro static hyperplasia without outflow obstruction 892680856 Coronary arteriosclerosis 10851567 Essential tremor 5435739 01 Essential hypertension 12828990 Mixed hyperlipidemia 267 021560 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 840729417 Postconcus stefania syndrome 88294305 Administra tion of pneumococcal vaccine 39139226 [id number] GERARD CHAMORRO [facility] [address] [place] [address] 03/04/2016 12:58:56 03/04/2016 14:08:59 Adult health examination 042936360 Benign pro static hyperplasia without outflow obstruction 241195930 Coronary arteriosclerosis 59337286 Essential tremor 5249077 01 Essential hypertension 35768250 Mixed hyperlipidemia 267 789787 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 564111449 [id number] NAYA BROWN MD [facility] [address] [place] [address] 05/08/2016 14:41:22 05/08/2016 15:43:17 Greater trochanteric pain syndrome 4500188 Low back pain 876670740 [id number] GERARD CHAMORRO [facility] [address] [place] [address] 08/29/2016 07:50:23 08/29/2016 08:05:34 Dysuria 47511213 [id number] GERARD CHAMORRO DO [facility] [address] [place] [address] 09/02/2016 12:57:13 09/02/2016 14:00:50 Adult health examination 414288067 Benign pro static hyperplasia without outflow obstruction 549958086 Coronary arteriosclerosis 17672537 Essential tremor 2180610 01 Essential hypertension 00453025 Mixed hyperlipidemia 267 992946 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 802079849 Bursitis of hip 86776380 [id number] GERARD CHAMORRO DO [facility] [address] [place] [address] 12/24/2016 09:10:22 12/24/2016 09:43:03 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 584860824 Acute diarrhea 328081550 [id number] GERARD CHAMORRO DO [facility] [address] [place] [address] 03/10/2017 13:02:21 03/10/2017 14:03:36 Adult health examination 160076696 Screening for disorder 876032598 Benign pro static hyperplasia without outflow obstruction 902673187 Coronary arteriosclerosis 87570566 Essential tremor 5633047 01 Essential hypertension 79067242 Mixed hyperlipidemia 267 785049 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 398080320 Bursitis of hip 96678813 Obstructiv e sleep apnea syndrome 13395690 [id number] GERARD CHAMORRO, DO [facility] [address] [place] [address] 06/24/2017 13:48:59 06/24/2017 14:36:15 Laceration of finger 147416968 [id number] GERARD CHAMORRO DO [facility] [address] [place] [address] 09/08/2017 12:47:26 09/08/2017 14:06:39 Adult health examination 375250467 Benign pro static hyperplasia without outflow obstruction 416724012 Coronary arteriosclerosis 02623701 Essential tremor 3750966 01 Essential hypertension 44682792 Mixed hyperlipidemia 267 807787 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 218175264 Bursitis of hip 15702917 Obstructiv e sleep apnea syndrome 62968807 Impairment of balance 38 1579686 [id number] GERARD CHAMORRO, DO [facility] [address] [place] [address] 07/28/2018 14:52:26 07/28/2018 15:58:49 Adult health examination 417409312 Screening for disorder 964815334 Essential hypertension 01679538 Benign pro static hyperplasia without outflow obstruction 034046310 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 277634098 Coronary arteriosclerosis 99705231 Essential tremor 5791137 01 Mixed hyperlipidemia 267 120624 Obstructiv e sleep apnea syndrome 03520028 History of malignant neoplasm of prostate 178079761 [id number] GERARD CHAMORRO DO [facility] [address] [place] [address] 10/11/2018 13:20:00 10/11/2018 14:18:54 Benign prostatic hyperplasia without outflow obstruction 629238617 Increased frequency of urination 572993644 Type 2 andrea betes mellitus without complication 779511227 Right uppe r quadrant pain 457370513 [id number] GERARD CHAMORRO DO [facility] [address] [place] [address] 02/09/2019 12:56:21 02/09/2019 14:00:01 Essential hypertension 03959947 Benign pro static hyperplasia without outflow obstruction 898824336 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 389334108 Coronary arteriosclerosis 33769530 Essential tremor 6201971 01 Mixed hyperlipidemia 267 201683 Obstructiv e sleep apnea syndrome 41879043 History of malignant neoplasm of prostate 850972614 Administra tion of influenza vaccine 48246776 Atypical chest pain 1025 65439 Pruritic disorder 739778 692 [id number] MD [facility] [address] [place] [address] 02/28/2019 15:51:01 02/28/2019 16:55:38 Coronary arteriosclerosis 31490810 Essential hypertension 43982321 Dyslipidemia 408888374 Obstructiv e sleep apnea syndrome 15483608 Type 2 andrea betes mellitus without complication 764876268 Obesity 418124487 Gastroesop hageal reflux disease 514426657 [id number] MD [facility] [address] [place] [address] 04/12/2019 15:33:05 04/12/2019 16:19:02 Essential hypertension 85296268 Atypical chest pain 1025 10927 Dyslipidemia 668522758 Obstructiv e sleep apnea syndrome 44156008 Type 2 andrea betes mellitus without complication 107355604 Obesity 582595755 Gastroesop hageal reflux disease 022680708 [id number] GERARD ENGELSTACIYOLANDA DO [facility] [address] [place] [address] 05/12/2019 11:10:50 05/12/2019 11:53:25 Dyspnea on exertion 27105139 Pain of ri ght shoulder joint 48925716725503 100 Essential hypertension 87617308 Benign pro static hyperplasia without outflow obstruction 174729444 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 143392843 Coronary arteriosclerosis 76989667 Essential tremor 4033695 01 Mixed hyperlipidemia 267 304552 Obstructiv e sleep apnea syndrome 37217575 History of malignant neoplasm of prostate 985360482 [id number] GERARD MARGUERITEJOSELOAyaka DO [facility] [address] [place] [address] 06/01/2019 14:25:42 06/01/2019 15:17:21 Essential hypertension 96014164 Neuropathy 965198442 [id number] GERARD SHANELLEAyaka DO [facility] [address] [place] [address] 06/16/2019 15:26:15 06/16/2019 16:18:41 Essential hypertension 32702449 [id number] GERARD PEDRO PABLO DO [facility] [address] [place] [address] 08/03/2019 12:44:17 08/03/2019 13:20:51 Benign essential hypertension 5657648 [id number] GERARD PEDRO PABLO DO [facility] [address] [place] [address] 09/08/2019 11:33:28 09/08/2019 12:08:40 Pruritic disorder 517963769 [id number] GERARD PEDRO PABLO [facility] [address] [place] [address] 11/01/2019 10:06:01 11/01/2019 13:53:34 Mild memory disturbance 162897263 Adult heal th examination 457976321 Screening for disorder 481996913 Depression screening 171 048802 Dyspnea on exertion 6084 5006 Essential hypertension 81412123 Benign pro static hyperplasia without outflow obstruction 683183259 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 205849728 Coronary arteriosclerosis 22842616 Essential tremor 5447011 01 Mixed hyperlipidemia 267 397713 Obstructiv e sleep apnea syndrome 74303877 History of malignant neoplasm of prostate 364739540 Right uppe r quadrant pain 035514695 [id number] JOON RICKS MD [facility] [address] [place] [address] 04/02/2020 08:51:27 04/02/2020 16:17:42 Atypical chest pain [id number] Essential hypertension [id number] Dyslipidemia [id number] GERARD CHAMORRO [facility] [address] [place] [address] 09/18/2020 15:43:54 09/18/2020 17:06:55 Cellulitis of upper limb [id number] GERARD CHAMORRO [facility] [address] [place] [address] 09/19/2020 13:08:21 09/19/2020 13:10:35 [id number] GERARD CHAMORRO [facility] [address] [place] [address] 09/19/2020 13:22:47 09/19/2020 14:04:21 Mass of neck 119955210 Thyroid nodule 145858420 [id number] GERARD CHAMORRO DO [facility] [address] [place] [address] 01/28/2021 14:45:56 01/28/2021 16:53:40 Administration of influenza vaccine [id number] GERARD CHAMORRO [facility] [address] [place] [address] 02/26/2021 12:53:53 02/26/2021 14:00:10 Essential hypertension [id number] Adult heal th examination [id number] Mild memor y disturbance [id number] Benign pro static hyperplasia without outflow obstruction 695844239 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 717477303 Coronary arteriosclerosis 96003160 Essential tremor 4971522 01 Mixed hyperlipidemia 267 134673 Obstructiv e sleep apnea syndrome 74194383 History of malignant neoplasm of prostate 580655688 Type 2 andrea betes mellitus 46155931 Health Concerns Section Related Observation LastModified by Organization Detai ls LastModified Time None Recorded Concern Status LastModified by Organization Details LastModified Time None Recorded Advance Directives Directive N: Payers Encounter Date Sequence Insurance Name Policy Number Policy Londono Covered Member ID Londono Member ID Guarantor Name 09/18/2020 2 [place]) 106 Martin Chambersk [id number] Martin Chambersk 09/18/2020 1 [place] Martin Chambersk [id number] Martin Fernandezorak 09/19/2020 2 [place] 106 Martin Chambersk [id number] Martin Chambersk 09/19/2020 1 [place] Martin Chambersk [id number] Martin Fernandezorak 09/19/2020 2 [place] 106 Martin Fernandezorak [id number] Martin Fernandezorak 09/19/2020 1 [place] Martin Chambersk [id number] Martin Fernandezorak 01/28/2021 2 [place] 106 Martin Fernandezorak [id number] Martin Fernandezorak 01/28/2021 1 [place] Martin Chambersk [id number] Martin Fernandezorak 02/26/2021 2 [place] 106 Martin Fernandezorak [id number] Martin Fernandezorak 02/26/2021 1 [place] Martin Fernandezorak [id number] Martin Kidd Armin Notes Date Note Type Note Provider Name and Address Organization Details Recorded Time 09/18/2020 text/html HPI Notes: Telemedicine visit. This [...] improved since Thursday but is still present. GERARD CHAMORRO DO [address], [place], [address], [address] 09/18/2020 17:06:40 09/19/2020 text/html HPI Notes: None recorded. GERARD CHAMORRO DO [address], [place], [address], [address] 09/19/2020 20:02:47 09/19/2020 text/html HPI Notes: This is a [...] Patient has no history of thyroid disease. GERARD CHAMORRO DO [address], [place], [address], [address] 09/19/2020 20:10:58 01/28/2021 text/html HPI Notes: None recorded. GERARD CHAMORRO DO [address], [place], [address], [address] 01/28/2021 18:39:13 02/26/2021 text/html HPI Notes: This is a 80 year-old gentleman with hypertension, BPH, hyperlipidemia and type 2 diabetes who presents to clinic for his annual medicare wellness exam. He was diagnosed with prostate cancer last year and was treated up in [facility] 9 weeks of radiation therapy for a total of 45 sessions. He uses Januvia to treat his diabetes and recent A1c of 6.8 shows decent control without medication and diet low in simple carbohydrates. Uses amlodipine, atenolol, lisinopril and diet low in sodium to control his blood pressure and his LDL cholesterol is at goal for a diabetic with the use of rosuvastatin. GERARD CHAMORRO, DO [address] [place] [address],[address], [place], [address], [facility] [place] 02/26/2021 13:47:21
--- OUTSIDE RECORDS SUMMARY | 2023-11-10 11:03 | XMS_ITS | Data Portability ---
Author Organization [place] [facility] WINNIE Mayfield MD Address [address] [facility] [place] [address] Care Team Providers Care Pmo Consultant Name Role Phone JOHNIE PARADA Primary Care Provider Assessment No assessment recorded. Plan of Treatment Reminders Order Date Submit Date Provider Last Modified By Organization Details Last Modified Time Details Appointments None record ed. Lab None record ed. Referral None record ed. Procedures None record ed. Surgeries None record ed. Imaging None record ed. Medication Orders None record ed. Patient TargetsNo targets recorded. Patient Instructions Encounter Date Encounter Id Patient Instructions Last Modified By Organization Details Last Modified Time 12/08/2014 [id number] Plan of care coordinated with patient and his at the end of visit. The patient and his voiced understanding of the above counseling and instructions. Patient and his agrees to treatment plan established at this visit. chalo Not available 12/08/2014 14:59:49 Reason for Referral None Reported. Results Created Date Observation Date Name Description Value Unit Range Abnormal Flag LastModifiedBy Organization Detail LastModifiedTime 12/07/19 15 12/05/2014 imagi ng/di agnos tic resul t No observ ation record ed. jancheta [facility] [address], [place], [address], 12/06/2014 14:59:48 12/09/19 15 imagi ng/di agnos tic resul t No observ ation record ed. [email or web address] Not Available 12/08/2014 10:39:06 Result Notes None recorded. Problems Name Status Onset Date Resolution Date Notes Provider Name and Address Organization Details Recorded Time Postconcussion syndrome Active iWnnie Vasquez MD [address] [place] [address],[address], [place], [address] , [facility] 12/08/2014 14:59:49 Dysequilibrium syndrome Active Winnie Vasquez MD [address] [place] [address],[address], [place], [address] , [facility] 12/08/2014 14:59:49 Peripheral nerve disease Active Winnie Vasquez MD [address] [place] [address],[address] [place], [place], [address] , [facility] 12/08/2014 14:59:49 Problem Notes None recorded. Procedures Surgical History Date Name Laterality Status Provider Name and Address Organization Details Recorded Time Tonsillectomy completed Milagros monae [place] - [facility] 12/08/2014 10:32:56 Hernia Repair completed JAZLYN Malik - [facility] 12/08/2014 10:32:56 Cervical Spine Surgery completed Winnie Vasquez MD [address] [place] [address],[address], [place], [address], [facility] 12/08/2014 15:02:28 Appendectomy completed Winnie Vasquez MD [address] [place] [address],[address], [place], [address], [facility] 12/08/2014 15:04:03 Imaging Results Imaging Date Name Status LastModified by Organiz ation Details LastModified Time 12/05/2014 imaging/diag nostic result completed [facility] [address] , [place], [address], 12/06/2014 14:59:48 12/08/2014 imaging/diag nostic result completed brandi Information not available 12/08/2014 10:39:06 Procedure Notes None recorded. Medical Equipment None Reported. Allergies Allergen ID Allergen Name Allergen Category Reaction Reaction Severity Criticality Documentation Date Start Date Code Code System Note Provider Name and Address Organization Details Recorded Time Substance with sulfonami de structure and antibacte rial mechanism of action (substanc e) medicatio n Not available Not available Not available 12/08/2014 [id number] [id number] SNOMED JAZLYN Malik [facility] 10:32:11 Medications Name Sig Start Date Stop Date Status Note LastModified by Organization Details LastModified Time doxycycline hyclate 100 mg capsule active Not Available Not Available Not Available lisinopril 20 mg-hydrochloro thiazide 12.5 mg tablet active Not Available Not Available No t Available hydrocodone 5 mg-acetaminoph en 325 mg tablet active Not Available Not Available Not Available atenolol 25 mg tablet active Not Available Not Available Not Available oxycodone-acet aminophen 5 mg-325 mg tablet active Not Available Not Available Not Available tamsulosin 0.4 mg capsule active Not Available Not Available N ot Available erythromycin 5 mg/gram (0.5 %) eye ointment active Not Available Not Available Not Available metformin 1,000 mg tablet active Not Available Not Available Not Available finasteride 5 mg tablet active Not Available Not Available No t Available Microlet Lancet active Not Available Not Available Not Available tobramycin 0.3 %-dexamethason e 0.1 % eye drops,suspensi on active Not Available Not Available Not Available alfuzosin ER 10 mg tablet,extende d release 24 hr active Not Available Not Available Not Available Fish Oil active Not Available Not Avai lable Not Available multivitamin active Not Available Not Available Not Available blood pressure test kit-large cuff active Not Available Not Available Not Available Contour Next Test Strips active Not Available Not Available Not Available Fluarix Quad (PF) 60 mcg (15 mcg x 4)/0.5 mL IM syringe active Not Available Not Available Not Available Vitals Date Recorded Heart rate Systolic blood pressure Diastolic blood pressure Provider Name and Address Organization Details Last Updated DateTime 12/08/2014 72 /min 113 mm[Hg] 75 mm[Hg] Milagros HOBSON [facility] 12/08/2014 10:37:14 Social History Question Answer Notes LastModified by Organization D etails LastModified Time What Is Your Level Of Alcohol Consumption? None [id number] Information not available 02/28/2020 Marital Status _5 Informatio n not available 10/02/2020 How Much Tobacco Do You Smoke? No [id number] Information not available 02/28/2020 Sex: Unknown Functional Status None recorded. Mental Status None recorded. Family History Relationship Description Onset Age of this Age Resolved Age Notes Father Cerebrovascular accident 89 Mother Dementia 93 Medical History Condition Response Head Trauma/Injury Y Arthritis Y Headaches Y Gerd Y Ulcers Y High Cholestrol Y Neuropathy Y Tremors Y Diabetes Y Memory Loss Y Hypertension Y Past Encounters Encounter ID Performer Location Encounter Start Date Encounter Closed Date Diagnosis/Indication Diagnosis SNOMED-CT Code [id number] [address] [address] 12/08/2014 10:29:29 12/08/2014 11:20:16 Postconcussion syndrome 16893770 Dysequilib rium syndrome 500440747 Peripheral nerve disease 041417364 Health Concerns Section Related Observation LastModified by Organization Detai ls LastModified Time None Recorded Concern Status LastModified by Organization Details LastModified Time None Recorded Advance Directives Directive None Recorded Payers Encounter Date Sequence Insurance Name Policy Number Policy Londono Covered Member ID Londono Member ID Guarantor Name 12/08/2014 1 [place] Pritesh Funez [id number] Pritesh Funez 12/08/2014 2 [place] 105 Pritesh Funez [id number] Pritesh Funez Notes Date Note Type Note Provider Name and Address Organization Details Recorded Time 12/08/2014 text/html HPI Notes: The patient is a 74-year-old white male with a past medical history significant for peripheral neuropathy secondary to diabetes, C-spine stenosis, s/p C-spine surgery 1995, multiple cervical radiculopathies, and disequilibrium who apparently had a head injury November 18, 2014 when he fell backwards off a ladder. He hit the back of his head on the driveway and he was taken to [facility]. He had a scalp hematoma and had [address] He had a CT scan of the head showing no acute changes except for scalp hematoma. He also had a CT of the C-spine showing no acute fracture. The patient had a subsequent MRI of the brain showing no acute changes. It did show some microvascular white matter changes. Apparently this is not new and he has had this before on prior MRIs. The patient has been complaining of some mild headaches averaging up to 2/10 in intensity. He complains of balance difficulties, however this is not new and he has had this before. He does have a history of peripheral neuropathy and some neuromuscular disorder with slowly progressing weakness of unknown etiology for which she has been evaluated and followed by the [facility]. He comes in today for further evaluation of his head trauma, s/p fall. Winnie Vasquez MD [address] [place] [address] [place], [address], [facility] 12/08/2014 15:09:47
[2023-11-10 12:31] LABS: PSA Diagnostic* 0.14 ng/mL (0.10-4.00)
== END 2023-11-10 10:55 | disposition home or self-care (01) ==
PROVIDERS: Visit Provider Nurse Practitioner
DX: C61 Malignant neoplasm of prostate (principal)
CPT/HCPCS: 36415; 84153

== ENCOUNTER 2023-11-26 10:38 | Outpatient (RCR) | payer MEDICARE, BC, SELFPAY | END 2024-03-25 23:59 | disposition home or self-care (01) | PROVIDERS: PCP Orthopaedic Surgery Sports Medicine; Visit Provider Orthopaedic Surgery Sports Medicine | DX: R26.89 Other abnormalities of gait and mobility (principal); Z51.89 Encounter for other specified aftercare ==

== ENCOUNTER 2024-02-26 10:57 | Outpatient (RCR) | payer SELFPAY | END 2025-02-24 23:59 | disposition home or self-care (01) | LOC: MOW 10:57 | PROVIDERS: PCP Internal Medicine; Visit Provider Internal Medicine | DX: Z76.0 Encounter for issue of repeat prescription (principal) | CPT/HCPCS: S5170 ==